=== PATIENT | female | born 1990 | race Caucasian/White ===

== ENCOUNTER 2020-10-30 21:02 | Emergency (ER) | payer MEDICARE, MEDICAID, SELFPAY ==
[2020-10-30 21:16] VITALS: BP 146/109; PULSE 124; RESP 20; TEMP 37.1; O2SAT 94; BMI 34.9
--- NOTE | 2020-10-30 21:45 | ED.PSYCH ---
HPI - Psych General Chief Complaint: ETOH/Substance Use Stated Complaint: DETOX Time Seen by Provider: 10/30/20 21:44 Source: patient Mode of arrival: ambulatory Limitations: no limitations History of Present Illness HPI Narrative: Patient was using cocaine since age 13 with history of anxiety and depression never been to detox comes here for the help. Patient denies any suicidal ideation. Patient did use cocaine just prior to arrival, feels very anxious. Related Data Previous Rx's Medication Instructions Recorded lisinopril 10 1 tab PO DAILY #90 tab 08/27/20 mg-hydrochlorothiazide 12.5 mg tablet fluoxetine 20 mg capsule 20 mg PO DAILY #30 cap 10/15/20 hydroxyzine HCl 10 mg tablet [id number] mg PO BEDTIME PRN #60 tab 10/15/20 Allergies Allergy/AdvReac Type Severity Reaction Status Date / Time No Known Allergies Allergy Verified 09/28/20 07:33 [No Known Allergies*] Review of Systems Review of Systems: Yes all other systems are reviewed and are negative [facility] Past Medical History Medical History HTN (hypertension) Insomnia Left elbow fracture Obesity (BMI 30-39.9) Substance abuse Surgical History History of bilateral breast reduction surgery History of D&C History of tonsillectomy History of tubal ligation S/P excision of neuroma Family History Family History Father Asthma Mother Hypertension Maternal Grandmother Hypertension Asthma Stroke Maternal Grandfather Diabetes Hypertension Stroke Sister In good health Sister Asthma Son In good health Daughter In good health Maternal Aunt Breast cancer Social History Social History Alcohol intake: never Smoking Status: Current every day smoker Use of substances other than those prescribed or required for medical reasons: Yes Substance Use Type: Crack/Cocaine Last Used Substance: Just Prior to Admission Advance Directives: No Advance Directives Information Provided: Yes Physical Exam Vital Signs: Vital Signs: Last Vital Signs Temp 98.8 F 10/30/20 21:16 Pulse 122 H 10/30/20 22:34 Resp 20 10/30/20 22:34 BP 146/109 H 10/30/20 21:16 Pulse Ox 99 10/30/20 22:34 Body Mass Index 34.9 Appearance: Alert. Oriented X3. No acute distress. Anxious Eyes: Pupils equal, round and reactive to light. ENT: Pharynx normal. Neck: Normal inspection. Neck supple. CVS: Normal heart rate and rhythm. Pulses normal. Respiratory: No respiratory distress. Breath sounds normal. Abdomen: Soft and nontender. Bowel sounds are present, no mass palpable, no CVA tenderness Skin: Skin warm and dry. Normal skin color. Normal skin turgor. Extremities: No lower extremity edema. Neuro: Oriented X 3. No motor deficit. No sensory deficit. Course Course Course Narrative: Patient refused to stay longer for any help care team was consulted but patient left without getting any help instructions to call detox places were given to the patient Discharge Plan Discharge Clinical Impression: Cocaine abuse Patient Disposition: Home, Self-Care Instructions: Cocaine Abuse (ED) Additional Instructions: Follow-up with detox as advised Prescriptions: No Action lisinopril-hydrochlorothiazide 10-12.5 mg tablet 1 tab PO DAILY Qty: 90 RF: 1 hydroxyzine HCl 10 mg tablet [id number] mg PO BEDTIME PRN (Reason: for insomnia) Qty: 60 RF: 3 fluoxetine 20 mg capsule 20 mg PO DAILY Qty: 30 RF: 3 Interventions: ED Discharge Assessment Last Done: 10/30/20 22:45 Discharge Date/Time: 10/30/20 22:47
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
[2020-10-30 22:34] VITALS: PULSE 122; RESP 20; O2SAT 99
--- NOTE | 2020-10-30 22:44 | PC.NURSE ---
patient got frustrated waiting for the care team and wanted to leave, patient left before getting her discharge paperwork.
--- NOTE | 2020-10-30 23:55 | MHC.CARE ---
CARE Team goes to ED to meet w/ pt. Per BARBARA Platt, pt has already left.
== END 2020-10-30 22:47 | disposition home or self-care (01) ==
PROVIDERS: Emergency Provider Internal Medicine; PCP Internal Medicine
DX: F14.10 Cocaine abuse, uncomplicated (principal); F41.9 Anxiety disorder, unspecified; I10 Essential (primary) hypertension
CPT/HCPCS: 99283; 99284

== ENCOUNTER 2020-10-31 07:09 | Emergency (ER) | payer MEDICARE, MEDICAID, SELFPAY ==
--- NOTE | 2020-10-31 07:24 | ED_ITS ---
HPI - Psych General Chief Complaint: ETOH/Substance Use Stated Complaint: crisis Time Seen by Provider: 10/31/20 07:16 Source: patient Mode of arrival: ambulatory Limitations: no limitations History of Present Illness HPI Narrative: Patient comes emergency room complaining of feeling suicidal, states that she needs help with her drug use. Patient states she has been using mushrooms and cocaine. Patient was seen here yesterday in the evening, decided to leave, patient went to use drugs and now she is back to the ED with the same complaint. Patient denies HI MD complaint: suicidal ideation, feels depressed, anxiety and substance abuse Related Data Home Medications Medication Instructions Recorded Confirmed hydroxyzine HCl 1 tab PO BEDTIME PRN 10/31/20 10/31/20 Previous Rx's Medication Instructions Recorded lisinopril 10 1 tab PO DAILY #90 tab 08/27/20 mg-hydrochlorothiazide 12.5 mg tablet fluoxetine 20 mg capsule 20 mg PO DAILY #30 cap 10/15/20 Allergies Allergy/AdvReac Type Severity Reaction Status Date / Time No Known Allergies Allergy Verified 09/28/20 07:33 [No Known Allergies*] Review of Systems Review of Systems: Constitutional : No Weight loss, No Fever, No Chills, No Night Sweats, No Fatigue, No Malaise ENT/Mouth : No Hearing loss, No Ear Pain, No Nasal Congestion, No Sinus Pain, No Hoarseness, No sore throat, No Rhinorrhea, No Swallowing Difficulty Eyes: No Eye Pain, No Swelling, No Redness, No Foreign Body, No Discharge, No Vision Changes Cardiovascular : No Chest Pain, No SOB, No Dyspnea on Exertion, No Orthopnea, No Edema, No Palpitations Respiratory : No Cough, No Sputum, No Wheezing, No Smoke Exposure, No Dyspnea Gastrointestinal : No Nausea, No Vomiting, No Diarrhea, No Constipation, No abdominal Pain, No Hematochezia, No Melena Genitourinary : no irregular bleeding, No Dysuria, No Urinary Frequency, No Hematuria, No Urinary Incontinence, No Urgency, No Flank Pain, No Urinary Flow Changes, No Hesitancy Musculoskeletal : No joint pain, No Myalgias, No Joint Swelling Skin : No Skin Lesions, No rash Neuro : No Weakness, No Numbness, No Paresthesias, No Loss of Consciousness, No Dizziness, No Headache Psych : Complaining of anxiety, depression, suicidal thoughts, Heme/Lymph: No Bruising, No Bleeding,No Lymphadenopathy Endocrine : No Polyuria, No Polydipsia, No Temperature Intolerance [facility] Past Medical History Medical History HTN (hypertension) Insomnia Left elbow fracture Obesity (BMI 30-39.9) Substance abuse Surgical History History of bilateral breast reduction surgery History of D&C History of tonsillectomy History of tubal ligation S/P excision of neuroma Family History Family History Father Asthma Mother Hypertension Maternal Grandmother Hypertension Asthma Stroke Maternal Grandfather Diabetes Hypertension Stroke Sister In good health Sister Asthma Son In good health Daughter In good health Maternal Aunt Breast cancer Social History Social History Alcohol intake: unknown Smoking Status: Current every day smoker Smoked in Last 30 Days: Yes Use of substances other than those prescribed or required for medical reasons: Yes Substance Use Type: Crack/Cocaine and Hallucinogens Last Used Substance: Hours (ago) Advance Directives: No Advance Directives Information Provided: No Physical Exam Vital Signs: Vital Signs: Last Vital Signs Temp 97.0 F 10/31/20 07:52 Pulse 104 H 10/31/20 07:52 Resp 18 10/31/20 07:52 BP 153/99 H 10/31/20 07:52 Pulse Ox 97 10/31/20 07:52 Appearance: Alert. Oriented X3. No acute distress. Eyes: Pupils equal, round and reactive to light. ENT: Pharynx normal. Neck: Normal inspection. Neck supple. No lymph nodes noted. No crepitus CVS: Normal heart rate and rhythm. Pulses normal. Normal S1 and S2 Respiratory: No respiratory distress. Breath sounds normal. No Wheezing. No rales Abdomen: Soft and nontender. No rigidity. No distention. good BS x4 Skin: Skin warm and dry. Normal skin color. Normal skin turgor. Extremities: No lower extremity edema. No lower extremity edema. No Lacerations. No Rash Neuro: Oriented X 3. No motor deficit. No sensory deficit. Moving all extermities. No slurred speech. Psych: Unwilling to talk much, not giving significant information, states that she was to be locked up, seems anxious Course Course Course Narrative: [facility]. Patient is now a bed search and is Section 12 Discharge Plan Discharge Clinical Impression: Substance abuse, Suicidal ideation Prescriptions: No Action lisinopril-hydrochlorothiazide 10-12.5 mg tablet 1 tab PO DAILY Qty: 90 RF: 1 fluoxetine 20 mg capsule 20 mg PO DAILY Qty: 30 RF: 3 hydroxyzine HCl 10 mg tablet 1 tab PO BEDTIME PRN (Reason: insomnia) RF: 0
--- NOTE | 2020-10-31 07:45 | PC.NURSE ---
Pt cooperative with manager change. PT reports that she used mushrooms and cocaine a few hours ago. PT states she is depressed and wants to kill herself, denies plan at this time.
[2020-10-31 07:52] VITALS: BP 153/99; PULSE 104; RESP 18; TEMP 36.1; O2SAT 97
--- NOTE | 2020-10-31 10:26 | PC.NURSE ---
[facility] faxed and called, confirmed with tiffani
--- NOTE | 2020-10-31 10:58 | PC.NURSE ---
Pt sleeping at current. No signs of distress. Respirations even and unlabored. Waiting to be seen by [facility].
--- NOTE | 2020-10-31 12:21 | PC.NURSE ---
Pt reports increasing anxiety, tremulous. Drinks about a pint of Dayna daily. Last drank before she came in. CIWA score is a 12. Dr. Taylor notified.
[2020-10-31 12:23] VITALS: BP 118/59; PULSE 84; RESP 18; TEMP 36.4; O2SAT 100
[2020-10-31] MEDS: LORazepam 1 MG TABLET 2 MG PO ×3 (12:26→19:59)
[2020-10-31 12:30] VITALS: BMI 34.9
[2020-10-31 12:49] LABS: Glucose Urine UA NEG (NEG); Leukocyte Esterase Urine NEG (NEG); Nitrite Urine NEG (NEG); Specific Gravity - Urine >= 1.030 (1.005-1.025); Urine Blood 3+ (NEG); Urine Ketones 5 MG/DL (NEG); Urine Protein 1+ MG/DL (NEG-TRACE)
[2020-10-31 12:52] LABS: MANUAL DIFF FLAG NO
[2020-10-31 12:53] LABS: Basophils Absolute Auto 0.1 X10*3/uL (0.0-0.2); Basophils Percent Auto 0.4 % (0-2); Eosinophils Absolute Auto 0.3 X10*3/uL (0.0-0.4); Eosinophils Percent Auto 1.9 % (0-4); Hematocrit 36.9 % (37-47); Hemoglobin 12.3 g/dl (12.0-16.0); Imm Gran Abs Auto 0.04 X10*3/uL (0.00-0.03); Imm Gran Pct Auto 0.3 % (0.0-0.4); Lymphocytes Absolute Auto 3.1 X10*3/uL (1.2-4.9); Lymphocytes Percent Auto 22.8 % (20-40); Mean Corpuscular HGB Conc 33.3 g/dl (31.0-35.0); Mean Corpuscular Hemoglobin 30.1 pg (27.0-33.0); Mean Corpuscular Volume 90.4 fL (80-98); Mean Platelet Volume 9.2 fL (9.4-12.3); Monocytes Absolute Auto 0.6 X10*3/uL (0.1-1.2); Monocytes Percent Auto 4.4 % (2-11); Neutrophils Absolute Auto 9.6 X10*3/uL (2.0-8.3); Neutrophils Percent Auto 70.2 % (45-73); Platelet Count 425 X10*3/uL (160-400); Red Blood Count 4.08 X10*6/uL (4.20-5.50); White Blood Count 13.6 X10*3/uL (4.8-10.8)
[2020-10-31 12:58] LABS: Appearance Urine HAZY; Color Urine DARK YELLOW
--- NOTE | 2020-10-31 13:00 | PC.NURSE ---
Pt in the shower at current. No longer tremulous. Calm and cooperative.
[2020-10-31 13:16] LABS: Bacteria Urine TRACE /LPF; Mucus Urine 3+ /LPF; Squamous Epithelial Cell Urine 2+ /LPF
[2020-10-31 13:31] LABS: Amphetamine Screen Urine Not Detected (Not Detect); Barbiturates, Urine Not Detected (Not Detect); Benzodiazepines Screen Urine POSITIVE (Not Detect); Cannabinoid Screen Urine Not Detected (Not Detect); Cocaine Screen Urine POSITIVE (Not Detect); Opiate Screen Urine Not Detected (Not Detect); Phencyclidine Screen Urine Not Detected (Not Detect)
[2020-10-31 13:36] VITALS: BP 149/90; PULSE 105; RESP 18
[2020-10-31 13:39] LABS: Ethanol < 10 mg/dL
[2020-10-31 13:43] LABS: Alanine Aminotransferase 42 U/L (0-31); Albumin Level 4.6 g/dL (3.5-5.0); Alkaline Phosphatase 112 U/L (39-117); Anion Gap 16 (12-20); Aspartate Amino Transferase 38 U/L (5-31); Bilirubin Direct 0.3 mg/dL (0.0-0.5); Bilirubin Total 0.7 mg/dL (0.0-1.0); Blood Urea Nitrogen 10 mg/dL (9-16); Calcium 8.7 mg/dL (8.4-10.2); Carbon Dioxide 25 mmol/L (22-29); Chloride 106 mmol/L (96-108); Creatinine Clr Calc Pharmacy 122.4; Estimated Glomerular Filt Rate > 60; Glucose Random 84 mg/dL (60-115); Potassium 3.8 mmol/L (3.3-5.1); Sodium 143 mmol/L (135-145); Total Protein 7.6 g/dL (6.5-8.0)
--- NOTE | 2020-10-31 15:08 | PC.NURSE ---
Pt asleep at current. No signs of distress. Respirations even and unlabored. Continues to be a section 12 bed search.
--- NOTE | 2020-10-31 17:00 | PC.NURSE ---
Pt asleep at current. No signs of distress. Respirations even and unlabored.
[2020-10-31 17:05] VITALS: BP 125/89; PULSE 89; RESP 18; O2SAT 100
--- NOTE | 2020-10-31 18:44 | PC.NURSE ---
Pt on the phone at current. Calm, cooperative. No complaints at this time.
[2020-10-31 19:49] VITALS: BP 149/92; PULSE 89; RESP 18; O2SAT 98
--- NOTE | 2020-10-31 23:25 | PC.NURSE ---
pt sleeping rr even and reg no s/s of distress.
[2020-11-01 06:00] VITALS: BP 122/89; PULSE 80; RESP 18; TEMP 36.8; O2SAT 97
--- NOTE | 2020-11-01 07:03 | PC.NURSE ---
Report received. PT currently resting, calm and cooperative. Pt is inpatient bedsearch.
[2020-11-01] MEDS: LORazepam 1 MG TABLET PO (08:54)
[2020-11-01] MEDS: FLUoxetine HCl 20 MG CAPSULE PO (08:54)
[2020-11-01 09:17] VITALS: BP 149/96; PULSE 110; RESP 18; TEMP 36.8; O2SAT 97
[2020-11-01] MEDS: LORazepam 1 MG TABLET 2 MG PO ×2 (09:44→14:11)
[2020-11-01 14:17] LABS: COVID-19 Test Negative (Negative)
[2020-11-01] MEDS: QUEtiapine Fumarate 50 MG TABLET PO (15:44)
[2020-11-01 18:33] VITALS: RESP 16
[2020-11-01] MEDS: hydrOXYzine HCL 50 MG TABLET PO (19:34)
--- NOTE | 2020-11-01 23:30 | PC.NURSE ---
section 12 found to be invalid, no date/time/signature. 12 was filled out by [facility] clinician yesterday. this policy writer called and confirmed section 12 status with [facility] supervisor mill Hesham. new section 12 signed and dated for 11/01/20 at 2320 by Karolyn AGUSTIN.
[2020-11-02] VITALS (9 sets, daily range): BP systolic 142–168; BP diastolic 69–96; PULSE 69–83; RESP 15–20; TEMP 36.3–37.1; O2SAT 95–99
--- NOTE | 2020-11-02 06:43 | PC.NURSE ---
pt had no incidents through out night. monitored with no acute change.
[2020-11-02] MEDS: FLUoxetine HCl 20 MG CAPSULE PO (08:53)
[2020-11-02] MEDS: LORazepam 1 MG TABLET 2 MG PO ×3 (08:56→22:40)
--- NOTE | 2020-11-02 09:47 | PC.NURSE ---
Pt increasingly anxious, demanding to leave. Pt irritable about loudness in the pod. Pt denies SI. Provider aware, pt medicated as ordered.
[2020-11-02] MEDS: QUEtiapine Fumarate 25 MG TABLET PO (10:51)
--- NOTE | 2020-11-02 11:37 | PC.NURSE ---
Pt resting, resp unlabored.
--- NOTE | 2020-11-02 13:55 | PC.NURSE ---
Pt awake, continues to be very angry that she is in the pod, requesting to be evaluated by [facility]. [facility] called in AM, state that they will not be seeing pt until after bed search is exhausted. Pt anxious, pacing, states that Ativan was not helpful. Provider aware, seroquel given- pt rested for some time. When she awoke, pt continued to be anxious about placement. [facility] called, stated she has been accepted to [facility]. Pt notified, is very pleased, like [facility]. Pt educated re: inpatient process.
--- NOTE | 2020-11-02 16:10 | PC.NURSE ---
Pt resting, resp unlabored.
--- NOTE | 2020-11-02 17:22 | PC.NURSE ---
[facility] called- state they will accept pt at 2300 and will call for report.
--- NOTE | 2020-11-02 17:45 | PC.NURSE ---
PATIENT REFUSED VITALS ,NURSE AWARE.
--- NOTE | 2020-11-02 18:02 | PC.NURSE ---
Pt irritable, declined vital signs, pt angry that [facility] will not be accepting until 2300. Attempted to completed CIWA but pt uncooperative. Pt medicated for increased anxiety, irritability.
[2020-11-02] MEDS: hydrOXYzine HCL 10 MG TABLET PO (19:38)
--- NOTE | 2020-11-02 20:53 | PC.NURSE ---
Patient seems restless, pacing, on phone few times, repeatedly asking when is she is leaving, patient showered, PRN hydroxyzine administered/compliant. no distress reported, [facility] called, wants report at 2230 because they have staffing issues, patient is scheduled to leave at 2200 but was rescheduled at 2300 per [facility]. will continue to monitor.
--- NOTE | 2020-11-02 22:42 | PC.NURSE ---
[facility] called, spoke with Tawanna, completed the RN to RN report, patient reported anxiety and her mood aggravating, provider notified/ordered Ativan 2 mg/administered as ordered, will continue to monitor.
== END 2020-11-02 23:11 ==
PROVIDERS: Physician Assistant; Emergency Provider Emergency Medicine; PCP Internal Medicine
DX: F19.10 Other psychoactive substance abuse, uncomplicated (principal); F14.10 Cocaine abuse, uncomplicated; R45.851 Suicidal ideations; Z20.822 Contact with and (suspected) exposure to COVID-19; R00.0 Tachycardia, unspecified; F32.9 Major depressive disorder, single episode, unspecified; F41.9 Anxiety disorder, unspecified; I10 Essential (primary) hypertension; F17.200 Nicotine dependence, unspecified, uncomplicated; Z79.899 Other long term (current) drug therapy
CPT/HCPCS: 36415; 80048; 80076; 80307; 80320; 81001; 85025; 87635; 99285

== ENCOUNTER 2021-04-06 13:21 | Outpatient (REF) | payer MEDICARE, MEDICAID, SELFPAY ==
[2021-04-06 14:10] LABS: MANUAL DIFF FLAG NO
[2021-04-06 14:23] LABS: Basophils Percent Auto 0.3 % (0-2); Eosinophils Absolute Auto 0.4 X10*3/uL (0.0-0.4); Eosinophils Percent Auto 3.6 % (0-4); Hemoglobin 12.1 g/dl (12.0-16.0); Imm Gran Abs Auto 0.05 X10*3/uL (0.00-0.03); Imm Gran Pct Auto 0.4 % (0.0-0.4); Lymphocytes Absolute Auto 2.5 X10*3/uL (1.2-4.9); Lymphocytes Percent Auto 20.6 % (20-40); Mean Corpuscular HGB Conc 32.7 g/dl (31.0-35.0); Mean Corpuscular Hemoglobin 29.9 pg (27.0-33.0); Mean Corpuscular Volume 91.4 fL (80-98); Monocytes Absolute Auto 0.7 X10*3/uL (0.1-1.2); Monocytes Percent Auto 5.5 % (2-11); Neutrophils Absolute Auto 8.5 X10*3/uL (2.0-8.3); Neutrophils Percent Auto 69.6 % (45-73); Platelet Count 355 X10*3/uL (160-400); Red Blood Count 4.05 X10*6/uL (4.20-5.50); Red Cell Distribution Width 14.1 % (11.0-16.0); White Blood Count 12.2 X10*3/uL (4.8-10.8)
[2021-04-06 14:52] LABS: Alanine Aminotransferase 45 U/L (0-31); Albumin Level 4.4 g/dL (3.5-5.0); Alkaline Phosphatase 89 U/L (39-117); Anion Gap 13 (12-20); Aspartate Amino Transferase 34 U/L (5-31); Bilirubin Total 0.4 mg/dL (0.0-1.0); Blood Urea Nitrogen 11 mg/dL (9-16); Calcium 9.4 mg/dL (8.4-10.2); Carbon Dioxide 25 mmol/L (22-29); Chloride 106 mmol/L (96-108); Cholesterol 212 mg/dL; Estimated Glomerular Filt Rate > 60; Glucose Random 99 mg/dL (60-115); HDL Cholesterol 36 mg/dL; LDL Cholesterol Calculated 141 mg/dl; Potassium 4.5 mmol/L (3.3-5.1); Sodium 139 mmol/L (135-145); Total Protein 7.1 g/dL (6.5-8.0); Triglycerides 178 mg/dL
[2021-04-06 15:14] LABS: Thyroid Stimulating Hormone 2.37 uIU/mL (0.32-4.0)
== END 2021-04-06 13:22 | disposition home or self-care (01) ==
LOC: HO.LAB 13:21
PROVIDERS: PCP Internal Medicine; Visit Provider Internal Medicine
DX: I10 Essential (primary) hypertension (principal); E78.00 Pure hypercholesterolemia, unspecified; E78.1 Pure hyperglyceridemia
CPT/HCPCS: 36415; 80053; 80061; 84443; 85025

== ENCOUNTER → 2021-06-24 08:38 | Outpatient (BNVA) | payer MEDICARE, MEDICAID, SELFPAY | PROVIDERS: PCP Physician Assistant; Referring Provider Physician Assistant; Visit Provider Physician Assistant Surgical ==

== ENCOUNTER → 2021-06-30 08:20 | Outpatient (BNVA) | payer MEDICARE, MEDICAID, SELFPAY | PROVIDERS: PCP Physician Assistant; Visit Provider Surgery | DX: E66.9 Obesity, unspecified (principal); E78.1 Pure hyperglyceridemia; F33.0 Major depressive disorder, recurrent, mild; R74.8 Abnormal levels of other serum enzymes; I10 Essential (primary) hypertension; Z68.38 Body mass index [BMI] 38.0-38.9, adult | CPT/HCPCS: Q3014 ==

== ENCOUNTER 2021-07-06 08:45 | Outpatient (REF) | payer MEDICARE, MEDICAID, SELFPAY ==
--- NOTE | ~2021-07-06 | XR_ITS ---
EXAMINATION: XR CHEST CLINICAL INFORMATION: Obesity COMPARISON: Previous chest x-ray from 2007 TECHNIQUE: 2 views of the chest were obtained. FINDINGS: No significant abnormality is noted involving the heart, lungs, mediastinum, bony thorax or soft tissues. XR/XR chest 2V IMPRESSION: Unremarkable examination.
--- NOTE | 2021-07-06 08:51 | ECG_ITS ---
Test Reason : obesity Blood Pressure : / mmHG Vent. Rate : 075 BPM Atrial Rate : 075 BPM P-R Int : 128 ms QRS Dur : 094 ms QT Int : 400 ms P-R-T Axes : 017 009 014 degrees QTc Int : 446 ms Normal sinus rhythm Minimal voltage criteria for LVH, may be normal variant ( R in aVL ) RSR' or QR pattern in V1 suggests right ventricular conduction delay Otherwise normal ECG No previous ECGs available Referred By: Parish Lerma Electronically Signed By:HANNAH RUIZ MD
[2021-07-06 09:15] LABS: MANUAL DIFF FLAG NO
[2021-07-06 09:45] LABS: Estimated Average Glucose 111 mg/dL; Hemoglobin A1c % 5.5 %
[2021-07-06 09:52] LABS: Basophils Absolute Auto 0.1 X10*3/uL (0.0-0.2); Basophils Percent Auto 0.4 % (0-2); Eosinophils Absolute Auto 0.3 X10*3/uL (0.0-0.4); Eosinophils Percent Auto 2.4 % (0-4); Hematocrit 37.6 % (37.0-47.0); Hemoglobin 12.7 g/dl (12.0-16.0); Imm Gran Abs Auto 0.04 X10*3/uL (0.00-0.03); Imm Gran Pct Auto 0.3 % (0.0-0.4); Lymphocytes Percent Auto 17.5 % (20-40); Mean Corpuscular HGB Conc 33.8 g/dl (31.0-35.0); Mean Corpuscular Hemoglobin 30.8 pg (27.0-33.0); Mean Platelet Volume 9.9 fL (9.4-12.3); Monocytes Absolute Auto 0.7 X10*3/uL (0.1-1.2); Neutrophils Absolute Auto 8.5 x10*3/uL (2.0-8.3); Neutrophils Percent Auto 73.4 % (45-73); Platelet Count 343 X10*3/uL (160-400); Red Blood Count 4.13 X10*6/uL (4.20-5.50); Red Cell Distribution Width 13.7 % (11.0-16.0); White Blood Count 11.6 X10*3/uL (4.8-10.8)
[2021-07-06 10:03] LABS: Alanine Aminotransferase 38 U/L (0-31); Albumin Level 4.4 g/dL (3.5-5.0); Alkaline Phosphatase 92 U/L (39-117); Anion Gap 11 (12-20); Aspartate Amino Transferase 28 U/L (5-31); Bilirubin Total 0.6 mg/dL (0.0-1.0); Blood Urea Nitrogen 10 mg/dL (9-16); C Reactive Protein 1.39 mg/dL (< or = 0.50); Calcium 9.4 mg/dL (8.4-10.2); Carbon Dioxide 25 mmol/L (22-29); Chloride 105 mmol/L (96-108); Cholesterol 211 mg/dL; Estimated Glomerular Filt Rate > 60; Glucose Random 89 mg/dL (60-115); HDL Cholesterol 38 mg/dL; Iron 75 mcg/dL (30-160); LDL Cholesterol Calculated 146 mg/dl; Percent Iron Saturation 20 % (15-50); Potassium 4.4 mmol/L (3.3-5.1); Sodium 137 mmol/L (135-145); Total Iron Binding Capacity 371 mcg/dL (228-428); Total Protein 7.2 g/dL (6.5-8.0); Triglycerides 136 mg/dL; Unsaturated Iron Binding 296 ug/dL
[2021-07-06 10:30] LABS: Insulin 47 uU/mL (2-29)
[2021-07-06 10:36] LABS: Folate 15.8 ng/mL (> or = 4.0); Vitamin B12 641 pg/mL (200-900)
[2021-07-06 10:37] LABS: Ferritin 133 ng/mL (10-122); TSH reflex Free T4 2.25 uIU/mL (0.32-4.0); Vitamin D 25-OH Total 16.4 ng/mL (>30)
[2021-07-07 16:41] LABS: Calcium (PTHI) 9.5 mg/dL (8.6-10.2); PTHI 57 pg/mL (14-64)
[2021-07-11 11:41] LABS: Vitamin B1 9 nmol/L (8-30)
[2021-07-11 16:57] LABS: Vitamin A 48 mcg/dL (38-98)
[2021-07-13 14:57] LABS: Zinc 71 mcg/dL (60-130)
== END 2021-07-06 08:46 | disposition home or self-care (01) ==
LOC: HO.LAB 08:45
PROVIDERS: Visit Provider Surgery
DX: E66.9 Obesity, unspecified (principal); E78.1 Pure hyperglyceridemia; F33.0 Major depressive disorder, recurrent, mild; I10 Essential (primary) hypertension; R74.8 Abnormal levels of other serum enzymes; Z68.38 Body mass index [BMI] 38.0-38.9, adult
CPT/HCPCS: 36415; 71046; 80053; 80061; 82306; 82607; 82728; 82746; 83036; 83525; 83540; 83970; 84425; 84443; 84590; 84630; 85025; 86140; 93005

== ENCOUNTER → 2021-07-09 08:07 | Outpatient (BNVA) | payer MEDICARE, MEDICAID, SELFPAY | PROVIDERS: PCP Physician Assistant; Visit Provider Dietitian, Registered | DX: E66.9 Obesity, unspecified (principal) | CPT/HCPCS: 97802 ==

== ENCOUNTER → 2021-07-26 08:15 | Outpatient (BNVA) | payer MEDICARE, MEDICAID, SELFPAY | PROVIDERS: PCP Physician Assistant; Visit Provider Surgery ==

== ENCOUNTER → 2021-09-03 07:24 | Outpatient (BNVA) | payer MEDICARE, MEDICAID, SELFPAY | PROVIDERS: PCP Physician Assistant; Visit Provider Surgery ==

== ENCOUNTER 2021-11-29 13:44 | Outpatient (REF) | payer MEDICARE, MEDICAID, SELFPAY ==
--- NOTE | ~2021-11-29 | XR_ITS ---
EXAMINATION: XR ABDOMEN COMPLETE CLINICAL INDICATION: Abdominal distention COMPARISON: None TECHNIQUE: 2 views of the abdomen. FINDINGS: There is a nonobstructive bowel gas pattern. No dilated loops of bowel. The lung bases are clear. Scattered gas and stool in the colon. No suspicious calcification. XR/XR abdomen 3V IMPRESSION: Normal bowel gas pattern.
[2021-11-29 14:25] LABS: Hematocrit 33.9 % (37.0-47.0); Hemoglobin 11.4 g/dl (12.0-16.0); Mean Corpuscular HGB Conc 33.6 g/dl (31.0-35.0); Mean Corpuscular Hemoglobin 30.4 pg (27.0-33.0); Mean Corpuscular Volume 90.4 fL (80.0-98.0); Mean Platelet Volume 10.5 fL (9.4-12.3); Platelet Count 170 X10*3/uL (160-400); Red Blood Count 3.75 X10*6/uL (4.20-5.50); Red Cell Distribution Width 13.6 % (11.0-16.0); White Blood Count 4.9 X10*3/uL (4.8-10.8)
[2021-11-29 14:47] LABS: Alanine Aminotransferase 59 U/L (0-31); Albumin Level 4.1 g/dL (3.5-5.0); Alkaline Phosphatase 75 U/L (39-117); Anion Gap 10 (12-20); Aspartate Amino Transferase 50 U/L (5-31); Bilirubin Direct 0.2 mg/dL (0.0-0.5); Bilirubin Total 0.6 mg/dL (0.0-1.0); Blood Urea Nitrogen 12 mg/dL (9-16); C Reactive Protein 2.71 mg/dL (< or = 0.50); Calcium 9.5 mg/dL (8.4-10.2); Carbon Dioxide 27 mmol/L (22-29); Chloride 107 mmol/L (96-108); Estimated Glomerular Filt Rate > 60; Glucose Random 93 mg/dL (60-115); Potassium 4.2 mmol/L (3.3-5.1); Sodium 140 mmol/L (135-145)
[2021-11-29 15:14] LABS: Erythrocyte Sedimentation Rate 16 MM/HR (0-20)
== END 2021-11-29 13:45 | disposition home or self-care (01) ==
LOC: HO.LAB 13:44
PROVIDERS: PCP Physician Assistant; Visit Provider Physician Assistant
DX: R14.0 Abdominal distension (gaseous) (principal); K62.5 Hemorrhage of anus and rectum
CPT/HCPCS: 36415; 74021; 80048; 80076; 85027; 85652; 86140

== ENCOUNTER 2021-12-07 15:07 | Inpatient (IN) | payer MEDICARE, MEDICAID, SELFPAY ==
--- NOTE | ~2021-12-07 | XR_ITS ---
EXAMINATION: XR CHEST CLINICAL INFORMATION: Chest pain COMPARISON: Previous chest x-ray June 2021 TECHNIQUE: Frontal view of the chest was obtained. FINDINGS: No significant abnormality is noted involving the heart, lungs, mediastinum, bony thorax or soft tissues. XR/XR chest 1V IMPRESSION: Unremarkable examination.
--- NOTE | ~2021-12-07 | MR_ITS ---
EXAMINATION: MR ABDOMEN WITHOUT AND WITH CONTRAST CLINICAL INFORMATION: Nonspecific 1.8 cm round lesion subcapsular segment 5 liver noted on CTA chest (negative for PE). COMPARISON: CTA chest 12/07/2021, chest radiograph 12/07/2021 TECHNIQUE: MR abdomen was performed without and with use of 10 mL intravenous Gadavist gadolinium contrast. Postcontrast images are performed in multiphase dynamic sequences. Imaging was performed in 3 planes. FINDINGS: LUNG BASES: The visualized lung bases are unremarkable. LIVER, GALLBLADDER, AND BILIARY TREE: The liver is enlarged measuring 25 cm in length. The liver surface is smooth. There is diffuse hepatic steatosis with decreased hepatic parenchymal signal on out of phase imaging. There is no intrahepatic ductal dilatation. There is a solitary subcapsular lesion lateral segment 5 measuring approximately 1.6 cm and corresponding to finding on CTA chest. The lesion is isointense with liver on T1 and isointense with liver on T2. There is no intracellular fat, no blood products, and no central scar. Following contrast, the solitary lesion shows relatively uniform enhancement with persistence on portal venous phase and delayed phase, greater than hepatic parenchyma. No central scar. No washout. There are no other hepatic parenchymal lesions. The hepatic veins and portal veins enhance normally. The gallbladder appears normal. There is no gallbladder dilatation. No stone or sludge or pericholecystic inflammatory changes. Common duct unremarkable. PANCREAS: Unremarkable. SPLEEN: The spleen is enlarged measuring 15.3 cm in length and 15 cm in sagittal plane. There are 3 wedge-shaped nonenhancing infarcts in the spleen, 2 upper zone, the larger around 3 cm and 1 in lower spleen around 2.5 cm. The remainder of the spleen enhances normally. There is no perisplenic inflammatory changes. In retrospect, splenic infarcts are also suggested on the CTA chest of similar size. The splenic artery and splenic vein are unremarkable, showing normal enhancement. ADRENAL GLANDS: Normal. KIDNEYS AND URETERS: The kidneys are normal in size, shape, and enhance symmetrically. No hydronephrosis. No perinephric stranding. GASTROINTESTINAL TRACT: No bowel obstruction. No ascites or fluid collection. ABDOMINAL WALL: No significant hernia is appreciated. LYMPH NODES: No lymphadenopathy. VASCULAR: Unremarkable. OSSEOUS STRUCTURES: Marrow signal normal. Results called and discussed with Dr. Hennessy at 1643 hours. MR/MR abdomen wo/w con IMPRESSION: -Hepatomegaly secondary to hepatic steatosis, 25 cm length. -Solitary hepatic lesion just under 2 cm corresponding to CTA exam, suspect hepatic adenoma. FNH less likely in the absence of central scar and flash filling hemangioma less likely given the T2 isointense signal. This could be followed with MR in one year. -Splenomegaly 15.3 cm with 3 splenic infarcts of indeterminate age. No perisplenic inflammatory changes or ascites. Normal enhancement splenic artery and vein.
--- NOTE | ~2021-12-07 | CT_ITS ---
EXAMINATION: CTA CHEST PE STUDY CLINICAL INFORMATION: chest pain and elevated D-dimer COMPARISON: No pertinent prior studies are available for comparison. TECHNIQUE: Prior to contrast administration, noncontrast localization images were obtained. After the administration of 71 mL of Omnipaque nonionic IV contrast, contiguous thin slice helical images were obtained through the thorax. Reformatted MIP images in the coronal and sagittal planes were obtained at the acquisition workstation. This CT examination was performed using dose optimization techniques as appropriate, variously including the following: *Automated exposure control *Adjustment of mA and/or kV according to patient size (this includes techniques or standardized protocols for targeted exams where dose is matched to indication/reason for exam; i.e. extremities or head) *Use of iterative reconstruction technique DLP: 604 mGy-cm. FINDINGS: The bolus timing on this study was acceptable for visualization of the pulmonary arterial tree. There are no intraluminal pulmonary arterial filling defects present to suggest pulmonary embolism. Minimal dependent bibasilar atelectasis but no focal airspace disease otherwise. No abnormal pulmonary nodules or masses are appreciated. No significant hilar or mediastinal adenopathy. There is no evidence of pleural effusion or pneumothorax. The heart is normal in size. No evidence of ventricular septal bowing or right heart strain. Great vessels are normal. Otherwise the mediastinum is unremarkable. There is no pericardial effusion or pericardial thickening. Limited evaluation of the upper abdominal viscera demonstrates diffuse fatty infiltration the liver there is a 1.8 cm nonspecific lesion in the lateral right lobe the liver. This is of uncertain significance and difficult to define further on this study. This is likely conspicuous because of background fatty infiltration otherwise.. CT/CT angio chest PE protocol IMPRESSION: No evidence for pulmonary emboli. No focal airspace disease. Diffuse fatty infiltration of the liver is noted. There is a subtle 1.8 cm round lesion in the lateral segment 5 the liver likely able to be delineated today due to the background fatty infiltration of the liver otherwise. This is more rounded than would be expected just for focal fatty infiltration. Underlying lesion cannot be excluded. Hemangioma, focal nodular hyperplasia, or hepatic adenoma would be possible in a patient of this age. MRI of the liver in the nonemergent setting could be obtained to define this further. VTE: Negative
[2021-12-07 15:22] VITALS: BP 98/71; PULSE 110; O2SAT 98
[2021-12-07 15:24] VITALS: BP 138/85; PULSE 109; RESP 20; TEMP 37.4; O2SAT 93; BMI 40.8
--- NOTE | 2021-12-07 15:58 | ECG_ITS ---
Test Reason : Chest pain Blood Pressure : / mmHG Vent. Rate : 107 BPM Atrial Rate : 107 BPM P-R Int : 136 ms QRS Dur : 090 ms QT Int : 332 ms P-R-T Axes : 049 028 014 degrees QTc Int : 443 ms Sinus tachycardia Otherwise normal ECG When compared with ECG of 06-JUL-2021 08:59, No significant change was found Referred By: Bereket Terrell Electronically Signed By:Antonio Black
--- NOTE | 2021-12-07 16:00 | ED.CHESTPAIN ---
HPI - Chest Pain General Chief Complaint: Chest Pain Stated Complaint: chest pain Time Seen by Provider: 12/07/21 15:57 Source: patient and EMS Mode of arrival: EMS Limitations: no limitations History of Present Illness HPI narrative: 31 years old female came in for evaluation of chest pain. chest pain started 2 hours ago before arrival to the emergency department patient was driving her car when she had a sudden onset of left-sided chest pain lasted for less than a minute described the pain as pressure on the left side, with no radiation of the pain in a patient felt right upper extremities numbness with the chest pain, pain resolved after 1 minute, patient pulled over and called 911 to come to the hospital, on arrival to the ED patient has no chest pain just feeling generalized weakness and fatigue. Patient had a history of cocaine abuse patient has been sober for a year. patient admitted that she is currently drinking alcohol. Patient declined any neurological symptoms or deficit in particular no headache, dizziness, weakness, numbness, or blurry vision. Related Data Home Medications Medication Instructions Recorded Confirmed aripiprazole 10 mg tablet 1 tab PO DAILY 12/07/21 12/07/21 buspirone 7.5 mg tablet 1 tab PO TID 12/07/21 12/07/21 cholecalciferol (vitamin D3) 125 1 tab PO DAILY 12/07/21 12/07/21 mcg (5,000 unit) tablet (Vitamin D3) mirtazapine 7.5 mg tablet 1 tab PO BEDTIME 12/07/21 12/07/21 Previous Rx's Medication Instructions Recorded fluticasone propionate 50 1 spray INTRANASAL BID #16 g 09/23/21 mcg/actuation nasal spray,suspension (Flonase Allergy Relief) Allergies Allergy/AdvReac Type Severity Reaction Status Date / Time No Known Allergies Allergy Verified 09/23/21 14:28 [No Known Allergies*] Review of Systems Review of Systems: All other systems are reviewed and are negative Constitutional: Reports as per HPI and Reports no additional constitutional complaints Eyes: Reports as per HPI and Reports no additional eye complaints Reports system reviewed and no additional complaints, except as documented Cardiovascular: Reports as per HPI and Reports no additional cardiovascular complaints Respiratory: Reports as per HPI and Reports no additional respiratory complaints Gastrointestinal: Reports as per HPI and Reports no additional gastrointestinal complaints Genitourinary: Reports no additional female genitourinary complaints Musculoskeletal: Reports no additional musculoskeletal complaints Skin/Breast: Reports system reviewed and no additional complaints, except as docu Psychiatric: Reports no additional psychiatric complaints Endocrine: Reports no additional endocrine complaints Hematologic/Lymphatic: Reports no additional hematologic/lymphatic complaints Allergic/Immunologic: Reports no additional allergic/immunologic complaints Reports system reviewed and no additional complaints, except as documented and Reports Abnormal speech present FOR[facility] Past Medical History Medical History HTN (hypertension) Insomnia Left elbow fracture Obesity (BMI 30-39.9) Substance abuse Surgical History History of bilateral breast reduction surgery History of D&C History of tonsillectomy History of tubal ligation S/P excision of neuroma Family History Family History Father Asthma Mother Hypertension Maternal Grandmother Hypertension Asthma Stroke Maternal Grandfather Diabetes Hypertension Stroke Sister In good health Sister Asthma Son In good health Daughter In good health Maternal Aunt Breast cancer Social History Social History Housing: Apartment Alcohol intake: never Patient Tobacco Use Status: Former Tobacco user Advance Directives: No Advance Directives Information Provided: No Current occupational status: unemployed Physical Exam Vital Signs: Vital Signs: Last Vital Signs Temp 99.3 F 12/07/21 15:24 Pulse 109 H 12/07/21 15:24 Resp 20 12/07/21 15:24 BP 138/85 12/07/21 15:24 Pulse Ox 93 12/07/21 15:24 BMI result Body Mass Index 40.8 vital signs have been reviewed as appeared to be correct. Blood pressure normal. Heart rate elevated. Respiration rate normal. Temperature normal. Oxygen saturation normal. Appearance: Alert. Oriented X3. No acute distress. Head: Normal external exam. Normocephalic. Atraumatic. No Johnson signs noted. No raccoon eyes noted Eyes: PERRLA. EOMI. Conjunctiva and sclera normal. Eyelids normal. ENT: TM's Normal. Pharynx normal. Uvula midline. Moist mucous membranes. No trismus noted. No drooling noted. No muffled voice noted. Neck: Normal inspection. Neck supple. FROM. No adenopathy. Thyroid Normal. No meningeal signs. No neck mass noted. CVS: Normal heart rate and rhythm. Heart sound normal. No murmurs noted. Pulses normal throughout. Respiratory: No respiratory distress. Painless inspiration. Breath sounds normal. No wheezes/rales/rhonchi noted. Chest nontender. No accessory muscle usage noted or decreased air movement noted. Abdomen: Soft and nontender. Bowel sounds normal in all 4 quadrants. No distention noted. No organomegaly noted. No visible injury noted. Back: No CVA tenderness. Full range of motion noted. Skin: Skin warm and dry. Normal skin color. Normal skin turgor. No rashes/lesions/lacerations noted. Extremities: No lower extremity edema. Extremities exhibit normal range of motion. Extremities nontender. Neuro: Oriented X 3. Cranial nerve exam: II-XII are grossly intact No motor deficit. No sensory deficit. Reflexes normal. Course Course Course Narrative: Assessment and plan. 31-year-old female came in with left-sided chest pain, patient has HEART score of 1, 2nd troponin still pending will be checked at 21:00 by . Elevated D-dimer patient got CT of the chest showed no PE, but incidental 1.8 cm round lesion on the liver that is concern and need further evaluation especially in light of elevated LFTs. Given patient age and above finding will admit the patient for further liver mass evaluation. MDM - Chest Pain Medical Records Data Attestation: I reviewed the patient's medical records. Lab Data Attestation: I reviewed the patient's lab results. Result diagrams: 12/07/21 17:54 12/07/21 17:54 Labs: Lab Results 12/07/21 12/07/21 12/07/21 Range/Units 17:54 17:54 17:54 WBC 11.5 H (4.8-10.8) X10*3/uL RBC 3.81 L (4.20-5.50) X10*6/uL Hgb 11.4 L (12.0-16.0) g/dl Hct 33.9 L (37.0-47.0) % MCV 89.0 (80.0-98.0) fL MCH 29.9 (27.0-33.0) pg MCHC 33.6 (31.0-35.0) g/dl RDW 14.1 (11.0-16.0) % Plt Count 208 (160-400) X10*3/uL MPV 10.2 (9.4-12.3) fL Immature Gran % (Auto) 0.5 H (0.0-0.4) % Neut % (Auto) 37.9 L (45-73) % Lymph % (Auto) 56.1 H (20-40) % [place] % (Auto) 4.3 (2-11) % Eos % (Auto) 0.9 (0-4) % Baso % (Auto) 0.3 (0-2) % Lymph # (Auto) 6.5 H (1.2-4.9) X10*3/uL [place] # (Auto) 0.5 (0.1-1.2) X10*3/uL Eos # (Auto) 0.1 (0.0-0.4) X10*3/uL Baso # (Auto) 0.0 (0.0-0.2) X10*3/uL Abs Immat Gran (auto) 0.06 H (0.00-0.03) X10*3/uL Absolute Neuts (auto) 4.4 (2.0-8.3) x10*3/uL Absolute Nucleated RBC 0.000 (0.0-0.012) X10*3/uL Nucleated RBC % (auto) 0.0 (0.0-0.2) /100WBC D-Dimer High Sensitivty 2470 NG/ML Sodium 137 (135-145) mmol/L Potassium 3.7 (3.3-5.1) mmol/L Chloride 102 (96-108) mmol/L Carbon Dioxide 25 (22-29) mmol/L Anion Gap 14 (12-20) BUN 12 (9-16) mg/dL Creatinine 0.66 (0.5-1.4) mg/dL Estim Creat Clear Calc 140.3 Estimated GFR > 60 Random Glucose 101 (60-115) mg/dL Calcium 8.9 D (8.4-10.2) mg/dL Total Bilirubin 0.6 (0.0-1.0) mg/dL Direct Bilirubin 0.2 (0.0-0.5) mg/dL AST 109 H (5-31) U/L ALT 134 H (0-31) U/L Alkaline Phosphatase 119 H D (39-117) U/L Troponin I High Sens (<3.5-17.0) ng/L B-Natriuretic Peptide (<100) pg/mL Total Protein 7.1 (6.5-8.0) g/dL Albumin 3.6 (3.5-5.0) g/dL Lipase 18 (8-78) U/L Urine Color Urine Appearance Urine pH (5.0-8.0) Ur Specific [place] (1.005-1.025) Urine Protein (NEG-TRACE) MG/DL Urine Glucose (UA) (NEG) MG/DL Urine Ketones (NEG) MG/DL Urine Blood (NEG) Urine Nitrite (NEG) Ur Leukocyte Esterase (NEG) Urine Test (NEGATIVE) 12/07/21 12/07/21 12/07/21 Range/Units 17:54 19:26 19:26 WBC (4.8-10.8) X10*3/uL RBC (4.20-5.50) X10*6/uL Hgb (12.0-16.0) g/dl Hct (37.0-47.0) % MCV (80.0-98.0) fL MCH (27.0-33.0) pg MCHC (31.0-35.0) g/dl RDW (11.0-16.0) % Plt Count (160-400) X10*3/uL MPV (9.4-12.3) fL Immature Gran % (Auto) (0.0-0.4) % Neut % (Auto) (45-73) % Lymph % (Auto) (20-40) % [place] % (Auto) (2-11) % Eos % (Auto) (0-4) % Baso % (Auto) (0-2) % Lymph # (Auto) (1.2-4.9) X10*3/uL [place] # (Auto) (0.1-1.2) X10*3/uL Eos # (Auto) (0.0-0.4) X10*3/uL Baso # (Auto) (0.0-0.2) X10*3/uL Abs Immat Gran (auto) (0.00-0.03) X10*3/uL Absolute Neuts (auto) (2.0-8.3) x10*3/uL Absolute Nucleated RBC (0.0-0.012) X10*3/uL Nucleated RBC % (auto) (0.0-0.2) /100WBC D-Dimer High Sensitivty NG/ML Sodium (135-145) mmol/L Potassium (3.3-5.1) mmol/L Chloride (96-108) mmol/L Carbon Dioxide (22-29) mmol/L Anion Gap (12-20) BUN (9-16) mg/dL Creatinine (0.5-1.4) mg/dL Estim Creat Clear Calc Estimated GFR Random Glucose (60-115) mg/dL Calcium (8.4-10.2) mg/dL Total Bilirubin (0.0-1.0) mg/dL Direct Bilirubin (0.0-0.5) mg/dL AST (5-31) U/L ALT (0-31) U/L Alkaline Phosphatase (39-117) U/L Troponin I High Sens 8.1 (<3.5-17.0) ng/L B-Natriuretic Peptide < 10 (<100) pg/mL Total Protein (6.5-8.0) g/dL Albumin (3.5-5.0) g/dL Lipase (8-78) U/L Urine Color YELLOW Urine Appearance CLEAR Urine pH 6.0 (5.0-8.0) Ur Specific [place] 1.025 (1.005-1.025) Urine Protein NEG (NEG-TRACE) MG/DL Urine Glucose (UA) NEG (NEG) MG/DL Urine Ketones NEG (NEG) MG/DL Urine Blood NEG (NEG) Urine Nitrite NEG (NEG) Ur Leukocyte Esterase NEG (NEG) Urine Test NEGATIVE (NEGATIVE) Imaging Data CTA chest: Attestation: I personally reviewed and interpreted this imaging study as follows: Radiologist's impression: 1. Focal encephalomalacia in the medial right frontal parietal lobe. There is ex vacuo dilatation of the frontal horn of the right lateral ventricle. Findings suggest old infarct is likely etiology. This can be further assessed with MRI. 2. No intracranial hemorrhage or mass effect. ECG Data ECG #1: Attestation: I personally reviewed and interpreted this ECG as follows: Interpretation: sinus tachycardia at 107 beats per minutes, normal axis deviation, normal intervals. Discharge Plan Discharge Clinical Impression: Liver mass, Chest pain, Elevated liver function tests Patient Disposition: Admitted As Inpatient Prescriptions: No Action cholecalciferol (vitamin D3) 125 mcg (5,000 unit) capsule 125 mcg PO DAILY Qty: 30 2RF (DME) blood pressure test kit-large Kit See Rx Instructions .Route Qty: 1 0RF Rx Instructions: As directed amoxicillin-pot clavulanate 875-125 mg tablet 1 tab PO BID Qty: 14 0RF erythromycin 5 mg/gram (0.5 %) ointment 1 appl ophthalmic (eye) DAILY Qty: 3.5 0RF fluticasone propionate [Flonase Allergy Relief] 50 mcg/actuation spray,suspension 1 spray intranasal BID Qty: 16 0RF Rx Instructions: administer into each nostril
[2021-12-07] MEDS: 0.9 % Sodium Chloride 1,000 ML 999 ML IV (17:39)
[2021-12-07 17:59] LABS: MANUAL DIFF FLAG NO
[2021-12-07 18:02] LABS: Basophils Percent Auto 0.3 % (0-2); Eosinophils Absolute Auto 0.1 X10*3/uL (0.0-0.4); Eosinophils Percent Auto 0.9 % (0-4); Hematocrit 33.9 % (37.0-47.0); Hemoglobin 11.4 g/dl (12.0-16.0); Imm Gran Abs Auto 0.06 X10*3/uL (0.00-0.03); Imm Gran Pct Auto 0.5 % (0.0-0.4); Lymphocytes Percent Auto 56.1 % (20-40); Mean Corpuscular HGB Conc 33.6 g/dl (31.0-35.0); Mean Corpuscular Hemoglobin 29.9 pg (27.0-33.0); Mean Platelet Volume 10.2 fL (9.4-12.3); Monocytes Absolute Auto 0.5 X10*3/uL (0.1-1.2); Monocytes Percent Auto 4.3 % (2-11); Neutrophils Absolute Auto 4.4 x10*3/uL (2.0-8.3); Neutrophils Percent Auto 37.9 % (45-73); Platelet Count 208 X10*3/uL (160-400); Red Blood Count 3.81 X10*6/uL (4.20-5.50); Red Cell Distribution Width 14.1 % (11.0-16.0); SCAN SMEAR FLAG 1; White Blood Count 11.5 X10*3/uL (4.8-10.8)
[2021-12-07 18:09] LABS: D Dimer High Sensitivity 2470 NG/ML
[2021-12-07 18:21] LABS: Lymphocytes Absolute Auto 6.5 X10*3/uL (1.2-4.9)
[2021-12-07 18:22] LABS: B Type Natriuretic Peptide < 10 pg/mL (<100); Troponin-I High Sensitivity 8.1 ng/L (<3.5-17.0)
[2021-12-07 18:37] LABS: Alanine Aminotransferase 134 U/L (0-31); Albumin Level 3.6 g/dL (3.5-5.0); Alkaline Phosphatase 119 U/L (39-117); Anion Gap 14 (12-20); Aspartate Amino Transferase 109 U/L (5-31); Bilirubin Direct 0.2 mg/dL (0.0-0.5); Bilirubin Total 0.6 mg/dL (0.0-1.0); Blood Urea Nitrogen 12 mg/dL (9-16); Calcium 8.9 mg/dL (8.4-10.2); Carbon Dioxide 25 mmol/L (22-29); Chloride 102 mmol/L (96-108); Creatinine Clr Calc Pharmacy 140.3; Estimated Glomerular Filt Rate > 60; Glucose Random 101 mg/dL (60-115); Lipase 18 U/L (8-78); Potassium 3.7 mmol/L (3.3-5.1); Sodium 137 mmol/L (135-145); Total Protein 7.1 g/dL (6.5-8.0)
[2021-12-07] MEDS: iohexoL 350 MG/ML 100 ML INFUS..BTL IV (19:08)
[2021-12-07 19:34] LABS: Appearance Urine CLEAR; Color Urine YELLOW; Glucose Urine UA NEG (NEG); Leukocyte Esterase Urine NEG (NEG); Nitrite Urine NEG (NEG); Specific Gravity - Urine 1.025 (1.005-1.025); Urine Blood NEG (NEG); Urine Ketones NEG (NEG); Urine Protein NEG (NEG-TRACE)
[2021-12-07 19:37] LABS: UPreg QC Valid YES; Urine Pregnancy NEGATIVE (NEGATIVE)
[2021-12-07 21:21] LABS: Troponin-I High Sensitivity 10.5 ng/L (<3.5-17.0)
--- NOTE | 2021-12-07 23:11 | PM.IMHP ---
History of Present Illness Date of Service: 12/07/21 Chief Complaint: Chest pain 31-year-old female with a past medical history of hypertension, hyperlipidemia, history of cocaine abuse-resultant CVA with left-sided hemiparesis which significantly improved almost normal, obesity, fatty liver, hypertriglyceridemia, major depressive disorder, history of GI bleed presented to the hospital today with a chief complaint of chest pain. Patient reported that she was driving car and suddenly felt pain in her chest, nonradiating, no associated lightheadedness dizziness nausea vomiting or diaphoresis; pressure-like in nature; hence decided to come to the ER for further evaluation. Denies any abdominal pain nausea vomiting or diarrhea. Denies any change in appetite or weight loss. Denies any concerns were foot poisoning. Review of all other systems is negative except mentioned above Patient reported her chest pain resolved the time of my interview. ER course: Per ER team patient noted to have elevated D-dimer; CT chest with PE protocol showed no evidence of pulmonary embolism; but noted to have findings concerning for liver mass; on labs noted to have elevated LFTs. Troponins negative. EKG nonischemic. Admitted to the hospital for further management. [facility] Medical History HTN (hypertension) Insomnia Left elbow fracture Obesity (BMI 30-39.9) Substance abuse Family History Father Asthma Mother Hypertension Maternal Grandmother Hypertension Asthma Stroke Maternal Grandfather Diabetes Hypertension Stroke Sister In good health Sister Asthma Son In good health Daughter In good health Maternal Aunt Breast cancer Surgical History History of bilateral breast reduction surgery History of D&C History of tonsillectomy History of tubal ligation S/P excision of neuroma Social History Housing: Apartment Alcohol intake: never Patient Tobacco Use Status: Former Tobacco user Advance Directives: No Advance Directives Information Provided: No Current occupational status: unemployed Meds Allergies Allergy/AdvReac Type Severity Reaction Status Date / Time No Known Allergies Allergy Verified 09/23/21 14:28 [No Known Allergies*] Home Medications Medication Instructions Recorded Confirmed Last Taken Type aripiprazole 10 mg tablet 1 tab PO DAILY 12/07/21 12/07/21 Unknown History buspirone 7.5 mg tablet 1 tab PO TID 12/07/21 12/07/21 Unknown History cholecalciferol (vitamin D3) 125 1 tab PO DAILY 12/07/21 12/07/21 Unknown History mcg (5,000 unit) tablet (Vitamin D3) mirtazapine 7.5 mg tablet 1 tab PO BEDTIME 12/07/21 12/07/21 Unknown History Physical Exam Vital Signs and Narrative: Vital Signs: Last Vital Signs Temp 99.3 F 12/07/21 15:24 Pulse 109 H 12/07/21 15:24 Resp 20 12/07/21 15:24 BP 138/85 12/07/21 15:24 Pulse Ox 93 12/07/21 15:24 BMI result Body Mass Index 40.8 Gen: Appears be in no acute distress; obese HEENT: NCAT, Moist mucosa. Pulmonary: Vesicular breath sounds, fair air entry CVS: Normal S1-S2 Abdomen: BS+, Soft, Nontender Extremities: Warm well perfused Neuro: Alert and awake. Results Labs CBC and Chem 7: 12/07/21 17:54 12/07/21 17:54 Labs: Laboratory Results - last 24 hr 12/07/21 12/07/21 12/07/21 17:54 17:54 17:54 MCV 89.0 MCH 29.9 MCHC 33.6 RDW 14.1 Plt Count 208 MPV 10.2 Immature Gran % (Auto) 0.5 H Neut % (Auto) 37.9 L Lymph % (Auto) 56.1 H [place] % (Auto) 4.3 Eos % (Auto) 0.9 Baso % (Auto) 0.3 Lymph # (Auto) 6.5 H [place] # (Auto) 0.5 Eos # (Auto) 0.1 Baso # (Auto) 0.0 Abs Immat Gran (auto) 0.06 H Absolute Neuts (auto) 4.4 Absolute Nucleated RBC 0.000 Nucleated RBC % (auto) 0.0 D-Dimer High Sensitivty 2470 Anion Gap 14 Estim Creat Clear Calc 140.3 Estimated GFR > 60 Random Glucose 101 Calcium 8.9 D Total Bilirubin 0.6 Direct Bilirubin 0.2 AST 109 H ALT 134 H Alkaline Phosphatase 119 H D Troponin I High Sens B-Natriuretic Peptide Total Protein 7.1 Albumin 3.6 Lipase 18 Urine Color Urine Appearance Urine pH Ur Specific [place] Urine Protein Urine Glucose (UA) Urine Ketones Urine Blood Urine Nitrite Ur Leukocyte Esterase Urine Test 12/07/21 12/07/21 12/07/21 17:54 19:26 19:26 MCV MCH MCHC RDW Plt Count MPV Immature Gran % (Auto) Neut % (Auto) Lymph % (Auto) [place] % (Auto) Eos % (Auto) Baso % (Auto) Lymph # (Auto) [place] # (Auto) Eos # (Auto) Baso # (Auto) Abs Immat Gran (auto) Absolute Neuts (auto) Absolute Nucleated RBC Nucleated RBC % (auto) D-Dimer High Sensitivty Anion Gap Estim Creat Clear Calc Estimated GFR Random Glucose Calcium Total Bilirubin Direct Bilirubin AST ALT Alkaline Phosphatase Troponin I High Sens 8.1 B-Natriuretic Peptide < 10 Total Protein Albumin Lipase Urine Color YELLOW Urine Appearance CLEAR Urine pH 6.0 Ur Specific [place] 1.025 Urine Protein NEG Urine Glucose (UA) NEG Urine Ketones NEG Urine Blood NEG Urine Nitrite NEG Ur Leukocyte Esterase NEG Urine Test NEGATIVE 12/07/21 20:57 MCV MCH MCHC RDW Plt Count MPV Immature Gran % (Auto) Neut % (Auto) Lymph % (Auto) [place] % (Auto) Eos % (Auto) Baso % (Auto) Lymph # (Auto) [place] # (Auto) Eos # (Auto) Baso # (Auto) Abs Immat Gran (auto) Absolute Neuts (auto) Absolute Nucleated RBC Nucleated RBC % (auto) D-Dimer High Sensitivty Anion Gap Estim Creat Clear Calc Estimated GFR Random Glucose Calcium Total Bilirubin Direct Bilirubin AST ALT Alkaline Phosphatase Troponin I High Sens 10.5 B-Natriuretic Peptide Total Protein Albumin Lipase Urine Color Urine Appearance Urine pH Ur Specific [place] Urine Protein Urine Glucose (UA) Urine Ketones Urine Blood Urine Nitrite Ur Leukocyte Esterase Urine Test Imaging Radiologist's Impressions: Impressions Chest X-Ray 12/07/21 16:07 IMPRESSION: Unremarkable examination. Chest CTA 12/07/21 19:10 IMPRESSION: No evidence for pulmonary emboli. No focal airspace disease. Diffuse fatty infiltration of the liver is noted. There is a subtle 1.8 cm round lesion in the lateral segment 5 the liver likely able to be delineated today due to the background fatty infiltration of the liver otherwise. This is more rounded than would be expected just for focal fatty infiltration. Underlying lesion cannot be excluded. Hemangioma, focal nodular hyperplasia, or hepatic adenoma would be possible in a patient of this age. MRI of the liver in the nonemergent setting could be obtained to define this further. VTE: Negative Assessment and Plan (1) Chest pain: Status: Acute (2) Liver mass: Status: Acute Plan 31-year-old female with a past medical history of hypertension, hyperlipidemia, history of cocaine abuse-resultant CVA with left-sided hemiparesis which significantly improved almost normal, obesity, fatty liver, hypertriglyceridemia, major depressive disorder, history of GI bleed presented to the hospital today with a chief complaint of chest pain. Noted to have following conditions Chest pain: Currently resolved. EKG nonischemic. Troponins x2 negative. CT chest negative for pulmonary embolism. Transaminitis: CT scan showed 1.8cm liver lesion. Will obtain acute hepatitis panel. Will also obtain MRI abdomen with liver protocol. Gastroenterology consult for further recommendations. Will also obtain AFP and CEA levels History of anxiety/depression: Continue home medications DVT prophylaxis: Lovenox Code status: Full code Quality Stroke Does the patient have a stroke diagnosis?: No VTE Prior VTE?: No VTE Risk Level:: Medical - moderate - high VTE Device Contraindication: Treatment Not Indicated VTE Drug Contraindication: N/A - Med Ordered
[2021-12-08 00:01] VITALS: BP 125/63; PULSE 107; RESP 26; O2SAT 93
[2021-12-08] MEDS: Melatonin 3 MG TABLET 6 MG PO (00:09)
[2021-12-08] MEDS: Enoxaparin Sodium 40 MG/0.4 ML SYRINGE SUBCUT (00:09)
[2021-12-08] MEDS: oxyCODONE HCl Immed Release 5 MG TABLET PO (00:47)
[2021-12-08 07:02] VITALS: BP 120/49; PULSE 89; RESP 14; TEMP 37.3; O2SAT 94
[2021-12-08 07:20] LABS: Basophils Absolute Auto 0.1 X10*3/uL (0.0-0.2); Basophils Percent Auto 0.6 % (0-2); Eosinophils Absolute Auto 0.1 X10*3/uL (0.0-0.4); Eosinophils Percent Auto 1.4 % (0-4); Hematocrit 32.1 % (37.0-47.0); Hemoglobin 10.6 g/dl (12.0-16.0); Imm Gran Abs Auto 0.05 X10*3/uL (0.00-0.03); Imm Gran Pct Auto 0.6 % (0.0-0.4); Lymphocytes Absolute Auto 5.3 X10*3/uL (1.2-4.9); Lymphocytes Percent Auto 59.8 % (20-40); MANUAL DIFF FLAG SCAN; Mean Corpuscular Hemoglobin 29.8 pg (27.0-33.0); Mean Corpuscular Volume 90.2 fL (80.0-98.0); Mean Platelet Volume 10.1 fL (9.4-12.3); Monocytes Absolute Auto 0.5 X10*3/uL (0.1-1.2); Monocytes Percent Auto 5.3 % (2-11); Neutrophils Absolute Auto 2.9 x10*3/uL (2.0-8.3); Neutrophils Percent Auto 32.3 % (45-73); Platelet Count 194 X10*3/uL (160-400); Red Blood Count 3.56 X10*6/uL (4.20-5.50); Red Cell Distribution Width 14.1 % (11.0-16.0); SCAN SMEAR FLAG 1; White Blood Count 8.8 X10*3/uL (4.8-10.8)
[2021-12-08 07:36] LABS: Alanine Aminotransferase 113 U/L (0-31); Albumin Level 3.3 g/dL (3.5-5.0); Alkaline Phosphatase 100 U/L (39-117); Aspartate Amino Transferase 81 U/L (5-31); Bilirubin Direct 0.2 mg/dL (0.0-0.5); Bilirubin Total 0.5 mg/dL (0.0-1.0); Total Protein 6.2 g/dL (6.5-8.0)
[2021-12-08 07:48] LABS: HBsAGNum1 0.18 S/CO (0.00-0.99); Hepatitis A Antibody IgM 0.17 Index (0-0.79); Hepatitis B Surface Antigen Negative (Negative); ~Hepatitis A Antibody IgM Nonreactive (Nonreactive); ~Hepatitis C Antibody Reactive (Nonreactive)
[2021-12-08 07:54] LABS: HBS Num1 15.78 mIU/mL (0-7.99); HBc Num1 0.08 S/CO (0.00-0.79); Hepatitis B Core Antibody Nonreactive (Nonreactive); ~Hepatitis B Surface Antibody REACTIVE (Nonreactive)
[2021-12-08] MEDS: busPIRone HCl 5 MG TABLET 7.5 MG PO ×2 (08:07→15:31)
[2021-12-08] MEDS: ARIPiprazole 10 MG TABLET PO (08:08)
[2021-12-08] MEDS: Cholecalciferol (Vitamin D3) 25 MCG TABLET 125 MCG PO (08:08)
[2021-12-08] MEDS: Fluticasone Propionate Nasal 16 GM SPRAY 1 SPRAY NOSTRIL-B (08:10)
[2021-12-08 08:11] VITALS: BP 122/76; PULSE 92; RESP 18; O2SAT 98
[2021-12-08 08:25] VITALS: BP 129/67; PULSE 82; RESP 25; TEMP 37; O2SAT 95
[2021-12-08 08:43] LABS: COVID-19 Test Negative (Negative)
[2021-12-08 09:54] LABS: SLIDE REVIEW VERIFIED
[2021-12-08] MEDS: LORazepam 2 MG/ML VIAL 0.5 MG IVPUSH (11:29)
[2021-12-08] MEDS: Butalb/Acetamin/Caff 50/325/40 TABLET 1 TAB PO (12:57)
[2021-12-08 15:29] VITALS: BP 152/82; PULSE 103; RESP 18; TEMP 37.1; O2SAT 100
[2021-12-08] MEDS: 0.9 % Sodium Chloride Flush 3 ML SYRINGE IVFLUSH (15:32)
--- NOTE | 2021-12-08 17:07 | PM.DS ---
DS: Providers Provider Date of Service: 12/08/21 Date of admission: 12/07/21 23:08 Primary care physician: Daniel Quezada PA-C Consults: 12/07/21 23:08 Consult to Gastroenterology Routine Consulting Provider: Cleo Huynh Reason for consultation: Liver lesion, transaminitis DS: Diagnosis Discharge Diagnosis (1) Chest pain: Status: Acute (2) Liver mass: Status: Acute DS: Summary Hospital Course Hospital Course: history of presenting illness Chief Complaint: Chest pain 31-year-old female with a past medical history of hypertension, hyperlipidemia, history of cocaine abuse-resultant CVA with left-sided hemiparesis which significantly improved almost normal, obesity, fatty liver, hypertriglyceridemia, major depressive disorder, history of GI bleed presented to the hospital today with a chief complaint of chest pain.? Patient reported that she was driving car and suddenly felt pain in her chest, nonradiating, no associated lightheadedness dizziness nausea vomiting or diaphoresis; pressure-like in nature; hence decided to come to the ER for further evaluation.? Denies any abdominal pain nausea vomiting or diarrhea.? Denies any change in appetite or weight loss.? Denies any concerns were foot poisoning.? Review of all other systems is negative except mentioned above Patient reported her chest pain resolved the time of my interview.? ER course: Per ER team patient noted to have elevated D-dimer; CT chest with PE protocol showed no evidence of pulmonary embolism; but noted to have findings concerning for liver mass; on labs noted to have elevated LFTs.? Troponins negative.? EKG nonischemic.? Admitted to the hospital for further management. Hospital course 31-year-old female patient with history of hypertension hyperlipidemia history of cocaine abuse with resultant CVA presented to [facility] with symptoms of left-sided upper chest pain, patient noted to have elevated D-dimer therefore CT chest with PE protocol was obtained that showed no PE but showed findings concerning for liver mass, labs showed elevated LFTs therefore admitted for further evaluation of liver mass in regard to chest pain that was resolved workup was negative including normal troponin and EKG, an abdominal MRI was obtained that showed solitary hepatic lesion under 2 cm a follow-up MRI in 1 year is recommended with differential diagnosis of hepatic adenoma question hemangioma, there was also 3 splenic infarctions of indeterminate age noted with no Jolly splenic inflammatory changes or ascites there was normal enhancement of splenic artery and vein, on further questioning patient she has had few days prior to presentation she did have left upper quadrant abdominal pain that has now resolved, since patient's symptoms were resolved, and there is no other treatment indicated patient is being discharged home with recommendation for outpatient follow-up with primary care physician and to repeat imaging studies in 1 year. Time Spent with Patient Time attestation: Total time spent providing and/or coordinating discharge services: Discharge coordination time: Greater than 30 minutes Quality: Safe Use of Opioids Does Pt have an Active Cancer Diagnosis on the Problem List?: No Quality: Stroke Does the patient have a stroke diagnosis?: No Physical Exam Vital Signs: Vital Signs: Last Vital Signs Temp 98.7 F 12/08/21 15:29 Pulse 103 H 12/08/21 15:29 Resp 18 12/08/21 15:29 BP 152/82 H 12/08/21 15:29 Pulse Ox 100 12/08/21 15:29 BMI result Body Mass Index 40.8 Const: Other: General awake alert,no acute distress. Neck supple no JVD. CVS regular rate rhythm, Respiratory lungs clear to auscultation, no respiratory distress Gastrointestinal abdomen soft, nontender, bowel sounds audible, no guarding , no rigidity. Extremities no edema. Skin no rash DS: Data Data Completed and Pending Labs on day of discharge: Laboratory Results - last 24 hr 12/07/21 12/07/21 12/07/21 17:54 17:54 17:54 WBC 11.5 H RBC 3.81 L Hgb 11.4 L Hct 33.9 L MCV 89.0 MCH 29.9 MCHC 33.6 RDW 14.1 Plt Count 208 MPV 10.2 Immature Gran % (Auto) 0.5 H Neut % (Auto) 37.9 L Lymph % (Auto) 56.1 H [place] % (Auto) 4.3 Eos % (Auto) 0.9 Baso % (Auto) 0.3 Lymph # (Auto) 6.5 H [place] # (Auto) 0.5 Eos # (Auto) 0.1 Baso # (Auto) 0.0 Abs Immat Gran (auto) 0.06 H Absolute Neuts (auto) 4.4 Absolute Nucleated RBC 0.000 Nucleated RBC % (auto) 0.0 Smear Tech's Comments D-Dimer High Sensitivty 2470 Sodium 137 Potassium 3.7 Chloride 102 Carbon Dioxide 25 Anion Gap 14 BUN 12 Creatinine 0.66 Estim Creat Clear Calc 140.3 Estimated GFR > 60 Random Glucose 101 Calcium 8.9 D Total Bilirubin 0.6 Direct Bilirubin 0.2 AST 109 H ALT 134 H Alkaline Phosphatase 119 H D Troponin I High Sens B-Natriuretic Peptide Total Protein 7.1 Albumin 3.6 Lipase 18 Carcinoembryonic Ag Urine Color Urine Appearance Urine pH Ur Specific [place] Urine Protein Urine Glucose (UA) Urine Ketones Urine Blood Urine Nitrite Ur Leukocyte Esterase Urine Test COVID-19 ([facility]) COVID-19 Clin Com Hepatitis A IgM Ab Hep Bs Antigen Hep Bs Antibody Hep B Core Total Ab Hepatitis C Ab (EIA) 12/07/21 12/07/21 12/07/21 17:54 19:26 19:26 WBC RBC Hgb Hct MCV MCH MCHC RDW Plt Count MPV Immature Gran % (Auto) Neut % (Auto) Lymph % (Auto) [place] % (Auto) Eos % (Auto) Baso % (Auto) Lymph # (Auto) [place] # (Auto) Eos # (Auto) Baso # (Auto) Abs Immat Gran (auto) Absolute Neuts (auto) Absolute Nucleated RBC Nucleated RBC % (auto) Smear Tech's Comments D-Dimer High Sensitivty Sodium Potassium Chloride Carbon Dioxide Anion Gap BUN Creatinine Estim Creat Clear Calc Estimated GFR Random Glucose Calcium Total Bilirubin Direct Bilirubin AST ALT Alkaline Phosphatase Troponin I High Sens 8.1 B-Natriuretic Peptide < 10 Total Protein Albumin Lipase Carcinoembryonic Ag Urine Color YELLOW Urine Appearance CLEAR Urine pH 6.0 Ur Specific [place] 1.025 Urine Protein NEG Urine Glucose (UA) NEG Urine Ketones NEG Urine Blood NEG Urine Nitrite NEG Ur Leukocyte Esterase NEG Urine Test NEGATIVE COVID-19 ([facility]) COVID-19 Clin Com Hepatitis A IgM Ab Hep Bs Antigen Hep Bs Antibody Hep B Core Total Ab Hepatitis C Ab (EIA) 12/07/21 12/08/21 12/08/21 20:57 06:58 06:58 WBC 8.8 RBC 3.56 L Hgb 10.6 L Hct 32.1 L MCV 90.2 MCH 29.8 MCHC 33.0 RDW 14.1 Plt Count 194 MPV 10.1 Immature Gran % (Auto) 0.6 H Neut % (Auto) 32.3 L Lymph % (Auto) 59.8 H [place] % (Auto) 5.3 Eos % (Auto) 1.4 Baso % (Auto) 0.6 Lymph # (Auto) 5.3 H [place] # (Auto) 0.5 Eos # (Auto) 0.1 Baso # (Auto) 0.1 Abs Immat Gran (auto) 0.05 H Absolute Neuts (auto) 2.9 Absolute Nucleated RBC 0.000 Nucleated RBC % (auto) 0.0 Smear Tech's Comments VERIFIED D-Dimer High Sensitivty Sodium Potassium Chloride Carbon Dioxide Anion Gap BUN Creatinine Estim Creat Clear Calc Estimated GFR Random Glucose Calcium Total Bilirubin 0.5 Direct Bilirubin 0.2 AST 81 H ALT 113 H Alkaline Phosphatase 100 Troponin I High Sens 10.5 B-Natriuretic Peptide Total Protein 6.2 L Albumin 3.3 L Lipase Carcinoembryonic Ag Urine Color Urine Appearance Urine pH Ur Specific [place] Urine Protein Urine Glucose (UA) Urine Ketones Urine Blood Urine Nitrite Ur Leukocyte Esterase Urine Test COVID-19 ([facility]) COVID-19 Clin Com Hepatitis A IgM Ab Hep Bs Antigen Hep Bs Antibody Hep B Core Total Ab Hepatitis C Ab (EIA) 12/08/21 12/08/21 12/08/21 06:58 06:58 08:23 WBC RBC Hgb Hct MCV MCH MCHC RDW Plt Count MPV Immature Gran % (Auto) Neut % (Auto) Lymph % (Auto) [place] % (Auto) Eos % (Auto) Baso % (Auto) Lymph # (Auto) [place] # (Auto) Eos # (Auto) Baso # (Auto) Abs Immat Gran (auto) Absolute Neuts (auto) Absolute Nucleated RBC Nucleated RBC % (auto) Smear Tech's Comments D-Dimer High Sensitivty Sodium Potassium Chloride Carbon Dioxide Anion Gap BUN Creatinine Estim Creat Clear Calc Estimated GFR Random Glucose Calcium Total Bilirubin Direct Bilirubin AST ALT Alkaline Phosphatase Troponin I High Sens B-Natriuretic Peptide Total Protein Albumin Lipase Carcinoembryonic Ag 3.10 Urine Color Urine Appearance Urine pH Ur Specific [place] Urine Protein Urine Glucose (UA) Urine Ketones Urine Blood Urine Nitrite Ur Leukocyte Esterase Urine Test COVID-19 ([facility]) Negative COVID-19 Clin Com See Note Hepatitis A IgM Ab Nonreactive Hep Bs Antigen Negative Hep Bs Antibody REACTIVE Hep B Core Total Ab Nonreactive Hepatitis C Ab (EIA) Reactive H Discharge Plan Discharge Patient Disposition: Home, Self-Care Discharge Diagnosis: atypical chest pain liver mass spleen infarction elevated LFTs Referrals: Daniel Quezada PA-C [Primary Care Provider] - 1 Week Discharge Medications: Continued buspirone 7.5 mg tablet 1 tab PO TID 0RF aripiprazole 10 mg tablet 1 tab PO DAILY 0RF mirtazapine 7.5 mg tablet 1 tab PO BEDTIME 0RF cholecalciferol (vitamin D3) [Vitamin D3] 125 mcg (5,000 unit) tablet 1 tab PO DAILY 0RF fluticasone propionate [Flonase Allergy Relief] 50 mcg/actuation spray,suspension 1 spray intranasal BID Qty: 16 0RF Rx Instructions: administer into each nostril Discharge Orders: Discharge Order (Routine); Ordered 12/08/21 Ordered By: Moe Hennessy Diet: advance to usual diet Activity on Discharge: As tolerated Stand Alone Forms: Patient Portal Discharge page Care Plan Goals: chest pain resolved noncardiac, elevated LFTs, avoid alcohol follow-up with gastroenterology Health Concerns: continue home medication Plan of Treatment: outpatient follow-up with Dr. Centeno, call to make appointment in 1-2 weeks for follow-up on liver abnormality and splenic infarction Assessment: per discharge summary Discharge Date/Time: 12/08/21 17:50
--- NOTE | 2021-12-08 18:25 | PM.GICN ---
History of Present Illness Data of Consult Service Date: 12/08/21 Requesting physician: Moe Hennessy Primary Care Provider: Daniel Quezada PA-C HPI Reason for consult: abn liver imaging 31-year-old female with a past medical history of hypertension, hyperlipidemia, history of cocaine abuse-resultant CVA with left-sided hemiparesis, obesity, fatty liver, hypertriglyceridemia, major depressive disorder, who I am seeing for assessment for abn liver imaging and and LFT. Patient initially presented with sudden onset 10/10 central chest pain without radiation and without any provocation, worsening or relieviieving factors and which lasted for about 1 minute. It felt similar to pain she had when she had a stroke in the past but she denies any neurological sx such as leg or arm weakness, numbness, slurred speech. No SOB, sputum or fever. No melena, no rectal bleeding, Not taking OCP. prior tox screens in past with cocaine but she denies using any drugs in past or now. Denies any alcohol for 1 yr She had labs with elevated AST, ALT and D-dimer, had CTA with diffuse hepatic steatosis and small lesion noted in liver, no PTE> Trop was negative Hep C serology was positive having been negative in the past. MRI doen today with appearances consistent with small adenoma < 2cm, no central scar or arterial enhnacement and washout also noted were splenic infarcts Review of Systems Review of Systems: Constitutional : No Weight loss, No Fever, No Chills ENT/Mouth : No sore throat, No Rhinorrhea Eyes: No Swelling, No Redness Cardiovascular : + Chest Pain, No SOB, No Edema Respiratory : No Cough, No Sputum, No Wheezing Gastrointestinal : see HPI Genitourinary : NO Dysuria, No Urinary Frequency, No Hematuria, No Urgency Musculoskeletal : No joint pain, No Myalgias, No Joint Swelling Skin : No Skin Lesions, No rash Neuro : No Weakness, No Numbness, No Dizziness, No Headache Psych : No Anxiety/Panic, No Depression Heme/Lymph: No Bruising, No Lymphadenopathy Endocrine : No Polyuria, No Polydipsia All other systems reviewed and are negative. [facility] Past Medical History Medical History (Updated 12/08/21 @ 12:49 by Janey Benitez RN) CVA (cerebral vascular accident) HTN (hypertension) Insomnia Left elbow fracture Obesity (BMI 30-39.9) Substance abuse Family History Family History Father Asthma Mother Hypertension Maternal Grandmother Hypertension Asthma Stroke Maternal Grandfather Diabetes Hypertension Stroke Sister In good health Sister Asthma Son In good health Daughter In good health Maternal Aunt Breast cancer Surgical History Surgical History History of bilateral breast reduction surgery History of D&C History of tonsillectomy History of tubal ligation S/P excision of neuroma Social History Social History Household Members: Children Housing: Apartment Do you presently have visiting nurse or other home services: No Alcohol intake: never Patient Tobacco Use Status: Former Tobacco user Use of substances other than those prescribed or required for medical reasons: No Have you been hit, kicked, punched, or otherwise hurt by someone within the past year? If so, by whom?: No Do you feel safe in your current relationship?: No Current Relationship Is there a partner from a previous relationship who is making you feel unsafe now?: No Are you made to feel afraid or neglected: No Gnosticist Healthcare Practices: yazidi Advance Directives: No Advance Directives Information Provided: No Do you have thoughts of harming others: None Do you have a plan to hurt others: No Plan Current occupational status: unemployed Meds Allergies Allergy/AdvReac Type Severity Reaction Status Date / Time No Known Allergies Allergy Verified 09/23/21 14:28 [No Known Allergies*] Home Medications Medication Instructions Recorded Confirmed Last Taken Type aripiprazole 10 mg tablet 1 tab PO DAILY 12/07/21 12/07/21 Unknown History buspirone 7.5 mg tablet 1 tab PO TID 12/07/21 12/07/21 Unknown History cholecalciferol (vitamin D3) 125 1 tab PO DAILY 12/07/21 12/07/21 Unknown History mcg (5,000 unit) tablet (Vitamin D3) mirtazapine 7.5 mg tablet 1 tab PO BEDTIME 12/07/21 12/07/21 Unknown History Physical Exam Vital Signs: Vital Signs: Last Vital Signs Temp 98.7 F 12/08/21 15:29 Pulse 103 H 04/13/22 15:29 Resp 18 12/08/21 15:29 BP 152/82 H 12/08/21 15:29 Pulse Ox 100 12/08/21 15:29 BMI result Body Mass Index 40.8 EXAM: GENERAL: The patient is well developed and nontoxic- obese VITAL SIGNS:see workflow HEENT: Nonicteric sclerae, PERRLA, EOMI. Oropharynx clear. Moist mucous membranes. Conjunctivae appear well perfused. No thyroid mass. CHEST: Chest wall is nontender. HEART: Regular rate and rhythm without murmurs. LUNGS: Clear to auscultation bilaterally. ABDOMEN: Soft, positive bowel sounds, nontender, no organomegaly.no flank tenderness SKIN: No rash, no excessive bruising, petechiae, or purpura. NEUROLOGIC: Cranial nerves II-XII intact without motor/sensory deficit. Psych-nml affect MS- no weakness, nml movt Extrem: General: Yes normal to inspection and Yes full ROM Results Labs CBC & Chem 7: 12/08/21 06:58 12/07/21 17:54 Labs: Short CBC 12/08/21 Range/Units 06:58 WBC 8.8 (4.8-10.8) X10*3/uL Hgb 10.6 L (12.0-16.0) g/dl Hct 32.1 L (37.0-47.0) % Plt Count 194 (160-400) X10*3/uL BMP 12/07/21 17:54 Sodium 137 Potassium 3.7 Chloride 102 Carbon Dioxide 25 BUN 12 Creatinine 0.66 Calcium 8.9 D Liver Function 12/07/21 12/08/21 Range/Units 17:54 06:58 Total Bilirubin 0.6 0.5 (0.0-1.0) mg/dL Direct Bilirubin 0.2 0.2 (0.0-0.5) mg/dL AST 109 H 81 H (5-31) U/L ALT 134 H 113 H (0-31) U/L Alkaline Phosphatase 119 H D 100 (39-117) U/L Albumin 3.6 3.3 L (3.5-5.0) g/dL Urine 12/07/21 Range/Units 19:26 Urine Color YELLOW Urine Appearance CLEAR Urine pH 6.0 (5.0-8.0) Ur Specific [place] 1.025 (1.005-1.025) Urine Protein NEG (NEG-TRACE) MG/DL Urine Glucose (UA) NEG (NEG) MG/DL Imaging MRI - abdomen: Attestation: I personally reviewed and interpreted this imaging study as follows: My impression: liver lesion, steatosis and splenic infarcts Assessment and Plan (1) Elevated liver enzymes: Status: Acute (2) Liver mass: Status: Acute Plan 1/ Recommend checking hep C PCR, if pos will need treatment, also check u tox for ongoing cocaine use 2/ MRI liver protocol with repeat imaging in 6 months 3/ Discuss with hematology about further w/u for splenic infarcts, in case needs anti coagulation and w/u for hyper coaguable state mary with prior hx of stroke, vs cocaine use 4/ longer term will need weight loss and address metabolic factors for her liver health, SHE SHOULD AVOID estrogen based contraception Procedures Date of Service Date of Service: 12/08/21
[2021-12-09 12:21] LABS: Alpha Fetoprotein 1.1 ng/mL
[2021-12-12 13:46] LABS: HCV Log PCR <1.18 NOT DETECTED Log IU/mL (NOT DETECTED); HepC Viral Load <15 NOT DETECTED IU/mL (NOT DETECTED)
== END 2021-12-08 17:50 | disposition home or self-care (01) | DRG 699 ==
LOC: HO.ED 20:53 → HO.EDOVER 23:17 → HO.S3 12-08 11:49
PROVIDERS: Admitting Provider Hospitalist; Emergency Provider Emergency Medicine; PCP Physician Assistant; Visit Provider Hospitalist
DX: N28.0 Ischemia and infarction of kidney (principal); I69.854 Hemiplegia and hemiparesis following other cerebrovascular disease affecting left non-dominant side; E85.4 Organ-limited amyloidosis; K77 Liver disorders in diseases classified elsewhere; Z68.41 Body mass index [BMI] 40.0-44.9, adult; F14.11 Cocaine abuse, in remission; F41.9 Anxiety disorder, unspecified; R16.0 Hepatomegaly, not elsewhere classified; E66.9 Obesity, unspecified; F32.9 Major depressive disorder, single episode, unspecified; K76.0 Fatty (change of) liver, not elsewhere classified; B19.20 Unspecified viral hepatitis C without hepatic coma; E78.1 Pure hyperglyceridemia; Z20.822 Contact with and (suspected) exposure to COVID-19; Z87.891 Personal history of nicotine dependence; Z79.51 Long term (current) use of inhaled steroids; Z79.899 Other long term (current) drug therapy
CPT/HCPCS: 36415; 71045; 71275; 74183; 80048; 80076; 81003; 81025; 82105; 82378; 83690; 83880; 84484; 85025; 85379; 86704; 86706; 86709; 86803; 87340; 87522; 87635; 93005; 96360; 99285; A9585; J1650; J2060; Q9967

== ENCOUNTER 2022-04-13 15:05 | Outpatient (REF) | payer MEDICARE, MEDICAID, SELFPAY ==
[2022-04-13 17:46] LABS: Syphilis Screen Nonreactive (Nonreactive); Thyroid Stimulating Hormone 2.33 uIU/mL (0.32-4.0)
[2022-04-14 05:35] LABS: HIV AB/AG Nonreactive (Nonreactive); HIV Num 1 0.06 S/CO (0.00-0.99)
[2022-04-14 06:41] LABS: CT PCR NOT DETECTED (Not Detect.); NG PCR NOT DETECTED (Not Detect.)
[2022-04-14 22:23] LABS: Follicle Stimulating Hormone 3.5 mIU/mL; Prolactin 10.2 ng/mL
[2022-04-16 06:12] LABS: HPV mRNA E6/E7 rflx Not Detected (Not Detected)
== END 2022-04-13 15:06 | disposition home or self-care (01) ==
LOC: HO.LAB 15:05
PROVIDERS: PCP Physician Assistant; Visit Provider Advanced Practice Midwife
DX: Z01.419 Encounter for gynecological examination (general) (routine) without abnormal findings (principal); R23.2 Flushing; N92.1 Excessive and frequent menstruation with irregular cycle; Z11.3 Encounter for screening for infections with a predominantly sexual mode of transmission; Z11.4 Encounter for screening for human immunodeficiency virus [HIV]; Z11.51 Encounter for screening for human papillomavirus (HPV)
CPT/HCPCS: 36415; 81025; 83001; 84146; 84443; 86780; 87389; 87491; 87591; 87624; 88142; 99212

== ENCOUNTER → 2022-04-27 09:17 | Outpatient (BNVA) | payer MEDICARE, MEDICAID, SELFPAY | PROVIDERS: PCP Physician Assistant; Visit Provider Advanced Practice Midwife | DX: N91.5 Oligomenorrhea, unspecified (principal); N92.6 Irregular menstruation, unspecified; I10 Essential (primary) hypertension; Z71.2 Person consulting for explanation of examination or test findings | CPT/HCPCS: 99212 ==

== ENCOUNTER 2022-08-05 12:47 | Outpatient (REF) | payer MEDICARE, MEDICAID, SELFPAY ==
--- NOTE | ~2022-08-05 | US_ITS ---
EXAMINATION: US PELVIS CLINICAL INFORMATION: Irregular menstruation. COMPARISON: None. TECHNIQUE: Ultrasound of the pelvis is performed using both transabdominal and transvaginal transducers along with Doppler. Transvaginal imaging is performed due to inadequate visualization transabdominally. FINDINGS: UTERUS: The uterus is anteverted, retroflexed and measures 12.7 x 6.9 x 6.4 cm in sagittal by AP by transverse dimension. The double wall endometrial thickness is 1.7 cm. The uterus is smooth in contour and has normal myometrial echogenicity. No visible fibroid. Small nabothian cyst is seen in the cervix. The cervix is closed. ADNEXA: Both ovaries are visualized. There is normal color flow to the adnexa. There is no ovarian torsion. There is no pelvic ascites or fluid collection. Right ovary measures 5.4 x 4.5 x 4.3 cm. There are multiple anechoic cysts of differing sizes. Question polycystic ovarian syndrome. Left ovary 5.8 x 2.8 x 2.6 cm and volume 22.5 mL. There are multiple anechoic cysts of differing sizes. Question polycystic ovarian syndrome. There is no free fluid in the cul-de-sac. US/US pelvic and transvaginal IMPRESSION: Multiple bilateral ovarian cysts of varying sizes likely polycystic ovarian syndrome. Unremarkable uterus. Moderate size nabothian cysts of the cervix.
[2022-08-05 15:13] LABS: Creatinine Urine 37.44 mg/dL; Microalbumin Urine < 5.0 mg/L
[2022-08-05 15:59] LABS: HCG Quantitative < 2 mIU/mL
[2022-08-05 16:50] LABS: Alanine Aminotransferase 27 U/L (0-31); Albumin Level 4.3 g/dL (3.5-5.0); Alkaline Phosphatase 85 U/L (39-117); Anion Gap 12 (12-20); Aspartate Amino Transferase 22 U/L (5-31); Bilirubin Total 0.3 mg/dL (0.0-1.0); Blood Urea Nitrogen 9 mg/dL (9-16); Calcium 9.2 mg/dL (8.4-10.2); Carbon Dioxide 27 mmol/L (22-29); Chloride 103 mmol/L (96-108); Cholesterol 198 mg/dL; Estimated Glomerular Filt Rate > 60; Glucose Fasting 111 mg/dL (60-99); HDL Cholesterol 33 mg/dL; LDL Cholesterol Calculated 99 mg/dl; Potassium 3.9 mmol/L (3.3-5.1); Sodium 138 mmol/L (135-145); TSH reflex Free T4 1.49 uIU/mL (0.32-4.0); Total Protein 7.1 g/dL (6.5-8.0); Triglycerides 333 mg/dL
[2022-08-12 17:17] LABS: DHEA Sulfate 168 mcg/dL (19-237); Testosterone, Free 5.1 pg/mL (0.1-6.4); Testosterone, Total 28 ng/dL (2-45)
== END 2022-08-05 12:48 | disposition home or self-care (01) ==
LOC: HO.US 12:47
PROVIDERS: Absent Provider Physician Assistant; PCP Physician Assistant; Visit Provider Advanced Practice Midwife
DX: I10 Essential (primary) hypertension (principal); N92.6 Irregular menstruation, unspecified; N91.5 Oligomenorrhea, unspecified; N93.9 Abnormal uterine and vaginal bleeding, unspecified
CPT/HCPCS: 36415; 76830; 76856; 80053; 80061; 82043; 82627; 83498; 84402; 84403; 84443; 84702

== ENCOUNTER 2023-02-14 08:27 | Outpatient (REF) | payer MEDICARE, MEDICAID, SELFPAY ==
[2023-02-14 09:04] LABS: Hematocrit 37.4 % (37.0-47.0); Hemoglobin 12.5 g/dl (12.0-16.0); Mean Corpuscular HGB Conc 33.4 g/dl (31.0-35.0); Mean Corpuscular Hemoglobin 29.8 pg (27.0-33.0); Mean Platelet Volume 9.4 fL (9.4-12.3); Platelet Count 369 X10*3/uL (160-400); White Blood Count 11.8 X10*3/uL (4.8-10.8)
[2023-02-14 09:40] LABS: Alanine Aminotransferase 25 U/L (0-31); Alkaline Phosphatase 80 U/L (39-117); Anion Gap 12 (12-20); Aspartate Amino Transferase 18 U/L (5-31); Bilirubin Total 0.5 mg/dL (0.0-1.0); Blood Urea Nitrogen 11 mg/dL (9-16); Calcium 9.6 mg/dL (8.4-10.2); Carbon Dioxide 25 mmol/L (22-29); Chloride 104 mmol/L (96-108); Cholesterol 162 mg/dL; Estimated Glomerular Filt Rate > 60; Glucose Fasting 88 mg/dL (60-99); HDL Cholesterol 34 mg/dL; LDL Cholesterol Calculated 93 mg/dl; Potassium 4.3 mmol/L (3.3-5.1); Sodium 137 mmol/L (135-145); Total Protein 7.1 g/dL (6.5-8.0); Triglycerides 175 mg/dL
[2023-02-14 09:46] LABS: Creatinine Urine 53.12 mg/dL; Microalbum/Creatinine Ratio Ur 11.2 ug/mg cr
[2023-02-15 04:52] LABS: HBS Num1 17.75 mIU/mL (0-7.99); HBc Num1 0.07 S/CO (0.00-0.79); HBsAGNum1 0.47 S/CO (0.00-0.99); Hepatitis B Core Antibody Nonreactive (Nonreactive); Hepatitis B Surface Antigen Negative (Negative); ~HepC Num1 0.09 S/CO (0.00-0.79); ~Hepatitis B Surface Antibody REACTIVE (Nonreactive); ~Hepatitis C Antibody Nonreactive (Nonreactive)
[2023-02-18 16:33] LABS: Tetanus Antitoxiod Antibody 1.89 IU/mL
== END 2023-02-14 08:28 | disposition home or self-care (01) ==
LOC: HO.LAB 08:27
PROVIDERS: Absent Provider Nurse Practitioner Family; PCP Physician Assistant; Visit Provider Physician Assistant
DX: I10 Essential (primary) hypertension (principal); Z11.3 Encounter for screening for infections with a predominantly sexual mode of transmission; E78.1 Pure hyperglyceridemia
CPT/HCPCS: 36415; 80053; 80061; 82043; 85027; 86704; 86706; 86774; 86787; 86803; 87340

== ENCOUNTER 2023-03-08 11:47 | Outpatient (REF) | payer MEDICARE, MEDICAID, SELFPAY ==
--- NOTE | ~2023-03-08 | XR_ITS ---
EXAMINATION: XR RIBS, LEFT CLINICAL INFORMATION: Pain COMPARISON: None available. TECHNIQUE: 3 views of the left ribs were obtained. FINDINGS: Lungs are clear. No consolidation, pneumothorax, or pleural effusion. The cardiomediastinal silhouette and pulmonary vasculature are normal. Osseous structures are unremarkable. Ribs are intact. No fractures are identified. XR/XR ribs LT min 3V w CXR1V IMPRESSION: Unremarkable examination.
== END 2023-03-08 11:48 | disposition home or self-care (01) ==
LOC: HO.XRAY 11:47
PROVIDERS: PCP Physician Assistant; Visit Provider Physician Assistant
DX: R07.81 Pleurodynia (principal)
CPT/HCPCS: 71101

== ENCOUNTER 2023-06-27 14:59 | Outpatient (AMB) | payer MEDICARE, MEDICAID, SELFPAY ==
[2023-06-27 15:06] VITALS: BP 134/74; PULSE 82; O2SAT 97; BMI 35.2
--- NOTE | 2023-06-27 15:06 | A.OFFPC_ITS ---
Vital Signs 06/27/23 15:06 Height 5 ft 3 in Weight 199 lb BMI 35.2 BP 134/74 Blood Pressure Location Lt brachial Position Sitting Pulse 82 Pulse Source Pulse Oximeter Pulse Oximetry (%) 97 Oxygen Delivery Method Room Air Intake Visit Reasons: Annual Exam Intake Note: Patient is here today for a physical. Vessel Manager Required: No Accompanied by: Self / Same As Patient Allergies No Known Allergies [No Known Allergies*] Allergy (Verified 06/27/23 15:19) Medication List - Last Reconciled 06/27/23 by Daniel Quezada PA-C cholecalciferol (vitamin D3) (Vitamin D3) 125 mcg PO DAILY 90 days nystatin (Nystop) topical pantoprazole 40 mg PO DAILY simethicone 80 mg PO Q6H PRN ursodiol 300 mg PO BID Tobacco use date assessed: 11/01/22 Dental Screening Dental Screen Date: 06/27/23 Did you have a dental visit in the last 12 months?: Yes Did you have a dental problem in the last 6 months where you did not have access to dental care?: No Was dental information given to patient?: Patient has dentist HPI Annual Exam HPI Details Patient is a 33-year-old female here today for follow-up visit Patient has a past medical history significant for obesity, hypertension, hypertriglyceridemia, major depressive disorder -concern--> reports having some dysuria and feels she may have UTI.- urinalysis today in office showing 2+ red blood cells though no leukocytes or nitrates. Will send for urine culture. Will treat empirically. .. Hypertriglyceride: Has resolved since implementing better lifestyle and weight loss. .. HTN:? Blood pressure has been well controlled. Now on diet and exercise control.. She has now been changing her eating habits reports blood pressures have been better. .. Generalized anxiety disorder: Has generally resolved with better lifestyle and weight loss. Not having to take any anxiety medication at this time. .. Major depressive disorder: Has resolved Obesity:? She has recently underwent bariatric surgery (gastric sleeve) at [facility] and has lost significant amount of weight. Today's BMI 35.3 Vaccine: Up-to-date with COVID vaccine, tetanus vaccine, needs flu vaccine . 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: DOes see 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 here in [place] Laboratory Tests 02/14/23 08:50 RBC 4.20 Fasting Glucose 88 Cholesterol 162 PFSH Medical History (Updated 06/28/23 @ 07:40 by Daniel Quezada PA-C) Hepatitis C CVA (cerebral vascular accident) Substance abuse HTN (hypertension) Left elbow fracture Obesity (BMI 30-39.9) Insomnia Surgical History S/P excision of neuroma History of bilateral breast reduction surgery History of tonsillectomy History of D&C History of tubal ligation Family History Father Asthma Mother Hypertension Maternal Grandmother Hypertension Asthma Stroke Maternal Grandfather Diabetes Hypertension Stroke Sister In good health Sister Asthma Son In good health Daughter In good health Maternal Aunt Breast cancer Other Mental health disorder Social History (Updated 06/27/23 @ 15:25 by Daniel Quezada PA-C) Household Members: Children Housing: Apartment Do you presently have visiting nurse or other home services: No Alcohol intake: never Patient Tobacco Use Status: Former Tobacco user e-Cigarette/Vaping Use: Never Used Second Hand Smoke Exposure: No service: No Current occupational status: unemployed Current occupation: [employer] Cognitive needs: No Hearing needs: No Vision needs: No Questionnaire Thrive Questionnaire Date Thrive assessed: 11/01/22 MARINA-7 AMB Questionnaire MARINA-7 Date MARINA - 7 assessed: 12/21/22 Source: Developed by Drs. Gasper Page, Kate Rivera, Kemal Dean and colleagues, with an educational lora from [employer]. Review of Systems Const Denies body aches, Denies chills, Denies excessive sweating, Denies fatigue, Denies fever(s) and Denies headache(s) Eyes Denies blurry vision ENT Denies dysphagia, Denies vertigo, Denies dizziness, Denies headache(s), Denies hearing loss and Denies tinnitus Card Denies chest pain, Denies chest pain with activity, Denies syncope, Denies irregular heart rhythm and Denies dyspnea Resp Denies chest congestion, Denies cough, Denies hemoptysis, Denies dyspnea and Denies wheezing GI Denies abdominal pain, Denies melena, Denies hematochezia, Denies coffee ground emesis, Denies dysphagia, Denies diarrhea, Denies nausea and Denies vomiting Denies urinary frequency, Denies dysuria, Denies urinary hesitancy and Denies urinary urgency Musc Denies arthralgias, Denies limited range of motion, Denies muscle cramps and Denies muscle weakness Skin/Breast Denies rash and Denies skin ulcer Neuro Denies Abnormal speech present, Denies confusion, Denies vertigo, Denies dizziness, Denies syncope, Denies headache(s), Denies memory loss and Denies seizure-like activity Psych Denies anxiety, Denies confusion, Denies depression, Denies memory loss, Denies panic attacks and Denies paranoia Endo Denies excessive sweating, Denies fatigue, Denies flushing, Denies polydipsia and Denies polyuria Aller/Immun Denies wheezing Physical exam (Primary Care) Vital Signs: Last Vital Signs Pulse 82 06/27/23 15:06 BP 134/74 06/27/23 15:06 Pulse Ox 97 06/27/23 15:06 Oxygen Delivery Method Room Air 06/27/23 15:06 BMI result Body Mass Index 35.2 BMI Assessment/Plan discussion: High Tobacco/Smoking Status: Tobacco use Status Tobacco use date assessed 11/01/22 06/27/23 15:06 Patient Tobacco Use Status Former Tobacco user 06/27/23 15:25 e-Cigarette/Vaping Use Never Used 06/27/23 15:25 Thrive Assessment: Date of Thrive Assessment Date Thrive assessed 11/01/22 06/27/23 15:06 Const Other: Obese- weight loss noted General: cooperative, comfortable, no acute distress, alert and awake; No confusion Orientation/consciousness: oriented to person, oriented to place, patient oriented x3 and No confusion HENMT Head: Yes normocephalic Ears: external ears normal and TM's normal bilaterally Face and sinus: No sinus tenderness Mouth: Normal oral and palatal mucosa present and tongue normal Teeth and gingiva: dentition normal and gingiva normal Throat: Yes posterior oropharynx normal, Yes tonsils normal and Yes uvula midline Eyes Conjunctivae: conjunctivae normal Sclerae: sclerae normal Pupils: Equal, round and reactive pupils present EOM: EOMs intact bilaterally Direct Ophthalmoscopy: No no photophobia Neck Neck: Yes no lymphadenopathy, No tender and Yes no JVD Thyroid: Thyroid normal Carotids: no bruits Chest Chest palpation & inspection: no tenderness Resp Effort & Inspection: normal respiratory effort, no audible wheezes, not labored and no stridor Auscultation: no crackles, no rales, no rhonchi and no wheezes Cardio Jugular venous distension: no JVD Rate: regular rate, not bradycardic and not tachycardic Rhythm: regular rhythm Bruits: no carotid bruits Peripheral pulses: Peripheral pulses 2+ throughout GI Inspection: Yes normal to inspection, No abdominal wall ecchymosis and No visible herniation Palpation (GI): Soft to palpation, nontender, no guarding, not rigid and No he patosplenomegaly present Auscultation: normoactive bowel sounds General: Yes no CVA tenderness Back/Spine/Pelvis Back: no CVA tenderness and No back tenderness Cervical Spine: cervical ROM normal Thoracic/Lumbar Spine: thoracic and lumbar spine normal to inspection, straight leg raise negative bilaterally, No thoraco-lumbar ROM limited and No lumbar spinal tenderness Skin Lesions: no lesions Rashes: no rashes Wounds: no wounds Neuro General: oriented to person, oriented to place, patient oriented x3, CN's II-XI intact bilaterally and No confusion Cranial nerves: Yes Equal, round and reactive pupils present and Yes Normal accommodation reflex present Cognition (Neuro): normal cognition Speech: No Abnormal speech present Gait exam (Neuro): Normal gait present Motor exam (neuro): 5/5 motor strength present throughout Extrem Right upper extremity: full ROM; no cyanosis Left upper extremity: full ROM; no cyanosis Right lower extremity: no edema Left lower extremity: no edema Psych Appearance: grossly normal Mental Status: mental status grossly normal Affect: normal affect Attitude: cooperative Thought process: Normal thought process present Results AMB Urinalysis, Automated UA Leukoctes 0 Callie/uL Last Edit by LARRY Mandujano on 06/27/23 15:50 UA Nitrite Negative Last Edit by LARRY Mandujano on 06/27/23 15:50 UA Urobilinogen 0 mg/dL Last Edit by LARRY Mandujano on 06/27/23 15:50 UA Protein 0 mg/dL Last Edit by LARRY Mandujano on 06/27/23 15:50 UA pH 6.0 Last Edit by LARRY Mandujano on 06/27/23 15:50 UA Blood 80 Manny/uL Last Edit by LARRY Mandujano on 06/27/23 15:50 UA Specific [place] 1.030 Last Edit by LARRY Mandujano on 06/27/23 15:50 UA Ketone Negative Last Edit by LARRY Mandujano on 06/27/23 15:50 UA Bilirubin 0 mg/dL Last Edit by LARRY Mandujano on 06/27/23 15:50 UA Glucose 0 mg/dL Last Edit by LARRY Mandujano on 06/27/23 15:50 Results Reviewed Results Reviewed: Laboratory Last Values Urine pH (Auto) 6.0 06/27/23 15:47 Specific [place] (Auto) 1.030 06/27/23 15:47 Urine Protein (Auto) 0 mg/dL 06/27/23 15:47 Glucose (UA)(Auto) 0 mg/dL 06/27/23 15:47 Urine Ketones (Auto) Negative 06/27/23 15:47 Urine Blood (Auto) 80 Manny/uL 06/27/23 15:47 Urine Nitrite (Auto) Negative 06/27/23 15:47 Urine Bilirubin (Auto) 0 mg/dL 06/27/23 15:47 Urine Urobilinogen (Auto) 0 mg/dL 06/27/23 15:47 Leukocyte Esterase (Auto) 0 Callie/uL 06/27/23 15:47 Assessment and Plan Assessment & Plan (1) Annual physical exam: Code(s): Z00.00 - Encounter for general adult medical examination without abnormal findings (2) MARINA (generalized anxiety disorder): Code(s): F41.1 - Generalized anxiety disorder Plan: has resolve Since better lifestyle and weight loss. (3) HTN (hypertension): Code(s): I10 - Essential (primary) hypertension Qualifiers: Hypertension type: essential hypertension Qualified Code(s): I10 - Essential (primary) hypertension Plan: Blood pressure acceptable today in office. Her blood pressure has been well controlled with lifestyle modification. Goal blood pressure to be below 140/90 (4) Obese: Code(s): E66.9 - Obesity, unspecified Qualifiers: Body mass index: BMI 40.0-44.9 Obesity classification: adult class 3 (BMI >= 40) Obesity type: due to excess calories Serious obesity comorbidity presence: without serious comorbidity Qualified Code(s): E66.01 - Morbid (severe) obesity due to excess calories; Z68.41 - Body mass index [BMI] 40.0- 44.9, adult Plan: Weight loss noted status post gastric sleeve surgery.. Patient does understand her BMI is over 30 will work on being more physically active and adapting to better eating habits. (5) Hypertriglyceridemia: Code(s): E78.1 - Pure hyperglyceridemia Plan: Most recent fasting lipid panel showing slight and hypertriglyceridemia. Will continue to follow (6) Dysuria: Code(s): R30.0 - Dysuria Plan: Reports dysuria over the last 2 days. Urinalysis showing 2+ red blood cells today in office. Will send for urine culture. Will empirically treat with Macrobid due to symptoms of UTI. (7) H/O alcohol dependence: Code(s): F10.21 - Alcohol dependence, in remission Plan: Has resolved and only drinks on occasion. Orders: Orders AMB Urinalysis Automated 06/27/23 R30.0 - Dysuria Microalbumin, Random (w Creat) 06/27/23 I10 - Essential (primary) hypertension Lipid Panel 06/27/23 E78.1 - Pure hyperglyceridemia Comprehensive [place]. Panel Fast 06/27/23 I10 - Essential (primary) hypertension Urine Culture 06/27/23 R30.0 - Dysuria Medications: New nitrofurantoin macrocrystal must administer with a meal/food 100 mg PO BID 5 days 10 caps 0RF R30.0 - Dysuria Coding Level of Care Code Est Pt Prev Care 18-39y([id number]) Diagnoses Annual physical exam Z00.00 MARINA (generalized anxiety disorder) F41.1 Essential hypertension I10 Hypertension type: essential hypertension Class 3 severe obesity due to excess calories without serious comorbidity with body mass index (BMI) of 40.0 to 44.9 in adult E66.01; Z68.41 Body mass index: BMI 40.0-44.9 Obesity classification: adult class 3 (BMI >= 40) Obesity type: due to excess calories Serious obesity comorbidity presence: without serious comorbidity Hypertriglyceridemia E78.1 Dysuria R30.0 H/O alcohol dependence F10.
== END 2023-06-27 15:45 | disposition home or self-care (01) ==
PROVIDERS: Visit Provider Physician Assistant
DX: R30.0 Dysuria (principal)
CPT/HCPCS: 81003; 99395

== ENCOUNTER 2023-06-27 15:47 | Outpatient (REF) | payer MEDICARE, MEDICAID, SELFPAY | END 2023-06-27 15:48 | disposition home or self-care (01) | LOC: HO.LAB 15:47 | PROVIDERS: Visit Provider Physician Assistant | DX: R30.0 Dysuria (principal); I10 Essential (primary) hypertension; E78.1 Pure hyperglyceridemia | CPT/HCPCS: 87086 ==

== ENCOUNTER 2023-07-20 10:27 | Emergency (ER) | payer MEDICARE, MEDICAID, SELFPAY ==
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
[2023-07-20 10:38] VITALS: BP 154/97; PULSE 83; RESP 18; TEMP 36.8; O2SAT 97; BMI 34.2
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
[2023-07-20 11:24] LABS: Appearance Urine Cloudy; Color Urine Dark Yellow; Glucose Urine UA Negative (Negative); Leukocyte Esterase Urine Negative (Negative); Nitrite Urine Negative (Negative); PH 7.5 (5.0-9.0); Urine Blood Negative (Negative); Urine Ketones Negative (Negative); Urine Protein Negative (Neg-Trace)
[2023-07-20 11:29] LABS: Bacteria Urine Trace (None Seen); Hyaline Casts Urine 0-2 /LPF (0-2); RBC Urine 0-2 /HPF (0-2); UPreg QC Valid YES; Urine Pregnancy NEGATIVE (NEGATIVE); WBC Urine 0-5 /HPF (0-5)
[2023-07-20 12:39] VITALS: BP 157/95; PULSE 68; RESP 16; TEMP 36.7; O2SAT 97
--- NOTE | 2023-07-20 13:38 | MHC.EDTECH ---
alexa wrap applied to left elbow. VSS. patient given crackers and gingerale. Pt resting comfortably
--- NOTE | 2023-07-20 14:04 | PC.NURSE ---
PT WAS EVALUATED AND DISCHARGED BY PROVIDING
== END 2023-07-20 14:05 | disposition home or self-care (01) ==
PROVIDERS: Physician Assistant; Emergency Provider Emergency Medicine; PCP Physician Assistant
DX: S42.435A Nondisplaced fracture (avulsion) of lateral epicondyle of left humerus, initial encounter for closed fracture (principal); V43.52XA Car driver injured in collision with other type car in traffic accident, initial encounter; M25.552 Pain in left hip; M25.562 Pain in left knee; Y93.89 Activity, other specified; Y92.414 Local residential or business street as the place of occurrence of the external cause; Y99.9 Unspecified external cause status
CPT/HCPCS: 73030; 73090; 73502; 73564; 81001; 81025; 99283; 99284

== ENCOUNTER 2023-07-28 13:33 | Outpatient (AMB) | payer MEDICARE, MEDICAID, SELFPAY ==
--- NOTE | 2023-07-28 14:06 | A.OFFVIS_ITS ---
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 Doing well with no concerns. She tries to eat healthy and stays active with exercise. Regular monthly menses now, since weight loss surgery. Currently is sexually active. She denies vaginal itching and irritation. STI screening offered; she accepts. Denies family history of breast, ovarian or colon cancer. Last pap smear 03/2022, [facility]. [facility] Medical History Hepatitis C CVA (cerebral vascular accident) Substance abuse HTN (hypertension) Left elbow fracture Obesity (BMI 30-39.9) Insomnia Surgical History H/O gastric sleeve S/P excision of neuroma History of bilateral breast reduction surgery History of tonsillectomy History of D&C History of tubal ligation Family History Father Asthma Mother Hypertension Maternal Grandmother Hypertension Asthma Stroke Maternal Grandfather Diabetes Hypertension Stroke Sister In good health Sister Asthma Son In good health Daughter In good health Maternal Aunt Breast cancer Other Mental health disorder Social History Household Members: Children Housing: Apartment Do you presently have visiting nurse or other home services: No Alcohol intake: never Patient Tobacco Use Status: Former Tobacco user e-Cigarette/Vaping Use: Never Used Second Hand Smoke Exposure: No service: No Current occupational status: unemployed Current occupation: [employer] Cognitive needs: No Hearing needs: No Vision needs: No Female Reproductive History Menstrual Date of last menstrual period: 06/29/23 Total pregnancies: 4 Number of Living Children: 2 Date of last pap smear: 04/14/22 Review of Systems Const All systems reviewed & are unremarkable except as noted in HPI and below Reports as per HPI Eyes Reports no additional complaints ENT Reports no additional complaints Card Reports no additional complaints Resp Reports no additional complaints GI Reports as per HPI and Reports no additional complaints Reports as per HPI Musc Reports no additional complaints Skin/Breast Reports as per HPI Neuro Reports no additional complaints Psych Reports no additional complaints Endo Reports no additional complaints Michael/Lymph Reports no additional complaints Aller/Immun Reports no additional complaints Physical Exam Vital Signs: Last Vital Signs BP 134/88 07/28/23 14:20 BMI result Body Mass Index 33.3 Const General: cooperative, healthy appearing, no acute distress, well developed and alert Orientation/consciousness: patient oriented x3 HEENT Head: Yes normal to inspection Eyes General: appearance normal, both eyes and all related structures Neck Neck: Yes normal visual inspection Thyroid: Thyroid normal Chest Other: Breast reduction scarring bilaterally Chest palpation & inspection: normal inspection of the chest and other (no puckering, dimpling, peau de orange, retraction, discharge, masses) Breast/axilla inspection: normal inspection of the breasts Breast/axilla palpation: normal palpation of the breasts Resp Effort & Inspection: normal respiratory effort GI Inspection: Yes normal to inspection Palpation (GI): Soft to palpation Rectal Exam - Female: deferred General: Yes bladder normal to palpation External Female Exam: normal external appearance and normal appearance of the urethra Speculum Exam - Vagina: normal appearance of the vagina, normal palpation, normal vaginal discharge and vaginal bleeding Speculum Exam - Cervix: normal appearance of the cervix and normal palpation Bimanual exam- vagina & uterus: normal bimanual exam, normal palpation, uterine size normal, bladder normal to palpation, normal palpation and non-tender Bimanual Exam- Adnexa, other: no masses OB/external & speculum: vaginal bleeding Skin General skin exam: no rashes or lesions noted Rashes: no rashes Neuro General: patient oriented x3 Cognition (Neuro): normal cognition Extrem General: Yes normal to inspection Psych Attitude: cooperative Thought process: Normal thought process present Assessment & Plan Assessment & Plan (1) Encounter for well woman exam with routine gynecological exam: Code(s): Z01.419 - Encounter for gynecological examination (general) (routine) without abnormal findings Plan Discussed: Current recommendations for pap smears per ASCCP guidelines. Repeat Pap in 2 years. Breast awareness and periodic breast exams. Maintain a healthy lifestyle including a well balanced diet and routine exercise. Use condoms for STI and prevention. Monitor menstrual cycles, report any heavy prolonged bleeding, periods skipping more than 2-3 months, or bleeding less than 3 weeks apart. Complete blood work from her primary care. All of her questions and concerns were addressed to the best of my ability. 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 Coding Level of Care Code Est Pt Prev Care 18-39y(49779) Diagnoses Encounter for well woman exam with routine gynecological exam Z01.419
[2023-07-28 14:20] VITALS: BP 134/88; BMI 33.3
== END 2023-07-28 14:49 | disposition home or self-care (01) ==
PROVIDERS: PCP Physician Assistant; Visit Provider Advanced Practice Midwife
DX: Z01.419 Encounter for gynecological examination (general) (routine) without abnormal findings (principal)
CPT/HCPCS: G0101

== ENCOUNTER 2023-07-28 13:33 | Outpatient (REF) | payer MEDICARE, MEDICAID, SELFPAY ==
[2023-07-29 01:24] LABS: CT PCR DETECTED (Not Detect.); NG PCR NOT DETECTED (Not Detect.)
[2023-07-30 14:31] LABS: BV Int Neg Control Negative (Negative); BV Int Pos Control Positive (Positive)
== END 2023-07-28 13:34 | disposition home or self-care (01) ==
LOC: HO.LNP 13:33
PROVIDERS: PCP Physician Assistant; Visit Provider Advanced Practice Midwife
DX: Z01.419 Encounter for gynecological examination (general) (routine) without abnormal findings (principal); Z20.2 Contact with and (suspected) exposure to infections with a predominantly sexual mode of transmission
CPT/HCPCS: 0353U; 87480; 87510; 87660; G0101

== ENCOUNTER 2024-06-18 16:49 | Inpatient (IN) | payer MEDICARE, MEDICAID, SELFPAY ==
--- NOTE | 2024-06-18 | ECG_ITS ---
Test Reason : TACHY Blood Pressure : / mmHG Vent. Rate : 120 BPM Atrial Rate : 120 BPM P-R Int : 142 ms QRS Dur : 086 ms QT Int : 334 ms P-R-T Axes : 048 009 001 degrees QTc Int : 472 ms Sinus tachycardia Possible Inferior infarct , age undetermined Abnormal ECG When compared with ECG of 18-JUN-2024 19:31, No significant change was found Referred By: Bryon Doe Electronically Signed By:Antonio Black
--- NOTE | 2024-06-18 | ECG_ITS ---
Test Reason : LOW K LEVEL Blood Pressure : / mmHG Vent. Rate : 111 BPM Atrial Rate : 111 BPM P-R Int : 148 ms QRS Dur : 090 ms QT Int : 362 ms P-R-T Axes : 048 014 -04 degrees QTc Int : 492 ms Sinus tachycardia Moderate voltage criteria for LVH, may be normal variant ( R in aVL , Marc product ) Nonspecific ST and T wave abnormality Abnormal ECG When compared with ECG of 07-DEC-2021 16:24, Nonspecific T wave abnormality now evident in Lateral leads Referred By: Generic ED Physician Electronically Signed By:Antonio Black
--- NOTE | ~2024-06-18 | CT_ITS ---
EXAMINATION: CT ABDOMEN AND PELVIS WITHOUT CONTRAST CLINICAL INFORMATION: Left flank pain, query renal colic COMPARISON: None available. TECHNIQUE: Multidetector volumetric imaging was performed from the superior aspect of the liver through the pubic symphysis. Sagittal and coronal reformatted images were obtained on the technologist's workstation. This CT examination was performed using dose optimization techniques as appropriate, variously including the following: *Automated exposure control *Adjustment of mA and/or kV according to patient size (this includes techniques or standardized protocols for targeted exams where dose is matched to indication/reason for exam; i.e. extremities or head) *Use of iterative reconstruction technique DLP: 645 mGy-cm FINDINGS: LUNG BASES: The visualized lung bases are unremarkable. LIVER, GALLBLADDER, AND BILIARY TREE: The liver is normal in size, shape, and attenuation. No focal hepatic lesion or biliary ductal dilatation is present. The gallbladder is unremarkable with no evidence of radiopaque gallstones, gallbladder wall thickening, or obvious pericholecystic inflammatory changes. PANCREAS: Unremarkable. SPLEEN: Unremarkable. ADRENAL GLANDS: Unremarkable. KIDNEYS AND URETERS: Moderate left hydronephrosis and hydroureter. Left-sided perinephric fat stranding. There appears to be a 3 mm stone in the distal left ureter, although the ureter's course in the pelvis is difficult to discern. BLADDER: Unremarkable. GASTROINTESTINAL TRACT: Status post sleeve gastrectomy. The large and small bowel are normal in caliber. ABDOMINAL WALL: No significant hernia is appreciated. LYMPH NODES: Normal. VASCULAR: Unremarkable. PELVIC VISCERA: Prominent uterus. Follicles are noted. OSSEOUS STRUCTURES: Unremarkable. CT/CT abdomen pelvis wo IV con IMPRESSION: Moderate left hydronephrosis and hydroureter, suspected to be secondary to a 3 mm stone in the distal left ureter. Fleischner guidelines were followed. Electronically signed by: Lan Putnam MD 06/18/2024 07:45 PM EDT
--- NOTE | ~2024-06-18 | CT_ITS ---
EXAMINATION: CT HEAD WITHOUT CONTRAST CLINICAL INFORMATION: headache COMPARISON: None available. TECHNIQUE: Contiguous axial imaging was performed from the skull base to vertex without intravenous administration of contrast. This CT examination was performed using dose optimization techniques as appropriate, variously including the following: *Automated exposure control *Adjustment of mA and/or kV according to patient size (this includes techniques or standardized protocols for targeted exams where dose is matched to indication/reason for exam; i.e. extremities or head) *Use of iterative reconstruction technique DLP: 664 mGy-cm FINDINGS: No acute intracranial hemorrhage, mass effect, midline shift, hydrocephalus or herniation. Hicks-white matter differentiation is normal. Posterior cranial fossa contents demonstrated no acute intracranial hemorrhage or mass effect. Sellar/suprasellar region demonstrated no gross masses. Craniocervical junction is intact and normal. Bony calvarium is intact. Skull base is intact. Metallic piercing, left face. Tympanic cavities and mastoid cells are aerated. No air-fluid levels in the included paranasal sinuses. CT/CT head/brain wo IV con IMPRESSION: No acute or structural brain abnormality by CT. Electronically signed by: Galileo Connell MD 06/21/2024 08:04 AM EDT
[2024-06-18 17:30] VITALS: BP 156/97; PULSE 120; RESP 16; TEMP 38.8; O2SAT 99; BMI 31.8
--- NOTE | 2024-06-18 17:36 | ED_ITS ---
HPI - General Adult General Chief complaint: General Medical Stated complaint: ?Kidney infection Time Seen by Provider: 06/18/24 19:41 Source: patient Mode of arrival: ambulatory Limitations: no limitations History of Present Illness ED Provider: Dr. Bryon Doe HPI narrative: 34-year-old female with alcohol dependence, generalized anxiety disorder, hypertension, hyperlipidemia, gastric sleeve surgery 04/19/2023 with 65 lb weight loss since the surgery who presents emergency department for evaluation of fever, chills, body aches, left-sided abdominal and bilateral flank pain right greater than left, with symptoms starting 3 days prior. The patient states she was a sharp, constant, pain bilateral flank pain flank area, she states the pain a constant, dull, 10/10 pain. She states that the pain is worse if she lies down flat and is improved if she sits up. She was also complaining of left- sided chest pain. She describes this is a pressure pain which is also worse if she lies down flat. She denied nausea, vomiting or diarrhea. Related Data Home Medications ?Medication ?Instructions ?Recorded ?Confirmed No Known Home Meds 06/19/24 06/19/24 Allergies Allergy/AdvReac Type Severity Reaction Status Date / Time No Known Allergies Allergy Verified 06/18/24 17:31 [No Known Allergies*] Review of Systems 2 Review of Systems: Yes all other systems are reviewed and are negative [facility] Past Medical History [facility] Narrative: Social history: She denies tobacco, alcohol and drug use. Medical History Exposure to STD Hepatitis C CVA (cerebral vascular accident) Substance abuse HTN (hypertension) Left elbow fracture Obesity (BMI 30-39.9) Insomnia Surgical History H/O gastric sleeve S/P excision of neuroma History of bilateral breast reduction surgery History of tonsillectomy History of D&C History of tubal ligation Family History Family History Father Asthma Mother Hypertension Maternal Grandmother Hypertension Asthma Stroke Maternal Grandfather Diabetes Hypertension Stroke Sister In good health Sister Asthma Son In good health Daughter In good health Maternal Aunt Breast cancer Other Mental health disorder Social History Social History Household Members: Children Housing: Apartment Do you presently have visiting nurse or other home services: No Alcohol intake: former Patient Tobacco Use Status: Former Tobacco user Smoked in Last 30 Days: No e-Cigarette/Vaping Use: Never Used Second Hand Smoke Exposure: No Use of substances other than those prescribed or required for medical reasons: No Currently Displaying Signs/Symptoms of Drug Intoxication Withdrawal: No Have you been hit, kicked, punched, or otherwise hurt by someone within the past year? If so, by whom?: No Do you feel safe in your current relationship?: No Current Relationship Is there a partner from a previous relationship who is making you feel unsafe now?: No Are you made to feel afraid or neglected: No Advance Directives: No Advance Directives Information Provided: Yes Do you have a plan to hurt others: No Plan Recently lost weight without trying: No How much weight loss: Not applicable Eating poorly because of decreased appetite: No Nutrition screen score: 0 Nutrition Risks: No Nutritional Risk Patient : No : No Poor oral hygiene: No service: No Current occupational status: unemployed Current occupation: [employer] Cognitive needs: No Hearing needs: No Vision needs: No Physical Exam ED Vital Signs: Vital Signs - 24 hr 06/18/24 17:30 06/18/24 19:42 06/18/24 21:15 Temperature 101.8 F H 99.7 F 100.8 F H Pulse Rate 120 H 120 H 112 H Respiratory Rate 16 24 H 22 H Blood Pressure 156/97 H 156/78 H 159/87 H Pulse Oximetry 99 98 97 Oxygen Delivery Method Room Air Room Air Room Air 06/18/24 22:12 Temperature 100.5 F H Pulse Rate 122 H Respiratory Rate 24 H Blood Pressure 123/94 H Pulse Oximetry 98 Oxygen Delivery Method Room Air BMI result Body Mass Index 31.8 Vital signs revealed a fever of 101.8 degrees F, tachycardia with a heart rate of 120 beats per minute, elevated blood pressure 156/97, elevated respiratory rate 24. Exam: General: Awake, alert , in distress secondary to her flank pain, answers all questions appropriately Head: Normocephalic, atraumatic EENT: PERRL, Lids normal, sclera normal, conjunctiva normal, nose normal , ears normal, throat without erythema or exudates Neck: Supple, no adenopathy Lung: breath sounds symmetric, no wheezing, rales or rhonchi Chest: symmetric movement, nontender Heart: regular rate and rhythm, normal S1, S2 no murmurs or rubs Abdomen: soft, moderate left upper quadrant tenderness, no epigastric, right upper quadrant or right lower quadrant tenderness, normoactive bowel sounds, no rebound, no voluntary or involuntary guarding Back: no vertebral tenderness, moderate right CVA tenderness Extremities: no deformities, moves all extremities symmetrically Neuro: Awake, alert, oriented, normal speech, cranial nerves intact, moves all extremities symmetrically Psych: Pleasant, cooperative Course Course Course Narrative: This is a rapid medical exam. The patient is a 34-year-old female with a history of alcohol dependence, generalized anxiety disorder, hypertension, hyperlipidemia presents with back pain x3 days. Patient states she developed cramping across her entire mid back, it is now localized to left mid back to left flank. Pain fluctuates in intensity and is nonradiating. Associated fevers at home of 103. Denies nausea vomiting, history of kidney stones, recent cough cold symptoms, dysuria or hematuria. On exam, the patient does have bilateral CVA tenderness. We will be ordering screening labs per our sepsis protocol, giving Tylenol as she is febrile right now, obtaining a UA and a CT scan of the abdomen. She will momentarily be returning to the waiting room pending her full assessment, we are expediting her assessment given she is meeting sepsis criteria. Medications Administered Generic Name Dose Route Start Last Admin Trade Name Freq PRN Reason Stop Dose Admin Acetaminophen 650 mg 06/18/24 22:28 06/20/24 17:46 Acetaminophen 325 Mg Tablet PO 650 mg Q6H PRN Administration Pain, Mild (Pain Scale 1-3), fever or headache Ceftriaxone Sodium 1 gm 06/19/24 19:00 06/20/24 17:46 Ceftriaxone Sodium 1 Gm Vial IVPUSH 1 gm Q24H WOODROW Administration Diazepam 5 mg 06/20/24 17:12 06/20/24 21:31 Diazepam 10 Mg/2 Ml Cartridge IVPUSH 5 mg Q8H PRN Administration anxiety Morphine Sulfate 4 mg 06/19/24 02:05 06/20/24 16:32 Morphine Sulfate 4 Mg/Ml Cartridge IVPUSH 4 mg Q6H PRN Administration Pain, Severe (Pain Scale 7-10) Protocol Ondansetron HCl 4 mg 06/18/24 22:28 06/20/24 10:24 Ondansetron Hcl 4 Mg/2 Ml Vial IVPUSH 4 mg Q8H PRN Administration Nausea and Vomiting Sodium Chloride 3 ml 06/19/24 00:00 06/20/24 21:31 0.9 % Sodium Chloride Flush 3 Ml Syringe IVFLUSH 3 ml QSHIFT [place] Administration Discontinued Medications Generic Name Dose Route Start Last Admin Trade Name Freq PRN Reason Stop Dose Admin Acetaminophen 975 mg 06/18/24 17:33 06/18/24 17:38 Acetaminophen 325 Mg Tablet PO 06/18/24 17:34 975 mg ONCE ONE Administration Acetaminophen 975 mg 06/18/24 19:56 06/18/24 21:46 Acetaminophen 325 Mg Tablet PO 06/18/24 19:57 975 mg ONCE STA Administration Ceftriaxone Sodium 1 gm 06/18/24 19:43 06/18/24 20:15 Ceftriaxone Sodium 1 Gm Vial IVPUSH 06/18/24 19:44 1 gm ONCE ONE Administration Diphenhydramine HCl 50 mg 06/18/24 21:35 06/18/24 21:40 Diphenhydramine Hcl 50 Mg/Ml Vial IVPUSH 06/18/24 21:36 50 mg ONCE STA Administration Diphenhydramine HCl 25 mg 06/20/24 11:42 06/20/24 12:03 Diphenhydramine Hcl 50 Mg/Ml Vial IVPUSH 06/20/24 11:43 Not Given ONCE ONE Hydromorphone HCl 1 mg 06/18/24 22:10 06/18/24 22:31 Hydromorphone Hcl 1 Mg/Ml Syringe IVPUSH 06/18/24 22:11 1 mg ONCE STA Administration Protocol Hydromorphone HCl 1 mg 06/19/24 16:03 06/19/24 16:05 Hydromorphone Hcl 1 Mg/Ml Syringe IVPUSH 06/19/24 16:04 1 mg ONCE STA Administration Protocol Sodium Chloride 1,641 mls @ 1,641 mls/hr 06/18/24 19:43 06/18/24 22:09 Ns IV 06/18/24 20:42 Infused .Q1H STA Infusion Potassium Chloride 10 meq in 100 mls @ 100 mls/hr 06/18/24 20:00 06/18/24 22:37 Potassium Chloride/H20 IV 06/18/24 21:59 Infused Q1H WOODROW Infusion Sodium Chloride 1,000 mls @ 125 mls/hr 06/18/24 22:15 06/21/24 02:50 Ns IVCONT Infused .Q8H [place]ODROW Infusion Potassium Chloride 10 meq in 100 mls @ 100 mls/hr 06/18/24 22:30 06/19/24 05:18 Potassium Chloride/H20 IV 06/19/24 02:29 Infused Q1H [place]ODROW Infusion Acetaminophen 1,000 mg in 100 mls @ 400 mls/hr 06/19/24 17:10 06/19/24 21:46 Ofirmev IV 06/19/24 17:24 Not Given PREOP ONE Influenza Virus Vaccine 0.5 ml 06/19/24 00:40 06/19/24 02:36 Flu Vacc [id number](6mos Up)/Pf 0.5 Ml Syringe IM 06/19/24 00:41 Not Given .ONCE ONE Ketorolac Tromethamine 15 mg 06/18/24 19:51 06/18/24 20:15 Ketorolac Tromethamine 15 Mg/Ml Vial IVPUSH 06/18/24 19:52 15 mg ONCE STA Administration Ketorolac Tromethamine 30 mg 06/18/24 22:28 06/20/24 08:01 Ketorolac Tromethamine 30 Mg/Ml Vial IVPUSH 06/23/24 22:27 30 mg Q6H PRN Administration Pain, Mild (Pain Scale 1-3) Lorazepam 0.5 mg 06/19/24 21:42 06/19/24 21:49 Lorazepam 2 Mg/Ml Vial IVPUSH 06/19/24 21:43 0.5 mg STAT STA Administration Metoclopramide HCl 10 mg 06/18/24 21:35 06/18/24 21:40 Metoclopramide Hcl 10 Mg/2 Ml Vial IVPUSH 06/18/24 21:36 10 mg ONCE STA Administration Morphine Sulfate 4 mg 06/18/24 21:18 06/18/24 21:31 Morphine Sulfate 4 Mg/Ml Cartridge IVPUSH 06/18/24 21:19 4 mg ONCE STA Administration Protocol Ondansetron HCl 4 mg 06/18/24 19:51 06/18/24 20:15 Ondansetron Hcl 4 Mg/2 Ml Vial IVPUSH 06/18/24 19:52 4 mg ONCE ONE Administration Pantoprazole Sodium 40 mg 06/20/24 17:12 06/20/24 17:46 Pantoprazole Sodium 40 Mg/10 Ml Vial IVPUSH 06/20/24 17:13 40 mg ONCE ONE Administration Potassium Chloride 40 meq 06/20/24 07:34 06/20/24 08:01 Potassium Chloride Er 20 Meq Tab.Er.Prt PO 06/20/24 07:35 40 meq ONCE ONE Administration Tamsulosin HCl 0.4 mg 06/18/24 22:10 06/18/24 22:32 Tamsulosin Hcl 0.4 Mg Capsule PO 06/18/24 22:11 0.4 mg ONCE ONE Administration Medical Decision Making Medical Decision Making MDM Narrative: 34-year-old female with alcohol dependence, generalized anxiety disorder, hypertension, hyperlipidemia, gastric sleeve surgery 04/19/2023 with 65 lb weight loss since the surgery who presents emergency department for evaluation of fever, chills, body aches, left-sided abdominal and bilateral flank pain right greater than left, with symptoms starting 3 days prior. Vital signs revealed an elevated blood pressure of 156/97, elevated heart rate of 120 and elevated temperature of 101.8 degrees F. physical examination did reveal left upper quadrant abdominal tenderness and bilateral CVA tenderness left greater than right. Differential diagnosis: ?Includes but is not limited to myocardial infarction, myocardial ischemia, pericarditis, myocarditis, bilateral pyelonephritis, renal colic, ureteral stone, electrolyte abnormalities, anemia Following evaluation was ordered: CBC, CMP, lactic acid, magnesium, troponin, urinalysis, quantitative beta-hCG, CT scan abdomen pelvis without IV contrast, EKG Course: 19:51 Patient meets SIRS criteria and sepsis protocol was started. My interpretation patient's laboratory evaluation is as follows: Elevated white blood count [id number] with a left shift 85 neutrophils. Normocytic anemia with an H&H of 10.8 and 30.7-this is you compared to her previous values on 02/14/2023 when her H&H was 12.5 and 37.4. Platelet count was normal 232,000. Potassium low 2.7. Magnesium normal 1.7. BUN and creatinine were normal 6 and 0.66. Quantitative beta-hCG was below detectable limits. Lactic acid was normal at 0.9. Urinalysis was positive for blood, leukocyte esterase. Microscopic revealed 21-50 WBCs, 0 2 squamous cells and 3+ bacteria-consistent with a urinary tract. CT scan of the abdomen pelvis without IV contrast revealed moderate left hydronephrosis and hydroureter with left perinephric fat stranding and 3 mm stone in the distal left ureter. Patient is obese with an elevated BMI of 31.8 kg therefore she was treated with 30 cc/kilogram normal saline bolus based on ideal body weight. I ordered ceftriaxone 1 g IV, Toradol 15 mg IV Zofran 4 mg IV and potassium chloride 10 mEq/100 cc IV Q 1 hour x2 doses for her hypokalemia. 22:17 Patient continues to have 10/10 chest pain and bilateral flank pain despite receiving Toradol and morphine IV, therefore I ordered Dilaudid 1 mg IV. Repeat 12 EKG is consistent with sinus tachycardia with no other changes. Did receive 2 L of normal saline IV and I did order normal saline at 125 cc an hours Patient's 1st troponin was detectable but not elevated I will repeat troponin and BNP at this time. My impression is the patient has acute pyelonephritis as the cause for fever and her symptoms. I did discuss the patient's left hydronephrosis and obstructing 3 mm ureteral stone with the covering urologist, Dr. Deonte Rothman. She recommended IV antibiotics, hydration and correction of the patient's potassium. She also recommended Flomax 0.4 mg daily to help with passage of the renal stone. She states she would not remove the stone that these time but will follow the patient. I did discuss admission over tiger text with the covering hospitalist, Dr. Pavon. Admission/Observation Consideration of admission/observation: Escalation of care including admission/observation considered (Yes) Consult Healthcare Provider Management of the patient was discussed with: Hospitalist (Dr. Pavon) and Revenue Specialist (Dr. Deonte Rothman) Lab Data MDM Lab Attestation statement: I reviewed the patient's lab results. 06/21/24 05:50 06/21/24 05:50 Labs: Lab Results 06/18/24 06/18/24 06/18/24 Range/Units 18:17 19:46 20:00 WBC 12.2 H (4.8-10.8) X10*3/uL RBC 3.62 L (4.20-5.50) X10*6/uL Hgb 10.8 L (12.0-16.0) g/dl Hct 30.7 L (37.0-47.0) % MCV 84.8 (80.0-98.0) fL MCH 29.8 (27.0-33.0) pg MCHC 35.2 H (31.0-35.0) g/dl RDW 13.3 (11.0-16.0) % Plt Count 232 D (160-400) X10*3/uL MPV 9.9 (9.4-12.3) fL Immature Gran % (Auto) 0.6 H (0.0-0.4) % Neut % (Auto) 85.3 H (45-73) % Lymph % (Auto) 6.5 L (20-40) % [place] % (Auto) 7.3 (2-11) % Eos % (Auto) 0.1 (0-4) % Baso % (Auto) 0.2 (0-2) % Lymph # (Auto) 0.8 L (1.2-4.9) X10*3/uL [place] # (Auto) 0.9 (0.1-1.2) X10*3/uL Eos # (Auto) 0.0 (0.0-0.4) X10*3/uL Baso # (Auto) 0.0 (0.0-0.2) X10*3/uL Abs Immat Gran (auto) 0.07 H (0.00-0.03) X10*3/uL Absolute Neuts (auto) 10.4 H (2.0-8.3) x10*3/uL Absolute Nucleated RBC 0.000 (0.0-0.012) X10*3/uL Nucleated RBC % (auto) 0.0 (0.0-0.2) /100WBC Sodium 137 (135-145) mmol/L Potassium 2.7 L* (3.3-5.1) mmol/L Chloride 106 (96-108) mmol/L Carbon Dioxide 22 (22-29) mmol/L Anion Gap 12 (12-20) BUN 6 L (9-16) mg/dL Creatinine 0.66 (0.5-1.4) mg/dL Estim Creat Clear Calc 123.4 Estimated GFR > 60 Random Glucose 108 (60-115) mg/dL Lactic Acid 0.9 (0.5-2.0) mmol/L Calcium 8.8 D (8.4-10.2) mg/dL Magnesium 1.7 (1.6-2.6) mg/dL Total Bilirubin 0.7 (0.0-1.0) mg/dL AST 18 (5-31) U/L ALT 7 (0-31) U/L Alkaline Phosphatase 76 (39-117) U/L Troponin I High Sens 3.5 (<3.5-17.0) ng/L Total Protein 6.9 (6.5-8.0) g/dL Albumin 4.0 (3.5-5.0) g/dL Lipase 21 (8-78) U/L Beta HCG, Quant < 2 mIU/mL Urine Color Yellow Urine Appearance Clear Urine pH 6.0 (5.0-9.0) Ur Specific [place] <= 1.005 (1.005-1.025) Urine Protein Negative (Neg-Trace) mg/dL Urine Glucose (UA) Negative (Negative) mg/dL Urine Ketones Trace (Negative) mg/dL Urine Blood Small (1+) H (Negative) Urine Nitrite Negative (Negative) Ur Leukocyte Esterase Moderate (2+) H (Negative) Urine RBC 0-2 (0-2) /HPF Urine WBC 21-50 H (0-5) /HPF Ur Squamous Epith Cells 0-2 (0-2) /HPF Urine Bacteria 3+ (None Seen) Hyaline Casts 0-2 (0-2) /LPF Independent Interpretation I performed an independent interpretation of an: EKG Interpretation: My interpretation of the patient's 12 EKG done at 19:41 hours is as follows: Sinus tachycardia with a rate of 111, normal ID interval, QRS duration and prolonged QTC of 492 milliseconds, Q/R complex noted in lead 3, less than [address] segment depression leads 1, 3, AVF, no ST segment elevation, no ID depression, no significant T-wave abnormalities. My interpretation patient's repeat EKG done at 22:00 hours is as follows: Sinus tachycardia with a rate of 120, normal ID interval, QRS duration QTC interval, no ST segment elevation, no ST segment depression, no ID interval depression, Q- wave in lead 3 is still present. This is unchanged from the 1st EKG. Radiology Impression Discussion of test interpretation with radiology: I have reviewed the radiologist's reading. Radiologist Impression: CT ABDOMEN AND PELVIS WITHOUT CONTRAST FINDINGS: LUNG BASES: The visualized lung bases are unremarkable. LIVER, GALLBLADDER, AND BILIARY TREE: The liver is normal in size, shape, and attenuation. No focal hepatic lesion or biliary ductal dilatation is present. The gallbladder is unremarkable with no evidence of radiopaque gallstones, gallbladder wall thickening, or obvious pericholecystic inflammatory changes. PANCREAS: Unremarkable. SPLEEN: Unremarkable. ADRENAL GLANDS: Unremarkable. KIDNEYS AND URETERS: Moderate left hydronephrosis and hydroureter. Left-sided perinephric fat stranding. There appears to be a 3 mm stone in the distal left ureter, although the ureter's course in the pelvis is difficult to discern. BLADDER: Unremarkable. GASTROINTESTINAL TRACT: Status post sleeve gastrectomy. The large and small bowel are normal in caliber. ABDOMINAL WALL: No significant hernia is appreciated. LYMPH NODES: Normal. VASCULAR: Unremarkable. PELVIC VISCERA: Prominent uterus. Follicles are noted. OSSEOUS STRUCTURES: Unremarkable. IMPRESSION: Moderate left hydronephrosis and hydroureter, suspected to be secondary to a 3 mm stone in the distal left ureter. Electronically signed by: Lan Putnam MD 06/18/2024 07:45 PM Chronic Conditions Patient?s care impacted by: Hypertension Critical Care Time Critical Care Time Critical Care Time: Yes Total Critical Care Time: 65 Attestation: Critical Care: The patient was critically ill with a high probability of imminent or life threatening deterioration. I spent greater than 30 minutes of discontinuous time evaluating the patient,delivering critical care at the bedside, discussing and evaluating pertinent data with consultants. Critical care time does not include time spent performing separately billable procedures or teaching. Total time spent performing critical care was 65 minutes. Discharge Plan Discharge Clinical Impression: Pyelonephritis, Hydroureter on left, Hydronephrosis of left kidney, Chest pain, Fever Patient Disposition: Admitted As Inpatient Interventions: Admission Worksheet (ED) Last Done: 06/19/24 00:07 Discharge Date/Time: 06/19/24 00:24
[2024-06-18] MEDS: Acetaminophen 325 MG TABLET 975 MG PO ×2 (17:38→21:46)
[2024-06-18 18:26] LABS: MANUAL DIFF FLAG NO
[2024-06-18 18:28] LABS: Basophils Percent Auto 0.2 % (0-2); Eosinophils Percent Auto 0.1 % (0-4); Hematocrit 30.7 % (37.0-47.0); Hemoglobin 10.8 g/dl (12.0-16.0); Imm Gran Abs Auto 0.07 X10*3/uL (0.00-0.03); Imm Gran Pct Auto 0.6 % (0.0-0.4); Lymphocytes Absolute Auto 0.8 X10*3/uL (1.2-4.9); Lymphocytes Percent Auto 6.5 % (20-40); Mean Corpuscular HGB Conc 35.2 g/dl (31.0-35.0); Mean Corpuscular Hemoglobin 29.8 pg (27.0-33.0); Mean Corpuscular Volume 84.8 fL (80.0-98.0); Mean Platelet Volume 9.9 fL (9.4-12.3); Monocytes Absolute Auto 0.9 X10*3/uL (0.1-1.2); Monocytes Percent Auto 7.3 % (2-11); Neutrophils Absolute Auto 10.4 x10*3/uL (2.0-8.3); Neutrophils Percent Auto 85.3 % (45-73); Platelet Count 232 X10*3/uL (160-400); Red Blood Count 3.62 X10*6/uL (4.20-5.50); Red Cell Distribution Width 13.3 % (11.0-16.0); White Blood Count 12.2 X10*3/uL (4.8-10.8)
[2024-06-18 18:55] LABS: HCG Quantitative < 2 mIU/mL
[2024-06-18 18:58] LABS: Alanine Aminotransferase 7 U/L (0-31); Alkaline Phosphatase 76 U/L (39-117); Anion Gap 12 (12-20); Aspartate Amino Transferase 18 U/L (5-31); Bilirubin Total 0.7 mg/dL (0.0-1.0); Blood Urea Nitrogen 6 mg/dL (9-16); Calcium 8.8 mg/dL (8.4-10.2); Carbon Dioxide 22 mmol/L (22-29); Chloride 106 mmol/L (96-108); Creatinine Clr Calc Pharmacy 123.4; Estimated Glomerular Filt Rate > 60; Glucose Random 108 mg/dL (60-115); Magnesium 1.7 mg/dL (1.6-2.6); Potassium 2.7 mmol/L (3.3-5.1); Sodium 137 mmol/L (135-145); Total Protein 6.9 g/dL (6.5-8.0)
[2024-06-18 19:21] LABS: Lactic Acid 0.9 mmol/L (0.5-2.0)
[2024-06-18 19:42] VITALS: BP 156/78; PULSE 120; RESP 24; TEMP 37.6; O2SAT 98
--- NOTE | 2024-06-18 20:08 | PC.NURSE ---
patient request to use bathroom prior to IVF and abx administration
[2024-06-18 20:09] LABS: Appearance Urine Clear; Color Urine Yellow; Glucose Urine UA Negative (Negative); Leukocyte Esterase Urine Moderate (2+) (Negative); Nitrite Urine Negative (Negative); Specific Gravity - Urine <= 1.005 (1.005-1.025); UMIC TRIGGER UACC YES; Urine Blood Small (1+) (Negative); Urine Ketones Trace mg/dL (Negative); Urine Protein Negative (Neg-Trace)
[2024-06-18] MEDS: cefTRIAXone sodium 1 GM VIAL IVPUSH (20:15)
[2024-06-18] MEDS: Ketorolac Tromethamine 15 MG/ML VIAL IVPUSH (20:15)
[2024-06-18] MEDS: ondansetron HCL 4 MG/2 ML VIAL IVPUSH (20:15)
[2024-06-18 20:16] LABS: Troponin-I High Sensitivity 3.5 ng/L (<3.5-17.0)
[2024-06-18] MEDS: Potassium Chloride/H20 10 MEQ/100 ML PIGGYBACK 100 MEQ IV ×3 (20:16→23:52)
[2024-06-18 20:18] LABS: Lipase 21 U/L (8-78)
[2024-06-18 20:21] LABS: Bacteria Urine 3+ (None Seen); Hyaline Casts Urine 0-2 /LPF (0-2); RBC Urine 0-2 /HPF (0-2); Squamous Epithelial Cell Urine 0-2 /HPF (0-2); UACC Culture Trigger YES; WBC Urine 21-50 /HPF (0-5)
[2024-06-18 21:15] VITALS: BP 159/87; PULSE 112; RESP 22; TEMP 38.2; O2SAT 97
--- NOTE | 2024-06-18 21:20 | PC.NURSE ---
SW MD Doe to report pt febrile 100.8 with chills and nausea. Morphine and tylenol ok'ed to give.
[2024-06-18] MEDS: Morphine Sulfate 4 MG/ML CARTRIDGE IVPUSH (21:31)
--- NOTE | 2024-06-18 21:38 | PC.NURSE ---
patient IV positional causing delay in infusion completion.
[2024-06-18] MEDS: diphenhydrAMINE HCL 50 MG/ML VIAL IVPUSH (21:40)
[2024-06-18] MEDS: Metoclopramide HCl 10 MG/2 ML VIAL IVPUSH (21:40)
--- NOTE | 2024-06-18 22:09 | PC.NURSE ---
patient complaint of feeling nausea and unwell and dry mouth and HR tachycardic 135. MD made aware. Repeat labs, EKG, and fluids ordered. Will continue to monitor closely.
[2024-06-18 22:12] VITALS: BP 123/94; PULSE 122; RESP 24; TEMP 38.1; O2SAT 98
--- NOTE | 2024-06-18 22:29 | PM.IMHP ---
History of Present Illness Date of Service: 06/18/24 Chief Complaint: abd pain This is a 34-year-old female with pertinent history of former alcohol use disorder, mood disorder, gastric sleeve surgery in 2022 who presents to the emergency department for evaluation of abdominal pain. Patient states her symptoms started 3 days prior to presentation. She has been having left flank pain which is intermittent and nonradiating. Also has been having nausea and poor p.o. intake. Had episodes of nonbloody emesis on the day of presentation. Admits associated fevers and chills. This has never happened before. Does endorse increased urinary frequency and dysuria. No chest pain, palpitations, changes in bowel habits. Patient is not on any home prescription medications In the emergency department, patient was found to be septic and urine concerning for UTI. Imaging with left-sided hydronephrosis and hydroureter with 3 mm kidney stone. Review of Systems Constitutional: Constitutional: Reports chills and Reports fever(s) Cardiovascular: Cardiovascular: Reports no additional cardiovascular complaints Respiratory: Respiratory: Reports no additional respiratory complaints Gastrointestinal: Gastrointestinal: Reports abdominal pain, Reports nausea and Reports vomiting Genitourinary: Genitourinary: Reports dysuria and Reports urinary urgency [facility] Medical History Exposure to STD Hepatitis C CVA (cerebral vascular accident) Substance abuse HTN (hypertension) Left elbow fracture Obesity (BMI 30-39.9) Insomnia Family History Father Asthma Mother Hypertension Maternal Grandmother Hypertension Asthma Stroke Maternal Grandfather Diabetes Hypertension Stroke Sister In good health Sister Asthma Son In good health Daughter In good health Maternal Aunt Breast cancer Other Mental health disorder Surgical History H/O gastric sleeve S/P excision of neuroma History of bilateral breast reduction surgery History of tonsillectomy History of D&C History of tubal ligation Social History Household Members: Children Housing: Apartment Do you presently have visiting nurse or other home services: No Alcohol intake: former Patient Tobacco Use Status: Former Tobacco user Smoked in Last 30 Days: No e-Cigarette/Vaping Use: Never Used Second Hand Smoke Exposure: No Use of substances other than those prescribed or required for medical reasons: No Advance Directives: No Advance Directives Information Provided: Yes Do you have a plan to hurt others: No Plan Patient : No service: No Current occupational status: unemployed Current occupation: [employer] Cognitive needs: No Hearing needs: No Vision needs: No Meds Allergies Allergy/AdvReac Type Severity Reaction Status Date / Time No Known Allergies Allergy Verified 06/18/24 17:31 [No Known Allergies*] Active Medications: Current Medications Sodium Chloride (Ns) 1,000 mls @ 125 mls/hr IVCONT .Q8H [facility] Home Medications ?Medication ?Instructions ?Recorded ?Confirmed ?Last Taken ?Type ursodiol 300 mg capsule 300 mg PO BID 06/27/23 06/27/23 Unknown History Physical Exam Vital Signs and Narrative: Vital Signs: Last Vital Signs Temp 100.5 F H 06/18/24 22:12 Pulse 122 H 06/18/24 22:12 Resp 24 H 06/18/24 22:12 BP 123/94 H 06/18/24 22:12 Pulse Ox 98 06/18/24 22:12 O2 Del Method Room Air 06/18/24 22:12 BMI result Body Mass Index 31.8 Middle-aged female lying in bed in no distress Neck supple, no JVD Regular rate and rhythm, S1-S2 heard Regular breath sounds bilaterally, no wheezing or crackles appreciated Abdomen with left CVA tenderness Patient is awake, alert and oriented to self, place, time and person ; no focal motor deficit Psych: Normal mood No pedal edema Results Labs 06/18/24 18:17 06/18/24 18:17 Labs: Laboratory Results - last 24 hr 06/18/24 06/18/24 06/18/24 18:17 19:46 20:00 MCV 84.8 MCH 29.8 MCHC 35.2 H RDW 13.3 Plt Count 232 D MPV 9.9 Immature Gran % (Auto) 0.6 H Neut % (Auto) 85.3 H Lymph % (Auto) 6.5 L [place] % (Auto) 7.3 Eos % (Auto) 0.1 Baso % (Auto) 0.2 Lymph # (Auto) 0.8 L [place] # (Auto) 0.9 Eos # (Auto) 0.0 Baso # (Auto) 0.0 Abs Immat Gran (auto) 0.07 H Absolute Neuts (auto) 10.4 H Absolute Nucleated RBC 0.000 Nucleated RBC % (auto) 0.0 Anion Gap 12 Estim Creat Clear Calc 123.4 Estimated GFR > 60 Random Glucose 108 Lactic Acid 0.9 Calcium 8.8 D Magnesium 1.7 Total Bilirubin 0.7 AST 18 ALT 7 Alkaline Phosphatase 76 Troponin I High Sens 3.5 Total Protein 6.9 Albumin 4.0 Lipase 21 Beta HCG, Quant < 2 Urine Color Yellow Urine Appearance Clear Urine pH 6.0 Ur Specific [place] <= 1.005 Urine Protein Negative Urine Glucose (UA) Negative Urine Ketones Trace Urine Blood Small (1+) H Urine Nitrite Negative Ur Leukocyte Esterase Moderate (2+) H Urine RBC 0-2 Urine WBC 21-50 H Ur Squamous Epith Cells 0-2 Urine Bacteria 3+ Hyaline Casts 0-2 Imaging Radiologist's Impressions: Impressions Abdomen/Pelvis CT 06/18/24 17:33 IMPRESSION: Moderate left hydronephrosis and hydroureter, suspected to be secondary to a 3 mm stone in the distal left ureter. Fleischner guidelines were followed. Electronically signed by: Lan Putnam MD 06/18/2024 07:45 PM EDT RP Assessment and Plan (1) Hydronephrosis of left kidney: Status: Acute (2) Hydroureter on left: Status: Acute (3) Pyelonephritis: Status: Acute Plan This is a 34-year-old female with pertinent history of former alcohol use disorder, mood disorder, gastric sleeve surgery in 2022 who presents to the emergency department for evaluation of abdominal pain. #. Sepsis due to acute UTI with clinical pyelonephritis and moderate left hydronephrosis/hydroureter: Will admit patient with empiric IV antibiotics. Resuscitated with IV crystalloids. Lactic acid, blood culture and urine culture obtained. Imaging with 3 mm stone in distal left ureter. Patient given tamsulosin in the ER. Urology consulted #. Hypokalemia: Repleted #. Mood disorder: No suicidal or homicidal ideation on admission. Not on any baseline home mood stabilizers. DVT prophylaxis: Mechanical Full code Admit as inpatient and will require two night minimum hospital stay for IV antibiotics (as above), which is not possible in a lesser acute setting. Specialist consult pending Quality Stroke Does the patient have a stroke diagnosis?: No VTE Prior VTE?: No VTE Risk Level:: Medical - moderate - high VTE Device Contraindication: Treatment Not Indicated VTE Drug Contraindication: N/A - Med Ordered
[2024-06-18] MEDS: 0.9 % Sodium Chloride 1,000 ML 125 ML IVCONT (22:30)
[2024-06-18 22:31] VITALS: RESP 23
[2024-06-18] MEDS: HYDROmorphone HCl 1 MG/ML SYRINGE IVPUSH (22:31)
[2024-06-18] MEDS: Tamsulosin HCL 0.4 MG CAPSULE PO (22:32)
[2024-06-18 22:39] VITALS: BP 137/82; PULSE 112; RESP 22; TEMP 37.8; O2SAT 97
[2024-06-18 22:56] LABS: Anion Gap 10 (12-20); Blood Urea Nitrogen 6 mg/dL (9-16); Calcium 7.9 mg/dL (8.4-10.2); Carbon Dioxide 22 mmol/L (22-29); Chloride 108 mmol/L (96-108); Creatinine Clr Calc Pharmacy 121.6; Estimated Glomerular Filt Rate > 60; Glucose Random 115 mg/dL (60-115); Potassium 2.9 mmol/L (3.3-5.1); Sodium 137 mmol/L (135-145)
[2024-06-18 23:18] LABS: Influenza A PCR NEGATIVE (Negative); Influenza B PCR NEGATIVE (Negative); Resp Syncy Virus RNA Qual PCR NEGATIVE (Negative); SARS COV2 PCR INHOUSE NEGATIVE (Negative)
[2024-06-19] VITALS (17 sets, daily range): BP systolic 109–164; BP diastolic 59–81; PULSE 86–123; RESP 16–24; TEMP 36.5–39.5; O2SAT 94–100; BMI 33.1
[2024-06-19] MEDS: Ketorolac Tromethamine 30 MG/ML VIAL IVPUSH ×3 (00:45→14:46)
[2024-06-19] MEDS: Potassium Chloride/H20 10 MEQ/100 ML PIGGYBACK 100 MEQ IV ×3 (00:50→03:49)
[2024-06-19] MEDS: Morphine Sulfate 4 MG/ML CARTRIDGE IVPUSH ×2 (02:27→11:10)
[2024-06-19 06:35] LABS: MANUAL DIFF FLAG NO
[2024-06-19 07:04] LABS: Anion Gap 10 (12-20); Blood Urea Nitrogen 5 mg/dL (9-16); Calcium 7.6 mg/dL (8.4-10.2); Carbon Dioxide 21 mmol/L (22-29); Chloride 108 mmol/L (96-108); Creatinine Clr Calc Pharmacy 128.2; Estimated Glomerular Filt Rate > 60; Glucose Random 100 mg/dL (60-115); Potassium 3.1 mmol/L (3.3-5.1); Sodium 136 mmol/L (135-145)
[2024-06-19 07:05] LABS: Basophils Percent Auto 0.2 % (0-2); Eosinophils Absolute Auto 0.1 X10*3/uL (0.0-0.4); Eosinophils Percent Auto 0.6 % (0-4); Hematocrit 27.1 % (37.0-47.0); Hemoglobin 9.1 g/dl (12.0-16.0); Imm Gran Abs Auto 0.16 X10*3/uL (0.00-0.03); Imm Gran Pct Auto 1.2 % (0.0-0.4); Lymphocytes Absolute Auto 0.8 X10*3/uL (1.2-4.9); Mean Corpuscular HGB Conc 33.6 g/dl (31.0-35.0); Mean Corpuscular Hemoglobin 29.2 pg (27.0-33.0); Mean Corpuscular Volume 86.9 fL (80.0-98.0); Mean Platelet Volume 10.4 fL (9.4-12.3); Monocytes Absolute Auto 0.8 X10*3/uL (0.1-1.2); Neutrophils Absolute Auto 11.5 x10*3/uL (2.0-8.3); Platelet Count 200 X10*3/uL (160-400); Red Blood Count 3.12 X10*6/uL (4.20-5.50); Red Cell Distribution Width 13.7 % (11.0-16.0); White Blood Count 13.4 X10*3/uL (4.8-10.8)
[2024-06-19] MEDS: 0.9 % Sodium Chloride 1,000 ML 125 ML IVCONT ×3 (07:28→23:26)
[2024-06-19] MEDS: 0.9 % Sodium Chloride Flush 3 ML SYRINGE IVFLUSH (07:30)
[2024-06-19] MEDS: Acetaminophen 325 MG TABLET 650 MG PO ×2 (07:30→18:02)
--- NOTE | 2024-06-19 08:12 | P.PNIM_ITS ---
Subjective Subjective Date of Service: 06/19/24 Interval History: fever, chills Physical Exam 2 Vital Signs: Vital Signs: Last Vital Signs Temp 103.1 F H 06/19/24 07:29 Pulse 123 H 06/19/24 07:29 Resp 18 06/19/24 07:29 BP 118/59 L 06/19/24 07:29 Pulse Ox 98 06/19/24 07:29 O2 Del Method Room Air 06/19/24 07:29 BMI result Body Mass Index 33.1 General: AO X 3, no acute distress Resp: CTA bilateral, no accessory muscles used CVS: S1,S2,RRR GI: soft, non tender, non distended Neuro: motor grossly intact, alert Psych: appropriate affect, appropriate insight Objective Data Active Medications Acetaminophen (Acetaminophen 325 Mg Tablet) 650 mg PO Q6H PRN PRN Reason: Pain, Mild (Pain Scale 1-3), fever or headache Last Admin: 06/19/24 07:30 Dose: 650 mg Documented By: JUAN Calcium Carbonate (Calcium Carbonate 750 Mg Tab.Chew) 750 mg PO Q4H PRN PRN Reason: Heartburn Ceftriaxone Sodium (Ceftriaxone Sodium 1 Gm Vial) 1 gm IVPUSH Q24H [facility] Sodium Chloride (Ns) 1,000 mls @ 125 mls/hr IVCONT .Q8H [facility] Last Admin: 06/19/24 07:28 Dose: 125 mls/hr Documented By: JUAN Ketorolac Tromethamine (Ketorolac Tromethamine 30 Mg/Ml Vial) 30 mg IVPUSH Q6H PRN PRN Reason: Pain, Mild (Pain Scale 1-3) Stop: 06/23/24 22:27 Last Admin: 06/19/24 07:29 Dose: 30 mg Documented By: JUAN Magnesium Hydroxide (Milk Of Magnesia 30 Ml Oral.Susp) 30 ml PO DAILY PRN PRN Reason: Constipation Melatonin (Melatonin 3 Mg Tablet) 6 mg PO BEDTIME PRN PRN Reason: Insomnia Morphine Sulfate (Morphine Sulfate 4 Mg/Ml Cartridge) 4 mg IVPUSH Q6H PRN; Protocol PRN Reason: Pain, Severe (Pain Scale 7-10) Last Admin: 06/19/24 02:27 Dose: 4 mg Documented By: ELIAZAR Ondansetron HCl (Ondansetron Hcl 4 Mg/2 Ml Vial) 4 mg IVPUSH Q8H PRN PRN Reason: Nausea and Vomiting Sodium Chloride (0.9 % Sodium Chloride Flush 3 Ml Syringe) 3 ml IVFLUSH [facility] Last Admin: 06/19/24 07:30 Dose: 3 ml Documented By: JUAN Labs 06/19/24 05:42 06/19/24 05:42 Labs: Laboratory Results - last 24 hr 06/18/24 06/18/24 06/18/24 18:17 19:46 20:00 MCV 84.8 MCH 29.8 MCHC 35.2 H RDW 13.3 Plt Count 232 D MPV 9.9 Immature Gran % (Auto) 0.6 H Neut % (Auto) 85.3 H Lymph % (Auto) 6.5 L [place] % (Auto) 7.3 Eos % (Auto) 0.1 Baso % (Auto) 0.2 Lymph # (Auto) 0.8 L [place] # (Auto) 0.9 Eos # (Auto) 0.0 Baso # (Auto) 0.0 Abs Immat Gran (auto) 0.07 H Absolute Neuts (auto) 10.4 H Absolute Nucleated RBC 0.000 Nucleated RBC % (auto) 0.0 Anion Gap 12 Estim Creat Clear Calc 123.4 Estimated GFR > 60 Random Glucose 108 Lactic Acid 0.9 Calcium 8.8 D Magnesium 1.7 Total Bilirubin 0.7 AST 18 ALT 7 Alkaline Phosphatase 76 Troponin I High Sens 3.5 Total Protein 6.9 Albumin 4.0 Lipase 21 Beta HCG, Quant < 2 Urine Color Yellow Urine Appearance Clear Urine pH 6.0 Ur Specific [place] <= 1.005 Urine Protein Negative Urine Glucose (UA) Negative Urine Ketones Trace Urine Blood Small (1+) H Urine Nitrite Negative Ur Leukocyte Esterase Moderate (2+) H Urine RBC 0-2 Urine WBC 21-50 H Ur Squamous Epith Cells 0-2 Urine Bacteria 3+ Hyaline Casts 0-2 Influenza Type A (PCR) Influenza Type B (PCR) RSV RNA Qual (PCR) SARS-CoV-2 RNA (RT-PCR) 06/18/24 06/19/24 22:32 05:42 MCV 86.9 MCH 29.2 MCHC 33.6 RDW 13.7 Plt Count 200 MPV 10.4 Immature Gran % (Auto) 1.2 H Neut % (Auto) 86.0 H Lymph % (Auto) 6.0 L [place] % (Auto) 6.0 Eos % (Auto) 0.6 Baso % (Auto) 0.2 Lymph # (Auto) 0.8 L [place] # (Auto) 0.8 Eos # (Auto) 0.1 Baso # (Auto) 0.0 Abs Immat Gran (auto) 0.16 H Absolute Neuts (auto) 11.5 H Absolute Nucleated RBC 0.000 Nucleated RBC % (auto) 0.0 Anion Gap 10 L 10 L Estim Creat Clear Calc 121.6 128.2 Estimated GFR > 60 > 60 Random Glucose 115 100 Lactic Acid Calcium 7.9 L D 7.6 L Magnesium Total Bilirubin AST ALT Alkaline Phosphatase Troponin I High Sens 4.0 Total Protein Albumin Lipase Beta HCG, Quant Urine Color Urine Appearance Urine pH Ur Specific [place] Urine Protein Urine Glucose (UA) Urine Ketones Urine Blood Urine Nitrite Ur Leukocyte Esterase Urine RBC Urine WBC Ur Squamous Epith Cells Urine Bacteria Hyaline Casts Influenza Type A (PCR) NEGATIVE Influenza Type B (PCR) NEGATIVE RSV RNA Qual (PCR) NEGATIVE SARS-CoV-2 RNA (RT-PCR) NEGATIVE Assessment and Plan (1) Fever: Status: Acute Plan 34F PMH obesity s/p gastric sleeve 2022, mood disorder, presented with fevers, flank pain Sepsis due to acute pyelonephritis from obstructing nephrolithiasis and left hydronephrosis Continue IV fluids, ceftriaxone, follow-up cultures, follow up Urology Acute hypokalemia Replace and monitor DVT prophylaxis - early ambulation Full code reason for continued hospitalization:still febril, obstructed Quality Stroke Does the patient have a stroke diagnosis?: No VTE Prior VTE?: No VTE Risk Level:: Medical - moderate - high VTE Device Contraindication: Treatment Not Indicated VTE Drug Contraindication: N/A - Med Ordered
--- NOTE | 2024-06-19 08:39 | P.CNUR_ITS ---
History of Present Illness Consult details Consult date: 06/19/24 Narrative: CC: Presentation with left-sided flank pain 34-year-old female Prior gastric sleeve surgery 2022 Presentation with abdominal pain Symptoms for 3 days raising 2 left pain that is intermittent associated nausea with poor p.o. intake Does report 1 episode of emesis Associated chills and subjective fever No relieving factors Labs- WBC 13.4, creatinine 0.6 CT imaging shows 3 mm distal left ureteric stone with hydronephrosis Recommend intervention with ureteroscopy and laser lithotripsy with stent placement Review of Systems 2 Constitutional: Constitutional: Reports as per HPI and Reports no additional constitutional complaints Cardiovascular: Cardiovascular: Reports as per HPI and Reports no additional cardiovascular complaints Respiratory: Respiratory: Reports as per HPI and Reports no additional respiratory complaints Gastrointestinal: Gastrointestinal: Reports as per HPI and Reports no additional gastrointestinal complaints Genitourinary: Genitourinary: Reports as per HPI Musculoskeletal: Musculoskeletal: Reports no additional musculoskeletal complaints and Reports as per HPI Neurologic: Reports system reviewed and no additional complaints, except as documented and Reports as per HPI [facility] Past Medical History Medical History Exposure to STD Hepatitis C CVA (cerebral vascular accident) Substance abuse HTN (hypertension) Left elbow fracture Obesity (BMI 30-39.9) Insomnia Family History Family History Father Asthma Mother Hypertension Maternal Grandmother Hypertension Asthma Stroke Maternal Grandfather Diabetes Hypertension Stroke Sister In good health Sister Asthma Son In good health Daughter In good health Maternal Aunt Breast cancer Other Mental health disorder Surgical History Surgical History H/O gastric sleeve S/P excision of neuroma History of bilateral breast reduction surgery History of tonsillectomy History of D&C History of tubal ligation Social History Social History Household Members: Children Housing: Apartment Do you presently have visiting nurse or other home services: No Alcohol intake: former Patient Tobacco Use Status: Former Tobacco user Smoked in Last 30 Days: No e-Cigarette/Vaping Use: Never Used Second Hand Smoke Exposure: No Use of substances other than those prescribed or required for medical reasons: No Have you been hit, kicked, punched, or otherwise hurt by someone within the past year? If so, by whom?: No Do you feel safe in your current relationship?: No Current Relationship Is there a partner from a previous relationship who is making you feel unsafe now?: No Are you made to feel afraid or neglected: No Advance Directives: No Advance Directives Information Provided: Yes Do you have a plan to hurt others: No Plan Recently lost weight without trying: No How much weight loss: Not applicable Eating poorly because of decreased appetite: No Nutrition screen score: 0 Nutrition Risks: No Nutritional Risk Patient : No : No Poor oral hygiene: No service: No Current occupational status: unemployed Current occupation: [employer] Cognitive needs: No Hearing needs: No Vision needs: No Meds Allergies Allergy/AdvReac Type Severity Reaction Status Date / Time No Known Allergies Allergy Verified 06/18/24 17:31 [No Known Allergies*] Active Medications: Current Medications Acetaminophen (Acetaminophen 325 Mg Tablet) 650 mg PO Q6H PRN PRN Reason: Pain, Mild (Pain Scale 1-3), fever or headache Last Admin: 06/19/24 07:30 Dose: 650 mg Calcium Carbonate (Calcium Carbonate 750 Mg Tab.Chew) 750 mg PO Q4H PRN PRN Reason: Heartburn Ceftriaxone Sodium (Ceftriaxone Sodium 1 Gm Vial) 1 gm IVPUSH Q24H [facility] Sodium Chloride (Ns) 1,000 mls @ 125 mls/hr IVCONT .Q8H [facility] Last Admin: 06/19/24 07:28 Dose: 125 mls/hr Levofloxacin (Levaquin) 500 mg in 100 mls @ 100 mls/hr IV PREOP ONE Stop: 06/19/24 09:33 Ketorolac Tromethamine (Ketorolac Tromethamine 30 Mg/Ml Vial) 30 mg IVPUSH Q6H PRN PRN Reason: Pain, Mild (Pain Scale 1-3) Stop: 06/23/24 22:27 Last Admin: 06/19/24 07:29 Dose: 30 mg Magnesium Hydroxide (Milk Of Magnesia 30 Ml Oral.Susp) 30 ml PO DAILY PRN PRN Reason: Constipation Melatonin (Melatonin 3 Mg Tablet) 6 mg PO BEDTIME PRN PRN Reason: Insomnia Morphine Sulfate (Morphine Sulfate 4 Mg/Ml Cartridge) 4 mg IVPUSH Q6H PRN; Protocol PRN Reason: Pain, Severe (Pain Scale 7-10) Last Admin: 06/19/24 02:27 Dose: 4 mg Ondansetron HCl (Ondansetron Hcl 4 Mg/2 Ml Vial) 4 mg IVPUSH Q8H PRN PRN Reason: Nausea and Vomiting Sodium Chloride (0.9 % Sodium Chloride Flush 3 Ml Syringe) [facility] Last Admin: 06/19/24 07:30 Dose: 3 ml Home Medications ?Medication ?Instructions ?Recorded ?Confirmed ?Last Taken ?Type ursodiol 300 mg capsule 300 mg PO BID 06/27/23 06/27/23 Unknown History vitamins no.119-iron 1 tab PO DAILY 06/19/24 Unknown History fumarate 29 mg-folic acid 1 mg tablet ([id number]) Physical Exam 2 Vital Signs: Vital Signs: Last Vital Signs Temp 103.1 F H 06/19/24 07:29 Pulse 123 H 06/19/24 07:29 Resp 18 06/19/24 07:29 BP 118/59 L 06/19/24 07:29 Pulse Ox 98 06/19/24 07:29 O2 Del Method Room Air 06/19/24 07:29 BMI result Body Mass Index 33.1 Const: General: cooperative, healthy appearing, comfortable and no acute distress Orientation/consciousness: patient oriented x3 HEENT: Face and sinus: Yes normal facial exam Mouth: moist mucous membranes Neck: Neck: Yes normal visual inspection, Yes full ROM and Yes trachea midline Chest: Chest palpation & inspection: normal inspection of the chest Resp: Effort & Inspection: normal respiratory effort, able to speak in complete sentences and no respiratory distress GI: Inspection: Yes normal to inspection Back/Spine/Pelvis: Cervical Spine: normal cervical lordosis Thoracic/Lumbar Spine: thoracic and lumbar spine normal to inspection Skin: General skin exam: no rashes or lesions noted Neuro: General: patient oriented x3, tone normal and moves all extremities Extrem: General: Yes normal to inspection and Yes capillary refill normal Results Labs 06/19/24 05:42 06/19/24 05:42 Labs: Abnormal lab results 06/18/24 06/18/24 06/18/24 Range/Units 18:17 20:00 22:32 WBC 12.2 H (4.8-10.8) X10*3/uL RBC 3.62 L (4.20-5.50) X10*6/uL Hgb 10.8 L (12.0-16.0) g/dl Hct 30.7 L (37.0-47.0) % MCHC 35.2 H (31.0-35.0) g/dl Immature Gran % (Auto) 0.6 H (0.0-0.4) % Neut % (Auto) 85.3 H (45-73) % Lymph % (Auto) 6.5 L (20-40) % Lymph # (Auto) 0.8 L (1.2-4.9) X10*3/uL Abs Immat Gran (auto) 0.07 H (0.00-0.03) X10*3/uL Absolute Neuts (auto) 10.4 H (2.0-8.3) x10*3/uL Potassium 2.7 L* 2.9 L* (3.3-5.1) mmol/L Carbon Dioxide (22-29) mmol/L Anion Gap 10 L (12-20) BUN 6 L 6 L (9-16) mg/dL Calcium 7.9 L D (8.4-10.2) mg/dL Urine Blood Small (1+) H (Negative) Ur Leukocyte Esterase Moderate (2+) H (Negative) Urine WBC 21-50 H (0-5) /HPF 06/19/ Range/Units 05:42 WBC 13.4 H (4.8-10.8) X10*3/uL RBC 3.12 L (4.20-5.50) X10*6/uL Hgb 9.1 L (12.0-16.0) g/dl Hct 27.1 L (37.0-47.0) % MCHC (31.0-35.0) g/dl Immature Gran % (Auto) 1.2 H (0.0-0.4) % Neut % (Auto) 86.0 H (45-73) % Lymph % (Auto) 6.0 L (20-40) % Lymph # (Auto) 0.8 L (1.2-4.9) X10*3/uL Abs Immat Gran (auto) 0.16 H (0.00-0.03) X10*3/uL Absolute Neuts (auto) 11.5 H (2.0-8.3) x10*3/uL Potassium 3.1 L (3.3-5.1) mmol/L Carbon Dioxide 21 L (22-29) mmol/L Anion Gap 10 L (12-20) BUN 5 L (9-16) mg/dL Calcium 7.6 L (8.4-10.2) mg/dL Urine Blood (Negative) Ur Leukocyte Esterase (Negative) Urine WBC (0-5) /HPF Short CBC 06/18/24 06/19/24 Range/Units 18:17 05:42 WBC 12.2 H 13.4 H (4.8-10.8) X10*3/uL Hgb 10.8 L 9.1 L (12.0-16.0) g/dl Hct 30.7 L 27.1 L (37.0-47.0) % Plt Count 232 D 200 (160-400) X10*3/uL BMP 06/18/24 06/18/24 06/19/24 18:17 22:32 05:42 Sodium 137 137 136 Potassium 2.7 L* 2.9 L* 3.1 L Chloride 106 108 108 Carbon Dioxide 22 22 21 L BUN 6 L 6 L 5 L Creatinine 0.66 0.67 0.65 Calcium 8.8 D 7.9 L D 7.6 L Liver Function 06/18/24 Range/Units 18:17 Total Bilirubin 0.7 (0.0-1.0) mg/dL AST 18 (5-31) U/L ALT 7 (0-31) U/L Alkaline Phosphatase 76 (39-117) U/L Albumin 4.0 (3.5-5.0) g/dL Urine 06/18/24 Range/Units 20:00 Urine Color Yellow Urine Appearance Clear Urine pH 6.0 (5.0-9.0) Ur Specific [place] <= 1.005 (1.005-1.025) Urine Protein Negative (Neg-Trace) mg/dL Urine Glucose (UA) Negative (Negative) mg/dL All other labs normal. Assessment and Plan (1) Hydronephrosis of left kidney: Status: Acute Plan Ureteroscopy We discussed the nature of the decision and reasonable alternatives for performing ureteroscopy. Options such as medical therapy were discussed. Interventions include chemical dissolution, ESWL, ureteroscopy with laser lithotripsy and stent placement, PCNL. The relative uncertainties and benefits related to each alternate procedure were adequately discussed. General surgical risks including, but not limited to - pain, bleeding, infection, myocardial infarction, pulmonary embolus, deep vein thrombosis and cerebrovascular accident which may result in further hospitalization were discussed. Full disclosure of the procedure as well as all major risks, benefits and complications were discussed including but not limited to damage to the urethra, bladder and kidney infection, damage to the ureter, stent migration or malposition, scarring to the renal pelvis, remnant stone fragments, subsequent stone passage with need for secondary procedures. The overall secondary procedure rate is approximately 10-15%. The overall clearance rate is approximately 90-95%. Success of the procedure in the short-term does not necessarily guarantee that long-term success will be maintained. Suitable follow up will need to be maintained. The patient showed understanding of discussion and wishes to proceed with - cystoscopy, retrograde, ureteroscopy, possible lithotripsy/stone basketing and stent on the left side Procedures Date of Service Date of Service: 06/19/24
--- NOTE | 2024-06-19 09:06 | PC.NURSE ---
pt's temp is 103.1 F & HR 123, prn tylenol given and ice packs applied; provider notified; continue to monitor;pt awaiting possible cystoscopy today.
--- NOTE | 2024-06-19 09:30 | PHA.MEDREC ---
Pharmacy Consult ? Medication Reconciliation Pharmacy has completed the medication reconciliation, spoke to patient who confirmed she does not take anything at home other than an occasional tylenol/ibuprofen but did not provide doses/frequency.
--- NOTE | 2024-06-19 11:08 | MHC.CM.PN ---
IMM DELIVERED PT LIVES WITH FAMILY. INDEPENDENT AT BASELINE. +HCP PCP CINDI SORIA DP: HOME NO SERVICES IS THE GOAL. PT HAS OWN RIDE HOME. CM WILL FOLLOW FOR ANY CHANGE TO DC PLAN/NEEDS
--- NOTE | 2024-06-19 16:04 | HO.ANESPROP2 ---
HPI - Anesthesia Eval Consult details Narrative: For cysto, laser/litho, ? stent. Has left distal ureteral stone w hydronephrosis. [facility] Active Problems Active Problems: All Active Problems Fever (Acute) Chest pain (Acute) Hydronephrosis of left kidney (Acute) Hydroureter on left (Acute) Pyelonephritis (Acute) Impaired glucose metabolism (Acute) H/O alcohol dependence (Acute) MARINA (generalized anxiety disorder) (Acute) Dysuria (Acute) HTN (hypertension) (Acute) Hypertriglyceridemia (Acute) MDD (major depressive disorder) (Acute) Annual physical exam (Acute) Obese (Acute) Vitamin D deficiency (Acute) Abdominal bloating (Acute) Past Medical History Medical History Exposure to STD Hepatitis C CVA (cerebral vascular accident) Substance abuse HTN (hypertension) Left elbow fracture Obesity (BMI 30-39.9) Insomnia Family History Family History Father Asthma Mother Hypertension Maternal Grandmother Hypertension Asthma Stroke Maternal Grandfather Diabetes Hypertension Stroke Sister In good health Sister Asthma Son In good health Daughter In good health Maternal Aunt Breast cancer Other Mental health disorder Family history of problems with anesthesia: No Surgical History Surgical History H/O gastric sleeve S/P excision of neuroma History of bilateral breast reduction surgery History of tonsillectomy History of D&C History of tubal ligation History of Problems with Anesthesia: No Social History Social History Household Members: Children Housing: Apartment Do you presently have visiting nurse or other home services: No Alcohol intake: former Patient Tobacco Use Status: Former Tobacco user Smoked in Last 30 Days: No e-Cigarette/Vaping Use: Never Used Second Hand Smoke Exposure: No Use of substances other than those prescribed or required for medical reasons: No Have you been hit, kicked, punched, or otherwise hurt by someone within the past year? If so, by whom?: No Do you feel safe in your current relationship?: No Current Relationship Is there a partner from a previous relationship who is making you feel unsafe now?: No Are you made to feel afraid or neglected: No Advance Directives: No Advance Directives Information Provided: Yes Do you have a plan to hurt others: No Plan Recently lost weight without trying: No How much weight loss: Not applicable Eating poorly because of decreased appetite: No Nutrition screen score: 0 Nutrition Risks: No Nutritional Risk Patient : No : No Poor oral hygiene: No service: No Current occupational status: unemployed Current occupation: [employer] Cognitive needs: No Hearing needs: No Vision needs: No Meds Allergies Allergy/AdvReac Type Severity Reaction Status Date / Time No Known Allergies Allergy Verified 06/18/24 17:31 [No Known Allergies*] Active Medications: Current Medications Acetaminophen (Acetaminophen 325 Mg Tablet) 650 mg PO Q6H PRN PRN Reason: Pain, Mild (Pain Scale 1-3), fever or headache Last Admin: 06/19/24 07:30 Dose: 650 mg Calcium Carbonate (Calcium Carbonate 750 Mg Tab.Chew) 750 mg PO Q4H PRN PRN Reason: Heartburn Ceftriaxone Sodium (Ceftriaxone Sodium 1 Gm Vial) 1 gm IVPUSH Q24H [facility] Sodium Chloride (Ns) 1,000 mls @ 125 mls/hr IVCONT .Q8H [facility] Last Infusion: 06/19/24 15:29 Dose: Infused Ketorolac Tromethamine (Ketorolac Tromethamine 30 Mg/Ml Vial) 30 mg IVPUSH Q6H PRN PRN Reason: Pain, Mild (Pain Scale 1-3) Stop: 06/23/24 22:27 Last Admin: 06/19/24 14:46 Dose: 30 mg Magnesium Hydroxide (Milk Of Magnesia 30 Ml Oral.Susp) 30 ml PO DAILY PRN PRN Reason: Constipation Melatonin (Melatonin 3 Mg Tablet) 6 mg PO BEDTIME PRN PRN Reason: Insomnia Morphine Sulfate (Morphine Sulfate 4 Mg/Ml Cartridge) 4 mg IVPUSH Q6H PRN; Protocol PRN Reason: Pain, Severe (Pain Scale 7-10) Last Admin: 06/19/24 11:10 Dose: 4 mg Ondansetron HCl (Ondansetron Hcl 4 Mg/2 Ml Vial) 4 mg IVPUSH Q8H PRN PRN Reason: Nausea and Vomiting Sodium Chloride (0.9 % Sodium Chloride Flush 3 Ml Syringe) [facility] Last Admin: 06/19/24 15:30 Dose: Not Given Home Medications ?Medication ?Instructions ?Recorded ?Confirmed ?Last Taken ?Type No Known Home Meds 06/19/24 06/19/24 Unknown History Exam Height,Weight and Vital Signs: Height 5 ft 4 in Weight 87.6 kg Last Vital Signs Temp 102.5 F H 06/19/24 15:50 Pulse 108 H 06/19/24 15:50 Resp 22 H 06/19/24 15:50 BP 147/76 H 06/19/24 15:50 Pulse Ox 97 06/19/24 15:50 O2 Del Method Room Air 06/19/24 15:50 Pertinent Lab Results Pertinent Lab Results: Laboratory Tests 06/18/24 06/18/24 06/18/24 18:17 19:46 20:00 WBC 12.2 H RBC 3.62 L Hgb 10.8 L Hct 30.7 L MCV 84.8 MCH 29.8 MCHC 35.2 H RDW 13.3 Plt Count 232 D MPV 9.9 Immature Gran % (Auto) 0.6 H Neut % (Auto) 85.3 H Lymph % (Auto) 6.5 L [place] % (Auto) 7.3 Eos % (Auto) 0.1 Baso % (Auto) 0.2 Lymph # (Auto) 0.8 L [place] # (Auto) 0.9 Eos # (Auto) 0.0 Baso # (Auto) 0.0 Abs Immat Gran (auto) 0.07 H Absolute Neuts (auto) 10.4 H Absolute Nucleated RBC 0.000 Nucleated RBC % (auto) 0.0 Sodium 137 Potassium 2.7 L* Chloride 106 Carbon Dioxide 22 Anion Gap 12 BUN 6 L Creatinine 0.66 Estim Creat Clear Calc 123.4 Estimated GFR > 60 Random Glucose 108 Lactic Acid 0.9 Calcium 8.8 D Magnesium 1.7 Total Bilirubin 0.7 AST 18 ALT 7 Alkaline Phosphatase 76 Troponin I High Sens 3.5 Total Protein 6.9 Albumin 4.0 Lipase 21 Beta HCG, Quant < 2 Urine Color Yellow Urine Appearance Clear Urine pH 6.0 Ur Specific [place] <= 1.005 Urine Protein Negative Urine Glucose (UA) Negative Urine Ketones Trace Urine Blood Small (1+) H Urine Nitrite Negative Ur Leukocyte Esterase Moderate (2+) H Urine RBC 0-2 Urine WBC 21-50 H Ur Squamous Epith Cells 0-2 Urine Bacteria 3+ Hyaline Casts 0-2 Influenza Type A (PCR) Influenza Type B (PCR) RSV RNA Qual (PCR) SARS-CoV-2 RNA (RT-PCR) 06/18/24 06/19/24 22:32 05:42 WBC 13.4 H RBC 3.12 L Hgb 9.1 L Hct 27.1 L MCV 86.9 MCH 29.2 MCHC 33.6 RDW 13.7 Plt Count 200 MPV 10.4 Immature Gran % (Auto) 1.2 H Neut % (Auto) 86.0 H Lymph % (Auto) 6.0 L [place] % (Auto) 6.0 Eos % (Auto) 0.6 Baso % (Auto) 0.2 Lymph # (Auto) 0.8 L [place] # (Auto) 0.8 Eos # (Auto) 0.1 Baso # (Auto) 0.0 Abs Immat Gran (auto) 0.16 H Absolute Neuts (auto) 11.5 H Absolute Nucleated RBC 0.000 Nucleated RBC % (auto) 0.0 Sodium 137 136 Potassium 2.9 L* 3.1 L Chloride 108 108 Carbon Dioxide 22 21 L Anion Gap 10 L 10 L BUN 6 L 5 L Creatinine 0.67 0.65 Estim Creat Clear Calc 121.6 128.2 Estimated GFR > 60 > 60 Random Glucose 115 100 Lactic Acid Calcium 7.9 L D 7.6 L Magnesium Total Bilirubin AST ALT Alkaline Phosphatase Troponin I High Sens 4.0 Total Protein Albumin Lipase Beta HCG, Quant Urine Color Urine Appearance Urine pH Ur Specific [place] Urine Protein Urine Glucose (UA) Urine Ketones Urine Blood Urine Nitrite Ur Leukocyte Esterase Urine RBC Urine WBC Ur Squamous Epith Cells Urine Bacteria Hyaline Casts Influenza Type A (PCR) NEGATIVE Influenza Type B (PCR) NEGATIVE RSV RNA Qual (PCR) NEGATIVE SARS-CoV-2 RNA (RT-PCR) NEGATIVE Airway Mallampati Class: II TM Dist: >3cm Neck ROM: Full Loose/Missing/Broken Teeth: No Heart: ok Lungs: ok Assessment and Plan Assessment Anesthesia Assessment: Anesthesia Plan Discussed and Chart Reviewed Final Anesthetic Review Family History of Problems with Anesthesia: No History of Problems with Anesthesia: No NPO: Yes ASA Class: III and Emergency Final Preanesthetic Review: No Changes in Pt Med Stat, Meds/Allgs Chart Reviewed, Consent Obtained/Reviewed and Anes Risks/Benef Reviewed Patient Risk: Intermediate Procedure Risk: Low Anesthetic Plan Anesthetic Plan: GA and Agree w/ Assess. and Plan Disposition: Standard PACU
[2024-06-19] MEDS: HYDROmorphone HCl 1 MG/ML SYRINGE IVPUSH (16:05)
--- NOTE | 2024-06-19 17:12 | W.PM.OPN ---
Operative Note Operative Note Date of Service: 06/19/24 Narrative: PreOperative Diagnosis: distal left ureteric stone with sepsis Post Operative Diagnosis: distal left ureteric stone with sepsis, uretrhal meatal stricture Procedure: - cystoscopy, left retrograde - left dilatation of ureteric orifice under fluoroscopy - left ureteroscopy, stone basketing - left stent placement Surgeon: Dr Santhosh Fuchs Anesthesia: General Indications for procedure: admit via ER with abdominal pain. left distal stone on CT. Has developed Temp 102.5 and elevated respiratory rate in the preop area. received ceftriaxone Procedure: After informed consent was verified the patient was brought to the operating room and placed in a supine position. Anesthesia was administered per protocol. The patient was placed in a modified dorsal lithotomy position and prepped and draped in a sterile fashion. Safety pause time-out and side of surgery were confirmed. Images were available for review. Antibiotic administration confirmed. Unable to insert 22 [place] cystoscope due to meatal stenosis. Dilation performed to 22 Fr. Cystoscope was inserted per urethra. The bladder was normal in its entirety. Both ureteric orifices were seen in normal position. The left ureteric orifice was cannulated and a retrograde examination was performed. Filling defect at distal aspect with proximal hydronephrosis . A Sensor guidewire was placed up to the level of the renal pelvis under fluoroscopy. The open ended was placed into the renal pelvis and renal pelvis aspirated with normal colored urine. The rigid cystoscope was removed. A [place] dilator was placed over the Sensor guidewire and used to dilate the ureteric orifice under fluoroscopy. The dilator was removed. The semi rigid ureteral scope was placed alongside the Sensor guidewire. The stone was encountered in distal ureteric third. Stone fragments were removed from the ureter using a zero tip basket basket. Once the fragments were removed a decision was made to place a ureteric stent. Based on the height of the patient a 6 Fr x 22 cm stent was used. The string was removed from the stent prior to placement A 6 [place] by 22 cm double-J stent was placed into the renal pelvis and bladder under a combination of fluoroscopy and direct visualization. The symphisis pubis was used as a radiographic marker to release the stent and good coil was seen within the bladder confirming position The bladder was emptied. The patient tolerated the procedure well and was extubated in the operating room. They were transferred in stable condition to the recovery area. Pathology: stones Drains: Double J stent as described above
[2024-06-19] MEDS: cefTRIAXone sodium 1 GM VIAL IVPUSH (18:02)
[2024-06-19] MEDS: ondansetron HCL 4 MG/2 ML VIAL IVPUSH (21:36)
[2024-06-19] MEDS: LORazepam 2 MG/ML VIAL 0.5 MG IVPUSH (21:49)
[2024-06-20] VITALS (9 sets, daily range): BP systolic 123–154; BP diastolic 65–88; PULSE 65–101; RESP 16–20; TEMP 36.2–39.6; O2SAT 93–97
--- NOTE | 2024-06-20 01:54 | PC.NURSE ---
2130- patient stated to feel weak, little dizzy, noted shaking and feeling hot then cold. pt stated to feel nauseous and did vomit small amount of undigested food. Pt stated thinks she overate as family brought in fast food items. cattle shipper entered room to help and medicated pt with IVP Zofran, and she also contacted the hospitalist on duty as Pt stated to feel increased anxiety and restlessness. Comfort provided, reassurance given, cool cloth to forehead, backrub, ice chips. Vitals 97.7-93-20-136/79, O2 sat 100%. cattle shipper obtained and administered IVP Ativan for anxiety with good effect. Pt able to relax, requested and given warm blanket, ivf as ordered, waldron catheter with blood tinged urine as prior. Will continue to monitor closely
--- NOTE | 2024-06-20 02:16 | PC.NURSE ---
0000-Patient resting quietly in bed, no complaints of abdominal pain, or nausea, vital signs are 98.4-414-62-136/67 and O2 sat reading of 100%, will continue to monitor
[2024-06-20] MEDS: Acetaminophen 325 MG TABLET 650 MG PO ×3 (03:08→17:46)
[2024-06-20] MEDS: Morphine Sulfate 4 MG/ML CARTRIDGE IVPUSH ×2 (03:41→16:32)
--- NOTE | 2024-06-20 04:41 | PC.NURSE ---
0310- patient noted with temperature of 103.2 orally, feeling warm, headache, slight anxiety. bp 147/73-100-16 and 95% room air. medicated with PO Tylenol, few dry heaves shortly afterwards, ice packs applied, provided comfort. Hospitalist alerted with no new orders sent, keep monitoring. Patient stated 10/10 pain to back, left flank area and hesitant to utilize Morphine, but did take dose at 0341 with effect, able to relax, headache resolved, and temp down to 100.3 orally. Pt noted watching TV, had a lemon ice snack, pillows repositioned, and will continue to monitor. Sent Hospitalist note of fever decrease and will check again.
--- NOTE | 2024-06-20 06:31 | PC.NURSE ---
0630-waldron catheter removed as ordered, tolerated well, DTV between [id number], additional 50ml obtained, temp check at 99.0 orally
[2024-06-20 06:49] LABS: Hematocrit 24.6 % (37.0-47.0); Hemoglobin 8.3 g/dl (12.0-16.0); Mean Corpuscular HGB Conc 33.7 g/dl (31.0-35.0); Mean Corpuscular Hemoglobin 29.4 pg (27.0-33.0); Mean Corpuscular Volume 87.2 fL (80.0-98.0); Mean Platelet Volume 10.8 fL (9.4-12.3); Platelet Count 174 X10*3/uL (160-400); Red Blood Count 2.82 X10*6/uL (4.20-5.50); Red Cell Distribution Width 13.6 % (11.0-16.0); White Blood Count 11.5 X10*3/uL (4.8-10.8)
[2024-06-20 07:33] LABS: Anion Gap 11 (12-20); Blood Urea Nitrogen 7 mg/dL (9-16); Calcium 8.1 mg/dL (8.4-10.2); Carbon Dioxide 20 mmol/L (22-29); Chloride 111 mmol/L (96-108); Creatinine Clr Calc Pharmacy 128.2; Estimated Glomerular Filt Rate > 60; Glucose Fasting 120 mg/dL (60-99); Potassium 2.7 mmol/L (3.3-5.1); Sodium 139 mmol/L (135-145)
[2024-06-20] MEDS: 0.9 % Sodium Chloride 1,000 ML 125 ML IVCONT ×2 (08:01→17:50)
[2024-06-20] MEDS: Potassium Chloride ER 20 MEQ TAB.ER.PRT 40 MEQ PO (08:01)
[2024-06-20] MEDS: Ketorolac Tromethamine 30 MG/ML VIAL IVPUSH (08:01)
[2024-06-20] MEDS: 0.9 % Sodium Chloride Flush 3 ML SYRINGE IVFLUSH ×2 (08:02→21:31)
--- NOTE | 2024-06-20 08:33 | P.PNIM_ITS ---
Subjective Subjective Date of Service: 06/20/24 Interval History: Febrile overnight, ongoing rigors and left flank pain Physical Exam 2 Vital Signs: Vital Signs: Last Vital Signs Temp 97.6 F 06/20/24 07:59 Pulse 65 06/20/24 07:59 Resp 16 06/20/24 07:59 BP 123/65 06/20/24 07:59 Pulse Ox 93 06/20/24 07:59 O2 Del Method Room Air 06/20/24 07:59 BMI result Body Mass Index 33.1 General: AO X 3, in pain Resp: CTA bilateral, no accessory muscles used CVS: S1,S2,RRR GI: soft, non tender, non distended Neuro: motor grossly intact, alert Psych: appropriate affect, appropriate insight Objective Data Active Medications Acetaminophen (Acetaminophen 325 Mg Tablet) 650 mg PO Q6H PRN PRN Reason: Pain, Mild (Pain Scale 1-3), fever or headache Last Admin: 06/20/24 03:08 Dose: 650 mg Documented By: AMANDA Calcium Carbonate (Calcium Carbonate 750 Mg Tab.Chew) 750 mg PO Q4H PRN PRN Reason: Heartburn Ceftriaxone Sodium (Ceftriaxone Sodium 1 Gm Vial) 1 gm IVPUSH Q24H [facility] Last Admin: 06/19/24 18:02 Dose: 1 gm Documented By: JUAN Sodium Chloride (Ns) 1,000 mls @ 125 mls/hr IVCONT .Q8H [facility] Last Admin: 06/20/24 08:01 Dose: 125 mls/hr Documented By: JUAN Ketorolac Tromethamine (Ketorolac Tromethamine 30 Mg/Ml Vial) 30 mg IVPUSH Q6H PRN PRN Reason: Pain, Mild (Pain Scale 1-3) Stop: 06/23/24 22:27 Last Admin: 06/20/24 08:01 Dose: 30 mg Documented By: JUAN Magnesium Hydroxide (Milk Of Magnesia 30 Ml Oral.Susp) 30 ml PO DAILY PRN PRN Reason: Constipation Melatonin (Melatonin 3 Mg Tablet) 6 mg PO BEDTIME PRN PRN Reason: Insomnia Morphine Sulfate (Morphine Sulfate 4 Mg/Ml Cartridge) 4 mg IVPUSH Q6H PRN; Protocol PRN Reason: Pain, Severe (Pain Scale 7-10) Last Admin: 06/20/24 03:41 Dose: 4 mg Documented By: AMANDA Naloxone HCl (Naloxone Hcl 0.4 Mg/Ml Vial) 0.04 mg IVPUSH Q5M PRN PRN Reason: Excessive sedation or RR < 8 Ondansetron HCl (Ondansetron Hcl 4 Mg/2 Ml Vial) 4 mg IVPUSH Q8H PRN PRN Reason: Nausea and Vomiting Last Admin: 06/19/24 21:36 Dose: 4 mg Documented By: LOS Sodium Chloride (0.9 % Sodium Chloride Flush 3 Ml Syringe) [facility] Last Admin: 06/20/24 08:02 Dose: 3 ml Documented By: [email or web address] Labs 06/20/24 05:25 06/20/24 05:25 Labs: Laboratory Results - last 24 hr 06/20/24 05:25 MCV 87.2 MCH 29.4 MCHC 33.7 RDW 13.6 Plt Count 174 MPV 10.8 Absolute Nucleated RBC 0.000 Nucleated RBC % (auto) 0.0 Anion Gap 11 L Estim Creat Clear Calc 128.2 Estimated GFR > 60 Fasting Glucose 120 H Calcium 8.1 L D Microbiology Microbiology Results: Microbiology 06/18/24 20:21 Urine Culture - Final Urine clean catch - Clean Catch Midstream Klebsiella pneumoniae 06/18/24 19:46 Blood Culture - Preliminary Blood - Venous No growth after 24 hours. 06/18/24 18:04 Blood Culture - Preliminary Blood - Venous No growth after 24 hours. Assessment and Plan (1) Fever: Status: Acute Plan 34F PMH obesity s/p gastric sleeve 2022, mood disorder, presented with fevers, flank pain Sepsis due to acute pyelonephritis from obstructing nephrolithiasis and left hydronephrosis ceftriaxone, urine grew Klebsiella, blood cultures negative so far Status post cystoscopy, stone basketing, and stent placement on 06/19/24 Acute hypokalemia Replace and monitor DVT prophylaxis - early ambulation Full code reason for continued hospitalization:still febrile, in pain Quality Stroke Does the patient have a stroke diagnosis?: No VTE Prior VTE?: No VTE Risk Level:: Medical - moderate - high VTE Device Contraindication: Treatment Not Indicated VTE Drug Contraindication: N/A - Med Ordered
--- NOTE | 2024-06-20 08:53 | HO.POSTANES ---
Post Anesthesia Evaluation Post Anesthesia Evaluation Date of Service: 06/19/24 Vital Signs: Vital Signs Temp Pulse Resp BP Pulse Ox O2 Del Method 06/20/24 07:59 97.6 F 65 16 123/65 93 Room Air 06/20/24 06:16 99.0 F 06/20/24 04:08 100.3 F 06/20/24 03:22 103.2 F H 100 16 147/73 H 95 Room Air 06/19/24 23:58 98.9 F 103 H 16 136/67 100 Room Air 06/19/24 21:30 97.7 F 93 20 136/79 100 Room Air Anesthesia: General Mental Status: Awake Pain Control: Satisfactory (pain and sepesis) Nausea/Vomiting: None Hydration: Adequate Anesthesia-Related Issues: No Anes. Related Issues
[2024-06-20] MEDS: ondansetron HCL 4 MG/2 ML VIAL IVPUSH (10:24)
[2024-06-20] MEDS: Pantoprazole Sodium 40 MG/10 ML VIAL IVPUSH (17:46)
[2024-06-20] MEDS: cefTRIAXone sodium 1 GM VIAL IVPUSH (17:46)
[2024-06-20] MEDS: diazePAM 10 MG/2 ML CARTRIDGE 5 MG IVPUSH (21:31)
[2024-06-21 03:16] VITALS: BP 140/87; PULSE 86; RESP 16; TEMP 36.6; O2SAT 96
[2024-06-21 06:22] LABS: Hematocrit 23.4 % (37.0-47.0); Hemoglobin 8.1 g/dl (12.0-16.0); Mean Corpuscular HGB Conc 34.6 g/dl (31.0-35.0); Mean Corpuscular Hemoglobin 29.3 pg (27.0-33.0); Mean Corpuscular Volume 84.8 fL (80.0-98.0); Mean Platelet Volume 10.8 fL (9.4-12.3); Platelet Count 203 X10*3/uL (160-400); Red Blood Count 2.76 X10*6/uL (4.20-5.50); Red Cell Distribution Width 13.6 % (11.0-16.0); White Blood Count 12.1 X10*3/uL (4.8-10.8)
[2024-06-21 06:47] LABS: Anion Gap 13 (12-20); Blood Urea Nitrogen 6 mg/dL (9-16); Calcium 8.3 mg/dL (8.4-10.2); Carbon Dioxide 19 mmol/L (22-29); Chloride 110 mmol/L (96-108); Creatinine Clr Calc Pharmacy 132.2; Estimated Glomerular Filt Rate > 60; Glucose Fasting 109 mg/dL (60-99); Magnesium 1.9 mg/dL (1.6-2.6); Potassium 2.9 mmol/L (3.3-5.1); Sodium 139 mmol/L (135-145)
[2024-06-21 07:50] VITALS: BP 180/87; PULSE 70; RESP 18; TEMP 36.5; O2SAT 95
[2024-06-21] MEDS: Potassium Chloride ER 20 MEQ TAB.ER.PRT 40 MEQ PO (08:03)
[2024-06-21] MEDS: Potassium Chloride Packet 20 MEQ PACKET 40 MEQ PO (08:03)
[2024-06-21] MEDS: 0.9 % Sodium Chloride Flush 3 ML SYRINGE IVFLUSH (08:06)
--- NOTE | 2024-06-21 09:11 | P.DS_ITS ---
DS: Providers Provider Date of Service: 06/21/24 Date of admission: 06/18/24 22:28 Date of discharge: 06/21/24 Primary care physician: Daniel Quezada PA-C Consults: 06/18/24 22:28 Consult to Urology Routine Consulting Provider: [facility] Reason for consultation: kidnery stone with hydropnephrosis DS: Diagnosis Discharge Diagnosis (1) Fever: Status: Acute DS: Summary Hospital Course Hospital Course: from initial hpi: 34-year-old female with pertinent history of former alcohol use disorder, mood disorder, gastric sleeve surgery in 2022 who presents to the emergency department for evaluation of abdominal pain. Patient states her symptoms started 3 days prior to presentation. She has been having left flank pain which is intermittent and nonradiating. Also has been having nausea and poor p.o. intake. Had episodes of nonbloody emesis on the day of presentation. Admits associated fevers and chills. This has never happened before. Does endorse increased urinary frequency and dysuria. No chest pain, palpitations, changes in bowel habits. Patient is not on any home prescription medications In the emergency department, patient was found to be septic and urine concerning for UTI. Imaging with left-sided hydronephrosis and hydroureter with 3 mm kidney stone. hospital course: Patient was admitted for sepsis due to acute pyelonephritis from obstructing nephrolithiasis and left hydronephrosis. Was treated with ceftriaxone, urine grew Klebsiella blood cultures were negative. Underwent cystoscopy with stone basketing and stent placement on 06/19/2024. Was also treated for acute hypokalemia which was replaced. Patient is feeling better will be discharged home on 7 more days of cefuroxime and follow up with Urology. Time Attestation Discharge Coordination Time (in mins): 35 Quality: Safe Use of Opioids Does Pt have an Active Cancer Diagnosis on the Problem List?: No Quality: Stroke Does the patient have a stroke diagnosis?: No Physical Exam Vital Signs: Vital Signs: Last Vital Signs Temp 97.7 F 06/21/24 07:50 Pulse 70 06/21/24 07:50 Resp 18 06/21/24 07:50 BP 180/87 H 06/21/24 07:50 Pulse Ox 95 06/21/24 07:50 O2 Del Method Room Air 06/21/24 07:50 BMI result Body Mass Index 33.1 General: AO X 3, no acute distress Resp: CTA bilateral, no accessory muscles used CVS: S1,S2,RRR GI: soft, non tender, non distended Neuro: motor grossly intact, alert Psych: appropriate affect, appropriate insight DS: Data Data Completed and Pending Pending studies at discharge: Pending at discharge 06/19/24 17:07 Surgical [PTH] Routine Labs on day of discharge: Laboratory Results - last 24 hr 06/21/24 05:50 WBC 12.1 H RBC 2.76 L Hgb 8.1 L Hct 23.4 L MCV 84.8 MCH 29.3 MCHC 34.6 RDW 13.6 Plt Count 203 MPV 10.8 Absolute Nucleated RBC 0.000 Nucleated RBC % (auto) 0.0 Sodium 139 Potassium 2.9 L* Chloride 110 H Carbon Dioxide 19 L Anion Gap 13 BUN 6 L Creatinine 0.63 Estim Creat Clear Calc 132.2 Estimated GFR > 60 Fasting Glucose 109 H Calcium 8.3 L Magnesium 1.9 Preliminary micro results at discharge 06/18/24 19:46 Blood Culture - Preliminary Blood - Venous No growth after 48 hours. 06/18/24 18:04 Blood Culture - Preliminary Blood - Venous No growth after 48 hours. Discharge Plan Discharge Anticipated Discharge Date/Time: 06/21/24 09:08 Patient Disposition: Home, Self-Care Discharge Diagnosis: stone, hydro, sepsis Referrals: Santhosh Fuchs MD [Physician] - 2 Weeks Daniel Quezada PA-C [Primary Care Provider] - 1 Week Discharge Medications: New cefuroxime axetil 500 mg tablet 500 mg PO BID Qty: 14 0RF Discharge Orders: Discharge Order (Routine); Ordered 06/21/24 Ordered By: Vince Zhou Diet: Advance to usual diet Activity on Discharge: As tolerated Stand Alone Forms: Patient Portal Discharge page Print Language: Mongolian Care Plan Goals: recovery Health Concerns: uti, stone Plan of Treatment: cefuroxime for 7 days, follow up urology Assessment: see above
[2024-06-21 09:38] VITALS: BP 120/80
[2024-06-21] MEDS: Potassium Chloride ER 20 MEQ TAB.ER.PRT PO (10:00)
[2024-06-26 18:08] LABS: Stone Source KIDNEY STONE
== END 2024-06-21 11:08 | disposition home or self-care (01) | DRG 854 ==
LOC: HO.ED 22:28 → HO.EDOVER 23:05 → HO.S3 06-19 00:06
PROVIDERS: Physician Assistant Medical; Urology; Admitting Provider Student in an Organized Health Care Education/Training Program; Emergency Provider Emergency Medicine Emergency Medical Services; PCP Physician Assistant; Visit Provider Internal Medicine
PROC: 0T778DZ Dilation of Left Ureter with Intraluminal Device, Via Natural or Artificial Opening Endoscopic (ICD-10-PCS; principal; 2024-06-19 16:00)
DX: A41.9 Sepsis, unspecified organism (principal); N13.6 Pyonephrosis; E87.6 Hypokalemia; F10.20 Alcohol dependence, uncomplicated; F41.1 Generalized anxiety disorder; E78.5 Hyperlipidemia, unspecified; B96.1 Klebsiella pneumoniae [K. pneumoniae] as the cause of diseases classified elsewhere; Z98.84 Bariatric surgery status; Z20.822 Contact with and (suspected) exposure to COVID-19; Z86.73 Personal history of transient ischemic attack (TIA), and cerebral infarction without residual deficits; Z87.891 Personal history of nicotine dependence
CPT/HCPCS: 0241U; 36415; 70450; 74176; 80048; 80053; 81001; 82365; 83605; 83690; 83735; 84484; 84702; 85025; 85027; 87040; 87086; 87088; 87186; 88300; 93005; 99285; C1758; C1769; C2617; J0696; J1171; J1200; J1885; J1956; J2003; J2060; J2270; J2405; J2470; J2704; J2765; J3010; J3360; J3480; Q9967

== ENCOUNTER → 2024-06-18 19:31 | Outpatient (BNV) | payer MEDICARE, MEDICAID, SELFPAY | PROVIDERS: Admitting Provider Student in an Organized Health Care Education/Training Program; Emergency Provider Emergency Medicine Emergency Medical Services; PCP Physician Assistant; Visit Provider Internal Medicine Cardiovascular Disease | DX: R00.0 Tachycardia, unspecified (principal) | CPT/HCPCS: 93010 ==

== ENCOUNTER → 2024-06-18 19:35 | Outpatient (BNV) | payer MEDICARE, MEDICAID, SELFPAY | PROVIDERS: Emergency Provider Emergency Medicine Emergency Medical Services; PCP Physician Assistant; Visit Provider Student in an Organized Health Care Education/Training Program | DX: R50.9 Fever, unspecified (principal); N10 Acute pyelonephritis | CPT/HCPCS: 99222; 99232; 99239 ==

== ENCOUNTER 2024-06-18 22:28 | Outpatient (BNV) | payer MEDICARE, MEDICAID, SELFPAY | END 2024-06-20 19:25 | PROVIDERS: Admitting Provider Student in an Organized Health Care Education/Training Program; Emergency Provider Emergency Medicine Emergency Medical Services; PCP Physician Assistant; Visit Provider Radiology Diagnostic Radiology | DX: R51.9 Headache, unspecified (principal) | CPT/HCPCS: 70450 ==

== ENCOUNTER → 2024-06-18 22:28 | Outpatient (BNV) | payer MEDICARE, MEDICAID, SELFPAY | PROVIDERS: Admitting Provider Student in an Organized Health Care Education/Training Program; Emergency Provider Emergency Medicine Emergency Medical Services; PCP Physician Assistant; Visit Provider Urology | DX: N13.30 Unspecified hydronephrosis (principal) | CPT/HCPCS: 52332; 74420; 99222 ==

== ENCOUNTER 2024-07-01 08:54 | Outpatient (AMB) | payer MEDICARE, MEDICAID, SELFPAY ==
--- NOTE | 2024-07-01 09:03 | MHC.PC.OV ---
Vital Signs 07/01/24 09:04 Height 5 ft 4 in Weight 178 lb 8 oz BMI 30.6 BP 140/80 H Blood Pressure Location Lt brachial Position Sitting Pulse 77 Pulse Source Pulse Oximeter Pulse Oximetry (%) 8 L Oxygen Delivery Method Room Air Intake Visit Reasons: Annual Exam Allergies No Known Allergies [No Known Allergies*] Allergy (Verified 07/01/24 09:18) Medication List - Last Reconciled 07/01/24 by Daniel Quezada PA-C cefuroxime axetil 500 mg PO BID Tobacco use date assessed: 11/01/22 Dental Screening Dental Screen Date: 06/27/23 HPI Annual Exam HPI Details Patient is a 34-year-old female here today a routine annual physical Patient has a past medical history significant for obesity, hypertension, hypertriglyceridemia, major depressive disorder Patient recently admitted to [facility] for acute uro sepsis secondary to kidney stone. Urine cultures grew out Klebsiella. She had underwent urinary stenting and was treated with antibiotics. Has upcoming appointment with Urology for stent removal 07/24/2024. Since her hospitalization she does report some left-sided flank pain and a bit of blood in her urine. Will start her back up on cefuroxime. So was noted to have significant hypokalemia which was replenished during her hospitalization. .. Hypertriglyceride: Has resolved since implementing better lifestyle and weight loss. .. HTN: Patient's blood pressure elevated today in office. She does report she has noted elevated blood pressures more regularly recently. PLAN: Will start losartan 25 mg for blood pressure control. Advised to monitor blood pressure with goal blood pressure to be below 140/90 .. Anxiety and depression: She reports her anxiety and depression has been worse as of late and she is interested in cognitive behavioral therapy. Will refer to counseling per Obesity:? She has recently underwent bariatric surgery (gastric sleeve) at [facility] and has lost significant amount of weight. Today's BMI 30.6 Vaccine: Up-to-date with COVID vaccine, tetanus vaccine, needs flu vaccine . 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 see 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 here in [place]- has upcoming appt Laboratory Tests 02/14/23 08:50 RBC 4.20 Fasting Glucose 88 Cholesterol 162 PFSH Medical History Exposure to STD Hepatitis C CVA (cerebral vascular accident) Substance abuse HTN (hypertension) Left elbow fracture Obesity (BMI 30-39.9) Insomnia Surgical History H/O gastric sleeve S/P excision of neuroma History of bilateral breast reduction surgery History of tonsillectomy History of D&C History of tubal ligation Family History Father Asthma Mother Hypertension Maternal Grandmother Hypertension Asthma Stroke Maternal Grandfather Diabetes Hypertension Stroke Sister In good health Sister Asthma Son In good health Daughter In good health Maternal Aunt Breast cancer Other Mental health disorder Social History (Updated 07/01/24 @ 09:21 by Daniel Quezada PA-C) Household Members: Children Housing: Apartment Do you presently have visiting nurse or other home services: No Alcohol intake: former Year quit: 2022 Patient Tobacco Use Status: Former Tobacco user e-Cigarette/Vaping Use: Never Used Second Hand Smoke Exposure: No service: No Current occupational status: unemployed Current occupation: [employer] Cognitive needs: No Hearing needs: No Vision needs: No Questionnaire PHQ-9 Over the last 2 weeks, how often have you been bothered by any of the following problems? 1. Little interest or pleasure in doing things: not at all 2. Feeling down, depressed, or hopeless: not at all 3. Trouble falling or staying asleep, or sleeping too much: not at all 4. Feeling tired or having little energy: not at all 5. Poor appetite or overeating: not at all 6. Feeling bad about yourself - or that you are a failure or have let yourself or your family down: not at all 7. Trouble concentrating on things, such as reading the newspaper or watching television: not at all 8. Moving or speaking so slowly that other people could have noticed. Or the opposite - being so fidgety or restless that you have been moving around a lot more than usual: not at all 9. Thoughts that you would be better off or of hurting yourself in some way: not at all Total score: 0 Depression Screening Interpretation: Negative Depression Screening Done: Yes 47178 - PHQ-9 Billing: Yes Source: Developed by Drs. Gasper L. KayleeKate rosenbaum Kurt Kroenke and colleagues, with an educational lora from [employer]. Thrive Questionnaire Date Thrive assessed: 07/01/24 I am a: Patient What is your living situation today?: I have a steady place to live Within the past 12 months, did the food you bought not last and you didn't have the money to get more?: Never true Within the past 12 months, did you worry whether your food would run out before you got money to buy more?: Never true Do you have trouble paying for medicines?: No Do you have trouble getting transportation to medical appointments?: No Do you have trouble paying your heating and electricity bill?: No Do you have trouble taking care of your child, family member or friend?: No Do you have trouble with day-to-day activities such as bathing, preparing meals, shopping, managing finances, etc.?: No Are you currently unemployed and looking for a job?: No Are you interested in more education?: No Please select the resources that you would like help with: None Currently or been in a relationship where the following occur: No concerns reported THRIVE Score: 0 AUDIT C Alcohol Use Questionnaire (AUDIT-C) 1. How often do you have a drink containing alcohol?: Never 3. How often do you have six or more drinks on one occasion?: Never Total Score: 0 MARINA-7 AMB Questionnaire MARINA-7 Date MARINA - 7 assessed: 07/01/24 Feeling nervous, anxious, or on edge: 0 = Not at all Not being able to stop or control worryin = Not at all Worrying too much about different things: 0 = Not at all Trouble relaxin = Not at all Being so restless that it is hard to sit still: 0 = Not at all Becoming easily annoyed or irritable: 0 = Not at all Feeling afraid as if something awful might happen: 0 = Not at all Total MARINA-7 score (0-4 normal; 5-9 mild; 10-14 moderate; 15-21 severe): 0 Source: Developed by Kate Orozco Kurt Kroenke and colleagues, with an educational lora from [employer]. MARINA-7 Assessment Billing MARINA-7 Assessment Tool: MARINA-7 Assessment 21247 Review of Systems Const Denies body aches, Denies chills, Denies excessive sweating, Denies fatigue, Denies fever(s) and Denies headache(s) Eyes Denies blurry vision ENT Denies dysphagia, Denies vertigo, Denies dizziness, Denies headache(s), Denies hearing loss and Denies tinnitus Card Denies chest pain, Denies chest pain with activity, Denies syncope, Denies irregular heart rhythm and Denies dyspnea Resp Denies chest congestion, Denies cough, Denies hemoptysis, Denies dyspnea and Denies wheezing GI Denies abdominal pain, Denies melena, Denies hematochezia, Denies coffee ground emesis, Denies dysphagia, Denies diarrhea, Denies nausea and Denies vomiting Denies urinary frequency, Denies dysuria, Denies urinary hesitancy and Denies urinary urgency Musc Denies arthralgias, Denies limited range of motion, Denies muscle cramps and Denies muscle weakness Skin/Breast Denies rash and Denies skin ulcer Neuro Denies Abnormal speech present, Denies confusion, Denies vertigo, Denies dizziness, Denies syncope, Denies headache(s), Denies memory loss and Denies seizure-like activity Psych Denies anxiety, Denies confusion, Denies depression, Denies memory loss, Denies panic attacks and Denies paranoia Endo Denies excessive sweating, Denies fatigue, Denies flushing, Denies polydipsia and Denies polyuria Michael/Lymph Denies easy bleeding and Denies easy bruising Aller/Immun Denies wheezing Physical exam (Primary Care) Vital Signs: Last Vital Signs Pulse 77 07/01/24 09:04 BP 140/80 H 07/01/24 09:04 Pulse Ox 8 L 07/01/24 09:04 Oxygen Delivery Method Room Air 07/01/24 09:04 BMI result Body Mass Index 30.6 Tobacco/Smoking Status: Tobacco use Status Tobacco use date assessed 11/01/22 07/01/24 09:05 Patient Tobacco Use Status Former Tobacco user 07/01/24 09:21 e-Cigarette/Vaping Use Never Used 07/01/24 09:21 PHQ-9: PHQ-9 Score PHQ-9: Total score 0 07/02/24 13:38 Depression Screening Interpretation: Negative Thrive Assessment: Date of Thrive Assessment Date Thrive assessed 07/01/24 07/01/24 09:05 Currently or been in a relationship where the following occur: No concerns reported Const General: cooperative, comfortable, no acute distress, alert and awake; No confusion Nutritional Appearance: well nourished Orientation/consciousness: oriented to person, oriented to place, patient oriented x3 and No confusion HENMT Head: Yes normocephalic Ears: external ears normal and TM's normal bilaterally General nose exam: Normal nasal mucous membranes and turbinates present Face and sinus: No sinus tenderness Mouth: Normal oral and palatal mucosa present and tongue normal Teeth and gingiva: dentition normal and gingiva normal Throat: Yes posterior oropharynx normal, Yes tonsils normal and Yes uvula midline Eyes Conjunctivae: conjunctivae normal Sclerae: sclerae normal Pupils: Equal, round and reactive pupils present EOM: EOMs intact bilaterally Direct Ophthalmoscopy: No no photophobia Neck Neck: Yes no lymphadenopathy, No tender and Yes no JVD Thyroid: Thyroid normal Carotids: no bruits Chest Chest palpation & inspection: no tenderness Resp Effort & Inspection: normal respiratory effort, no audible wheezes, not labored and no stridor Auscultation: no crackles, no rales, no rhonchi and no wheezes Cardio Jugular venous distension: no JVD Rate: regular rate, not bradycardic and not tachycardic Rhythm: regular rhythm Heart sounds: no murmurs and normal S1 and S2 Bruits: no carotid bruits Peripheral pulses: Peripheral pulses 2+ throughout GI Inspection: Yes normal to inspection, No abdominal wall ecchymosis and No visible herniation Palpation (GI): Soft to palpation, nontender, no guarding, not rigid and No hepatosplenomegaly present Auscultation: normoactive bowel sounds General: Yes no CVA tenderness Back/Spine/Pelvis Back: no CVA tenderness and No back tenderness Cervical Spine: cervical ROM normal Thoracic/Lumbar Spine: thoracic and lumbar spine normal to inspection, straight leg raise negative bilaterally, No thoraco-lumbar ROM limited and No lumbar spinal tenderness Skin General skin exam: no rashes or lesions noted and dry skin Lesions: no lesions Rashes: no rashes Wounds: no wounds Neuro General: oriented to person, oriented to place, patient oriented x3, CN's II-XI intact bilaterally and No confusion Cranial nerves: Yes Equal, round and reactive pupils present and Yes Normal accommodation reflex present Cognition (Neuro): normal cognition Speech: No Abnormal speech present Gait exam (Neuro): Normal gait present Motor exam (neuro): 5/5 motor strength present throughout Extrem Right upper extremity: full ROM; no cyanosis Left upper extremity: full ROM; no cyanosis Right lower extremity: no edema Left lower extremity: no edema Psych Appearance: grossly normal Mental Status: mental status grossly normal Speech and movement: Normal speech and movement present Affect: normal affect Attitude: cooperative Thought process: Normal thought process present Office Procedures Flu Questionnaire Does the patient have a severe egg allergy?: No Does the patient have severe life threatening allergies?: No Does the patient have a fever or illness today?: No Has the patient ever had Guillain-[place] Syndrome?: No Has the patient ever had any past reaction to a flu shot?: No Immunizations Fluarix Triv [id number] (PF) 45 mcg (15 mcg x 3)/0.5 mL IM syringe Performing Provider: Daniel Quezada PA-C [place] [facility] [place] [place] [facility] Administered by: LARRY Mandujano on 07/01/24 09:49 Dose Route Admin Location Dispensed Lot Number Expiration Date NDC Inspection Clerk 0.5 mL IM Left Deltoid 0.5 mL [id number] 02/24/25 [id number] [employer] VIS Given Date VIS Provided VIS Publication Date 07/01/24 Single Vaccine 21 Eligibility Eligibility Date Funding Source Not [facility] Eligible 07/01/24 Private Coding Level of Care Code Est Pt Level 4 (12204) Diagnoses Annual physical exam Z00.00 Essential hypertension I10 Hypertension type: essential hypertension Hypertriglyceridemia E78.1 Pyelonephritis N12 H/O alcohol dependence F10.21 Mild episode of recurrent major depressive disorder F33.0 Active/Remission status: currently active Major depression episode severity: mild Major depression recurrence: recurrent Polyarthralgia M25.50 Hypokalemia E87.6 Additional Codes MARINA-7 Assessment Billing - MARINA-7 Assessment Tool: MARINA-7 Assessment [id number] ([id number]) Assessment & Plan Assessment & Plan (1) Annual physical exam: Code(s): Z00.00 - Encounter for general adult medical examination without abnormal findings Category: Medical Plan: As per HPI (2) HTN (hypertension): Code(s): I10 - Essential (primary) hypertension Category: Medical Qualifiers: Hypertension type: essential hypertension Qualified Code(s): I10 - Essential (primary) hypertension Plan: Patient's blood pressure elevated today in office. Will start losartan 25 mg and up titrate per response. Advised to monitor blood pressure at home with goal blood pressure to be below 140/90. Will have back in 3 weeks to evaluate blood pressure. (3) Hypertriglyceridemia: Code(s): E78.1 - Pure hyperglyceridemia Category: Medical Plan: Will recheck fasting lipids. (4) Pyelonephritis: Code(s): N12 - Tubulo-interstitial nephritis, not specified as acute or chronic Category: Medical Plan: Patient recently admitted to [facility] for acute pyelonephritis secondary to nephrolithiasis. Was found to have Klebsiella pneumonia urosepsis. She was treated with a urinary stent in antibiotics. She has upcoming appointment with Urology for stent removal. (5) H/O alcohol dependence: Code(s): F10.21 - Alcohol dependence, in remission Category: Medical Plan: Has been sober now over a year doing well. (6) MDD (major depressive disorder): Code(s): F32.9 - Major depressive disorder, single episode, unspecified Category: Medical Qualifiers: Active/Remission status: currently active Major depression episode severity: mild Major depression recurrence: recurrent Qualified Code(s): F33.0 - Major depressive disorder, recurrent, mild Plan: Patient does report she has been suffering with more PTSD and depression. She is willing to start speaking with mental health therapy. Will refer to counseling (7) Polyarthralgia: Code(s): M25.50 - Pain in unspecified joint Category: Medical Plan: Patient reports polyarthralgia and joint stiffness over the last several months. Will check rheumatoid baseline labs. (8) Hypokalemia: Code(s): E87.6 - Hypokalemia Category: Medical Plan: Was noted to have significant hypo kalemia during her hospitalization. This was replenished during hospitalization. Still was low at discharge. Will recheck. Blood pressure elevated today thus will start losartan which may help increase her potassium. Will consider Klor-Con as well. Orders: Orders Comprehensive [place]. Panel Fast 07/01/24 I10 - Essential (primary) hypertension Cyclic Citrullinated Peptide 07/01/24 M25.50 - Pain in unspecified joint UMAIR Reflex Titer and Pattern 07/01/24 M25.50 - Pain in unspecified joint Rheumatoid Factor 07/01/24 M25.50 - Pain in unspecified joint Influenza [id number] Immunization 07/01/24 Z23 - Encounter for immunization Lipid Panel 07/01/24 E78.1 - Pure hyperglyceridemia Vitamin D 25-OH Total 07/01/24 E55.9 - Vitamin D deficiency, unspecified UA CC w/rflx Micro + Cult 07/01/24 N12 - Tubulo-interstitial nephritis, not specified as acute or chronic, R30.0 - Dysuria Referrals Counseling Referral F33.0 - Major depressive disorder, recurrent, mild Medications: New losartan 25 mg PO DAILY 30 tabs 1RF 30 days I10 - Essential (primary) hypertension Refilled cefuroxime axetil 500 mg PO BID 14 tabs 0RF N12 - Tubulo-interstitial nephritis, not specified as acute or chronic Patient Instructions: Goal: Blood pressure to remain below 140/90 Barriers: Adherence to physical activity and healthy eating
[2024-07-01 09:04] VITALS: BP 140/80; PULSE 77; O2SAT 8; BMI 30.6
== END 2024-07-01 09:50 | disposition home or self-care (01) ==
LOC: HO.HMCH 08:55
PROVIDERS: PCP Physician Assistant; Visit Provider Physician Assistant
DX: Z00.00 Encounter for general adult medical examination without abnormal findings (principal); I10 Essential (primary) hypertension; F10.21 Alcohol dependence, in remission; F33.0 Major depressive disorder, recurrent, mild; N12 Tubulo-interstitial nephritis, not specified as acute or chronic; E78.1 Pure hyperglyceridemia; M25.50 Pain in unspecified joint; E87.6 Hypokalemia

== ENCOUNTER → 2024-07-01 08:54 | Outpatient (BNVA) | payer MEDICARE, MEDICAID, SELFPAY | PROVIDERS: PCP Physician Assistant; Visit Provider Physician Assistant | DX: Z00.01 Encounter for general adult medical examination with abnormal findings (principal); Z23 Encounter for immunization; I10 Essential (primary) hypertension; E78.1 Pure hyperglyceridemia; N12 Tubulo-interstitial nephritis, not specified as acute or chronic; F33.0 Major depressive disorder, recurrent, mild; F10.21 Alcohol dependence, in remission; M25.50 Pain in unspecified joint; E87.6 Hypokalemia | CPT/HCPCS: 90471; 90656; 96127; 99212; 99395 ==

== ENCOUNTER 2024-07-08 12:57 | Emergency (ER) | payer MEDICARE, MEDICAID, SELFPAY ==
--- NOTE | ~2024-07-08 | CT_ITS ---
EXAMINATION: CT ABDOMEN AND PELVIS WITHOUT CONTRAST CLINICAL INFORMATION: Left-sided flank pain COMPARISON: CT abdomen pelvis June 18, 2024 TECHNIQUE: Multidetector volumetric imaging was performed from the superior aspect of the liver through the pubic symphysis. Sagittal and coronal reformatted images were obtained on the technologist's workstation. This CT examination was performed using dose optimization techniques as appropriate, variously including the following: *Automated exposure control *Adjustment of mA and/or kV according to patient size (this includes techniques or standardized protocols for targeted exams where dose is matched to indication/reason for exam; i.e. extremities or head) *Use of iterative reconstruction technique DLP: 599 mGy-cm FINDINGS: LUNG BASES: The visualized lung bases are unremarkable. LIVER, GALLBLADDER, AND BILIARY TREE: The liver is normal in size, shape, and attenuation. No focal hepatic lesion or biliary ductal dilatation is present. The gallbladder is unremarkable with no evidence of radiopaque gallstones, gallbladder wall thickening, or obvious pericholecystic inflammatory changes. PANCREAS: Unremarkable. SPLEEN: Unremarkable. ADRENAL GLANDS: Unremarkable. KIDNEYS AND URETERS: Double-J ureteral stent in place. No hydronephrosis. No renal or ureteral calculi in either kidney. BLADDER: Left-sided double-J stent in bladder. No bladder calculus. GASTROINTESTINAL TRACT: There are scattered diverticula of the sigmoid colon. There is no diverticulitis. There is no bowel wall thickening /edema. There is no bowel obstruction. There is a moderate volume of stool in the colon. The appendix is normal . The small bowel loops are unremarkable. Surgical sutures along the greater curvature of the stomach. There is no hiatal hernia. ABDOMINAL WALL: No significant hernia is appreciated. LYMPH NODES: Normal. VASCULAR: Unremarkable. PELVIC VISCERA: Uterus is anteverted. No pelvic mass. No adnexal abnormality. OSSEOUS STRUCTURES: Degenerative spondylosis lumbosacral junction. CT/CT abdomen pelvis wo IV con IMPRESSION: 1. No acute abnormality CT scan abdomen pelvis. 2. Left-sided double-J ureteral stent in place. No hydronephrosis. No renal or ureteral calculi. 3. Diverticulosis of colon. No acute abnormality of the bowel. Fleischner guidelines were followed. Electronically signed by: Reggie Cuellar MD 07/08/2024 03:20 PM EST
[2024-07-08 13:17] VITALS: BP 152/82; PULSE 86; RESP 18; TEMP 37; O2SAT 98; BMI 29.0
--- NOTE | 2024-07-08 13:31 | ED.GENADULT ---
HPI - General Adult General Chief complaint: Abdominal Pain Stated complaint: wants stent removed, sent by [facility] office Time Seen by Provider: 07/08/24 16:04 Source: patient Mode of arrival: ambulatory Limitations: no limitations History of Present Illness ED Provider: Christina Acuna PA-C HPI narrative: Patient is a 34 year old assigned female at with a history of MDD, HTN, MARINA, and kidney stones with a stent placed on her left side by Dr. Fuchs, presenting to the emergency department today with left sided flank pain. Patient states that she is scheduled to get her stent removed in Dr. Fuchs's office this coming but is continuing to have pain where the stent is and was hoping to have it removed sooner. Patient denies any dizziness, lightheadedness, nausea, vomiting, fever, chills, blurry vision, double vision, loss of vision, chest pain, difficulty breathing, shortness of breath, back pain, night sweats, pain with urination, increased urinary frequency, increased urinary urgency, blood in her urine or stool, syncope or a near syncopal episode, recent trauma or falls, bowel incontinence, bladder incontinence, or any other complaints at this time. Relieving factors: none Exacerbating factors: none Associated symptoms: denies other symptoms Treatments prior to arrival: none Related Data Previous Rx's ?Medication ?Instructions ?Recorded cefuroxime axetil 500 mg tablet 500 mg PO BID #14 tabs 07/01/24 losartan 25 mg tablet 25 mg PO DAILY 30 days #30 tabs 07/01/24 oxybutynin chloride 5 mg tablet 5 mg PO TID 14 days #42 tabs 07/02/24 tamsulosin 0.4 mg capsule 0.4 mg PO BEDTIME 14 days #14 caps 07/02/24 phenazopyridine 100 mg tablet 100 mg PO TID PRN pain #7 tabs 07/08/24 (Pyridium) Allergies Allergy/AdvReac Type Severity Reaction Status Date / Time No Known Allergies Allergy Verified 07/08/24 13:19 [No Known Allergies*] Review of Systems Constitutional: Constitutional: Reports no additional constitutional complaints, Denies chills, Denies fever(s) and Denies night sweats Eyes: Eyes: Reports no additional eye complaints, Denies blurry vision, Denies change in vision, Denies diplopia, Denies eye discharge, Denies loss of vision and Denies eye pain ENT: Denies dizziness Cardiovascular: Cardiovascular: Reports no additional cardiovascular complaints, Denies chest pain, Denies lightheadedness, Denies Loss of Consciousness and Denies dyspnea Respiratory: Respiratory: Reports no additional respiratory complaints and Denies dyspnea Gastrointestinal: Gastrointestinal: Reports no additional gastrointestinal complaints, Reports abdominal pain, Denies melena, Denies hematochezia, Denies change in bowel habits and Denies change in stool character Genitourinary: Genitourinary: Denies hematuria, Denies urinary frequency, Denies dysuria, Reports flank pain, Denies urinary incontinence, Denies urinary hesitancy and Denies urinary urgency Musculoskeletal: Musculoskeletal: Reports no additional musculoskeletal complaints, Denies numbness and Denies tingling Neurologic: Denies dizziness, Denies loss of vision, Denies numbness and Denies tingling Psychiatric: Psychiatric: Reports no additional psychiatric complaints Endocrine: Endocrine: Reports no additional endocrine complaints Hematologic/Lymphatic: Hematologic/Lymphatic: Reports no additional hematologic/lymphatic complaints Allergic/Immunologic: Allergic/Immunologic: Reports no additional allergic/immunologic complaints [facility] Past Medical History Attestation statement: The following information was validated with the patient. Source: old records reviewed and nursing notes reviewed Medical History Exposure to STD Hepatitis C CVA (cerebral vascular accident) Substance abuse HTN (hypertension) Left elbow fracture Obesity (BMI 30-39.9) Insomnia Surgical History H/O gastric sleeve S/P excision of neuroma History of bilateral breast reduction surgery History of tonsillectomy History of D&C History of tubal ligation Family History Family History Father Asthma Mother Hypertension Maternal Grandmother Hypertension Asthma Stroke Maternal Grandfather Diabetes Hypertension Stroke Sister In good health Sister Asthma Son In good health Daughter In good health Maternal Aunt Breast cancer Other Mental health disorder Social History Social History Household Members: Children Housing: Apartment Do you presently have visiting nurse or other home services: No Alcohol intake: former Year quit: 2022 Patient Tobacco Use Status: Former Tobacco user e-Cigarette/Vaping Use: Never Used Second Hand Smoke Exposure: No Advance Directives: No Advance Directives Information Provided: No Do you have a plan to hurt others: No Plan service: No Current occupational status: unemployed Current occupation: [employer] Cognitive needs: No Hearing needs: No Vision needs: No Physical Exam ED Vital Signs: Vital Signs - 24 hr 07/08/24 13:17 07/08/24 15:58 07/08/24 16:25 Temperature 98.6 F 98.6 F 98.6 F Pulse Rate 86 80 80 Respiratory Rate 18 20 20 Blood Pressure 152/82 H 155/94 H 155/94 H Pulse Oximetry 98 100 100 Oxygen Delivery Method Room Air Room Air Room Air BMI result Body Mass Index 29.0 Const General: cooperative, no acute distress, alert and awake Nutritional Appearance: well nourished Orientation/consciousness: patient oriented x3 Limitations: no limitations HENMT Head: Yes normal to inspection and Yes atraumatic Ears: hearing grossly normal bilaterally and external ears normal General nose exam: Normal external nose present, no nasal discharge noted and no epistaxis Face and sinus: Yes normal facial exam, No abrasion and No laceration Mouth: Normal oral and palatal mucosa present, no drooling and no muffled voice Eyes General: appearance normal, both eyes and all related structures Periorbital: periorbital findings normal Eyelids: Yes eyelids normal Conjunctivae: conjunctivae normal Pupils: Equal, round and reactive pupils present EOM: EOMs intact bilaterally Neck Neck: Yes normal visual inspection, Yes full ROM and Yes no lymphadenopathy Chest Chest palpation & inspection: normal inspection of the chest Resp Effort & Inspection: normal respiratory effort and able to speak in complete sentences GI Inspection: Yes normal to inspection Neuro General: patient oriented x3 and moves all extremities Cranial nerves: Yes Equal, round and reactive pupils present Cognition (Neuro): normal cognition Extrem General: Yes normal to inspection, Yes full ROM and Yes capillary refill normal Psych Appearance: grossly normal Mental Status: mental status grossly normal Affect: normal affect Attitude: cooperative Thought process: Normal thought process present Thought content: Normal thought content present Insight: Good insight present (Psych) Course Course Course Narrative: RME performed by Chritsina Acuna PA-C. Patient is a 34 year old assigned female at presenting to the emergency department with concerns her urologic stent migrated and would like it removed. Dr. Fuchs is her urologist. Detailed physical exam and review of systems are deferred to the casing puller. Labs and imaging ordered. Patient placed back in the waiting room pending room availability and results. Medical Decision Making Medical Decision Making [facility] Narrative: Patient is a 34 year old assigned female at with a history of MDD, HTN, MARINA, and kidney stones with a stent placed on her left side by Dr. Fuchs, presenting to the emergency department today with left sided flank pain. Patient's physical exam was unremarkable. Patient's blood work was unremarkable. Patient's CT abdomen/pelvis showed no acute process and showed the left ureteral stent in proper positioning. I spoke to Dr. Fuchs who recommended sending the patient home on Pyridium and following up with his office tomorrow for possible stent removal. I explained my physical exam findings as well as all test results to the patient. I answered all questions asked by the patient. I stressed the importance of the patient taking her medication as directed (either prescribed or as the over the counter packaging recommends). I stressed the importance of the patient following up with her primary care provider and her urologist. I stressed the importance of the patient returning to the emergency department immediately if her symptoms were to worsen or if she were to develop any dizziness, shortness of breath, difficulty breathing, chest pain, blurry vision, loss of vision, nausea, vomiting, abdominal pain, fever, chills, back pain, or any other complaints. Patient verbalized agreement and understanding with this treatment plan and discharge. Differential Diagnosis Differential Diagnoses: The differential diagnosis associated with the presentation includes Abdominal pain Flank pain Stent migration Admission/Observation Consideration of admission/observation: Escalation of care including admission/observation considered Patient would have been admitted to the hospital had her work up had any findings where hospital admission was appropriate and her clinical presentation warranted hospital admission. Consult Healthcare Provider Management of the patient was discussed with: Functional Director (spoke to Dr. Fuchs as noted in the MDM Rationale portion of this note) Lab Data [facility] Lab Attestation statement: I reviewed the patient's lab results. My interpretation of these results are in the MDM Rationale portion of this note. 07/08/24 13:49 07/08/24 13:49 Labs: Lab Results 07/08/24 Range/Units 13:49 WBC 8.3 (4.8-10.8) X10*3/uL RBC 3.90 L D (4.20-5.50) X10*6/uL Hgb 11.3 L D (12.0-16.0) g/dl Hct 33.9 L D (37.0-47.0) % MCV 86.9 (80.0-98.0) fL MCH 29.0 (27.0-33.0) pg MCHC 33.3 (31.0-35.0) g/dl RDW 13.5 (11.0-16.0) % Plt Count 422 H D (160-400) X10*3/uL MPV 9.5 (9.4-12.3) fL Immature Gran % (Auto) 0.1 (0.0-0.4) % Neut % (Auto) 58.0 (45-73) % Lymph % (Auto) 30.6 (20-40) % Treasure % (Auto) 6.5 (2-11) % Eos % (Auto) 3.7 (0-4) % Baso % (Auto) 1.1 (0-2) % Lymph # (Auto) 2.6 (1.2-4.9) X10*3/uL Treasure # (Auto) 0.5 (0.1-1.2) X10*3/uL Eos # (Auto) 0.3 (0.0-0.4) X10*3/uL Baso # (Auto) 0.1 (0.0-0.2) X10*3/uL Abs Immat Gran (auto) 0.01 (0.00-0.03) X10*3/uL Absolute Neuts (auto) 4.8 (2.0-8.3) x10*3/uL Absolute Nucleated RBC 0.000 (0.0-0.012) X10*3/uL Nucleated RBC % (auto) 0.0 (0.0-0.2) /100WBC Sodium 138 (135-145) mmol/L Potassium 4.1 D (3.3-5.1) mmol/L Chloride 105 (96-108) mmol/L Carbon Dioxide 23 (22-29) mmol/L Anion Gap 14 (12-20) BUN 12 (9-16) mg/dL Creatinine 0.64 (0.5-1.4) mg/dL Estim Creat Clear Calc 130.8 Estimated GFR > 60 Random Glucose 94 (60-115) mg/dL Calcium 9.4 D (8.4-10.2) mg/dL Magnesium 1.9 (1.6-2.6) mg/dL Total Bilirubin 0.3 (0.0-1.0) mg/dL AST 17 (5-31) U/L ALT 11 (0-31) U/L Alkaline Phosphatase 77 (39-117) U/L Total Protein 7.2 (6.5-8.0) g/dL Albumin 4.1 (3.5-5.0) g/dL Independent Interpretation I performed an independent interpretation of an: CT Scan Interpretation: My interpretation is in agreement with the radiologist's impression of this imaging study. EXAMINATION: CT ABDOMEN AND PELVIS WITHOUT CONTRAST CLINICAL INFORMATION: Left-sided flank pain COMPARISON: CT abdomen pelvis June 18, 2024 TECHNIQUE: Multidetector volumetric imaging was performed from the superior aspect of the liver through the pubic symphysis. Sagittal and coronal reformatted images were obtained on the technologist's workstation. This CT examination was performed using dose optimization techniques as appropriate, variously including the following: *Automated exposure control *Adjustment of mA and/or kV according to patient size (this includes techniques or standardized protocols for targeted exams where dose is matched to indication/reason for exam; i.e. extremities or head) *Use of iterative reconstruction technique DLP: 599 mGy-cm FINDINGS: LUNG BASES: The visualized lung bases are unremarkable. LIVER, GALLBLADDER, AND BILIARY TREE: The liver is normal in size, shape, and attenuation. No focal hepatic lesion or biliary ductal dilatation is present. The gallbladder is unremarkable with no evidence of radiopaque gallstones, gallbladder wall thickening, or obvious pericholecystic inflammatory changes. PANCREAS: Unremarkable. SPLEEN: Unremarkable. ADRENAL GLANDS: Unremarkable. KIDNEYS AND URETERS: Double-J ureteral stent in place. No hydronephrosis. No renal or ureteral calculi in either kidney. BLADDER: Left-sided double-J stent in bladder. No bladder calculus. GASTROINTESTINAL TRACT: There are scattered diverticula of the sigmoid colon. There is no diverticulitis. There is no bowel wall thickening /edema. There is no bowel obstruction. There is a moderate volume of stool in the colon. The appendix is normal. The small bowel loops are unremarkable. Surgical sutures along the greater curvature of the stomach. There is no hiatal hernia. ABDOMINAL WALL: No significant hernia is appreciated. LYMPH NODES: Normal. VASCULAR: Unremarkable. PELVIC VISCERA: Uterus is anteverted. No pelvic mass. No adnexal abnormality. OSSEOUS STRUCTURES: Degenerative spondylosis lumbosacral junction. CT/CT abdomen pelvis wo IV con IMPRESSION: 1. No acute abnormality CT scan abdomen pelvis. 2. Left-sided double-J ureteral stent in place. No hydronephrosis. No renal or ureteral calculi. 3. Diverticulosis of colon. No acute abnormality of the bowel. Fleischner guidelines were followed. Electronically signed by: Reggie Cuellar MD 07/08/2024 03:20 PM EST [employer] Dictated By: Reggie Cuellar MD Signed By: Electronically signed by Reggie Cuellar MD 07/08/24 1520 Radiology Impression Discussion of test interpretation with radiology: I have reviewed the radiologist's reading. Discharge Plan Discharge Clinical Impression: Flank pain Patient Disposition: Home, Self-Care Instructions: Flank Pain (ED) Additional Instructions: Follow up with your primary care provider and your urologist. Return to the emergency department immediately if your symptoms worsen or if you develop any dizziness, shortness of breath, difficulty breathing, chest pain, blurry vision, loss of vision, nausea, vomiting, abdominal pain, fever, chills, back pain, or any other complaints. Prescriptions: New phenazopyridine [Pyridium] 100 mg tablet 100 mg PO TID PRN (Reason: pain) Qty: 7 0RF No Action tamsulosin 0.4 mg capsule 0.4 mg PO BEDTIME 14 Days Qty: 14 0RF oxybutynin chloride 5 mg tablet 5 mg PO TID 14 Days Qty: 42 0RF cefuroxime axetil 500 mg tablet 500 mg PO BID Qty: 14 0RF losartan 25 mg tablet 25 mg PO DAILY 30 Days Qty: 30 1RF [place] [facility] [place] [facility] [place] Group] Daniel Quezada PA-C [Primary Care Provider] - Interventions: ED Discharge Assessment Last Done: 07/08/24 16:25 Discharge Date/Time: 07/08/24 16:26 Print Language: [place]ovan
[2024-07-08 13:55] LABS: MANUAL DIFF FLAG NO
[2024-07-08 13:56] LABS: Basophils Absolute Auto 0.1 X10*3/uL (0.0-0.2); Basophils Percent Auto 1.1 % (0-2); Eosinophils Absolute Auto 0.3 X10*3/uL (0.0-0.4); Eosinophils Percent Auto 3.7 % (0-4); Hematocrit 33.9 % (37.0-47.0); Hemoglobin 11.3 g/dl (12.0-16.0); Imm Gran Abs Auto 0.01 X10*3/uL (0.00-0.03); Imm Gran Pct Auto 0.1 % (0.0-0.4); Lymphocytes Absolute Auto 2.6 X10*3/uL (1.2-4.9); Lymphocytes Percent Auto 30.6 % (20-40); Mean Corpuscular HGB Conc 33.3 g/dl (31.0-35.0); Mean Corpuscular Volume 86.9 fL (80.0-98.0); Mean Platelet Volume 9.5 fL (9.4-12.3); Monocytes Absolute Auto 0.5 X10*3/uL (0.1-1.2); Monocytes Percent Auto 6.5 % (2-11); Neutrophils Absolute Auto 4.8 x10*3/uL (2.0-8.3); Platelet Count 422 X10*3/uL (160-400); Red Cell Distribution Width 13.5 % (11.0-16.0); White Blood Count 8.3 X10*3/uL (4.8-10.8)
[2024-07-08 14:13] LABS: Alanine Aminotransferase 11 U/L (0-31); Albumin Level 4.1 g/dL (3.5-5.0); Alkaline Phosphatase 77 U/L (39-117); Anion Gap 14 (12-20); Aspartate Amino Transferase 17 U/L (5-31); Bilirubin Total 0.3 mg/dL (0.0-1.0); Blood Urea Nitrogen 12 mg/dL (9-16); Calcium 9.4 mg/dL (8.4-10.2); Carbon Dioxide 23 mmol/L (22-29); Chloride 105 mmol/L (96-108); Creatinine Clr Calc Pharmacy 130.8; Estimated Glomerular Filt Rate > 60; Glucose Random 94 mg/dL (60-115); Magnesium 1.9 mg/dL (1.6-2.6); Potassium 4.1 mmol/L (3.3-5.1); Sodium 138 mmol/L (135-145); Total Protein 7.2 g/dL (6.5-8.0)
[2024-07-08 15:58] VITALS: BP 155/94; PULSE 80; RESP 20; TEMP 37; O2SAT 100
[2024-07-08 16:25] VITALS: BP 155/94; PULSE 80; RESP 20; TEMP 37; O2SAT 100
== END 2024-07-08 16:26 | disposition home or self-care (01) ==
PROVIDERS: Physician Assistant Medical; Emergency Provider Emergency Medicine; PCP Physician Assistant
DX: R10.2 Pelvic and perineal pain (principal); I10 Essential (primary) hypertension; Z79.899 Other long term (current) drug therapy; Z87.891 Personal history of nicotine dependence
CPT/HCPCS: 36415; 74176; 80053; 83735; 85025; 99282; 99284

== ENCOUNTER 2024-07-10 10:22 | Outpatient (AMB) | payer MEDICARE, MEDICAID, SELFPAY ==
--- NOTE | 2024-07-10 10:23 | MHC.OFFVIS ---
Intake Visit Reasons: stent removal Intake Note: Patient is present for STENT REMOVAL Urology Medication:TAMSULOSIN,OXYBUTYNIN,PYRIDIUM Antibiotic Allergy:NONE Blood Thinner:NONE Today's PVR:0ML'S Eeg Tech Required: No Allergies No Known Allergies [No Known Allergies*] Allergy (Verified 07/10/24 11:55) Medication List - Last Reconciled 07/10/24 by TODD Andrade losartan 25 mg PO DAILY 30 days phenazopyridine (Pyridium) 100 mg PO TID PRN sulfamethoxazole-trimethoprim 800-160 mg (Bactrim DS) 1 tab PO BID 5 days HPI Comments Details: Quita is a very pleasant 34-year-old female patient of Dr. Quezada. She has a past medical history of hep C, cerebrovascular accident in October of 2019, substance abuse in remission since 2020, hypertension, obesity, and insomnia. She presents to the office today for a cystoscopy with left ureteral stent removal. Of note, patient underwent cystoscopy, left retrograde, left dilatation of ureteric orifice under fluoroscopy, left ureteroscopy, stone basketing, and left stent placement with Dr. Fuchs on 06/19/2024. In discussion with the patient today she reports noting increased episodes of urinary urgency and frequency she otherwise denies incontinence, nocturia, hematuria, dysuria, foul smelling urine, fever, and or chills. She is happy with her current voiding parameters. She discusses having seeked emergency room care 2 days ago for ongoing left-sided flank pain she had been experiencing a CT was ordered and performed that noted left ureteral stent was in place. When asked she denies any previous history of nephrolithiasis and or surgical intervention for nephrolithiasis up until approximately 1 month ago. Office cystoscopy was performed and left ureteral stent was removed. Dilation of the urethra was needed and performed. Patient tolerated procedure well. We discussed potential causes of nephrolithiasis as well as sepsis. She otherwise offers no other issues or concerns at this time. [facility] Medical History Exposure to STD Hepatitis C CVA (cerebral vascular accident) Substance abuse HTN (hypertension) Left elbow fracture Obesity (BMI 30-39.9) Insomnia Surgical History H/O gastric sleeve S/P excision of neuroma History of bilateral breast reduction surgery History of tonsillectomy History of D&C History of tubal ligation Family History Father Asthma Mother Hypertension Maternal Grandmother Hypertension Asthma Stroke Maternal Grandfather Diabetes Hypertension Stroke Sister In good health Sister Asthma Son In good health Daughter In good health Maternal Aunt Breast cancer Other Mental health disorder Social History Household Members: Children Housing: Apartment Do you presently have visiting nurse or other home services: No Alcohol intake: former Year quit: 2022 Patient Tobacco Use Status: Former Tobacco user e-Cigarette/Vaping Use: Never Used Second Hand Smoke Exposure: No service: No Current occupational status: unemployed Current occupation: [employer] Cognitive needs: No Hearing needs: No Vision needs: No Review of Systems Const All systems reviewed & are unremarkable except as noted in HPI and below Physical Exam Const General: cooperative, comfortable, no acute distress, well developed, alert and awake Orientation/consciousness: patient oriented x3 HEENT Head: Yes normal to inspection, Yes normocephalic and Yes atraumatic Ears: hearing grossly normal bilaterally Eyes General: appearance normal, both eyes and all related structures Neck Neck: Yes normal visual inspection and Yes trachea midline Chest Chest palpation & inspection: normal inspection of the chest Resp Effort & Inspection: normal respiratory effort and able to speak in complete sentences Cardio Rate: regular rate GI Inspection: Yes normal to inspection General: Yes no CVA tenderness External Female Exam: normal external appearance Speculum Exam - Vagina: normal appearance of the vagina Back/Spine/Pelvis Back: no CVA tenderness Skin General skin exam: no rashes or lesions noted Neuro General: patient oriented x3 Extrem General: Yes normal to inspection Psych Appearance: grossly normal and well kempt Mental Status: mental status grossly normal Speech and movement: Normal speech and movement present and Clear speech present Affect: normal affect Attitude: cooperative Thought process: Normal thought process present Thought content: Normal thought content present Insight: Fair insight present (Psych) Judgement: Fair judgement present (Psych) Office Procedures Cystoscopy Consent Discussed risk and benefit or proposed procedure with the patient. Information consent for procedure given to the patient. Discussed technical aspects, risks, benefits and alternatives in full. Addressed all of the patient's questions and concerns regarding the procedure. The patient demonstrated knowledge and understanding. They wish to proceed with this procedure. Preparation The patient was prepped in the usual manner. A squad sergeant was present and in the room. Genitalia was prepped with betadine solution in a sterile manner. Lidocaine Jelly 2% was placed into the urethra and 16Fr flexible cystoscope was inserted into the meatus after adequate lubrication. Procedure A well lubricated 16 [place] cystoscope was placed No abnormality noted of urethra during placement Indwelling stent seen within bladder emerging from left ureteric orifices The stent was grasped with a 3 prong grasper and removed without difficulty The patient tolerated the procedure well [id number] with stent removal DISPOSABLE SCOPE URO-G FLEXIBLE SCOPE Procedure code (CPT) selection complete Post Void Residual Post Residual Void Post Void Residual (PVR): 0 [id number]-[id number] Void Residual by ultrasound Office Meds lidocaine HCl 2 % mucosal jelly in applicator Performing Provider: TODD Andrade Performing Location: [facility] [place] U[facility] Services[facility]akan Documented (not given) by: TODD Andrade on 07/10/24 12:17 Dose Route Admin Location Dispensed Lot Number Expiration Date [facility] Biomedical Instrument Technician 10 mL intra-urethral mL nitrofurantoin monohydrate/macrocrystals 100 mg capsule Performing Provider: TODD Andrade Performing Location: [facility] [place] Urology ServicesRakan Documented (not given) by: TODD Andrade on 07/10/24 12:17 Dose Route Admin Location Dispensed Lot Number Expiration Date [facility] Biomedical Instrument Technician 100 mg PO cap naproxen 500 mg tablet Performing Provider: TODD Andrade Performing Location: [facility] [place] [facility]rology ServicesRakan Documented (not given) by: TODD Andrade on 07/10/24 12:17 Dose Route Admin Location Dispensed Lot Number Expiration Date [place] Biomedical Instrument Technician 500 mg PO tab Results AMB Urinalysis, Automated UA Leukoctes 70 Callie/uL Last Edit by LARRY Sandoval on 07/10/24 10:53 UA Nitrite Negative Last Edit by LARRY Sandoval on 07/10/24 10:53 UA Urobilinogen 0.2 mg/dL Last Edit by LARRY Sandoval on 07/10/24 10:53 UA Protein 100 mg/dL Last Edit by Mil Pond [facility] on 07/10/24 10:53 UA pH 6.0 Last Edit by Mil Pond [facility] on 07/10/24 10:53 UA Blood 200 Manny/uL Last Edit by Mil Pond [facility] on 07/10/24 10:53 UA Specific [place] 1.030 Last Edit by Mil Pond [facility] on 07/10/24 10:53 UA Ketone Negative Last Edit by Mil Pond [facility] on 07/10/24 10:53 UA Bilirubin 0 mg/dL Last Edit by Mil Pond [facility] on 07/10/24 10:53 UA Glucose 0 mg/dL Last Edit by Mil Pond [facility] on 07/10/24 10:53 Results Reviewed Results Reviewed: Laboratory Last Values Urine pH (Auto) 6.0 07/10/24 10:52 Specific [place] (Auto) 1.030 07/10/24 10:52 Urine Protein (Auto) 100 mg/dL 07/10/24 10:52 Glucose (UA)(Auto) 0 mg/dL 07/10/24 10:52 Urine Ketones (Auto) Negative 07/10/24 10:52 Urine Blood (Auto) 200 Manny/uL 07/10/24 10:52 Urine Nitrite (Auto) Negative 07/10/24 10:52 Urine Bilirubin (Auto) 0 mg/dL 07/10/24 10:52 Urine Urobilinogen (Auto) 0.2 mg/dL 07/10/24 10:52 Leukocyte Esterase (Auto) 70 Callie/uL 07/10/24 10:52 Assessment & Plan Assessment & Plan (1) Pyelonephritis: Code(s): N12 - Tubulo-interstitial nephritis, not specified as acute or chronic Category: Medical (2) Calculus of distal left ureter: Code(s): N20.1 - Calculus of ureter Category: Medical (3) Other urethral stricture, female: Code(s): N35.82 - Other urethral stricture, female Category: Medical Plan In office urinalysis results reviewed with the patient today; as noted above. In office cystoscopy with left-sided ureteral stent removal was performed. Patient tolerated procedure well. We discussed at length potential causes of pyelonephritis as well as nephrolithiasis. Discussed, educated, and stressed the importance of adequate hydration relation to these urological issues as well as overall health and well-being. Will obtain renal ultrasound in 6-8 weeks Follow-up in 2 months with imaging to be completed prior; or sooner with any issues, concerns, and or questions. Orders: Orders AMB Urinalysis Automated Today Z13.9 - Encounter for screening, unspecified US renal BI 2 Months N20.0 - Calculus of kidney AMB Cystoscopy Today N12 - Tubulo-interstitial nephritis, not specified as acute or chronic, N20.1 - Calculus of ureter Medications: New sulfamethoxazole-trimethoprim 800-160 mg (Bactrim DS) 1 tab PO BID 5 days 10 tabs 0RF N32.81 - Overactive bladder nitrofurantoin monohyd/m-cryst 100 mg 100 mg PO ONCE 1 cap 0RF N12 - Tubulo-interstitial nephritis, not specified as acute or chronic, N20.1 - Calculus of ureter naproxen 500 mg PO ONCE 1 tab 0RF N12 - Tubulo-interstitial nephritis, not specified as acute or chronic, N20.1 - Calculus of ureter lidocaine HCl 2% 10 mL intra-urethral ONCE 10 mL 0RF N12 - Tubulo-interstitial nephritis, not specified as acute or chronic, N20.1 - Calculus of ureter Discontinued cefuroxime axetil Discontinued Reason: Doctor's Order 500 mg PO BID 14 tabs 0RF N12 - Tubulo-interstitial nephritis, not specified as acute or chronic tamsulosin Discontinued Reason: Doctor's Order 0.4 mg PO BEDTIME 14 days 14 caps 0RF oxybutynin chloride Discontinued Reason: Doctor's Order 5 mg PO TID 14 days 42 tabs 0RF Patient Instructions: The patient had an opportunity to ask questions regarding the treatment plan. All questions were answered. Physical exam, labs, and imaging were discussed and reviewed in detail. As well as risks, benefits, and discussion of treatment choices. No major barriers to understanding were identified. The patient expressed understanding and agreement with the above treatment plan. The patient was made aware they should contact our office by phone for worsening of their current condition, the appearance of new symptoms, or with any questions or concerns. Compliance is encouraged with any medications and follow up testing that is ordered. It is a privilege to be allowed the opportunity to participate in? your urological care.? Again, if you have any questions or concerns If you have any questions or concerns please do not hesitate to contact me. The office is [phone]. This note is constructed using voice recognition software. While every effort has been made to ensure accuracy bench chemist errors may have been included. Yours sincerely, YADY Andrade-ASHLEY Coding Level of Care Code Est Pt Level 3 (66238) Diagnoses Pyelonephritis N12 Calculus of distal left ureter N20.1 Other urethral stricture, female N35.82 CPT Codes Cystoscopy - CPT: 24063-Vuibaingul with stent removal ([id number]) Post Residual Void - PVR CPT Code: 17363-Kspc Void Residual by ultrasound ([id number])
== END 2024-07-10 11:37 | disposition home or self-care (01) ==
LOC: HO.HUSH 10:22
PROVIDERS: PCP Physician Assistant; Visit Provider Nurse Practitioner Family
DX: N12 Tubulo-interstitial nephritis, not specified as acute or chronic (principal); N20.1 Calculus of ureter; N35.82 Other urethral stricture, female; Z96.0 Presence of urogenital implants; Z13.9 Encounter for screening, unspecified
CPT/HCPCS: 52310; 99213

== ENCOUNTER → 2024-07-10 10:22 | Outpatient (BNVA) | payer MEDICARE, MEDICAID, SELFPAY | PROVIDERS: PCP Physician Assistant; Visit Provider Nurse Practitioner Family | DX: N12 Tubulo-interstitial nephritis, not specified as acute or chronic (principal); N20.1 Calculus of ureter; N20.0 Calculus of kidney; N35.82 Other urethral stricture, female; N32.81 Overactive bladder | CPT/HCPCS: 51798; 52310; 81003; 99212 ==

== ENCOUNTER 2024-07-15 13:30 | Emergency (ER) | payer MEDICARE, MEDICAID, SELFPAY ==
--- NOTE | ~2024-07-15 | XR_ITS ---
EXAMINATION: XR CHEST CLINICAL INFORMATION: chest pain COMPARISON: X-ray dated March 08, 2023 TECHNIQUE: Frontal view of the chest was obtained. FINDINGS: No consolidation, pleural effusion or pneumothorax. Cardiomediastinal silhouette is normal in size. Vascular clips overlapping the left paraspinal region at L2 level. XR/XR chest 1V IMPRESSION: No acute airspace disease. Electronically signed by: Galileo Connell MD 07/15/2024 03:20 PM PRICE
--- NOTE | 2024-07-15 13:32 | ECG_ITS ---
Test Reason : CHEST PAIN Blood Pressure : / mmHG Vent. Rate : 084 BPM Atrial Rate : 084 BPM P-R Int : 140 ms QRS Dur : 086 ms QT Int : 376 ms P-R-T Axes : 032 -06 001 degrees QTc Int : 444 ms Normal sinus rhythm Moderate voltage criteria for LVH, may be normal variant ( R in aVL , [place] product ) Borderline ECG When compared with ECG of 18-JUN-2024 22:00, Nonspecific T wave abnormality no longer evident in Lateral leads Referred By: Generic ED Physician Electronically Signed By:BK FERGUSON MD
--- NOTE | 2024-07-15 13:37 | MHC.EDTECH ---
EKG machine time is out of sync with current time. EKG done within time limit
[2024-07-15 13:40] VITALS: BP 145/79; PULSE 90; RESP 16; TEMP 36.3; O2SAT 98; BMI 31.5
--- NOTE | 2024-07-15 13:46 | ED_ITS ---
HPI - Chest Pain General Chief Complaint: Chest Pain Stated Complaint: irr heart beat chest tightness SOB History of Present Illness HPI narrative: Patient left before completion of treatment by ED provider. Related Data Previous Rx's ?Medication ?Instructions ?Recorded losartan 25 mg tablet 25 mg PO DAILY 30 days #30 tabs 07/01/24 phenazopyridine 100 mg tablet 100 mg PO TID PRN pain #7 tabs 07/08/24 (Pyridium) sulfamethoxazole 800 1 tab PO BID 5 days #10 tabs 07/10/24 mg-trimethoprim 160 mg tablet (Bactrim DS) Allergies Allergy/AdvReac Type Severity Reaction Status Date / Time No Known Allergies Allergy Verified 07/15/24 13:42 [No Known Allergies*] [facility] Past Medical History Medical History Exposure to STD Hepatitis C CVA (cerebral vascular accident) Substance abuse HTN (hypertension) Left elbow fracture Obesity (BMI 30-39.9) Insomnia Surgical History H/O gastric sleeve S/P excision of neuroma History of bilateral breast reduction surgery History of tonsillectomy History of D&C History of tubal ligation Family History Family History Father Asthma Mother Hypertension Maternal Grandmother Hypertension Asthma Stroke Maternal Grandfather Diabetes Hypertension Stroke Sister In good health Sister Asthma Son In good health Daughter In good health Maternal Aunt Breast cancer Other Mental health disorder Social History Social History Household Members: Children Housing: Apartment Do you presently have visiting nurse or other home services: No Alcohol intake: former Year quit: 2022 Patient Tobacco Use Status: Former Tobacco user e-Cigarette/Vaping Use: Never Used Second Hand Smoke Exposure: No Advance Directives: No Advance Directives Information Provided: No Do you have a plan to hurt others: No Plan service: No Current occupational status: unemployed Current occupation: [employer] Cognitive needs: No Hearing needs: No Vision needs: No Physical Exam 2 Vital Signs: Vital Signs: Last Vital Signs Temp 97.3 F 07/15/24 13:40 Pulse 90 07/15/24 13:40 Resp 16 07/15/24 13:40 BP 145/79 H 07/15/24 13:40 Pulse Ox 98 07/15/24 13:40 O2 Del Method Room Air 07/15/24 13:40 BMI result Body Mass Index 31.5 Course Course Course Narrative: RME: done by YANG Glover. 34-year-old female presents to ED for chest tightness, shortness of breath, and chest pain described by his palpitation. Patient denies any pleurisy, leg swelling, calf pain, pitting edema. Lungs are clear. Negative for pitting edema or leg swelling. EKG labs chest x-ray ordered Medical Decision Making Lab Data 07/15/24 13:58 07/15/24 13:58 Labs: Lab Results 07/15/24 Range/Units 13:58 WBC 7.5 (4.8-10.8) X10*3/uL RBC 4.00 L (4.20-5.50) X10*6/uL Hgb 11.7 L (12.0-16.0) g/dl Hct 34.3 L (37.0-47.0) % MCV 85.8 (80.0-98.0) fL MCH 29.3 (27.0-33.0) pg MCHC 34.1 (31.0-35.0) g/dl RDW 13.7 (11.0-16.0) % Plt Count 275 D (160-400) X10*3/uL MPV 10.3 (9.4-12.3) fL Immature Gran % (Auto) 0.3 (0.0-0.4) % Neut % (Auto) 65.4 (45-73) % Lymph % (Auto) 23.9 (20-40) % Crowley % (Auto) 6.0 (2-11) % Eos % (Auto) 3.5 (0-4) % Baso % (Auto) 0.9 (0-2) % Lymph # (Auto) 1.8 (1.2-4.9) X10*3/uL Crowley # (Auto) 0.5 (0.1-1.2) X10*3/uL Eos # (Auto) 0.3 (0.0-0.4) X10*3/uL Baso # (Auto) 0.1 (0.0-0.2) X10*3/uL Abs Immat Gran (auto) 0.02 (0.00-0.03) X10*3/uL Absolute Neuts (auto) 4.9 (2.0-8.3) x10*3/uL Absolute Nucleated RBC 0.000 (0.0-0.012) X10*3/uL Nucleated RBC % (auto) 0.0 (0.0-0.2) /100WBC PT 10.2 L (10.9-12.4) SEC INR 0.9 (0.9-1.1) APTT 26.0 (26.0-36.8) SEC Sodium 136 (135-145) mmol/L Potassium 4.1 (3.3-5.1) mmol/L Chloride 109 H (96-108) mmol/L Carbon Dioxide 22 (22-29) mmol/L Anion Gap 9 L (12-20) BUN 11 (9-16) mg/dL Creatinine 0.77 (0.5-1.4) mg/dL Estim Creat Clear Calc 101.6 Estimated GFR > 60 Random Glucose 98 (60-115) mg/dL Calcium 9.4 (8.4-10.2) mg/dL Total Bilirubin 0.3 (0.0-1.0) mg/dL AST 21 (5-31) U/L ALT 17 (0-31) U/L Alkaline Phosphatase 86 (39-117) U/L Troponin I High Sens < 2.7 (<3.5-17.0) ng/L B-Natriuretic Peptide < 10 (<100) pg/mL Total Protein 7.3 (6.5-8.0) g/dL Albumin 4.4 (3.5-5.0) g/dL Lipase 31 (8-78) U/L Beta HCG, Quant < 2 mIU/mL Urine Color Yellow Urine Appearance Clear Urine pH 6.0 (5.0-9.0) Ur Specific [place] <= 1.005 (1.005-1.025) Urine Protein Negative (Neg-Trace) mg/dL Urine Glucose (UA) Negative (Negative) mg/dL Urine Ketones Negative (Negative) mg/dL Urine Blood Negative (Negative) Urine Nitrite Negative (Negative) Ur Leukocyte Esterase Negative (Negative) Urine Test NEGATIVE (NEGATIVE) Discharge Plan Discharge Clinical Impression: Chest pain Patient Disposition: Left W/O Completing Treatment Prescriptions: No Action phenazopyridine [Pyridium] 100 mg tablet 100 mg PO TID PRN (Reason: pain) Qty: 7 0RF naproxen 500 mg tablet 500 mg PO ONCE Qty: 1 0RF nitrofurantoin monohyd/m-cryst 100 mg capsule 100 mg PO ONCE Qty: 1 0RF lidocaine HCl 2 % jelly in applicator 10 ml intra-urethral ONCE Qty: 10 0RF sulfamethoxazole-trimethoprim [Bactrim DS] 800-160 mg tablet 1 tab PO BID 5 Days Qty: 10 0RF losartan 25 mg tablet 25 mg PO DAILY 30 Days Qty: 30 1RF Discharge Date/Time: 07/15/24 20:22
[2024-07-15 14:03] LABS: MANUAL DIFF FLAG NO
[2024-07-15 14:06] LABS: Basophils Absolute Auto 0.1 X10*3/uL (0.0-0.2); Basophils Percent Auto 0.9 % (0-2); Eosinophils Absolute Auto 0.3 X10*3/uL (0.0-0.4); Eosinophils Percent Auto 3.5 % (0-4); Hematocrit 34.3 % (37.0-47.0); Hemoglobin 11.7 g/dl (12.0-16.0); Imm Gran Abs Auto 0.02 X10*3/uL (0.00-0.03); Imm Gran Pct Auto 0.3 % (0.0-0.4); Lymphocytes Absolute Auto 1.8 X10*3/uL (1.2-4.9); Lymphocytes Percent Auto 23.9 % (20-40); Mean Corpuscular HGB Conc 34.1 g/dl (31.0-35.0); Mean Corpuscular Hemoglobin 29.3 pg (27.0-33.0); Mean Corpuscular Volume 85.8 fL (80.0-98.0); Mean Platelet Volume 10.3 fL (9.4-12.3); Monocytes Absolute Auto 0.5 X10*3/uL (0.1-1.2); Neutrophils Absolute Auto 4.9 x10*3/uL (2.0-8.3); Neutrophils Percent Auto 65.4 % (45-73); Platelet Count 275 X10*3/uL (160-400); Red Cell Distribution Width 13.7 % (11.0-16.0); UPreg QC Valid YES; Urine Pregnancy NEGATIVE (NEGATIVE); White Blood Count 7.5 X10*3/uL (4.8-10.8)
[2024-07-15 14:07] LABS: Appearance Urine Clear; Color Urine Yellow; Glucose Urine UA Negative (Negative); Leukocyte Esterase Urine Negative (Negative); Nitrite Urine Negative (Negative); Specific Gravity - Urine <= 1.005 (1.005-1.025); Urine Blood Negative (Negative); Urine Ketones Negative (Negative); Urine Protein Negative (Neg-Trace)
[2024-07-15 14:13] LABS: INTERNATIONAL NORM RATIO 0.9 (0.9-1.1); Prothrombin Time 10.2 SEC (10.9-12.4)
[2024-07-15 14:25] LABS: B Type Natriuretic Peptide < 10 pg/mL (<100)
[2024-07-15 14:26] LABS: Alanine Aminotransferase 17 U/L (0-31); Albumin Level 4.4 g/dL (3.5-5.0); Alkaline Phosphatase 86 U/L (39-117); Anion Gap 9 (12-20); Aspartate Amino Transferase 21 U/L (5-31); Bilirubin Total 0.3 mg/dL (0.0-1.0); Blood Urea Nitrogen 11 mg/dL (9-16); Calcium 9.4 mg/dL (8.4-10.2); Carbon Dioxide 22 mmol/L (22-29); Chloride 109 mmol/L (96-108); Creatinine Clr Calc Pharmacy 101.6; Estimated Glomerular Filt Rate > 60; Glucose Random 98 mg/dL (60-115); HCG Quantitative < 2 mIU/mL; Lipase 31 U/L (8-78); Potassium 4.1 mmol/L (3.3-5.1); Sodium 136 mmol/L (135-145); Total Protein 7.3 g/dL (6.5-8.0); Troponin-I High Sensitivity < 2.7 ng/L (<3.5-17.0)
== END 2024-07-15 20:22 | disposition left against medical advice (07) ==
PROVIDERS: Physician Assistant; Emergency Provider Emergency Medicine Emergency Medical Services; PCP Physician Assistant
DX: R07.9 Chest pain, unspecified (principal); R06.02 Shortness of breath; I10 Essential (primary) hypertension; R14.0 Abdominal distension (gaseous); F41.1 Generalized anxiety disorder; E55.9 Vitamin D deficiency, unspecified; B19.20 Unspecified viral hepatitis C without hepatic coma; F10.21 Alcohol dependence, in remission; Z86.73 Personal history of transient ischemic attack (TIA), and cerebral infarction without residual deficits
CPT/HCPCS: 36415; 71045; 80053; 81003; 81025; 83690; 83880; 84484; 84702; 85025; 85610; 85730; 93005; 99283

== ENCOUNTER → 2024-07-15 13:32 | Outpatient (BNV) | payer MEDICARE, MEDICAID, SELFPAY | PROVIDERS: PCP Physician Assistant; Visit Provider Internal Medicine Cardiovascular Disease | DX: R07.9 Chest pain, unspecified (principal); R94.31 Abnormal electrocardiogram [ECG] [EKG] | CPT/HCPCS: 93010 ==

== ENCOUNTER → 2024-07-15 13:44 | Outpatient (BNV) | payer MEDICARE, MEDICAID, SELFPAY | PROVIDERS: PCP Physician Assistant; Visit Provider Radiology Diagnostic Radiology | DX: R07.9 Chest pain, unspecified (principal) | CPT/HCPCS: 71045 ==

== ENCOUNTER 2024-07-25 20:30 | Emergency (ER) | payer MEDICARE, MEDICAID, SELFPAY ==
--- NOTE | 2024-07-25 20:41 | ECG_ITS ---
Test Reason : HTN Blood Pressure : / mmHG Vent. Rate : 083 BPM Atrial Rate : 083 BPM P-R Int : 146 ms QRS Dur : 090 ms QT Int : 396 ms P-R-T Axes : 025 -10 002 degrees QTc Int : 465 ms Normal sinus rhythm Minimal voltage criteria for LVH, may be normal variant ( R in aVL ) Possible Anterior infarct , age undetermined Abnormal ECG When compared with ECG of 15-JUL-2024 13:27, Nonspecific T wave abnormality now evident in Anterolateral leads Referred By: Natalie Gupta Electronically Signed By:AZAM GOODEN
[2024-07-25 20:46] VITALS: BP 156/97; BP 170/100; PULSE 102; PULSE 81; RESP 20; TEMP 36.7; O2SAT 99; BMI 35.4
[2024-07-25 21:02] LABS: MANUAL DIFF FLAG NO
[2024-07-25 21:07] LABS: Basophils Absolute Auto 0.1 X10*3/uL (0.0-0.2); Basophils Percent Auto 0.7 % (0-2); Eosinophils Absolute Auto 0.1 X10*3/uL (0.0-0.4); Eosinophils Percent Auto 1.5 % (0-4); Hematocrit 30.5 % (37.0-47.0); Hemoglobin 10.2 g/dl (12.0-16.0); Imm Gran Abs Auto 0.02 X10*3/uL (0.00-0.03); Imm Gran Pct Auto 0.2 % (0.0-0.4); Lymphocytes Absolute Auto 3.1 X10*3/uL (1.2-4.9); Lymphocytes Percent Auto 35.4 % (20-40); Mean Corpuscular HGB Conc 33.4 g/dl (31.0-35.0); Mean Corpuscular Volume 86.6 fL (80.0-98.0); Mean Platelet Volume 9.8 fL (9.4-12.3); Monocytes Absolute Auto 0.5 X10*3/uL (0.1-1.2); Monocytes Percent Auto 5.9 % (2-11); Neutrophils Absolute Auto 4.9 x10*3/uL (2.0-8.3); Neutrophils Percent Auto 56.3 % (45-73); Platelet Count 334 X10*3/uL (160-400); Red Blood Count 3.52 X10*6/uL (4.20-5.50); Red Cell Distribution Width 14.4 % (11.0-16.0); White Blood Count 8.7 X10*3/uL (4.8-10.8)
[2024-07-25 21:11] LABS: INTERNATIONAL NORM RATIO 1.1 (0.9-1.1); Prothrombin Time 12.3 SEC (10.9-12.4)
[2024-07-25 21:18] LABS: Alanine Aminotransferase 15 U/L (0-31); Albumin Level 3.9 g/dL (3.5-5.0); Alkaline Phosphatase 78 U/L (39-117); Anion Gap 15 (12-20); Aspartate Amino Transferase 22 U/L (5-31); Bilirubin Total 0.3 mg/dL (0.0-1.0); Blood Urea Nitrogen 14 mg/dL (9-16); Calcium 8.4 mg/dL (8.4-10.2); Carbon Dioxide 21 mmol/L (22-29); Chloride 108 mmol/L (96-108); Creatinine Clr Calc Pharmacy 102.6; Estimated Glomerular Filt Rate > 60; Glucose Random 105 mg/dL (60-115); Magnesium 1.7 mg/dL (1.6-2.6); Potassium 3.3 mmol/L (3.3-5.1); Sodium 141 mmol/L (135-145); Total Protein 6.5 g/dL (6.5-8.0)
--- NOTE | 2024-07-25 21:27 | ED.GENADULT ---
HPI - General Adult General Chief complaint: General Medical Stated complaint: ax , muscle spasm, rapid breathing, low K? HTN Time Seen by Provider: 07/25/24 20:39 Source: patient Limitations: no limitations History of Present Illness ED Provider: yolanda PRAJAPATI narrative: Patient with history of hypokalemia was having anxiety/panic attack prior to arrival felt that her potassium is low ways to give with Versed 2 mg by the EMS on arrival patient's his relax labs showed normal potassium levels no vomiting no diarrhea patient supposed to take losartan for blood pressure control but she is not taking it blood pressure on arrival was 156/97 Related Data Previous Rx's ?Medication ?Instructions ?Recorded losartan 25 mg tablet 25 mg PO DAILY 30 days #30 tabs 07/01/24 phenazopyridine 100 mg tablet 100 mg PO TID PRN pain #7 tabs 07/08/24 (Pyridium) sulfamethoxazole 800 1 tab PO BID 5 days #10 tabs 07/10/24 mg-trimethoprim 160 mg tablet (Bactrim DS) hydroxyzine HCl 25 mg tablet 25 mg PO BID PRN anxiety 7 days 07/18/24 #14 tabs Allergies Allergy/AdvReac Type Severity Reaction Status Date / Time No Known Allergies Allergy Verified 07/25/24 20:49 [No Known Allergies*] Review of Systems Review of Systems: Yes all other systems are reviewed and are negative PMFSH Past Medical History Medical History Exposure to STD Hepatitis C CVA (cerebral vascular accident) Substance abuse HTN (hypertension) Left elbow fracture Obesity (BMI 30-39.9) Insomnia Surgical History H/O gastric sleeve S/P excision of neuroma History of bilateral breast reduction surgery History of tonsillectomy History of D&C History of tubal ligation Family History Family History Father Asthma Mother Hypertension Maternal Grandmother Hypertension Asthma Stroke Maternal Grandfather Diabetes Hypertension Stroke Sister In good health Sister Asthma Son In good health Daughter In good health Maternal Aunt Breast cancer Other Mental health disorder Social History Social History Household Members: Children Housing: Apartment Do you presently have visiting nurse or other home services: No Alcohol intake: former Year quit: 2022 Patient Tobacco Use Status: Former Tobacco user e-Cigarette/Vaping Use: Never Used Second Hand Smoke Exposure: No Advance Directives: No Advance Directives Information Provided: No Do you have a plan to hurt others: No Plan service: No Current occupational status: unemployed Current occupation: [employer] Cognitive needs: No Hearing needs: No Vision needs: No Physical Exam ED Vital Signs: Vital Signs - 24 hr 07/25/24 20:46 Temperature 98.1 F Pulse Rate 81 Respiratory Rate 20 Blood Pressure 156/97 H Pulse Oximetry 99 Oxygen Delivery Method Room Air BMI result Body Mass Index 35.4 Appearance: Alert. Oriented X3. No acute distress. Eyes: PERRLA, No Nystagmus ENT: Pharynx normal. Oral Mucosa moist Neck: Normal inspection. Neck supple. CVS: Normal heart rate and rhythm. Pulses normal. Respiratory: No respiratory distress. Equal air entry bilateral, no wheezing/rales/rhonchi Abdomen: Soft and nontender. Bowel sounds are present, no mass palpable, no CVA tenderness Skin: Skin warm and dry. Normal skin color. Normal skin turgor. Extremities: No lower extremity edema. No calf tenderness Neuro: Oriented X 3. No motor deficit. No sensory deficit.No cerebellar signs , cranial nerves II-XII intact Medical Decision Making Lab Data MDM Lab Attestation statement: I reviewed the patient's lab results. 07/25/24 20:56 07/25/24 20:56 Labs: Lab Results 07/25/24 Range/Units 20:56 WBC 8.7 (4.8-10.8) X10*3/uL RBC 3.52 L (4.20-5.50) X10*6/uL Hgb 10.2 L (12.0-16.0) g/dl Hct 30.5 L (37.0-47.0) % MCV 86.6 (80.0-98.0) fL MCH 29.0 (27.0-33.0) pg MCHC 33.4 (31.0-35.0) g/dl RDW 14.4 (11.0-16.0) % Plt Count 334 (160-400) X10*3/uL MPV 9.8 (9.4-12.3) fL Immature Gran % (Auto) 0.2 (0.0-0.4) % Neut % (Auto) 56.3 (45-73) % Lymph % (Auto) 35.4 (20-40) % [place] % (Auto) 5.9 (2-11) % Eos % (Auto) 1.5 (0-4) % Baso % (Auto) 0.7 (0-2) % Lymph # (Auto) 3.1 (1.2-4.9) X10*3/uL [place] # (Auto) 0.5 (0.1-1.2) X10*3/uL Eos # (Auto) 0.1 (0.0-0.4) X10*3/uL Baso # (Auto) 0.1 (0.0-0.2) X10*3/uL Abs Immat Gran (auto) 0.02 (0.00-0.03) X10*3/uL Absolute Neuts (auto) 4.9 (2.0-8.3) x10*3/uL Absolute Nucleated RBC 0.000 (0.0-0.012) X10*3/uL Nucleated RBC % (auto) 0.0 (0.0-0.2) /100WBC PT 12.3 D (10.9-12.4) SEC INR 1.1 (0.9-1.1) Sodium 141 (135-145) mmol/L Potassium 3.3 (3.3-5.1) mmol/L Chloride 108 (96-108) mmol/L Carbon Dioxide 21 L (22-29) mmol/L Anion Gap 15 (12-20) BUN 14 (9-16) mg/dL Creatinine 0.81 (0.5-1.4) mg/dL Estim Creat Clear Calc 102.6 Estimated GFR > 60 Random Glucose 105 (60-115) mg/dL Calcium 8.4 D (8.4-10.2) mg/dL Magnesium 1.7 (1.6-2.6) mg/dL Total Bilirubin 0.3 (0.0-1.0) mg/dL AST 22 (5-31) U/L ALT 15 (0-31) U/L Alkaline Phosphatase 78 (39-117) U/L Troponin I High Sens < 2.7 (<3.5-17.0) ng/L Total Protein 6.5 (6.5-8.0) g/dL Albumin 3.9 (3.5-5.0) g/dL Independent Interpretation I performed an independent interpretation of an: EKG Interpretation: Normal sinus rhythm heart rate 83 beats per minute LVH no acute STT wave changes no acute ischemia Discharge Plan Discharge Clinical Impression: Anxiety HTN (hypertension) Qualifiers: Hypertension type: essential hypertension Qualified Code(s): I10 - Essential (primary) hypertension Patient Disposition: Home, Self-Care Instructions: Hypertension (ED), Anxiety (ED) Additional Instructions: Drink plenty of fluids Start taking your medication for blood pressure losartan which was given to you by your PCP Your potassium level is normal Prescriptions: No Action hydroxyzine HCl 25 mg tablet 25 mg PO BID PRN (Reason: anxiety) 7 Days Qty: 14 0RF phenazopyridine [Pyridium] 100 mg tablet 100 mg PO TID PRN (Reason: pain) Qty: 7 0RF naproxen 500 mg tablet 500 mg PO ONCE Qty: 1 0RF nitrofurantoin monohyd/m-cryst 100 mg capsule 100 mg PO ONCE Qty: 1 0RF lidocaine HCl 2 % jelly in applicator 10 ml intra-urethral ONCE Qty: 10 0RF sulfamethoxazole-trimethoprim [Bactrim DS] 800-160 mg tablet 1 tab PO BID 5 Days Qty: 10 0RF losartan 25 mg tablet 25 mg PO DAILY 30 Days Qty: 30 1RF Print Language: Colombian
[2024-07-25 21:28] LABS: Troponin-I High Sensitivity < 2.7 ng/L (<3.5-17.0)
[2024-07-25 22:18] VITALS: BP 143/98
[2024-07-25] MEDS: Losartan Potassium 25 MG TABLET PO (22:18)
[2024-07-25 22:27] VITALS: BP 143/98; PULSE 86; RESP 16; TEMP 37; O2SAT 99
== END 2024-07-25 22:28 | disposition home or self-care (01) ==
PROVIDERS: Registered Nurse Emergency; Emergency Provider Internal Medicine; PCP Physician Assistant
DX: F41.9 Anxiety disorder, unspecified (principal); I10 Essential (primary) hypertension; Z86.73 Personal history of transient ischemic attack (TIA), and cerebral infarction without residual deficits
CPT/HCPCS: 36415; 80053; 83735; 84484; 85025; 85610; 93005; 99283

== ENCOUNTER → 2024-07-25 20:41 | Outpatient (BNV) | payer MEDICARE, MEDICAID, SELFPAY | PROVIDERS: Emergency Provider Internal Medicine; PCP Physician Assistant; Visit Provider Internal Medicine | DX: R94.31 Abnormal electrocardiogram [ECG] [EKG] (principal); I10 Essential (primary) hypertension | CPT/HCPCS: 93010 ==

== ENCOUNTER 2024-09-18 09:45 | Outpatient (REF) | payer MEDICARE, MEDICAID, SELFPAY ==
--- NOTE | ~2024-09-18 | US_ITS ---
CLINICAL HISTORY: N20.0 - Calculus of kidney US Renal Comparison: None Findings: Right kidney normal size and echotexture, 11.4 cm length. Left kidney normal size and echotexture, 11.8 cm length. 7 mm echogenic midpolar left renal cortical lesion may be due an angiomyolipoma. Finding could be re-evaluated with a follow-up ultrasound in approximately 6 months. Otherwise unremarkable kidneys without hydronephrosis. IMPRESSION: 7 mm echogenic midpolar left renal cortical lesion may be due an angiomyolipoma. Finding could be re-evaluated with a follow-up ultrasound in approximately 6 months. Otherwise unremarkable kidneys without hydronephrosis. This document has been electronically signed by: Noreen Burrell MD on 09/18/2024 12:05:23
--- OUTSIDE RECORDS SUMMARY | 2024-09-18 10:31 | XMS_ITS | Data Portability ---
Author Organization YANG Hendrickson s, [address] Address [address] [place] [address] Assessment No assessment recorded. Plan of Treatment Reminders Order Date Submit Date Provider Last Modified By Organization Details Last Modified Time Details Appointments None recorded. Lab None recorded. Referral None recorded. Procedures None recorded. Surgeries None recorded. Imaging XR, chest, 2 view - Wheezing and Cough. No recent COVID or Influenza. Sudden onset. No history of athma. No environment al exposures. Non-smoker. 2022 023 [email or web address] [facility], [address] [facility] [place], [address], 3 10:27:56 Medication Orders albuterol sulfate 2.5 mg/3 mL (0.083 %) solution for nebulizatio n 2022 023 Not available 3 09:00:16 ipratropium bromide 0.02 % solution for inhalation 2022 023 Not available 3 09:00:31 benzonatate 200 mg capsule 2022 023 [email or web address] [facility] #[id number], [address], [place], [id number], 3 09:00:18 prednisone 20 mg tablet 2022 023 [facility] #85290, [address], [place], [id number], 3 09:00:41 Allergy Relief (fluticason e) 50 mcg/actuati on nasal spray,suspe nsion [address] [facility]02397, [address], [place], [id number], 3 09:00:26 albuterol sulfate HFA 90 mcg/actuati on aerosol inhaler [address] [facility]19811, [address], [place], [id number], 3 09:00:43 ipratropium 0.5 mg-albutero l 3 mg (2.5 mg base)/3 mL nebulizatio n soln [address] [facility]17725, [address], [place], [id number], 3 09:00:28 amoxicillin 875 mg-potassiu m clavulanate 125 mg tablet [address] [facility] #34077, [address], [place], [id number], 3 09:00:14 loratadine 10 mg tablet [address] [facility] #84079, [address], [place], [id number], 3 09:00:34 montelukast 10 mg tablet [email or web address] [facility] #64206, [address], [place], [id number], 3 09:00:36 amoxicillin 875 mg tablet 2022 023 [facility] #29770, [address], [place], [id number], 3 09:44:26 albuterol sulfate HFA 90 mcg/actuati on aerosol inhaler 2022 023 [facility] #18987, [address], [place], [id number], 3 09:44:25 albuterol sulfate 2.5 mg/3 mL (0.083 %) solution for nebulizatio n 2022 023 [facility] #35624, [address], [place], [id number], 3 10:05:34 Allergy Relief (fluticason e) 50 mcg/actuati on nasal spray,suspe nsion 2022 023 [facility] #93619, [address], [place], [id number], 3 09:44:25 prednisone 20 mg tablet 2022 023 [facility] #16022, [address], [place], [id number], 3 12:48:09 benzonatate 200 mg capsule 2022 023 [facility] #75966, [address], [place], [id number], 3 12:48:09 Patient TargetsNo targets recorded. Patient Instructions Encounter Date Encounter Id Patient Instructions Last Modified By Organization Details Last Modified Time 09/26/2022 [id number] [facility]: care instructions Not available 09/26/2022 14:28:59 peak flow* BRENNEN Not available 09/26 14:36:28 Patient instruct ed on worsening signs and symptoms that would require further evaluation by ED or PCP such as fever of 101.0 or greater, congestion accompanied with coughing, vomiting, diarrhea, abdominal pain, decreased oral intake, lethargy, or other new symptom(s) experienced not discussed during this visit. Use humidifier and ensure good hydration. If you experience new concerning symptoms, shortness of breath, respiratory distress, or chest pain go to the ER. Use the medications prescribed. May use Decongestants if tolerated and no history of elevated blood pressure or Diabetes. Use saline nasal saline and Flonase daily for1 week. You may use tylenol for pain/fever. Do not take prednisone with Ibuprofen. Get some extra rest. When should you call for help? Call anytime you think you may need emergency care. For example, call if: You have severe trouble breathing. Call your doctor now or seek immediate medical care if: You have new or worse trouble breathing. You cough up dark brown or bloody mucus (sputum). You have a new or higher fever. You have a new rash. Watch closely for changes in your health, and be sure to contact your doctor if: You cough more deeply or more often, especially if you notice more mucus or a change in the color of your mucus. You are not getting better as expected. Not available 09/26/2022 14:28:43 09/29/2022 [id number] Based on your presentation and exam, you are being diagnosed with Sinusitis. Rhinosinusitis is most often viral and will resolve on its own in 7-10 days. Symptoms that last longer than 2 weeks an antibiotic could be considered. Based on your presentation, and antibiotic was written. The following are my recommendations to help your symptoms and to allow your condition to improve: 1. Drink plenty of fluids while you are ill- stay hydrated 2. Rest - don't overexert yourself - this includes sports and any gym routines. 3. I suggest taking an antihistamine - like Claritin, Zyrtec, or Benedryl 4. If you take OTC cold medication I would recommend Nyla-Selzer Cold/Cough. 5. Mucinex with a lot of water is ok - if you are having trouble clearing your nasal passages of mucous. However, if you start to cough then discontinue - this can increase coughing due to a watery post nasal drip. 6. Saline Nasal [place] is recommended. Since an antibiotic was prescribed you need to complete the full course - this is important so you don't develop any antibiotic resistance to future infections. I advise taking a Probiotic like Florastor since you are on an antibiotic - this will help you re-colonize your body with the good bacteria. Typically, it will take 6 months for you to restore your normal body ki after an antibiotic. Don't hesitate to be seen again if you develop: 1. Fever > 100.5 2. Worsening Headache 3. Stiff Neck 4. Worsening Cough or Shortness of breath 5. Visual Changes. The antibiotic should start to work in 4-5 days. You may not notice immediate response. Acute bronchitis is a common clinical condition characterized by an acute onset but persistent cough, with or without sputum production. It is typically self-limited, resolving within one to three weeks. Symptoms result from inflammation of the lower respiratory tract and are most frequently due to viral infection. Treatment is focused on patient education and supportive care. Antibiotics are not needed for the great majority of patients with acute bronchitis but are greatly overused for this condition. Reducing antibiotic use for acute bronchitis is a national and international health care priority. In most patients, the cough persists for 1 to 3 weeks, with a average duration of 18 days. The cough may be associated with either purulent or nonpurulent sputum production The presence of purulent sputum is a nonspecific finding and does not appear to be predictive of bacterial infection or that antibiotics are needed. For the great majority of patients, use of antibiotics does not hasten recovery or prevent complications but puts patients at increased risk of adverse effects including potentially severe complications such as Clostridioides difficile infection and anaphylaxis. Non-Pharmacological treatment for coughin. Throat lozenges 2. Hot tea 3. Honey 4. Smoking cessation 5. Avoidance of secondhand smoke. Pharmacological Treatment: 1. Robatussin or Guafenasin 2. Antihistamines 3. Dextromethoraphen I would plan on being seen again if any of the following symptoms develop: 1. Fever (100.5) 2. Shortness of breath 3. Wheezing 4. Worsening Cough. I would go to the ER if you develop: 1. Severe Shortness of breath 2. Chest Pain 3. Wheezing 4. Coughing up Blood Thank you for using [facility] today, please feel free to contact our office if you have any questions or concerns. [email or web address] Not available 09/29/2022 10:23:19 02/07/2023 [id number] ear infection (o titis media): care instructions [email or web address] Not available 02/07/2023 09:44:30 02/08/2023 [id number] [facility]: care instructions Not available 02/08/2023 12:48:01 Patient instruct ed on worsening signs and symptoms that would require further evaluation by ED or PCP such as fever of 101.0 or greater, congestion accompanied with coughing, vomiting, diarrhea, abdominal pain, decreased oral intake, lethargy, or other new symptom(s) experienced not discussed during this visit. Use humidifier and ensure good hydration. If you experience new concerning symptoms, shortness of breath, respiratory distress, or chest pain go to the ER. Use the medications prescribed. May use Decongestants if tolerated and no history of elevated blood pressure or Diabetes. Use saline nasal saline and Flonase daily for1 week. You may use tylenol for pain/fever. Do not take prednisone with Ibuprofen. Get some extra rest. When should you call for help? Call anytime you think you may need emergency care. For example, call if: You have severe trouble breathing. Call your doctor now or seek immediate medical care if: You have new or worse trouble breathing. You cough up dark brown or bloody mucus (sputum). You have a new or higher fever. You have a new rash. Watch closely for changes in your health, and be sure to contact your doctor if: You cough more deeply or more often, especially if you notice more mucus or a change in the color of your mucus. You are not getting better as expected. Not available 02/08/2023 12:48:14 Reason for Referral None Reported. Results Created Date Observation Date Name Description Value Unit Range Abnormal Flag Note LastModifiedBy Organization Detail LastModifiedTime 09/26/1909/26/2022 peak flow* Pulse 96 Not Available [id number] [place] [address], [place], [address], 09/26/2022 14:28:53 09/26/19 23 09/26/2022 peak flow* Oxygen Saturation 98 Not Available [id number] [facility], [place], [address], 09/26/2022 14:28:53 09/29/19 23 09/29/2022 XR, chest , 2 view No observ ation record ed. [email or web address] [facility] [address] [place], [address], 10/02/2022 07:48:12 Result Notes None recorded. Problems Name Problem SNOMED Code Status Onset Date Resolution Date Notes Provider Name and Address Organization Details Recorded Time Asthma 390635847 Active 2022 Mitra rock PA - [facility] 3 12:03:57 Hypertensive disorder 10286787 Active 2022 SOBEIDA rock PA - [facility] 3 13:58:54 Problem Notes None recorded. Procedures Surgical History Date Name Laterality Status Provider Name and Address Organization Details Recorded Time Nebulizer Treatment completed SOBEIDA AGUILAR PA - [facility] 09/26/2022 14:56:47 Imaging Results Imaging Date Name Status LastModified by Organiz ation Details LastModified Time 09/29/2022 XR, chest, 2 view completed [email or web address] [facility] [address] [place], [address], 10/02/2022 07:48:12 Procedure Notes None recorded. Medical Equipment None Reported. Allergies No known drug allergies Medications Name Sig Start Date Stop Date Status Note LastModified by Organization Details LastModified Time clonidine HCl 0.1 mg tablet TAKE 1 TABLET BY MOUTH DAILY FOR 20 DAYS NEEDED FOR PANIC ATTACKS 02/07 completed Not Available Not Available Not Available prednisone 10 mg tablet TAKE 4 TABLETS BY MOUTH DAILY FOR 2 DAYS THEN TAKE 3 FOR 2 DAYS THEN TAKE 2 FOR 2 DAYS THEN TAKE 1 FOR 2 DAYS THEN TAKE 1/2 TABLET FOR 2 DAYS 09/26 completed Not Available Not Available Not Available ipratropium 0.5 mg-albutero l 3 mg (2.5 mg base)/3 mL nebulizatio n soln USE 3 ML VIA NEBULIZER FOUR TIMES DAILY FOR 10 DAYS NEEDED 02/07 completed Not Available Not Available Not Available albuterol sulfate 2.5 mg/3 mL (0.083 %) solution for nebulizatio n Inhale 2.5 mg 4 times a day by nebulizat ion route as directed for 10 days. 2022 active Not Available Not Available Not Avai lable benzonatate 200 mg capsule Take 1 capsule 3 times a day by oral route as needed for 7 days. 2022 active Not Available Not Available Not Avai lable prednisone 20 mg tablet Take 2 tablets every day by oral route in the morning for 4 days. 2022 active Not Available Not Available Not Avai lable amlodipine 5 mg tablet TAKE 1 TABLET BY MOUTH DAILY 02/07 completed Not Available Not Available Not Available ciprofloxac in 500 mg tablet TAKE 1 TABLET BY MOUTH FOR 1 DAY 02/07 completed Not Available Not Available Not Available amoxicillin 875 mg tablet Take 1 tablet every 12 hours by oral route for 10 days. 2022 active Not Available Not Available Not Avai lable doxycycline monohydrate 100 mg capsule TAKE 1 CAPSULE BY MOUTH TWICE DAILY FOR 7 DAYS 09/26 completed Not Available Not Available Not Available erythromyci n 5 mg/gram (0.5 %) eye ointment 09/26 completed Not Available Not Available Not Available gabapentin 300 mg capsule TAKE 1 CAPSULE BY MOUTH THREE TIMES DAILY 09/26 completed Not Available Not Available Not Available buspirone 7.5 mg tablet TAKE 1 TABLET BY MOUTH THREE TIMES DAILY 09/26 completed Not Available Not Available Not Available omeprazole 20 mg capsule,del ayed release TAKE 1 CAPSULE BY MOUTH DAILY 02/07 completed Not Available Not Available Not Available montelukast 10 mg tablet TAKE 1 TABLET BY MOUTH EVERY DAY 02/07 completed Not Available Not Available Not Available lisinopril 10 mg-hydrochl orothiazide 12.5 mg tablet TAKE 1 TABLET BY MOUTH DAILY 09/26 completed Not Available Not Available Not Available methylpredn isolone 4 mg tablets in a dose pack FOLLOW PACKAGE DIRECTION S 09/26 completed Not Available Not Available Not Available albuterol sulfate HFA 90 mcg/actuati on aerosol inhaler Inhale 2 puffs every 4-6 hours by inhalatio n route as needed for 10 days. 2022 active Not Available Not Available Not Avai [facility] doxycycline hyclate 100 mg tablet TAKE 1 TABLET BY MOUTH TWICE DAILY 02/07 completed Not Available Not Available Not Available loratadine 10 mg tablet TAKE 1 TABLET BY MOUTH EVERY DAY 02/07 completed Not Available Not Available Not Available ipratropium bromide 0.02 % solution for inhalation Inhale 0.5 mg every day by inhalatio n route as directed for 1 day. 02/07 completed Not Available Not Available Not Available amoxicillin 875 mg-potassiu m clavulanate 125 mg tablet TAKE 1 TABLET BY MOUTH TWICE DAILY FOR 7 DAYS 02/07 completed Not Available Not Available Not Available aripiprazol e 10 mg tablet TAKE 1 TABLET BY MOUTH DAILY 09/26 completed Not Available Not Available Not Available aripiprazol e 5 mg tablet TAKE 1 TABLET BY MOUTH DAILY 09/26 completed Not Available Not Available Not Available mirtazapine 7.5 mg tablet TAKE 1 TABLET BY MOUTH AT BEDTIME 09/26 completed Not Available Not Available Not Available Chel-D 24 Hour 180 mg-240 mg tablet,exte nded release TAKE 1 TABLET BY MOUTH EVERY DAY FOR 5 DAYS 09/26 completed Not Available Not Available Not Available Vitamin D3 125 mcg (5,000 unit) tablet TAKE 1 TABLET BY MOUTH EVERY DAY 09/26 completed Not Available Not Available Not Available Loratadine- D 5 mg-120 mg tablet,exte nded release 12 hr TAKE 1 TABLET BY MOUTH TWICE DAILY FOR 10 DAYS 09/26 completed Not Available Not Available Not Available Allergy Relief (fluticason e) 50 mcg/actuati on nasal spray,suspe nsion [place] 1 spray every day by intranasa l route for 10 days. 2022 active Not Available Not Available Not Avzachariah eaton Vitals Date Recorded Body height Provider Name an d Address Organization Details Last Updated DateTime 02/07/2023 160.02 cm ROSA ELENA SORIA - [facility] 0 02/07/2023 08:59:41 Date Recorded Body mass index (BMI) Body weight Provider Name and Address Organization Details Last Updated DateTime 02/07/2023 41.5 kg/m2 079025.61 g ROSA ELENA STERLING PA - [facility] 02/07/2023 08:59:49 Date Recorded Pain severity - 0-10 verbal numeric rating [Score] - Reported Provider Name and Address Organization Details Last Updated DateTime 02/07/2023 10 ROSA ELENAJARED DAVIDEY PA - [facility] 0 02/07/2023 08:59:55 Date Recorded Respiratory rate Provider Name a nd Address Organization Details Last Updated DateTime 02/07/2023 18 /min ROSA ELENA DAVIDEY PA - [facility] 0 02/07/2023 09:02:04 Date Recorded Oxygen saturation Oxygen saturation in Arterial blood by Pulse oximetry Provider Name and Address Organization Details Last Updated DateTime 02/07/2023 97 % 97 % ROSA ELENAJARED DAVIDEY PA - [facility] 02/07/2023 09:02:10 Date Recorded Heart rate Provider Name an d Address Organization Details Last Updated DateTime 02/07/2023 86 /min ROSA ELENA DAVIDEY PA - [facility] 0 02/07/2023 09:02:14 Date Recorded Body temperature Provider Name a nd Address Organization Details Last Updated DateTime 02/07/2023 98.1 [degF] ROSA ELENA DAVIDEY PA - [facility] 02/07/2023 09:02:44 Date Recorded Body height Provider Name an d Address Organization Details Last Updated DateTime 02/08/2023 160.02 cm Mitra Renu PA - [facility] 0 02/08/2023 12:03:34 Date Recorded Body mass index (BMI) Body weight Provider Name and Address Organization Details Last Updated DateTime 02/08/2023 41.5 kg/m2 880816.61 g Mitra Renu PA - [facility] 02/08/2023 12:03:40 Date Recorded Respiratory rate Provider Name a nd Address Organization Details Last Updated DateTime 02/08/2023 24 /min Mitra Meridian PA - [facility] 0 02/08/2023 12:04:20 Date Recorded Pain severity - 0-10 verbal numeric rating [Score] - Reported Provider Name and Address Organization Details Last Updated DateTime 02/08/2023 10 Mitra Renu PA - [facility] 0 02/08/2023 12:04:26 Date Recorded Oxygen saturation Oxygen saturation in Arterial blood by Pulse oximetry Provider Name and Address Organization Details Last Updated DateTime 02/08/2023 96 % 96 % Mitar Meridian PA - [facility] 02/08/2023 12:05:41 Date Recorded Heart rate Provider Name an d Address Organization Details Last Updated DateTime 02/08/2023 103 /min Mitra Renu PA - [facility] 0 02/08/2023 12:05:44 Date Recorded Body temperature Provider Name a nd Address Organization Details Last Updated DateTime 02/08/2023 98.6 [degF] Mitrajim Leonardobe PA - [facility] 02/08/2023 12:05:48 Date Recorded Oxygen saturation Oxygen saturation in Arterial blood by Pulse oximetry Provider Name and Address Organization Details Last Updated DateTime 09/06/2022 98 % 98 % ROSA ELENA STERLING PA - [facility] 09/06/2022 09:42:21 Date Recorded Pain severity - 0-10 verbal numeric rating [Score] - Reported Provider Name and Address Organization Details Last Updated DateTime 09/06/2022 10 ROSA ELENA STERLING PA - [facility] 0 09/06/2022 09:42:40 Date Recorded Heart rate Provider Name an d Address Organization Details Last Updated DateTime 09/06/2022 80 /min ROSA ELENA STERLING PA - [facility] 0 09/06/2022 09:42:42 Date Recorded Respiratory rate Provider Name a nd Address Organization Details Last Updated DateTime 09/06/2022 18 /min ROSA ELENA STERLING PA - [facility] 0 09/06/2022 09:42:43 Date Recorded Body temperature Provider Name a nd Address Organization Details Last Updated DateTime 09/06/2022 98.3 [degF] ROSA ELENA STERLING PA - [facility] 09/06/2022 09:43:09 Date Recorded Body height Provider Name an d Address Organization Details Last Updated DateTime 09/26/2022 160.02 cm SOBEIDA AGUILAR PA - [facility] 09/26/2022 13:55:23 Date Recorded Body mass index (BMI) Body weight Provider Name and Address Organization Details Last Updated DateTime 09/26/2022 41.1 kg/m2 749543.43 g SOBEIDA AGUILAR PA - [facility] 09/26/2022 13:55:25 Date Recorded Body temperature Provider Name a nd Address Organization Details Last Updated DateTime 09/26/2022 97 [degF] SOBEIDA AGUILAR PA - [facility] 09/26/2022 13:55:51 Date Recorded Oxygen saturation Oxygen saturation in Arterial blood by Pulse oximetry Provider Name and Address Organization Details Last Updated DateTime 09/26/2022 99 % 99 % SOBEIDA DUKESICA PA - [facility] 09/26/2022 13:56:00 Date Recorded Heart rate Provider Name an d Address Organization Details Last Updated DateTime 09/26/2022 98 /min SOBEIDA AGUILAR PA - [facility] 09/26/2022 13:56:03 Date Recorded Respiratory rate Provider Name a nd Address Organization Details Last Updated DateTime 09/26/2022 18 /min SOBEIDA AGUILAR PA - [facility] 09/26/2022 13:56:05 Date Recorded Body height Provider Name an d Address Organization Details Last Updated DateTime 09/29/2022 160.02 cm BARON DEPINTO PA - [facility] 0 09/29/2022 08:23:44 Date Recorded Body mass index (BMI) Body weight Provider Name and Address Organization Details Last Updated DateTime 09/29/2022 41.1 kg/m2 302950.43 g BARON DEPINTO PA - [facility] 09/29/2022 08:23:54 Date Recorded Pain severity - 0-10 verbal numeric rating [Score] - Reported Provider Name and Address Organization Details Last Updated DateTime 09/29/2022 10 BARON DEPINTO PA - [facility] 0 09/29/2022 08:24:13 Date Recorded Body temperature Provider Name a nd Address Organization Details Last Updated DateTime 09/29/2022 97.7 [degF] BARON DEPINTO PA - [facility] 09/29/2022 08:25:54 Date Recorded Respiratory rate Provider Name a nd Address Organization Details Last Updated DateTime 09/29/2022 19 /min BARON DEPINTO PA - [facility] 0 09/29/2022 08:25:55 Date Recorded Oxygen saturation Oxygen saturation in Arterial blood by Pulse oximetry Provider Name and Address Organization Details Last Updated DateTime 09/29/2022 95 % 95 % BARON HUDDLESTON PA - [facility] 09/29/2022 08:26:06 Date Recorded Heart rate Provider Name an d Address Organization Details Last Updated DateTime 09/29/2022 93 /min BARON HUDDLESTON PA - [facility] 0 09/29/2022 08:26:08 Date Recorded Systolic blood pressure Diastolic blood pressure Provider Name and Address Organization Details Last Updated DateTime 02/07/2023 147 mm[Hg] 91 mm[Hg] ROSA ELENA STERLING PA - [facility] 02/07/2023 09:02:17 Date Recorded Systolic blood pressure Diastolic blood pressure Provider Name and Address Organization Details Last Updated DateTime 02/08/2023 144 mm[Hg] 94 mm[Hg] Mitra Sears PA - [facility] 02/08/2023 12:05:38 Date Recorded Systolic blood pressure Diastolic blood pressure Provider Name and Address Organization Details Last Updated DateTime 09/06/2022 129 mm[Hg] 85 mm[Hg] ROSA ELENA STERLING PA - [facility] 09/06/2022 09:42:17 Date Recorded Systolic blood pressure Diastolic blood pressure Provider Name and Address Organization Details Last Updated DateTime 09/26/2022 146 mm[Hg] 82 mm[Hg] SOBEIDA AGUILAR PA - [facility] 09/26/2022 13:57:00 Date Recorded Systolic blood pressure Diastolic blood pressure Provider Name and Address Organization Details Last Updated DateTime 09/29/2022 148 mm[Hg] 88 mm[Hg] BARON HUDDLESTON PA - [facility] 09/29/2022 08:26:23 Social History Question Answer Notes LastModified by Organizat ion Details LastModified Time Tobacco Smoking Status Never Smoker SOBEIDA rock PA - [facility] 09/26/2022 13:59:29 What Is Your Level Of Alcohol Consumption? None [email or web address] Information not available 09/26/2022 Have You Had Direct Contact, Or Contact During Intimacy, With Monkeypox Rash, Scabs, Or Body Fluids From A Person With Monkeypox? No [email or web address] Information not available 02/08/2023 Do You Use Any Illicit Or Recreational Drugs? No Information not available 09/26/2022 Have You Recently Traveled Abroad? No [email or web address] Information not available 09/26/2022 Do You Or Have You Ever Used Any Other Forms Of Tobacco Or Nicotine? No [email or web address] Information not available 09/26/2022 Sex: Unknown Functional Status None recorded. Mental Status None recorded. Family History Relationship Description Onset Age of this Age Resolved Age Notes LastModified by Organization Details LastModified Time Unspecified Relation Hypertensive disorder [email or web address] Not available 2022 13:59:14 Medical History No medical history recorded. Gynecological History Statement/Question Response Date of LMP Is there any chance of ? No Obstetrics History GPAL:G 0 P 0 0 0 0 Immunizations Vaccine Type Date Status Note Provider Nam e and Address Organization Details Recorded Time Influenza, split virus, quadrivalent, preservative 6 completed BARON DEPINTO null, PA - [facility] 09/29/2022 08:24:17 Influenza, MDCK, quadrivalent, PF 7 completed BARON DEPINTO null, PA - [facility] 09/29/2022 08:24:17 COVID-19, mRNA, LNP-S, PF, 100 mcg/0.5mL dose or 50 mcg/0.25mL dose 2 completed BARON DEPINTO null, PA - [facility] 09/29/2022 08:24:17 COVID-19, mRNA, LNP-S, PF, 100 mcg/0.5mL dose or 50 mcg/0.25mL dose 1 completed BARON DEPINTO null, PA - [facility] 09/29/2022 08:24:17 COVID-19, mRNA, LNP-S, PF, 100 mcg/0.5mL dose or 50 mcg/0.25mL dose 1 completed BARON DEPINTO null, PA - [facility] 09/29/2022 08:24:17 Influenza, split virus, trivalent, preservative 5 completed BARON DEPINTO null, PA - [facility] 09/29/2022 08:24:17 Td (adult), 2 Lf tetanus toxoid, preservative free, adsorbed 9 completed BARON DEPINTO null, PA - [facility] 09/29/2022 08:24:17 Influenza, split virus, quadrivalent, PF 0 completed BARON DEPINTO null, PA - [facility] 09/29/2022 08:24:17 Influenza, split virus, quadrivalent, PF 1 completed BARON DEPINTO null, PA - [facility] 09/29/2022 08:24:17 Influenza, split virus, quadrivalent, PF 2 completed BARON DEPINTO null, PA - [facility] 09/29/2022 08:24:17 Influenza, split virus, quadrivalent, PF 8 completed BARON DEPINTO null, PA - [facility] 09/29/2022 08:24:17 Past Encounters Encounter ID Performer Location Encounter Start Date Encounter Closed Date Diagnosis/Indication Diagnosis SNOMED-CT Code Diagnosis ICD10 Code Diagnosis Note [id number] [address] [place] [address] 08/20/2019 13:54:04 08/20/2019 14:52:06 [id number] [address] [place] [address] 05/26/2021 08:42:12 05/26/2021 11:42:02 [id number] [address] [place] [address] 08/02/2019 14:28:24 08/02/2019 16:24:19 [id number] [address] [place] [address] 06/09/2020 15:41:35 06/09/2020 17:32:59 [id number] [address] [place] [address] 01/19/2022 08:41:25 01/19/2022 11:44:37 [id number] [address] [facility] [place] [address] 12/30/2021 08:54:51 12/30/2021 11:55:00 [id number] [address] [place] [address] [place] [address] 01/25/2017 13:38:48 01/25/2017 14:37:23 [id number] [address] [place] [address] [place] [address] 11/13/2020 10:11:23 11/13/2020 10:55:17 [id number] [address] [facility] [place] [address] 05/23/2022 08:48:31 05/23/2022 13:11:14 [id number] [address] [place] [address] [place] [address] 12/05/2018 09:16:17 12/05/2018 09:55:52 [id number] [address] [place] [address] [place] [address] 02/06/2021 10:00:11 02/06/2021 10:41:14 [id number] YANG SAAB [address] [place] [address] [place] [address] 09/06/2022 09:38:15 10/01/2022 23:07:23 Left without being seen [id number] 9102 Z53.21 [id number] Sarkis Cardenas [place] [address] [place] [address] [place] [address] 09/26/2022 12:28:04 09/26/2022 15:02:41 Acute bronchitis 59010462 J20.9 [id number] YANG SAAB [address] [place] [address] [place] [address] 09/29/2022 08:12:12 09/29/2022 10:27:56 Cough 54106856 R05.9 Chest x-ray was clear no evidence of pneumonia - you do need to take deep breaths. Acute sinusitis 79278724 J01.90 Exacerbati on of intermittent asthma [id number] J45.21 [id number] Augustine Rodriguez [place] [address] [address] 02/07/2023 08:28:13 02/07/2023 09:50:09 Upper respiratory infection 06361084 J06.9 Please follow up with PCP or Urgent Care in 3-5 days if no improvemen t or if any new symptoms occur that are concerning .Call 911 or go to nearest ER if you develop any shortness of breath, chest pain, severe headache, dizziness, or other concerning symptoms Acute righ t otitis media [id number] H66.91 Asthma 257948659 J45.90 9 REfilling asthma meds. Currently stable [id number] Sarkis Cardenas [place] [address] [address] 02/08/2023 11:51:37 02/08/2023 12:49:43 Acute bronchitis 76298987 J20.9 continue medication as prescribed yesterday. Health Concerns Section Related Observation LastModified by Organization Detai ls LastModified Time None Recorded Concern Status LastModified by Organization Details LastModified Time None Recorded Advance Directives Directive None Recorded Payers Encounter Date Sequence Insurance Name Policy Number Policy [place] Covered Member ID [place] Member ID Guarantor Name 09/06/2022 1 [place] [employer] Crystal Liliam [id number] Crystal Liliam 09/06/2022 2 [place] [facility] Crystal Liliam [id number] Crystal Liliam 09/26/2022 1 [place] [employer] Crystal Liliam [id number] Crystal Liliam 09/26/2022 2 [place] [facility] Crystal Liliam [id number] Crystal Liliam 09/29/2022 1 [place] [employer] Crystal Liliam [id number] Crystal Liliam 09/29/2022 2 [place] [facility] Crystal Liliam [id number] Crystal Liliam 02/07/2023 1 [place] [facility] Crystal Liliam [id number] Crystal Liliam 02/07/2023 2 [place] [facility] Quita Liliam [id number] Quita Liliam 02/08/2023 1 [place] [facility] Quita Liliam [id number] Quita Liliam 02/08/2023 2 [place] [facility] [place] Liliam [id number] Crystal Liliam Notes Date Note Type Note Provider Name and Address Organization Details Recorded Time 3 text/html CongestionReported bypatient.Notes:chest congestion, coughing a lot, nasal congestion with post nasal drip x 4 days. denies any fever or fever with chills. no SOB or respiratory distress. Sarkis Cardenas NP [address] [facility] [place], [address], [facility] 09/26/2022 15:04:07 3 text/html Sinus Complaints UCReported bypatient.Location:sinu s pain;facial pain;sinus pressure Associated Symptoms:no fever; no nausea or vomiting; no ear fullness; no cough;nasal discharge from both nostrils;difficulty breathing;sore throat;Post nasal drip;nasal passage blockage bilaterally Onset/Timing:initially started ago Severity:mild Context:no recent sick contacts Risk Factors:no current smoking or tobacco use Prior Treatmentnasal saline rinse; oral steroids:PrednisoneNote s:The patient was seen a few days ago for cough and wheezing. Treated with Prednisone and nebulizer treatment. No relief with the cough. Now right sided sinus pressure and ear pain. Thinks she needs an antibiotics because saline nasal spray, inhaler, benzonatate, steroid, and antihistamines are not helping. Non smoker. No environmental exposures. No new animals. Nothing has changed at work. No recent COVID or influenza. YANG SAAB [address] [facility] [place], [address], [facility] 09/29/2022 10:26:57 3 text/html Sinus ComplaintsReported bypatient.Location:faci al pain;sinus pressure Associated Symptoms:no difficulty breathing; no nausea or vomiting; no sore throat; no dizziness;nasal discharge from nostrils;Post nasal drip;ear fullness;cough Augustine Rodriguez MD [address] [facility] [place], [address], [facility] 02/13/2023 08:46:31 3 text/html Shortness of BreathReported bypatient.source of patient informationsource of patient information Timingnew onset; 4 days;worse at night;during exertion;with environmental exposure Additional symptomsno anxiety; no nausea; no fatigue;cough;pain with breathing Sarkis Cardenas NP [address] [facility] [place], [address], [facility] 02/08/2023 12:48:35 OBGyn Episode No OBEpisode recorded.
--- OUTSIDE RECORDS SUMMARY | 2024-09-18 10:31 | XMS_ITS | Clinical Summary ---
Author Organization [facility] Address [address] [place] [address] Phone Care Team Providers Care Fuel Quality Tech Name Role Phone Daniel Quezada Primary Care Provider Allergies No known active allergies Medications Medication Sig Dispensed Refills Start Date End Date Status HYDROXYZINE HCL ORAL Take by mouth. Active acetaminophen (TYLENOL) 500 mg tablet Take 1 tablet (500 mg total) by mouth. 04/06/2023 Active cholecalciferol (VITAMIN D-3) 1,250 mcg (50,000 unit) capsule Take 1 capsule (50,000 Units total) by mouth. 12/09/2022 Active lisinopril-hydroCHLORO thiazide (PRINZIDE,ZESTORETIC) 10-12.5 mg per tablet Take 1 tablet by mouth 1 (one) time each day. Active nystatin, bulk, 10 billion unit powder 1 each by Not Applicable route. 06/20/2023 Active ondansetron ODT (ZOFRAN-ODT) 4 mg disintegrating tablet Take 1 tablet (4 mg total) by mouth. 04/06/2023 Active pantoprazole (PROTONIX) 40 mg EC tablet Take 1 tablet (40 mg total) by mouth 1 (one) time each day. 07/17/2023 Active polyethylene glycol (MIRALAX) 17 gram packet Take 17 g by mouth. 04/06/2023 Active simethicone (MYLICON) 80 mg chewable tablet CHEW 1 TABLET BY MOUTH EVERY 6 HOURS NEEDED FOR FLATULENCE FOR UP TO 30 DAYS. 10/26/2023 Active ursodioL (ACTIGALL) 300 mg capsule Take 2 capsules (600 mg total) by mouth. 04/06/2023 Active wheat dextrin (Benefiber Clear SF, dextrin,) 3 gram/3.5 gram powder in packet Take 4 g by mouth. 04/06/2023 Active Active Problems Problem Noted Date Diagnosed Date Obesity, Class I, BMI 30-34.9 06/19/2024 Bariatric surgery status 06/19/2024 Encounters Date Type Department Care Team Description 09/04/2024 7:59 PM EST - 09/04/2024 10:34 PM EST Emergency [facility] Emergency [address] [place] [address] Discharge Disposition: Home or Self Care 08/06/2024 11:37 AM EST - 08/06/2024 6:48 PM EST Emergency [facility] Emergency [address] [place] [address] Discharge Disposition: Home or Self Care from Last 3 Months Surgical History Surgery Date Site/Laterality Comments TONSILLECTOMY ADENOIDECTOMY, BILATERAL MYRINGOTOMY AND TUBES PROCEDURE: TX TONSILLECTOMY & ADENOIDECTOMY <AGE 10 BREAST REDUCTION PROCEDURE: TX BREAST REDUCTION TUBAL LIGATION PROCEDURE: HISTORICAL TUBAL LIGATION TUBAL LIGATION PROCEDURE: HISTORICAL TUBAL LIGATION Medical History Medical History Date Comments Essential (primary) hypertension DX:Essential (primary) hypertension Insomnia DX:Insomnia Left elbow fracture DX:Left elbo w fracture Obesity DX:Obesity Substance abuse (CMS/[facility]) DX:Sub stance abuse ([facility]) Hypokalemia Stroke (CMS/[facility]) Social History Tobacco Use Types Packs/Day Years Used Date Smoking Tobacco: Former Smokeless Tobacco: Never Sex and Gender Information Value Date Recorded Sex Assigned at Not on file Gender Identity Not on file Sexual Orientation Not on file Job Start Date Occupation Industry Not on file Not on file Not on file Obstetrics History Last Filed Vital Signs Vital Sign Reading Time Taken Comments Blood Pressure 178/113 09/04/2024 8:20 PM EST Pulse 123 09/04/2024 8:20 PM EST Temperature 37.4 ??C (99.3 ??F) 09/04/2024 8:20 PM ES T Respiratory Rate 18 09/04/2024 8:20 PM EST Oxygen Saturation 99% 09/04/2024 8:20 PM EST Inhaled Oxygen Concentration - - Weight 80.7 kg (178 lb) 09/04/2024 8:20 PM EST Height 160 cm (5' 3 ) 09/04/2024 8:20 PM EST Body Mass Index 31.53 09/04/2024 8:20 PM EST Plan of Treatment Health Maintenance Due Date Last Done Comments Pneumococcal Vaccine: Pediatrics (0 to 5 Years) and At-Risk Patients (6 to 64 Years) (1 of 2 - PCV) 1994 Hepatitis B Vaccines (1 of 3 - 19+ 3-dose series) 2007 Cervical Cancer Screening: Pap Smear 2009 Cholesterol Screening (Lipid Panel) 07/26/2022 Depression Screening 07/26/2022 HIV Screening 07/26/2022 Hepatitis C Screening 07/26/2022 Medicare Annual Wellness Visit 07/26/2022 Social Influencers of Health Screening 07/26/2022 COVID-19 Vaccine ( season) 2024 02/04/2022, 03/06/2021, 02/06/2021 Hypertension/CHF/CAD Annual BMP Blood Test 09/04/2025 09/04/2024, 08/06/2024 DTaP,Tdap,and Td Vaccines (2 - Td or Tdap) 08/20/2029 08/20/2019 Influenza Vaccine Completed 07/01/2024, , 06/21/2022, Additional history exists HIB Vaccines Aged Out No longer eligi ble based on patient's age to complete this topic HPV Vaccines Aged Out No longer eligi ble based on patient's age to complete this topic Hepatitis A Vaccines Aged Out No long er eligible based on patient's age to complete this topic IPV Vaccines Aged Out No longer eligi ble based on patient's age to complete this topic MMR Vaccines Aged Out No longer eligi ble based on patient's age to complete this topic Meningococcal ACWY Vaccine Aged Out N o longer eligible based on patient's age to complete this topic RSV Immunization Patients Under 20 months Aged Out No longer eligible based on patient's age to complete this topic Varicella Vaccines Aged Out No longer eligible based on patient's age to complete this topic Procedures Procedure Name Priority Date/Time Associated Diagnosis Comments HICKS URINE CULTURE TUBE STAT 09/04/2024 8:44 PM EST URINALYSIS WITH REFLEX MICROSCOPIC AND CULTURE STAT 09/04/2024 8:44 PM EST URINALYSIS WITH REFLEX MICROSCOPIC AND CULTURE STAT 09/04/2024 8:44 PM EST XR CHEST 2 VIEWS STAT 09/04/2024 8:38 PM EST CBC WITH AUTO DIFFERENTIAL STAT 09/04/2024 8:31 PM EST MAGNESIUM STAT 09/04/2024 8:31 PM EST LIPASE STAT 09/04/2024 8:31 PM EST COMPREHENSIVE METABOLIC PANEL STAT 09/04/2024 8:31 PM EST CBC AND DIFFERENTIAL STAT 09/04/2024 8:31 PM EST TROPONIN I HIGH SENSITIVITY STAT 09/04/2024 8:31 PM EST ECG 12-LEAD STAT 09/04/2024 8:16 PM EST ECG ANNOTATED 09/04/2024 CBC WITH AUTO DIFFERENTIAL STAT 08/06/2024 11:58 AM EST B-TYPE NATRIURETIC PEPTIDE STAT 08/06/2024 11:58 AM EST MAGNESIUM STAT 08/06/2024 11:58 AM EST LIPASE STAT 08/06/2024 11:58 AM EST COMPREHENSIVE METABOLIC PANEL STAT 08/06/2024 11:58 AM EST CBC AND DIFFERENTIAL STAT 08/06/2024 11:58 AM EST TROPONIN I HIGH SENSITIVITY STAT 08/06/2024 11:58 AM EST ECG 12-LEAD STAT 08/06/2024 11:48 AM EST ECG ANNOTATED 08/06/2024 from Last 3 Months Results * Urinalysis with reflex microscopic and culture (09/04/2024 8:44 PM EST) Specific Quentin Urine 1.007 1.003 - 1.030 LAB URINALYSIS - AUTOMATED METHOD 09/04/2024 9:18 PM [facility] pH, Urine 6.0 5.0 - 8.0 pH LAB URINALYSIS - AUTOMATED METHOD 09/04/2024 9:18 PM [facility] Leukocytes, Urine Negative Negative LAB URINALYSIS - AUTOMATED METHOD 09/04/2024 9:18 PM [facility] Nitrite, Urine Negative Negative LAB URINALYSIS - AUTOMATED METHOD 09/04/2024 9:18 PM [facility] Protein, Urine Negative <=Trace mg/dL LAB URINALYSIS - AUTOMATED METHOD 09/04/2024 9:18 PM [facility] Glucose, Urine Negative Negative mg/dL LAB URINALYSIS - AUTOMATED METHOD 09/04/2024 9:18 PM [facility] Ketones, Urine Negative Negative mg/dL LAB URINALYSIS - AUTOMATED METHOD 09/04/2024 9:18 PM [facility] Urobilinogen, Urine 0.2 0.2 - 1.0 mg/dL LAB URINALYSIS - AUTOMATED METHOD 09/04/2024 9:18 PM [facility] Bilirubin, Urine Negative Negative LAB URINALYSIS - AUTOMATED METHOD 09/04/2024 9:18 PM [facility] Blood, Urine Negative Negative LAB URINALYSIS - AUTOMATED METHOD 09/04/2024 9:18 PM [facility] Urine Urine specimen obtained by clean catch procedure / Unknown Non-blood Collection / Unknown 09/04/2024 8:44 PM EST 09/04/2024 9:11 PM EST Tony Bynum MD LAB URINE ORDERABLES Performing Organization Address City/[facility]/ZIP Co de Phone Number [facility] [address] [place] [address], [place] [phone] * Hicks urine culture tube (09/04/2024 8:44 PM EST) Extra Tube Hold for add-ons. 09/04/2024 11:01 PM EST [facility] Comment:Auto resulted. Urine Urine specimen obtained by clean catch procedure / Unknown Non-blood Collection / Unknown 09/04/2024 8:44 PM EST 09/04/2024 9:11 PM EST Tony Bynum MD LAB URINE ORDERABLES Performing Organization Address [facility] Co de Phone Number [facility] [address] [place] [address], [place] [phone] * XR Chest 2 Views (09/04/2024 8:38 PM EST) Anatomical Region Laterality Modality Body Radiographic Josefa ging 09/05/2024 8:35 AM EST Impressions 09/05/2024 8:36 AM EST Normal examination. The patient is seen to have undergone left upper quadrant abdominal surgery since the prior study performed 04/11/2023. Code 80152 -------- FINAL REPORT -------- Dictated By: Demario Rush Dictated Date: 09/05/2024 08:35 ET Assigned Physician: Demario Rush Reviewed and Electronically Signed By: Demario Rush Signed Date: 09/05/2024 08:36 ET Workstation ID: [id number] Transcribed By: Self Edit Transcribed Date: 09/05/2024 08:35 ET Narrative 09/05/2024 8:36 AM EST HISTORY: The patient is a 34-year-old female with chest pain. FINDINGS: PA and lateral radiographs of the chest demonstrate mild degenerative change of the thoracic spine, stable since the prior study performed 04/11/2023. The cardiac and mediastinal contours are within normal limits. The lungs and costophrenic angles are clear. Surgical clips are present in the left upper quadrant, new since the prior examination. Procedure Note Demario Rush MD - 09/05/2024 HISTORY: The patient is a 34-year-old female with chest pain. FINDINGS: PA and lateral radiographs of the chest demonstrate milddegenerative change of the thoracic spine, stable since the prior studyperformed 04/11/2023. The cardiac and mediastinal contours are withinnormal limits. The lungs and costophrenic angles are clear. Surgical clips are present in the left upper quadrant, new since the priorexamination. IMPRESSION: Normal examination. The patient is seen to have undergone left upperquadrant abdominal surgery since the prior study performed 04/11/2023. Code 91058 -------- FINAL REPORT -------- Dictated By: Demario Rush Dictated Date: 09/05/2024 08:35 ET Assigned Physician: Demario Rush Reviewed and Electronically Signed By: Demario Rush Signed Date: 09/05/2024 08:36 ET Workstation ID: [id number] Transcribed By: Self Edit Transcribed Date: 09/05/2024 08:35 ET Tony Bynum MD IMG XR PROCEDURES * Troponin I high sensitivity (09/04/2024 8:31 PM EST) Only the most recent of2 resultswithin the time period is included. High Sensitivity Troponin I 3 <=54 ng/L LAB CHEMISTRY METHOD 09/04/2024 9:40 PM EST [facility] Blood Venous blood specimen / Unknown Venipuncture / Unknown 09/04/2024 8:31 PM EST 09/04/2024 9:10 PM EST Narrative [facility] - 09/04/2024 9:40 PM EST High levels of biotin in samples may falsely decrease hsTroponin values. ??Use caution when interpreting hsTroponin results in patients taking biotin who exhibit renal impairment (eGFR <60) or in patients taking more than 20 mg/day of biotin. Tony Bynum MD LAB BLOOD ORDERABLES [facility] [address] [place] [address], * (ABNORMAL) CBC auto differential (09/04/2024 8:31 PM EST) Only the most recent of2 resultswithin the time period is included. WBC 13.0(H) 4.8 - 10.8 K/mcL LAB HEMETOLOGY METHOD 09/04/2024 9:20 PM [facility] RBC 4.00 3.80 - 4.80 M/mcL LAB HEMETOLOGY METHOD 09/04/2024 9:20 PM [facility] Hemoglobin 11.4(L) 11.5 - 16.0 g/dL LAB HEMETOLOGY METHOD 09/04/2024 9:20 PM [facility] Hematocrit 34.7(L) 35.0 - 47.0 % LAB HEMETOLOGY METHOD 09/04/2024 9:20 PM [facility] MCV 87.0 79.0 - 98.0 FL LAB HEMETOLOGY METHOD 09/04/2024 9:20 PM EST [facility] MCH 28.6 27.0 - 32.0 pcg LAB HEMETOLOGY METHOD 09/04/2024 9:20 PM [facility] MCHC 32.9 32.0 - 37.0 g/dL LAB HEMETOLOGY METHOD 09/04/2024 9:20 PM [facility] RDW 14.0 11.0 - 15.0 % LAB HEMETOLOGY METHOD 09/04/2024 9:20 PM [facility] Platelets 403(H) 130 - 400 K/mcL LAB HEMETOLOGY METHOD 09/04/2024 9:20 PM [facility] MPV 10.0 7.0 - 11.0 FL LAB HEMETOLOGY METHOD 09/04/2024 9:20 PM [facility] NRBC 0.0 <1.0 % LAB HEMETOLOGY METHOD 09/04/2024 9:20 PM [facility] NRBC Absolute 0.00 <0.10 K/mcL LAB HEMETOLOGY METHOD 09/04/2024 9:20 PM [facility] Neutrophils Relative 62.5 % LAB HEMETOLOGY METHOD 09/04/2024 9:20 PM [facility] Lymphocytes Relative 28.1 % LAB HEMETOLOGY METHOD 09/04/2024 9:20 PM [facility] Monocytes Relative 6.6 % LAB HEMETOLOGY METHOD 09/04/2024 9:20 PM [facility] Eosinophils Relative 2.0 % LAB HEMETOLOGY METHOD 09/04/2024 9:20 PM [facility] Basophils Relative 0.5 % LAB HEMETOLOGY METHOD 09/04/2024 9:20 PM [facility] Immature Granulocytes Relative 0.3 % LAB HEMETOLOGY METHOD 09/04/2024 9:20 PM [facility] Neutrophils Absolute 8.11(H) 1.50 - 7.00 K/mcL LAB HEMETOLOGY METHOD 09/04/2024 9:20 PM [facility] Lymphocytes Absolute 3.64 1.00 - 5.00 K/mcL LAB HEMETOLOGY METHOD 09/04/2024 9:20 PM [facility] Monocytes Absolute 0.85 0.20 - 1.00 K/mcL LAB HEMETOLOGY METHOD 09/04/2024 9:20 PM [facility] Eosinophils Absolute 0.26 0.00 - 0.50 K/mcL LAB HEMETOLOGY METHOD 09/04/2024 9:20 PM EST [facility] Basophils Absolute 0.06 0.00 - 0.20 K/mcL LAB HEMETOLOGY METHOD 09/04/2024 9:20 PM EST [facility] Immature Granulocytes Absolute 0.04(H) 0.00 - 0.03 K/mcL LAB HEMETOLOGY METHOD 09/04/2024 9:20 PM EST [facility] Blood Venous blood specimen / Unknown Venipuncture / Unknown 09/04/2024 8:31 PM EST 09/04/2024 9:10 PM EST Tony Bynum MD LAB BLOOD ORDERABLES Performing Organization Address [facility]/ZIP Co de Phone Number [facility] [address] [place] [address], [place] [phone] * (ABNORMAL) Magnesium (09/04/2024 8:31 PM EST) Only the most recent of2 resultswithin the time period is included. Magnesium 1.7(L) 1.9 - 2.6 mg/dL LAB CHEMISTRY METHOD 09/04/2024 9:41 PM EST [facility] Blood Venous blood specimen / Unknown Venipuncture / Unknown 09/04/2024 8:31 PM EST 09/04/2024 9:10 PM EST Tony Bynum MD LAB BLOOD ORDERABLES Performing Organization Address City/[facility]/ZIP Co de Phone Number [facility] [address] [place] [address], [place] [phone] * Lipase (09/04/2024 8:31 PM EST) Only the most recent of2 resultswithin the time period is included. Lipase 46 13 - 75 unit/L LAB CHEMISTRY METHOD 09/04/2024 9:41 PM EST [facility] Blood Venous blood specimen / Unknown Venipuncture / Unknown 09/04/2024 8:31 PM EST 09/04/2024 9:10 PM EST Tony Bynum MD LAB BLOOD ORDERABLES [facility] [address] [place] [address], * (ABNORMAL) Comprehensive metabolic panel (09/04/2024 8:31 PM EST) Only the most recent of2 resultswithin the time period is included. Sodium 136 133 - 145 mmol/L LAB CHEMISTRY METHOD 09/04/2024 9:41 PM [facility] Potassium 3.4(L) 3.5 - 5.5 mmol/L LAB CHEMISTRY METHOD 09/04/2024 9:41 PM [facility] Chloride 106 96 - 110 mmol/L LAB CHEMISTRY METHOD 09/04/2024 9:41 PM [facility] CO2 20(L) 21 - 32 mmol/L LAB CHEMISTRY METHOD 09/04/2024 9:41 PM [facility] Anion Gap 10 3 - 11 LAB CHEMISTRY METHOD 09/04/2024 9:41 PM [facility] Glucose 105(H) 70 - 100 mg/dL LAB CHEMISTRY METHOD 09/04/2024 9:41 PM [facility] BUN 15 5 - 25 mg/dL LAB CHEMISTRY METHOD 09/04/2024 9:41 PM [facility] Creatinine 0.74 0.50 - 1.10 mg/dL LAB CHEMISTRY METHOD 09/04/2024 9:41 PM [facility] eGFR 108 >=60 mL/min/1. 73m2 LAB CHEMISTRY METHOD 09/04/2024 9:41 PM [facility] Comment:Calculation based on the??Chronic Kidney Disease Epidemiology Collaboration (CKD-EPI) equation refit??without adjustment for race. BUN/Creatinine Ratio 20.3 LAB CHEMISTRY METHOD 09/04/2024 9:41 PM [facility] Calcium 9.2 8.5 - 10.5 mg/dL LAB CHEMISTRY METHOD 09/04/2024 9:41 PM [facility] AST (SGOT) 16 10 - 42 unit/L LAB CHEMISTRY METHOD 09/04/2024 9:41 PM [facility] ALT (SGPT) 20 10 - 60 unit/L LAB CHEMISTRY METHOD 09/04/2024 9:41 PM [facility] Alkaline Phosphatase 98 42 - 121 unit/L LAB CHEMISTRY METHOD 09/04/2024 9:41 PM [facility] Total Protein 7.6 6.0 - 8.0 g/dL LAB CHEMISTRY METHOD 09/04/2024 9:41 PM [facility] Albumin 3.9 3.2 - 5.0 g/dL LAB CHEMISTRY METHOD 09/04/2024 9:41 PM [facility] Total Bilirubin 0.3 0.0 - 1.4 mg/dL LAB CHEMISTRY METHOD 09/04/2024 9:41 PM [facility] Blood Venous blood specimen / Unknown Venipuncture / Unknown 09/04/2024 8:31 PM EST 09/04/2024 9:10 PM EST Tony Bynum MD LAB BLOOD ORDERABLES [facility] [address] [place] [address], * ECG 12 lead (09/04/2024 8:16 PM EST) Only the most recent of2 resultswithin the time period is included. Ventricular Rate ECG 124 BPM GEMUSE Atrial Rate 124 BPM GEMUSE P-R Interval 148 ms GEMUSE QRS Duration 86 ms GEMUSE Q-T Interval 332 ms GEMUSE QTc 476 ms GEMUSE P Wave Willow 43 degrees GEMUSE R Willow 8 degrees GEMUSE T Willow 12 degrees GEMUSE ECG Interpretation Sinus tachycardia Nonspecific ST and T wave abnormality Abnormal ECG When compared with ECG of 06-AUG-2024 11:48, No significant change was found Confirmed by Hakeem WELLINGTON YUFENG ([id number]) on 09/05/2024 5:21:50 PM GEMUSE 09/04/2024 8:16 PM EST 09/05/2024 5:21 PM EST Ralph Jones DO ECG ORDERABLES GEMUSE * ECG-Annotated (09/04/2024) Only the most recent of2 resultswithin the time period is included. Provider Onbase MD ECG ORDERABLES * B-type natriuretic peptide (08/06/2024 11:58 AM EST) BNP 5 <=100 pcg/mL LAB CHEMISTRY METHOD 08/06/2024 12:54 PM EST [facility] Blood Venous blood specimen / Unknown Venipuncture / Unknown 08/06/2024 11:58 AM EST 08/06/2024 12:23 PM EST Stoney Carbajal DO LAB BLOOD ORDERABLE S Performing Organization Address [facility]/ZIP Co de Phone Number [facility] [address] [place] [address], from Last 3 Months Care Teams Fuel Quality Tech Relationship Specialty Start Date End Date Daniel Quezada PA [address] [facility] [address] [place] [address] PCP - General Internal Medicine 04/14/22
--- OUTSIDE RECORDS SUMMARY | 2024-09-18 10:31 | XMS_ITS | Encounter Summary ---
Author Organization [facility] Address [address] [place] [address] Care Team Providers Care Shellacker Name Role Phone Daniel Quezada Primary Care Provider Reason for Visit * Reason Comments Panic Attack Encounter Details Date Type Department Care Team (Late st Contact Info) Description 09/04/2024 7:59 PM EST - 09/04/2024 10:34 PM EST Emergency [facility] Emergency [address] [place] [address] Discharge Disposition: Home or Self Care Social History Tobacco Use Types Packs/Day Years Used Date Smoking Tobacco: Former Smokeless Tobacco: Never Sex and Gender Information Value Date Recorded Sex Assigned at Not on file Gender Identity Not on file Sexual Orientation Not on file Job Start Date Occupation Industry Not on file Not on file Not on file documented as of this encounter Last Filed Vital Signs Vital Sign Reading [...] Mass Index 31.53 09/04/2024 8:20 PM EST documented in this encounter Medications at Time of Discharge Medication Sig Dispensed Refills Start Date End Date acetaminophen (TYLENOL) 500 mg tablet Take 1 tablet (500 mg total) by mouth. 04/06/2023 cholecalciferol (VITAMIN D-3) 1,250 mcg (50,000 unit) capsule Take 1 capsule (50,000 Units total) by mouth. 12/09/2022 HYDROXYZINE HCL ORAL Take by mouth. lisinopril-hydroCHLOROthia zide (PRINZIDE,ZESTORETIC) 10-12.5 mg per tablet Take 1 tablet by mouth 1 (one) time each day. nystatin, bulk, 10 billion unit powder 1 each by Not Applicable route. 06/20/2023 ondansetron ODT (ZOFRAN-ODT) 4 mg disintegrating tablet Take 1 tablet (4 mg total) by mouth. 04/06/2023 pantoprazole (PROTONIX) 40 mg EC tablet Take 1 tablet (40 mg total) by mouth 1 (one) time each day. 07/17/2023 polyethylene glycol (MIRALAX) 17 gram packet Take 17 g by mouth. simethicone (MYLICON) 80 mg chewable tablet CHEW 1 TABLET BY MOUTH EVERY 6 HOURS NEEDED FOR FLATULENCE FOR UP TO 30 DAYS. 10/26/2023 ursodioL (ACTIGALL) 300 mg capsule Take 2 capsules (600 mg total) by mouth. 04/06/2023 wheat dextrin (Benefiber Clear SF, dextrin,) 3 gram/3.5 gram powder in packet Take 4 g by mouth. 04/06/2023 documented as of this encounter Discharge Disposition Disposition Code Departure Means Destination Home or Self Care documented in this encounter Progress Notes * Ayse Florez - 09/04/2024 8:48 PM EST Need LAV tube, PREG NEG Ayse Florez 09/04/242047 * Ayse Florez - 09/04/2024 8:45 PM EST U Preg, NEG Ayse Florez 09/04/242044 * Elizabeth Hoskins RN - 09/04/2024 8:19 PM EST Pt to ER with initial CC of panic attack. While in triage pt stating she is having chest pain, shortness of breath, feels as if she going to pass out, and having the chills. Rpts having high blood pressure and fast heart rate since waking up this AM. Rpts this happened to her before and it was noted that her potassium was low. documented in this encounter Plan of Treatment Not on file documented as of this encounter Procedures Procedure Name Priority Date/Time Associated Diagnosis Comments URINALYSIS WITH REFLEX MICROSCOPIC AND CULTURE STAT 09/04/2024 8:44 PM EST HICKS URINE CULTURE TUBE STAT 09/04/2024 8:44 PM EST URINALYSIS WITH REFLEX MICROSCOPIC AND CULTURE STAT 09/04/2024 8:44 PM EST XR CHEST 2 VIEWS STAT 09/04/2024 8:3 8 PM EST TROPONIN I HIGH SENSITIVITY STAT 09/04/2024 8:31 PM EST CBC WITH AUTO DIFFERENTIAL STAT 09/04/2024 8:31 PM EST CBC AND DIFFERENTIAL STAT 09/04/2024 8:31 PM EST MAGNESIUM STAT 09/04/2024 8:31 PM EST LIPASE STAT 09/04/2024 8:31 PM EST COMPREHENSIVE METABOLIC PANEL STAT 09/04/2024 8:31 PM EST ECG 12-LEAD STAT 09/04/2024 8:16 PM EST ECG ANNOTATED 09/04/2024 documented in this encounter Results * Hicks urine culture tube (09/04/2024 8:44 PM EST) Pathologist [facility] Extra Tube Hold for add-ons. 09/04/2024 11:01 PM [facility] Comment:Auto resulted. Urine Urine specimen obtained by clean catch procedure / Unknown Non-blood Collection / Unknown 09/04/2024 8:44 PM EST 09/04/2024 9:11 PM EST Tony Bynum MD LAB URINE ORDERABLES [facility] [address] [place] [address], * Urinalysis with reflex microscopic and culture (09/04/2024 8:44 PM EST) [facility] [place] Urine 1.007 1.003 - 1.030 LAB URINALYSIS - AUTOMATED METHOD 09/04/2024 9:18 PM [facility] pH, Urine 6.0 5.0 - 8.0 pH LAB URINALYSIS - AUTOMATED METHOD 09/04/2024 9:18 PM [facility] Leukocytes, Urine Negative Negative LAB URINALYSIS - AUTOMATED METHOD 09/04/2024 9:18 PM [facility] Nitrite, Urine Negative Negative LAB URINALYSIS - AUTOMATED METHOD 09/04/2024 9:18 PM [facility] Protein, Urine Negative <=Trace mg/dL LAB URINALYSIS - AUTOMATED METHOD 09/04/2024 9:18 PM [facility] Glucose, Urine Negative Negative mg/dL LAB URINALYSIS - AUTOMATED METHOD 09/04/2024 9:18 PM [facility] Ketones, Urine Negative Negative mg/dL LAB URINALYSIS - AUTOMATED METHOD 09/04/2024 9:18 PM [facility] Urobilinogen, Urine 0.2 0.2 - 1.0 mg/dL LAB URINALYSIS - AUTOMATED METHOD 09/04/2024 9:18 PM EST [facility] Bilirubin, Urine Negative Negative LAB URINALYSIS - AUTOMATED METHOD 09/04/2024 9:18 PM EST [facility] Blood, Urine Negative Negative LAB URINALYSIS - AUTOMATED METHOD 09/04/2024 9:18 PM EST [facility] Urine Urine specimen obtained by clean catch procedure / Unknown Non-blood Collection / Unknown 09/04/2024 8:44 PM EST 09/04/2024 9:11 PM EST Tony Bynum MD LAB URINE ORDERABLES [facility] [address] [place] [address], * XR Chest 2 Views (09/04/2024 8:38 PM EST) Anatomical Region Laterality Modality Body Radiographic Josefa ging 09/05/2024 8:35 AM EST Impressions 09/05/2024 8:36 AM EST Normal examination. The patient is seen to have undergone left upper quadrant abdominal surgery since the prior study performed 04/11/2023. Code 17244 -------- FINAL REPORT -------- Dictated By: Demario Rush Dictated Date: 09/05/2024 08:35 ET Assigned Physician: Demario Rush Reviewed and Electronically Signed By: Demario Rush Signed Date: 09/05/2024 08:36 ET Workstation ID: [id number] Transcribed By: Self Edit Transcribed Date: 09/05/2024 [...] since the prior study performed 04/11/2023. Code 21827 -------- FINAL REPORT -------- Dictated By: Demario Rush Dictated Date: 09/05/2024 08:35 ET Assigned Physician: Demario Rush Reviewed and Electronically Signed By: Demario Rush Signed Date: 09/05/2024 08:36 ET Workstation ID: [id number] Transcribed By: Self Edit Transcribed Date: 09/05/2024 08:35 ET Tony Bynum MD IMG XR PROCEDURES * (ABNORMAL) CBC auto differential (09/04/2024 8:31 PM EST) WBC 13.0(H) 4.8 - 10.8 K/[facility] HEMETOLOGY METHOD 09/04/2024 9:20 PM [facility] RBC 4.00 3.80 - 4.80 M/[facility] LAB HEMETOLOGY METHOD 09/04/2024 9:20 PM [facility] Hemoglobin 11.4(L) 11.5 - 16.0 g/dL LAB HEMETOLOGY METHOD 09/04/2024 9:20 PM [facility] Hematocrit 34.7(L) 35.0 - 47.0 % LAB HEMETOLOGY METHOD 09/04/2024 9:20 PM [facility] MCV 87.0 79.0 - 98.0 FL LAB HEMETOLOGY METHOD 09/04/2024 9:20 PM [facility] MCH 28.6 27.0 - 32.0 pcg LAB HEMETOLOGY METHOD 09/04/2024 9:20 PM [facility] MCHC 32.9 32.0 - 37.0 g/dL LAB HEMETOLOGY METHOD 09/04/2024 9:20 PM [facility] RDW 14.0 11.0 - 15.0 % LAB HEMETOLOGY METHOD 09/04/2024 9:20 PM [facility] Platelets 403(H) 130 - 400 K/mcL LAB HEMETOLOGY METHOD 09/04/2024 9:20 PM [facility] MPV 10.0 7.0 - 11.0 FL LAB HEMETOLOGY METHOD 09/04/2024 9:20 PM [facility] NRBC 0.0 <1.0 % LAB HEMETOLOGY METHOD 09/04/2024 9:20 PM [facility] NRBC Absolute 0.00 <0.10 K/mcL LAB HEMETOLOGY METHOD 09/04/2024 9:20 PM [facility] Neutrophils Relative 62.5 % LAB HEMETOLOGY METHOD 09/04/2024 9:20 PM [facility] Lymphocytes Relative 28.1 % LAB HEMETOLOGY METHOD 09/04/2024 9:20 PM [facility] Monocytes Relative 6.6 % LAB HEMETOLOGY METHOD 09/04/2024 9:20 PM [facility] Eosinophils Relative 2.0 % LAB HEMETOLOGY METHOD 09/04/2024 9:20 PM [facility] Basophils Relative 0.5 % LAB HEMETOLOGY METHOD 09/04/2024 9:20 PM [facility] Immature Granulocytes Relative 0.3 % LAB HEMETOLOGY METHOD 09/04/2024 9:20 PM EST [facility] Neutrophils Absolute 8.11(H) 1.50 - 7.00 K/mcL LAB HEMETOLOGY METHOD 09/04/2024 9:20 PM EST [facility] Lymphocytes Absolute 3.64 1.00 - 5.00 K/mcL LAB HEMETOLOGY METHOD 09/04/2024 9:20 PM EST [facility] Monocytes Absolute 0.85 0.20 - 1.00 K/mcL LAB HEMETOLOGY METHOD 09/04/2024 9:20 PM EST [facility] Eosinophils Absolute 0.26 0.00 - 0.50 K/[facility] HEMETOLOGY METHOD 09/04/2024 9:20 PM EST [facility] Basophils Absolute 0.06 0.00 - 0.20 K/mcL LAB HEMETOLOGY METHOD 09/04/2024 9:20 PM EST [facility] Immature Granulocytes Absolute 0.04(H) 0.00 - 0.03 K/mcL LAB HEMETOLOGY METHOD 09/04/2024 9:20 PM EST [facility] Blood Venous blood specimen / Unknown Venipuncture / Unknown 09/04/2024 8:31 PM EST 09/04/2024 9:10 PM EST Tony Bynum MD LAB BLOOD ORDERABLES [facility] [address] [place] [address], * Troponin I high sensitivity (09/04/2024 8:31 PM EST) High Sensitivity Troponin I 3 <=54 ng/L LAB CHEMISTRY METHOD 09/04/2024 9:40 PM EST [facility] Blood Venous blood specimen / Unknown Venipuncture / Unknown 09/04/2024 8:31 PM EST 09/04/2024 9:10 PM EST Narrative [facility] - 09/04/2024 9:40 PM EST High levels of biotin in samples may falsely decrease hsTroponin values. ??Use caution when interpreting hsTroponin results in patients taking biotin who exhibit renal impairment (eGFR <60) or in patients taking more than 20 mg/day of biotin. Tony Bynum MD LAB BLOOD ORDERABLES Performing Organization Address City/[facility]/ZIP Co de Phone Number [facility] [address] [place] [address], [place] [phone] * (ABNORMAL) Magnesium (09/04/2024 8:31 PM EST) Pathologist [facility] Magnesium 1.7(L) 1.9 - 2.6 mg/dL LAB CHEMISTRY METHOD 09/04/2024 9:41 PM EST [facility] Blood Venous blood specimen / Unknown Venipuncture / Unknown 09/04/2024 8:31 PM EST 09/04/2024 9:10 PM EST Tony Bynum MD LAB BLOOD ORDERABLES Performing Organization Address [facility] Co de Phone Number [facility] [address] [place] [address], [place] [phone] * Lipase (09/04/2024 8:31 PM EST) Pathologist [facility] Lipase 46 13 - 75 unit/L LAB CHEMISTRY METHOD 09/04/2024 9:41 PM EST [facility] Blood Venous blood specimen / Unknown Venipuncture / Unknown 09/04/2024 8:31 PM EST 09/04/2024 9:10 PM EST Tony Bynum MD LAB BLOOD ORDERABLES Performing Organization Address City/[facility]/ZIP Co de Phone Number [facility] [address] [place] [address], [place] [phone] * (ABNORMAL) Comprehensive metabolic panel (09/04/2024 8:31 PM EST) Sodium 136 133 - 145 mmol/L LAB CHEMISTRY METHOD 09/04/2024 9:41 PM [facility] Potassium 3.4(L) 3.5 - 5.5 mmol/L LAB CHEMISTRY METHOD 09/04/2024 9:41 PM [facility] Chloride 106 96 - 110 mmol/L LAB CHEMISTRY METHOD 09/04/2024 9:41 PM [facility] CO2 20(L) 21 - 32 mmol/L LAB CHEMISTRY METHOD 09/04/2024 9:41 PM [facility] Anion Gap 10 3 - 11 LAB CHEMISTRY METHOD 09/04/2024 9:41 PM [facility] Glucose 105(H) 70 - 100 mg/dL LAB CHEMISTRY METHOD 09/04/2024 9:41 PM [facility] BUN 15 5 - 25 mg/dL LAB CHEMISTRY METHOD 09/04/2024 9:41 PM [facility] Creatinine 0.74 0.50 - 1.10 mg/dL LAB CHEMISTRY METHOD 09/04/2024 9:41 PM [facility] eGFR 108 >=60 mL/min/1. 73m2 LAB CHEMISTRY METHOD 09/04/2024 9:41 PM [facility] Comment:Calculation based on the??Chronic Kidney Disease Epidemiology Collaboration (CKD-EPI) equation refit??without adjustment for race. BUN/Creatinine Ratio 20.3 LAB CHEMISTRY METHOD 09/04/2024 9:41 PM [facility] Calcium 9.2 8.5 - 10.5 mg/dL LAB CHEMISTRY METHOD 09/04/2024 9:41 PM [facility] AST (SGOT) 16 10 - 42 unit/L LAB CHEMISTRY METHOD 09/04/2024 9:41 PM [facility] ALT (SGPT) 20 10 - 60 unit/L LAB CHEMISTRY METHOD 09/04/2024 9:41 PM EST [facility] Alkaline Phosphatase 98 42 - 121 unit/L LAB CHEMISTRY METHOD 09/04/2024 9:41 PM EST [facility] Total Protein 7.6 6.0 - 8.0 g/dL LAB CHEMISTRY METHOD 09/04/2024 9:41 PM EST [facility] Albumin 3.9 3.2 - 5.0 g/dL LAB CHEMISTRY METHOD 09/04/2024 9:41 PM [facility] Total Bilirubin 0.3 0.0 - 1.4 mg/dL LAB CHEMISTRY METHOD 09/04/2024 9:41 PM EST [facility] Blood Venous blood specimen / Unknown Venipuncture / Unknown 09/04/2024 8:31 PM EST 09/04/2024 9:10 PM EST Tony Bynum MD LAB BLOOD ORDERABLES Performing Organization Address City/[facility]/ZIP Co de Phone Number [facility] [address] [place] [address], * ECG 12 lead (09/04/2024 8:16 PM EST) Ventricular Rate ECG 124 BPM GEM[facility] Atrial Rate 124 BPM GEMUSE P-R Interval 148 ms GEMUSE QRS Duration 86 ms GEMUSE Q-T Interval 332 ms GEMUSE QTc 476 ms GEMUSE P Wave [place] 43 degrees GEMUSE R [place] 8 degrees GEMUSE T [place] 12 degrees GEMUSE ECG Interpretation Sinus tachycardia Nonspecific ST and T wave abnormality Abnormal ECG When compared with ECG of 06-AUG-2024 11:48, No significant change was found Confirmed by Hakeem WELLINGTON YUFENG ([id number]) on 09/05/2024 5:21:50 PM GEMUSE 09/04/2024 8:16 PM EST 09/05/2024 5:21 PM EST Ralph Jones DO ECG ORDERABLES [facility] * ECG-Annotated (09/04/2024) Provider Onbase MD ECG ORDERABLES documented in this encounter Visit Diagnoses Not on filedocumented in this encounter Care Teams Shellacker Relationship Specialty Start Date End Date Daniel Quezada PA [address] [place] [address] PCP - General Internal Medicine 04/14/22 documented as of this encounter
[2024-09-18 12:39] LABS: Appearance Urine Clear; Color Urine Yellow; Glucose Urine UA Negative (Negative); Leukocyte Esterase Urine Negative (Negative); Nitrite Urine Negative (Negative); PH 6.5 (5.0-9.0); Specific Gravity - Urine 1.025 (1.005-1.025); Urine Blood Negative (Negative); Urine Ketones Trace mg/dL (Negative); Urine Protein Negative (Neg-Trace)
[2024-09-18 13:16] LABS: Rheumatoid Factor < 13.0 IU/mL (<15.0)
[2024-09-18 13:30] LABS: Alanine Aminotransferase 18 U/L (0-31); Alkaline Phosphatase 87 U/L (39-117); Anion Gap 8 (12-20); Aspartate Amino Transferase 18 U/L (5-31); Bilirubin Total 0.2 mg/dL (0.0-1.0); Blood Urea Nitrogen 13 mg/dL (9-16); Calcium 9.6 mg/dL (8.4-10.2); Carbon Dioxide 27 mmol/L (22-29); Chloride 108 mmol/L (96-108); Cholesterol 191 mg/dL (<200); Estimated Glomerular Filt Rate > 60; Glucose Fasting 62 mg/dL (60-99); HDL Cholesterol 46 mg/dL (>40); LDL Cholesterol Calculated 103 mg/dL (<100); Potassium 4.1 mmol/L (3.3-5.1); Sodium 139 mmol/L (135-145); Total Protein 7.3 g/dL (6.5-8.0); Triglycerides 214 mg/dL (<150)
[2024-09-18 13:40] LABS: Vitamin D 25-OH Total 23.6 ng/mL (>30)
[2024-09-23 08:43] LABS: Anti Nuclear Antibody Screen NEGATIVE (NEGATIVE)
[2024-09-23 14:39] LABS: Cyclic Citrullinated Peptide <16 UNITS
== END 2024-09-18 09:46 | disposition home or self-care (01) ==
LOC: HO.US 09:45
PROVIDERS: Absent Provider Physician Assistant; PCP Physician Assistant; Visit Provider Nurse Practitioner Family
DX: I10 Essential (primary) hypertension (principal); N12 Tubulo-interstitial nephritis, not specified as acute or chronic; R30.0 Dysuria; E78.1 Pure hyperglyceridemia; E55.9 Vitamin D deficiency, unspecified; M25.50 Pain in unspecified joint; N20.0 Calculus of kidney
CPT/HCPCS: 36415; 76775; 80053; 80061; 81003; 82306; 86038; 86200; 86431

== ENCOUNTER → 2024-09-18 09:50 | Outpatient (BNV) | payer MEDICARE, MEDICAID, SELFPAY | PROVIDERS: Absent Provider Physician Assistant; PCP Physician Assistant; Visit Provider Radiology Diagnostic Radiology | DX: N20.0 Calculus of kidney (principal) | CPT/HCPCS: 76775 ==

== ENCOUNTER 2024-11-28 09:15 | Outpatient (REF) | payer MEDICARE, MEDICAID, SELFPAY ==
--- OUTSIDE RECORDS SUMMARY | 2024-11-28 11:19 | XMS_ITS | Clinical Summary ---
Author Organization [facility] Address [address] [place] [address] Phone Care Team Providers Care Insurance Marketing Rep Name Role Phone Daniel Quezada Primary Care Provider Allergies No known active allergies Medications HYDROXYZINE [...] EST - 09/04/2024 10:34 PM EST Emergency [facility] Emergency [address] [place] [address] Discharge Disposition: Home or Self Care from Last 3 Months Surgical History Surgery Date Site/Laterality Comments TONSILLECTOMY ADENOIDECTOMY, BILATERAL MYRINGOTOMY AND TUBES PROCEDURE: NE TONSILLECTOMY & ADENOIDECTOMY <AGE 10 BREAST REDUCTION PROCEDURE: NE BREAST REDUCTION TUBAL LIGATION PROCEDURE: HISTORICAL TUBAL LIGATION TUBAL LIGATION PROCEDURE: HISTORICAL TUBAL LIGATION Medical History Medical History Date Comments Essential (primary) hypertension DX:Essential (primary) hypertension Insomnia DX:Insomnia Left elbow fracture DX:Left elbo w fracture Obesity DX:Obesity Substance abuse DX:Substance abu se (HCC) Hypokalemia Stroke ([facility]/HCC) Social History Tobacco Use Types Packs/Day Years [...] and culture (09/04/2024 8:44 PM EST) Specific [place] Urine 1.007 1.003 - 1.030 LAB URINALYSIS - AUTOMATED METHOD 09/04/2024 9:18 PM [facility] pH, Urine 6.0 5.0 - 8.0 pH LAB URINALYSIS - AUTOMATED METHOD 09/04/2024 9:18 PM [facility] Leukocytes, Urine Negative Negative LAB URINALYSIS - AUTOMATED METHOD 09/04/2024 9:18 PM [facility] Nitrite, Urine Negative Negative LAB URINALYSIS - AUTOMATED METHOD 09/04/2024 9:18 PM [facility] Protein, Urine Negative <=Trace mg/dL LAB URINALYSIS - AUTOMATED METHOD 09/04/2024 9:18 PM [facility] Glucose, Urine Negative Negative mg/dL LAB URINALYSIS - AUTOMATED METHOD 09/04/2024 9:18 PM [facility] Ketones, Urine Negative Negative mg/dL LAB URINALYSIS - AUTOMATED METHOD 09/04/2024 9:18 PM [facility] Urobilinogen, Urine 0.2 0.2 - 1.0 mg/dL LAB URINALYSIS - AUTOMATED METHOD 09/04/2024 9:18 PM [facility] Bilirubin, Urine Negative Negative LAB URINALYSIS - AUTOMATED METHOD 09/04/2024 9:18 PM [facility] Blood, Urine Negative Negative LAB URINALYSIS - AUTOMATED METHOD 09/04/2024 9:18 PM [facility] Urine Urine specimen obtained by clean catch procedure / Unknown Non-blood Collection / Unknown 09/04/2024 8:44 PM EST 09/04/2024 9:11 PM EST us Tony Bynum MD LAB URINE ORDERABLES Final Resu lt Performing Organization Address [facility]/ZIP Co de Phone Number [facility] [address] [place] [address], * Hicks urine culture tube (09/04/2024 8:44 PM EST) Extra Tube Hold for add-ons. 09/04/2024 11:01 PM EST [facility] Comment:Auto resulted. Urine Urine specimen obtained by clean catch procedure / Unknown Non-blood Collection / Unknown 09/04/2024 8:44 PM EST 09/04/2024 9:11 PM EST us Tony Bynum MD LAB URINE ORDERABLES Final Resu lt [facility] [address] [place] [address], * XR Chest 2 Views (09/04/2024 8:38 PM EST) Anatomical Region Laterality Modality Body Radiographic Josefa ging 09/05/2024 8:35 AM EST Impressions 09/05/2024 8:36 AM EST Normal examination. The patient is seen to have undergone left upper quadrant abdominal surgery since the prior study performed 04/11/2023. Code 55608 -------- FINAL REPORT -------- Dictated By: Demario Rush Dictated Date: 09/05/2024 08:35 ET Assigned Physician: Demario Rush Reviewed and Electronically Signed By: Demario Rush Signed Date: 09/05/2024 08:36 ET Workstation ID: [id number] Transcribed By: Self Edit Transcribed Date: 09/05/2024 [...] since the prior study performed 04/11/2023. Code 51355 -------- FINAL REPORT -------- Dictated By: Demario Rush Dictated Date: 09/05/2024 08:35 ET Assigned Physician: Demario Rush Reviewed and Electronically Signed By: Demario Rush Signed Date: 09/05/2024 08:36 ET Workstation ID: [id number] Transcribed By: Self Edit Transcribed Date: 09/05/2024 08:35 ET Tony Bynum MD IMG XR PROCEDURES Final Result * Troponin I high sensitivity (09/04/2024 8:31 PM EST) [facility] High Sensitivity Troponin I 3 <=54 [...] MD LAB BLOOD ORDERABLES Final Resu lt [facility] [address] [place] [address], * (ABNORMAL) CBC auto differential (09/04/2024 8:31 PM EST) [facility] WBC 13.0(H) 4.8 - 10.8 K/mcL LAB HEMETOLOGY METHOD 09/04/2024 9:20 PM EST [facility] RBC 4.00 3.80 - 4.80 M/mcL LAB HEMETOLOGY METHOD 09/04/2024 9:20 PM EST [facility] Hemoglobin 11.4(L) 11.5 - 16.0 g/dL LAB HEMETOLOGY METHOD 09/04/2024 9:20 PM [facility] Hematocrit 34.7(L) 35.0 - 47.0 % LAB HEMETOLOGY METHOD 09/04/2024 9:20 PM [facility] MCV 87.0 79.0 - 98.0 FL LAB HEMETOLOGY METHOD 09/04/2024 9:20 PM [facility] MCH 28.6 27.0 - 32.0 pcg LAB HEMETOLOGY METHOD 09/04/2024 9:20 PM [facility] MCHC 32.9 32.0 - 37.0 g/dL LAB HEMETOLOGY METHOD 09/04/2024 9:20 PM [facility] RDW 14.0 11.0 - 15.0 % LAB HEMETOLOGY METHOD 09/04/2024 9:20 PM [facility] Platelets 403(H) 130 - 400 K/mcL LAB HEMETOLOGY METHOD 09/04/2024 9:20 PM [facility] MPV 10.0 7.0 - 11.0 FL LAB HEMETOLOGY METHOD 09/04/2024 9:20 PM [facility] NRBC 0.0 <1.0 % LAB HEMETOLOGY METHOD 09/04/2024 9:20 PM [facility] NRBC Absolute 0.00 <0.10 K/mcL LAB HEMETOLOGY METHOD 09/04/2024 9:20 PM [facility] Neutrophils Relative 62.5 % LAB HEMETOLOGY METHOD 09/04/2024 9:20 PM [facility] Lymphocytes Relative 28.1 % LAB HEMETOLOGY METHOD 09/04/2024 9:20 PM [facility] Monocytes Relative 6.6 % LAB HEMETOLOGY METHOD 09/04/2024 9:20 PM [facility] Eosinophils Relative 2.0 % LAB HEMETOLOGY METHOD 09/04/2024 9:20 PM EST [facility] Basophils Relative 0.5 % LAB HEMETOLOGY METHOD 09/04/2024 9:20 PM EST [facility] Immature Granulocytes Relative 0.3 % LAB HEMETOLOGY METHOD 09/04/2024 9:20 PM EST [facility] Neutrophils Absolute 8.11(H) 1.50 - 7.00 K/mcL LAB HEMETOLOGY METHOD 09/04/2024 9:20 PM EST [facility] Lymphocytes Absolute 3.64 1.00 - 5.00 K/mcL LAB HEMETOLOGY METHOD 09/04/2024 9:20 PM EST [facility] Monocytes Absolute 0.85 0.20 - 1.00 K/mcL LAB HEMETOLOGY METHOD 09/04/2024 9:20 PM EST [facility] Eosinophils Absolute 0.26 0.00 - 0.50 K/mcL LAB HEMETOLOGY METHOD 09/04/2024 9:20 PM EST [facility] Basophils Absolute 0.06 0.00 - 0.20 K/mcL LAB HEMETOLOGY METHOD 09/04/2024 9:20 PM EST [facility] Immature Granulocytes Absolute 0.04(H) 0.00 - 0.03 K/mcL LAB HEMETOLOGY METHOD 09/04/2024 9:20 PM [facility] Blood Venous blood specimen / Unknown Venipuncture / Unknown 09/04/2024 8:31 PM EST 09/04/2024 9:10 PM EST us Tony Bynum MD LAB BLOOD ORDERABLES Final Resu lt [facility] [address] [place] [address], * (ABNORMAL) Magnesium (09/04/2024 8:31 PM EST) Magnesium 1.7(L) 1.9 - 2.6 mg/dL LAB CHEMISTRY METHOD 09/04/2024 9:41 PM EST [facility] Blood Venous blood specimen / Unknown Venipuncture / Unknown 09/04/2024 8:31 PM EST 09/04/2024 9:10 PM EST Tony Bynum MD LAB BLOOD ORDERABLES Final Resu lt Performing Organization Address City/[facility]/ZIP Co de Phone Number [facility] [address] [place] [address], [place] [phone] * Lipase (09/04/2024 8:31 PM EST) Pathologist [facility] Lipase 46 13 - 75 unit/L LAB CHEMISTRY METHOD 09/04/2024 9:41 PM EST [facility] Blood Venous blood specimen / Unknown Venipuncture / Unknown 09/04/2024 8:31 PM EST 09/04/2024 9:10 PM EST Tony Bynum MD LAB BLOOD ORDERABLES Final Resu lt Performing Organization Address [facility] Co de Phone Number [facility] [address] [place] [address], [place] [phone] * (ABNORMAL) Comprehensive metabolic panel (09/04/2024 8:31 PM EST) Pathologist [facility] Sodium 136 133 - 145 mmol/L LAB CHEMISTRY METHOD 09/04/2024 9:41 PM EST [facility] Potassium 3.4(L) 3.5 - 5.5 mmol/L LAB CHEMISTRY METHOD 09/04/2024 9:41 PM EST [facility] Chloride 106 96 - 110 mmol/L LAB CHEMISTRY METHOD 09/04/2024 9:41 PM EST [facility] CO2 20(L) 21 - 32 mmol/L LAB CHEMISTRY METHOD 09/04/2024 9:41 PM EST [facility] Anion Gap 10 3 - 11 LAB CHEMISTRY METHOD 09/04/2024 9:41 PM [facility] Glucose 105(H) 70 - 100 mg/dL LAB CHEMISTRY METHOD 09/04/2024 9:41 PM [facility] BUN 15 5 - 25 mg/dL LAB CHEMISTRY METHOD 09/04/2024 9:41 PM [facility] Creatinine 0.74 0.50 - 1.10 mg/dL LAB CHEMISTRY METHOD 09/04/2024 9:41 PM [facility] eGFR 108 >=60 mL/min/1. 73m2 LAB CHEMISTRY METHOD 09/04/2024 9:41 PM [facility] Comment:Calculation based on the??Chronic Kidney Disease Epidemiology Collaboration (CKD-EPI) equation refit??without adjustment for race. BUN/Creatinine Ratio 20.3 LAB CHEMISTRY METHOD 09/04/2024 9:41 PM [facility] Calcium 9.2 8.5 - 10.5 mg/dL LAB CHEMISTRY METHOD 09/04/2024 9:41 PM [facility] AST (SGOT) 16 10 - 42 unit/L LAB CHEMISTRY METHOD 09/04/2024 9:41 PM [facility] ALT (SGPT) 20 10 - 60 unit/L LAB CHEMISTRY METHOD 09/04/2024 9:41 PM [facility] Alkaline Phosphatase 98 42 - 121 unit/L LAB CHEMISTRY METHOD 09/04/2024 9:41 PM [facility] Total Protein 7.6 6.0 - 8.0 g/dL LAB CHEMISTRY METHOD 09/04/2024 9:41 PM [facility] Albumin 3.9 3.2 - 5.0 g/dL LAB CHEMISTRY METHOD 09/04/2024 9:41 PM [facility] Total Bilirubin 0.3 0.0 - 1.4 mg/dL LAB CHEMISTRY METHOD 09/04/2024 9:41 PM EST [facility] Blood Venous blood specimen / Unknown Venipuncture / Unknown 09/04/2024 8:31 PM EST 09/04/2024 9:10 PM EST Tony Bynum MD LAB BLOOD ORDERABLES Final Resu lt Performing Organization Address City/[facility]/ZIP Co de Phone Number [facility] [address] [place] [address], * ECG 12 lead (09/04/2024 8:16 PM EST) Ventricular Rate ECG 124 BPM [facility] Atrial Rate 124 BPM [facility] P-R Interval 148 ms [facility] QRS Duration 86 ms [facility] Q-T Interval 332 ms [facility] QTc 476 ms GEM[facility] P Wave Holden 43 degrees GEMUSE R Holden 8 degrees GEMUSE T Holden 12 degrees GEMUSE ECG Interpretation Sinus tachycardia Nonspecific ST and T wave abnormality Abnormal ECG When compared with ECG of 06-AUG-2024 11:48, No significant change was found Confirmed by Hakeem WELLINGTON YUFENG ([id number]) on 09/05/2024 5:21:50 PM [facility] 09/04/2024 8:16 PM EST 09/05/2024 5:21 PM EST us Ralph Jones DO ECG ORDERABLES Final Result Performing Organization Address City/[facility]/ZIP Co de Phone Number [facility] * ECG-Annotated (09/04/2024) us Provider Ethel [facility] ECG ORDERABLES Final Result from Last 3 Months Insurance * Guarantor: Quita Ricketts Account Type Relation to Patient Date of Phone Billing Address Personal/Family Self [address] [place] [address] MEDICARE [place]ICA[place] - [place] Care Teams Insurance Marketing Rep Relationship Specialty Start Date End Date Daniel Quezada PA PCP - General Internal Medicine 04/14/22
== END 2024-11-28 09:16 | disposition home or self-care (01) ==
LOC: HO.LNP 09:15
PROVIDERS: PCP Physician Assistant; Visit Provider Nurse Practitioner Family
DX: N39.0 Urinary tract infection, site not specified (principal); N20.0 Calculus of kidney; Z13.9 Encounter for screening, unspecified
CPT/HCPCS: 51798; 81003; 87086; 99212

== ENCOUNTER 2024-11-28 09:15 | Outpatient (AMB) | payer MEDICARE, MEDICAID, SELFPAY ==
--- NOTE | 2024-11-28 09:26 | A.OFFVIS_ITS ---
Intake Visit Reasons: Followup/US/PVR(set) Intake Note: Patient presents today for follow up on kidney stones and uti Urology Medication: none Antibiotic Allergy: none Blood Thinner: none Today's PVR:0ML'S Ui Ux Web Developer Required: No Accompanied by: Self / Same As Patient Allergies No Known Allergies [No Known Allergies*] Allergy (Verified 11/28/24 09:46) HPI Comments Details: Quita is a very pleasant 34-year-old female patient of Dr. Quezada. She has a past medical history of hep C, cerebrovascular accident in October of 2019, substance abuse in remission since 2020, hypertension, obesity, and insomnia. She presents to the office today for follow-up of her nephrolithiasis. 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 Recommendations for six-month surveillance monitoring. Otherwise no nephrolithiasis or hydronephrosis noted bilaterally. In office urinalysis results reviewed with the patient today. She otherwise denies any bothersome urinary issues. She denies urinary urgency, urinary frequency, incontinence, nocturia, hematuria, dysuria, foul smelling urine, fever, and or chills. She is happy with her current voiding parameters. Patient with recent surgical history of nephrolithiasis with Dr. Fuchs 06/19/24 cystoscopy, left retrograde, left dilatation of ureteric orifice under fluoroscopy, left ureteroscopy, stone basketing, and left stent placement. She otherwise offers no other issues or concerns at this time. 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 I emphasized that while this is typically benign, it requires monitoring as well as her nephrolithiasis. The patient's concerns about recurring pain, similar to that experienced during an earlier episode of nephrolithiasis and UTI, were addressed. I informed her that no current urine analysis indicated infection. However, given her symptoms and recurrence, a CT scan was proposed to verify the presence of new calculi. We discussed the course of immediate care should the imaging reveal calculi, either via observation or intervention, depending on the severity. We have agreed to monitor symptoms and prioritize appropriate imaging in coordination with her insurance. Plan We will perform a CT scan to evaluate for renal stones given the symptoms of pain and history of nephrolithiasis. If stones are detected, treatment options will range from observation to intervention based on imaging results. Current urine analysis does not indicate infection, and thus no antibiotics are warranted. Continued monitoring and supportive measures like maintaining hydration are advised. [facility] Medical History Exposure to STD Hepatitis C CVA (cerebral vascular accident) Substance abuse HTN (hypertension) Left elbow fracture Obesity (BMI 30-39.9) Insomnia Surgical History H/O gastric sleeve S/P excision of neuroma History of bilateral breast reduction surgery History of tonsillectomy History of D&C History of tubal ligation Family History Father Asthma Mother Hypertension Maternal Grandmother Hypertension Asthma Stroke Maternal Grandfather Diabetes Hypertension Stroke Sister In good health Sister Asthma Son In good health Daughter In good health Maternal Aunt Breast cancer Other Mental health disorder Social History Household Members: Children Housing: Apartment Do you presently have visiting nurse or other home services: No Alcohol intake: former Year quit: 2022 Patient Tobacco Use Status: Former Tobacco user e-Cigarette/Vaping Use: Never Used Second Hand Smoke Exposure: No service: No Current occupational status: unemployed Current occupation: [employer] Cognitive needs: No Hearing needs: No Vision needs: No Review of Systems Const All systems reviewed & are unremarkable except as noted in HPI and below Physical Exam Const General: cooperative, comfortable, no acute distress, well developed, alert and awake Orientation/consciousness: patient oriented x3 HEENT Head: Yes normal to inspection, Yes normocephalic and Yes atraumatic Ears: hearing grossly normal bilaterally Eyes General: appearance normal, both eyes and all related structures Neck Neck: Yes normal visual inspection and Yes trachea midline Chest Chest palpation & inspection: normal inspection of the chest Resp Effort & Inspection: normal respiratory effort and able to speak in complete sentences Cardio Rate: regular rate GI Inspection: Yes normal to inspection General: Yes no CVA tenderness External Female Exam: normal external appearance Speculum Exam - Vagina: normal appearance of the vagina Back/Spine/Pelvis Back: no CVA tenderness Skin General skin exam: no rashes or lesions noted Neuro General: patient oriented x3 Extrem General: Yes normal to inspection Psych Appearance: grossly normal and well kempt Mental Status: mental status grossly normal Speech and movement: Normal speech and movement present and Clear speech present Affect: normal affect Attitude: cooperative Thought process: Normal thought process present Thought content: Normal thought content present Insight: Fair insight present (Psych) Judgement: Fair judgement present (Psych) Office Procedures Post Void Residual Post Residual Void Post Void Residual (PVR): 0 [id number] Void Residual by ultrasound Results AMB Urinalysis, Automated UA Leukoctes 0 Callie/uL Last Edit by [employer] on 11/28/24 09:49 UA Nitrite Last Edit by [employer] on 11/28/24 09:49 UA Urobilinogen 0.2 mg/dL Last Edit by [employer] on 11/28/24 09:49 UA Protein 0 mg/dL Last Edit by [employer] on 11/28/24 09:49 UA pH 7.0 Last Edit by [employer] on 11/28/24 09:49 UA Blood 0 Manny/uL Last Edit by [employer] on 11/28/24 09:49 UA Specific [place] 1.015 Last Edit by [employer] on 11/28/24 09:49 UA Ketone Last Edit by [employer] on 11/28/24 09:49 UA Bilirubin 0 mg/dL Last Edit by [employer] on 11/28/24 09:49 UA Glucose 0 mg/dL Last Edit by [employer] on 11/28/24 09:49 Results Reviewed Results Reviewed: Date of Service: 09/18/24 Procedure(s): US renal BI Findings: Right kidney normal size and echotexture, 11.4 cm length. Left kidney normal size and echotexture, 11.8 cm length. 7 mm echogenic midpolar left renal cortical lesion may be due an angiomyolipoma. Finding could be re-evaluated with a follow-up ultrasound in approximately 6 months. Otherwise unremarkable kidneys without hydronephrosis. IMPRESSION: 7 mm echogenic midpolar left renal cortical lesion may be due an angiomyolipoma. Finding could be re-evaluated with a follow-up ultrasound in approximately 6 months. Otherwise unremarkable kidneys without hydronephrosis. 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 PVR 0 mL. Recent renal imaging results reviewed with the patient today; as noted above. Will obtain CT KUB for further assessment evaluation. Discussed, educated, and stressed the importance of continuing with adequate hydration relation to nephrolithiasis as well as overall health and well-being. We discussed worsening symptoms. Will continue with surveillance monitoring of angiolipoma. She currently denies any bothersome urinary issues. Follow-up in 2-4 weeks with imaging to be completed prior; or sooner with any issues, concerns, and or questions. Orders: Orders AMB Urinalysis Automated Today Z13.9 - Encounter for screening, unspecified CT kidney stone Today N20.0 - Calculus of kidney AMB Post Void Residual by ultrasound Today N39.0 - Urinary tract infection, site not specified Patient Instructions: The patient had an opportunity to ask questions regarding the treatment plan. All questions were answered. Physical exam, labs, and imaging were discussed and reviewed in detail. As well as risks, benefits, and discussion of treatment choices. No major barriers to understanding were identified. The patient expressed understanding and agreement with the above treatment plan. The patient was made aware they should contact our office by phone for worsening of their current condition, the appearance of new symptoms, or with any questions or concerns. Compliance is encouraged with any medications and follow up testing that is ordered. It is a privilege to be allowed the opportunity to participate in? your urological care.? Again, if you have any questions or concerns If you have any questions or concerns please do not hesitate to contact me. The office is [phone]. This note is constructed using voice recognition software. While every effort has been made to ensure accuracy skiver machine errors may have been included. Yours sincerely, YADY Andrade-ASHLEY Coding Level of Care Code Est Pt Level 3 (40304) Diagnoses Nephrolithiasis N20.0 Flank pain R10.9 Angiolipoma D17.9 CPT Codes Post Residual Void - PVR CPT Code: [id number]-Gvdx Void Residual by ultrasound ([id number])
--- OUTSIDE RECORDS SUMMARY | 2024-11-28 09:36 | XMS_ITS | Data Portability ---
Author Organization YANG Hendrickson s, [address] Address [address] [place] [address] Assessment No assessment recorded. Plan of Treatment [...] 2022 023 [email or web address] [facility], [address] [facility] [place], [address], 10:27:56 Medication Orders prednisone 20 mg tablet 2022 023 [facility] #54411, [address], [place], [id number], 12:48:09 benzonatate 200 mg capsule 2022 023 [facility] #58514, [address], [place], [id number], 12:48:09 amoxicillin 875 mg tablet 2022 023 [facility]50888, [address], [place], [id number], 09:44:26 albuterol sulfate HFA 90 mcg/actuati on aerosol inhaler 2022 023 [facility] #85040, [address], [place], [id number], 3 09:44:25 albuterol sulfate 2.5 mg/3 mL (0.083 %) solution for nebulizatio n 2022 023 [facility] #74389, [address], [place], [id number], 3 10:05:34 Allergy Relief (fluticason e) 50 mcg/actuati on nasal spray,suspe nsion 2022 023 [facility] #65578, [address], [place], [id number], 3 09:44:25 amoxicillin 875 mg-potassiu m clavulanate 125 mg tablet 2022 023 [email or web address] [facility] #23569, [address], [place], [id number], 3 09:00:14 loratadine 10 mg tablet 2022 023 [email or web address] [facility] #57782, [address], [place], [id number], 3 09:00:34 montelukast 10 mg tablet 2022 023 [facility] #31597, [address], [place], [id number], 3 09:00:36 albuterol sulfate 2.5 mg/3 mL (0.083 %) solution for nebulizatio n 2022 023 [email or web address] Not available 3 09:00:16 ipratropium bromide 0.02 % solution for inhalation 2022 023 [email or web address] Not available 3 09:00:31 benzonatate 200 mg capsule [address] [facility]69506, [address], [place], [id number], 3 09:00:18 prednisone 20 mg tablet [address] [facility] #78855, [address], [place], [id number], 3 09:00:41 Allergy Relief (fluticason e) 50 mcg/actuati on nasal spray,suspe nsion [email or web address] [address] [facility]70625, [address], [place], [id number], 3 09:00:26 albuterol sulfate HFA 90 mcg/actuati on aerosol inhaler [email or web address] [facility] #51031, [address], [place], [id number], 3 09:00:43 ipratropium 0.5 mg-albutero l 3 mg (2.5 mg base)/3 mL nebulizatio n soln [address] [facility] #90655, [address], [place], [id number], 3 09:00:28 Patient TargetsNo targets recorded. Patient Instructions Encounter Date Encounter Id Patient Instructions Last Modified By Organization Details Last Modified Time 09/26/2022 [id number] shortness of [facility]: care instructions Not [...] as expected. Not available 09/26/2022 14:28:43 09/29/2022 [id number] Based on your presentation and exam, you [...] watery post nasal drip. 6. Saline Nasal [place] is recommended. Since an antibiotic was prescribed [...] Coughing up Blood Thank you for using [facility] today, please feel free to contact our office if you have any questions or concerns. [email or web address] Not available 09/29/2022 10:23:19 02/07/2023 [id number] ear infection (o titis media): care instructions [email or web address] Not available 02/07/2023 09:44:30 02/08/2023 [id number] shortness of [facility]: care instructions Not [...] Pulse 96 Not Available [address] [place] [address], [place], [address], 09/26/2022 14:28:53 09/26/19 23 09/26/2022 peak flow* Oxygen Saturation 98 Not Available [id number] [facility], [place], [address], 09/26/2022 14:28:53 09/29/19 23 09/29/2022 XR, chest , 2 view No observ ation record ed. [email or web address] [facility] [address] [place], [address], 10/02/2022 07:48:12 Result Notes None recorded. Problems Name Problem SNOMED Code Status Onset Date Resolution Date Notes Provider Name and Address Organization Details Recorded Time Asthma 449407139 Active 2022 Mitra rock PA - [facility] 3 12:03:57 Hypertensive disorder 44653230 Active 2022 SOBEIDA rock PA - [facility] 3 13:58:54 Problem Notes None recorded. Procedures Surgical History Date Name Laterality Status Provider Name and Address Organization Details Recorded Time Nebulizer Treatment completed SOBEIDA AGUILAR PA - [facility] 09/26/2022 14:56:47 Imaging Results Imaging Date Name Status LastModified by Organiz ation Details LastModified Time 09/29/2022 XR, chest, 2 view completed [facility] [address] [place], [address], 10/02/2022 07:48:12 Procedure Notes None recorded. Medical [...] Available Not Available Not Avai lable doxycycline hyclate 100 mg tablet TAKE 1 [...] e) 50 mcg/actuati on nasal spray,suspe nsion [place] 1 spray every day by intranasa l route for 10 days. 2022 active Not Available Not Available Not Avai lable Vitals Date Recorded Body height Body mass index (BMI) Body weight Pain severity - 0-10 verbal numeric rating [Score] - Reported Respiratory rate Oxygen saturation Oxygen saturation in Arterial blood by Pulse oximetry Heart rate Body temperature Systolic blood pressure Diastolic blood pressure Provider Name and Address Organization Details Last Updated DateTime 3 160.02 cm 41.5 kg/m2 889274. 61 g 10 18 /min 97 % 97 % 86 /min 98.1 [degF] 147 mm[Hg] 91 mm[Hg] ROSA ELENA STERLING PA - [facility] 3 09:02:17 Date Recorded Body height Body mass index (BMI) Body weight Respiratory rate Pain severity - 0-10 verbal numeric rating [Score] - Reported Oxygen saturation Oxygen saturation in Arterial blood by Pulse oximetry Heart rate Body temperature Systolic blood pressure Diastolic blood pressure Provider Name and Address Organization Details Last Updated DateTime 3 160.02 cm 41.5 kg/m2 358298. 61 g 24 /min 10 96 % 96 % 103 /min 98.6 [degF] 144 mm[Hg] 94 mm[Hg] Mitra Sears PA - [facility] 3 12:05:38 Date Recorded Oxygen saturation Oxygen saturation in Arterial blood by Pulse oximetry Pain severity - 0-10 verbal numeric rating [Score] - Reported Heart rate Respiratory rate Body temperature Systolic blood pressure Diastolic blood pressure Provider Name and Address Organization Details Last Updated DateTime 3 98 % 98 % 10 80 /min 18 /min 98.3 [degF] 129 mm[Hg] 85 mm[Hg] ROSA ELENA STERLING PA - [facility] 3 09:42:17 Date Recorded Body height Body mass index (BMI) Body weight Body temperature Oxygen saturation Oxygen saturation in Arterial blood by Pulse oximetry Heart rate Respiratory rate Systolic blood pressure Diastolic blood pressure Provider Name and Address Organization Details Last Updated DateTime 3 160.02 cm 41.1 kg/m2 791891. 43 g 97 [degF] 99 % 99 % 98 /min 18 /min 146 mm[Hg] 82 mm[Hg] SOBEIDA AGUILAR PA - [facility] 3 13:57:00 Date Recorded Body height Body mass index (BMI) Body weight Pain severity - 0-10 verbal numeric rating [Score] - Reported Body temperature Respiratory rate Oxygen saturation Oxygen saturation in Arterial blood by Pulse oximetry Heart rate Systolic blood pressure Diastolic blood pressure Provider Name and Address Organization Details Last Updated DateTime 3 160.02 cm 41.1 kg/m2 520613. 43 g 10 97.7 [degF] 19 /min 95 % 95 % 93 /min 148 mm[Hg] 88 mm[Hg] BARON DEPINTO PA - [facility] 3 08:26:23 Social History Question Answer Notes LastModified by Organizat ion Details LastModified Time Tobacco Smoking Status Never Smoker SOBEIDA AGUILAR null, PA - [facility] 09/26/2022 13:59:29 What Is Your Level Of Alcohol Consumption? None [email or web address] Information not available 09/26/2022 Have You Had Direct Contact, Or Contact During Intimacy, With Monkeypox Rash, Scabs, Or Body Fluids From A Person With Monkeypox? No [email or web address] Information not available 02/08/2023 Do You Use Any Illicit Or Recreational Drugs? No [email or web address] Information not available 09/26/2022 Have You Recently Traveled Abroad? No [email or web address] Information not available 09/26/2022 Do You Or Have You Ever Used Any Other Forms Of Tobacco Or Nicotine? No [email or web address] Information not available 09/26/2022 Sex: Unknown Functional Status None recorded. Mental Status None recorded. Family History Relationship Description Onset Age of this Age Resolved Age Notes LastModified by Organization Details LastModified Time Unspecified Relation Hypertensive disorder [email or web address] Not available 2022 13:59:14 Medical History No [...] SNOMED-CT Code Diagnosis ICD10 Code Diagnosis Note [id number] [address] [address] [address] 08/20/2019 13:54:04 08/20/2019 14:52:[id number] [address] 05/26/2021 08:42:12 05/26/2021 11:42:02 [id number] [address] [place] [address] 08/02/2019 14:28:24 08/02/2019 16:24:19 [id number] [address] [place] [address] 06/09/2020 15:41:35 06/09/2020 17:32:59 [id number] [address] [place] [address] 01/19/2022 08:41:25 01/19/2022 11:44:37 [id number] [address] [place] [address] 12/30/2021 08:54:51 12/30/2021 11:55:00 [id number] [address] [place] [address] 01/25/2017 13:38:48 01/25/2017 14:37:23 [id number] [address] [place] [address] 11/13/2020 10:11:23 11/13/2020 10:55:17 [id number] [address] [place] [address] 05/23/2022 08:48:31 05/23/2022 13:11:14 [id number] [address] [facility] [place] [address] 12/05/2018 09:16:17 12/05/2018 09:55:52 [id number] [address] [facility] [place] [address] 02/06/2021 10:00:11 02/06/2021 10:41:14 [id number] YANG SAAB [address] [facility] [place] [address] 09/06/2022 09:38:15 10/01/2022 23:07:23 Left without being seen [id number] 9102 Z53.21 [id number] Sarkis Cardenas [place] [address] [address] 09/26/2022 12:28:04 09/26/2022 15:02:41 Acute bronchitis 24024858 J20.9 [id number] YANG SAAB [address] [address] 09/29/2022 08:12:12 09/29/2022 10:27:56 Cough 21900255 R05.9 Chest x-ray was clear no evidence of pneumonia - you do need to take deep breaths. Acute sinusitis 70624121 J01.90 Exacerbati on of intermittent asthma 379895257 J45.21 [id number] Augustine Rodriguez MD [address] [address] 02/07/2023 08:28:13 02/07/2023 09:50:09 Upper respiratory infection 81913087 J06.9 Please follow up with PCP or Urgent Care in 3-5 days if no improvemen t or if any new symptoms occur that are concerning .Call 911 or go to nearest ER if you develop any shortness of breath, chest pain, severe headache, dizziness, or other concerning symptoms Acute righ t otitis media 981660696 H66.91 Asthma 592226514 J45.90 9 REfilling asthma meds. Currently stable [id number] Sarkis Cardenas NP [address] [address] 02/08/2023 11:51:37 02/08/2023 12:49:43 Acute bronchitis 50574199 J20.9 continue medication as prescribed yesterday. Health Concerns Section Related Observation LastModified by Organization Detai ls LastModified Time None Recorded Concern Status LastModified by Organization Details LastModified Time None Recorded Advance Directives Directive None Recorded Payers Encounter Date Sequence Insurance Name Policy Number Policy [place] Covered Member ID [place] Member ID Guarantor Name 09/06/2022 1 [place] [employer] Crystal Liliam [id number] Crystal Liliam 09/06/2022 2 [place] Crystal Liliam [id number] Crystal Liliam 09/26/2022 1 [place] [employer] Crystal Liliam [id number] Crystal Liliam 09/26/2022 2 [place] Crystal Liliam [id number] Crystal Liliam 09/29/2022 1 [place] [employer] [employer] Crystal Liliam [id number] Crystal Liliam 09/29/2022 2 [place] Crystal Liliam [id number] Crystal Liliam 02/07/2023 1 [place] [employer] Crystal Liliam [id number] Crystal Liliam 02/07/2023 2 [place] Crystal Liliam [id number] Crystal Liliam 02/08/2023 1 [place] [employer] Crystal Liliam [id number] Crystal Liliam 02/08/2023 2 [place] Crystal Liliam [id number] Crystal Liliam Notes Date Note Type Note Provider Name and Address Organization Details Recorded Time 3 text/html CongestionReported bypatient.Notes:chest congestion, coughing a lot, nasal congestion with post nasal drip x 4 days. denies any fever or fever with chills. no SOB or respiratory distress. Sarkis Cardenas NP [address] [place], [address], [place] - [facility] 09/26/2022 15:04:07 3 text/html Sinus Complaints [...] recent COVID or influenza. YANG SAAB [address], [address], [place] 09/29/2022 10:26:57 3 text/html Sinus ComplaintsReported bypatient.Location:faci al pain;sinus pressure Associated Symptoms:no difficulty breathing; no nausea or vomiting; no sore throat; no dizziness;nasal discharge from nostrils;Post nasal drip;ear fullness;cough Augustine Rodriguez MD [address], [address], [facility] 02/13/2023 08:46:31 3 text/html Shortness of BreathReported bypatient.source of patient informationsource of patient information Timingnew onset; 4 days;worse at night;during exertion;with environmental exposure Additional symptomsno anxiety; no nausea; no fatigue;cough;pain with breathing Sarkis Cardenas NP [address] [facility] [place], [address], [facility] 02/08/2023 12:48:35 OBGyn Episode No OBEpisode recorded.
--- OUTSIDE RECORDS SUMMARY | 2024-11-28 09:36 | XMS_ITS | Clinical Summary ---
Author Organization [facility] Address [address] [place] [address] Phone Care Team Providers Care Medical Collector Name Role Phone Daniel Quezada Primary Care Provider [phone] Allergies No known active allergies Medications HYDROXYZINE HCL ORAL Take by mouth. Activ e acetaminophen (TYLENOL) 500 mg tablet Take 1 tablet (500 mg total) by mouth. 3 Active cholecalciferol (VITAMIN D-3) 1,250 mcg (50,000 unit) capsule Take 1 capsule (50,000 Units total) by mouth. 3 Active lisinopril-hydroCH LOROthiazide (PRINZIDE,ZESTORET IC) 10-12.5 mg per tablet Take 1 tablet by mouth 1 (one) time each day. Active nystatin, bulk, 10 billion unit powder 1 each by Not Applicable route. 3 Active ondansetron ODT (ZOFRAN-ODT) 4 mg disintegrating tablet Take 1 tablet (4 mg total) by mouth. 3 Active pantoprazole (PROTONIX) 40 mg EC tablet Take 1 tablet (40 mg total) by mouth 1 (one) time each day. 3 Active polyethylene glycol (MIRALAX) 17 gram packet Take 17 g by mouth. 3 Active simethicone (MYLICON) 80 mg chewable tablet CHEW 1 TABLET BY MOUTH EVERY 6 HOURS NEEDED FOR FLATULENCE FOR UP TO 30 DAYS. 4 Active ursodioL (ACTIGALL) 300 mg capsule Take 2 capsules (600 mg total) by mouth. 3 Active wheat dextrin (Benefiber Clear SF, dextrin,) 3 gram/3.5 gram powder in packet Take 4 g by mouth. 3 Active Active Problems Problem Noted Date Diagnosed Date Obesity, Class I, BMI 30-34.9 06/19/2024 Bariatric surgery status 06/19/2024 Encounters Date Type Department Care Team Description 09/04/2024 7:59 PM EST - 09/04/2024 10:34 PM EST Emergency [facility] Emergency [address] [place] [address] Discharge Disposition: Home or Self Care from Last 3 Months Surgical History Surgery Date Site/Laterality Comments TONSILLECTOMY ADENOIDECTOMY, BILATERAL MYRINGOTOMY AND TUBES PROCEDURE: FL TONSILLECTOMY & ADENOIDECTOMY <AGE 10 BREAST REDUCTION PROCEDURE: FL BREAST REDUCTION TUBAL LIGATION PROCEDURE: HISTORICAL TUBAL LIGATION TUBAL LIGATION PROCEDURE: HISTORICAL TUBAL LIGATION Medical History Medical History Date Comments Essential (primary) hypertension DX:Essential (primary) hypertension Insomnia DX:Insomnia Left elbow fracture DX:Left elbo w fracture Obesity DX:Obesity Substance abuse DX:Substance abu se (HCC) Hypokalemia Stroke ([facility]/HCC) Social History Tobacco Use Types Packs/Day Years Used Date Smoking Tobacco: Former Smokeless Tobacco: Never Comments Unknown Sex and Gender Information Value Date Recorded Sex Assigned at Not on file Legal Sex Female 10:01 AM EST Gender Identity Not on file Sexual Orientation Not on file Obstetrics History Last Filed [...] Health Maintenance Due Date Last Done Comments Hepatitis B Vaccines (1 of 3 - 19+ 3-dose series) 2007 Pneumococcal Vaccine: Pediatrics (0 to 5 Years) and At-Risk Patients (6 to 64 Years) (1 of 2 - PCV) 2007 Cervical Cancer Screening: Pap Smear 2009 [...] patient's age to complete this topic Meningococcal B Vacine Aged Out No lo nger eligible based on patient's age to complete [...] 09/04/2024 8:16 PM EST ECG ANNOTATED 09/04/2024 from Last 3 Months Results * Urinalysis with reflex microscopic and culture (09/04/2024 8:44 PM EST) Specific Jerome Urine 1.007 1.003 - 1.030 LAB URINALYSIS - AUTOMATED METHOD 09/04/2024 9:18 PM [facility] pH, Urine 6.0 5.0 - 8.0 pH LAB URINALYSIS - AUTOMATED METHOD 09/04/2024 9:18 PM [facility] Leukocytes, Urine Negative Negative LAB URINALYSIS - AUTOMATED METHOD 09/04/2024 9:18 PM [facility] Nitrite, Urine Negative Negative LAB URINALYSIS - AUTOMATED METHOD 09/04/2024 9:18 PM [facility] Protein, Urine Negative <=Trace mg/dL LAB URINALYSIS - AUTOMATED METHOD 09/04/2024 9:18 PM [facility] Glucose, Urine Negative Negative mg/dL LAB URINALYSIS - AUTOMATED METHOD 09/04/2024 9:18 PM [facility] Ketones, Urine Negative Negative mg/dL LAB URINALYSIS - AUTOMATED METHOD 09/04/2024 9:18 PM [facility] Urobilinogen, Urine 0.2 0.2 - 1.0 mg/dL LAB URINALYSIS - AUTOMATED METHOD 09/04/2024 9:18 PM [facility] Bilirubin, Urine Negative Negative LAB URINALYSIS - AUTOMATED METHOD 09/04/2024 9:18 PM [facility] Blood, Urine Negative Negative LAB URINALYSIS - AUTOMATED METHOD 09/04/2024 9:18 PM [facility] Urine Urine specimen obtained by clean catch procedure / Unknown Non-blood Collection / Unknown 09/04/2024 8:44 PM EST 09/04/2024 9:11 PM EST us Tony Bynum MD LAB URINE ORDERABLES Final Resu lt Performing Organization Address [facility]/ZIP Co de Phone Number [facility] [address] [place] [address], * Hicks urine culture tube (09/04/2024 8:44 PM EST) Extra Tube Hold for add-ons. 09/04/2024 11:01 PM EST [facility] Comment:Auto resulted. Urine Urine specimen obtained by clean catch procedure / Unknown Non-blood Collection / Unknown 09/04/2024 8:44 PM EST 09/04/2024 9:11 PM EST us Tony Bynum MD LAB URINE ORDERABLES Final Resu lt [facility] [address] [place] [address], * XR Chest 2 Views (09/04/2024 8:38 PM EST) Anatomical Region Laterality Modality Body Radiographic Josefa ging 09/05/2024 8:35 AM EST Impressions 09/05/2024 8:36 AM EST Normal examination. The patient is seen to have undergone left upper quadrant abdominal surgery since the prior study performed 04/11/2023. Code 28895 -------- FINAL REPORT -------- Dictated By: Demario Rush Dictated Date: 09/05/2024 08:35 ET Assigned Physician: Demario Rush Reviewed and Electronically Signed By: Demario Rush Signed Date: 09/05/2024 08:36 ET Workstation ID: [id number] Transcribed By: Self Edit Transcribed Date: 09/05/2024 [...] since the prior study performed 04/11/2023. Code 78181 -------- FINAL REPORT -------- Dictated By: Demario Rush Dictated Date: 09/05/2024 08:35 ET Assigned Physician: Demario Rush Reviewed and Electronically Signed By: Demario Rush Signed Date: 09/05/2024 08:36 ET Workstation ID: [id number] Transcribed By: Self Edit Transcribed Date: 09/05/2024 08:35 ET Tony Bynum MD IMG XR PROCEDURES Final Result * Troponin I high sensitivity (09/04/2024 8:31 PM EST) [facility] High Sensitivity Troponin I 3 <=54 ng/L LAB CHEMISTRY METHOD 09/04/2024 9:40 PM EST [facility] Blood Venous blood specimen / Unknown Venipuncture / Unknown 09/04/2024 8:31 PM EST 09/04/2024 9:10 PM EST Narrative [facility] - 09/04/2024 9:40 PM EST High levels of biotin in samples may falsely decrease hsTroponin values. ??Use caution when interpreting hsTroponin results in patients taking biotin who exhibit renal impairment (eGFR <60) or in patients taking more than 20 mg/day of biotin. Tony Bynum MD LAB BLOOD ORDERABLES Final Resu lt [facility] [address] [place] [address], * (ABNORMAL) CBC auto differential (09/04/2024 8:31 PM EST) [facility] WBC 13.0(H) 4.8 - 10.8 K/mcL LAB HEMETOLOGY METHOD 09/04/2024 9:20 PM EST [facility] RBC 4.00 3.80 - 4.80 M/mcL LAB HEMETOLOGY METHOD 09/04/2024 9:20 PM EST [facility] Hemoglobin 11.4(L) 11.5 - 16.0 g/dL LAB HEMETOLOGY METHOD 09/04/2024 9:20 PM [facility] Hematocrit 34.7(L) 35.0 - 47.0 % LAB HEMETOLOGY METHOD 09/04/2024 9:20 PM [facility] MCV 87.0 79.0 - 98.0 FL LAB HEMETOLOGY METHOD 09/04/2024 9:20 PM [facility] MCH 28.6 27.0 - 32.0 pcg LAB HEMETOLOGY METHOD 09/04/2024 9:20 PM [facility] MCHC 32.9 32.0 - 37.0 g/dL LAB HEMETOLOGY METHOD 09/04/2024 9:20 PM [facility] RDW 14.0 11.0 - 15.0 % LAB HEMETOLOGY METHOD 09/04/2024 9:20 PM [facility] Platelets 403(H) 130 - 400 K/mcL LAB HEMETOLOGY METHOD 09/04/2024 9:20 PM [facility] MPV 10.0 7.0 - 11.0 FL LAB HEMETOLOGY METHOD 09/04/2024 9:20 PM [facility] NRBC 0.0 <1.0 % LAB HEMETOLOGY METHOD 09/04/2024 9:20 PM [facility] NRBC Absolute 0.00 <0.10 K/mcL LAB HEMETOLOGY METHOD 09/04/2024 9:20 PM [facility] Neutrophils Relative 62.5 % LAB HEMETOLOGY METHOD 09/04/2024 9:20 PM [facility] Lymphocytes Relative 28.1 % LAB HEMETOLOGY METHOD 09/04/2024 9:20 PM [facility] Monocytes Relative 6.6 % LAB HEMETOLOGY METHOD 09/04/2024 9:20 PM [facility] Eosinophils Relative 2.0 % LAB HEMETOLOGY METHOD 09/04/2024 9:20 PM EST [facility] Basophils Relative 0.5 % LAB HEMETOLOGY METHOD 09/04/2024 9:20 PM EST [facility] Immature Granulocytes Relative 0.3 % LAB HEMETOLOGY METHOD 09/04/2024 9:20 PM EST [facility] Neutrophils Absolute 8.11(H) 1.50 - 7.00 K/mcL LAB HEMETOLOGY METHOD 09/04/2024 9:20 PM EST [facility] Lymphocytes Absolute 3.64 1.00 - 5.00 K/mcL LAB HEMETOLOGY METHOD 09/04/2024 9:20 PM EST [facility] Monocytes Absolute 0.85 0.20 - 1.00 K/mcL LAB HEMETOLOGY METHOD 09/04/2024 9:20 PM EST [facility] Eosinophils Absolute 0.26 0.00 - 0.50 K/mcL LAB HEMETOLOGY METHOD 09/04/2024 9:20 PM EST [facility] Basophils Absolute 0.06 0.00 - 0.20 K/mcL LAB HEMETOLOGY METHOD 09/04/2024 9:20 PM EST [facility] Immature Granulocytes Absolute 0.04(H) 0.00 - 0.03 K/mcL LAB HEMETOLOGY METHOD 09/04/2024 9:20 PM [facility] Blood Venous blood specimen / Unknown Venipuncture / Unknown 09/04/2024 8:31 PM EST 09/04/2024 9:10 PM EST us Tony Bynum MD LAB BLOOD ORDERABLES Final Resu lt [facility] [address] [place] [address], * (ABNORMAL) Magnesium (09/04/2024 8:31 PM EST) Magnesium 1.7(L) 1.9 - 2.6 mg/dL LAB CHEMISTRY METHOD 09/04/2024 9:41 PM EST [facility] Blood Venous blood specimen / Unknown Venipuncture / Unknown 09/04/2024 8:31 PM EST 09/04/2024 9:10 PM EST Tony Bynum MD LAB BLOOD ORDERABLES Final Resu lt Performing Organization Address City/[facility]/ZIP Co de Phone Number [facility] [address] [place] [address], [place] [phone] * Lipase (09/04/2024 8:31 PM EST) Pathologist [facility] Lipase 46 13 - 75 unit/L LAB CHEMISTRY METHOD 09/04/2024 9:41 PM EST [facility] Blood Venous blood specimen / Unknown Venipuncture / Unknown 09/04/2024 8:31 PM EST 09/04/2024 9:10 PM EST Tony Bynum MD LAB BLOOD ORDERABLES Final Resu lt Performing Organization Address [facility] Co de Phone Number [facility] [address] [place] [address], [place] [phone] * (ABNORMAL) Comprehensive metabolic panel (09/04/2024 8:31 PM EST) Pathologist [facility] Sodium 136 133 - 145 mmol/L LAB CHEMISTRY METHOD 09/04/2024 9:41 PM EST [facility] Potassium 3.4(L) 3.5 - 5.5 mmol/L LAB CHEMISTRY METHOD 09/04/2024 9:41 PM EST [facility] Chloride 106 96 - 110 mmol/L LAB CHEMISTRY METHOD 09/04/2024 9:41 PM EST [facility] CO2 20(L) 21 - 32 mmol/L LAB CHEMISTRY METHOD 09/04/2024 9:41 PM EST [facility] Anion Gap 10 3 - 11 LAB CHEMISTRY METHOD 09/04/2024 9:41 PM [facility] Glucose 105(H) 70 - 100 mg/dL LAB CHEMISTRY METHOD 09/04/2024 9:41 PM [facility] BUN 15 5 - 25 mg/dL LAB CHEMISTRY METHOD 09/04/2024 9:41 PM [facility] Creatinine 0.74 0.50 - 1.10 mg/dL LAB CHEMISTRY METHOD 09/04/2024 9:41 PM [facility] eGFR 108 >=60 mL/min/1. 73m2 LAB CHEMISTRY METHOD 09/04/2024 9:41 PM [facility] Comment:Calculation based on the??Chronic Kidney Disease Epidemiology Collaboration (CKD-EPI) equation refit??without adjustment for race. BUN/Creatinine Ratio 20.3 LAB CHEMISTRY METHOD 09/04/2024 9:41 PM [facility] Calcium 9.2 8.5 - 10.5 mg/dL LAB CHEMISTRY METHOD 09/04/2024 9:41 PM [facility] AST (SGOT) 16 10 - 42 unit/L LAB CHEMISTRY METHOD 09/04/2024 9:41 PM [facility] ALT (SGPT) 20 10 - 60 unit/L LAB CHEMISTRY METHOD 09/04/2024 9:41 PM [facility] Alkaline Phosphatase 98 42 - 121 unit/L LAB CHEMISTRY METHOD 09/04/2024 9:41 PM [facility] Total Protein 7.6 6.0 - 8.0 g/dL LAB CHEMISTRY METHOD 09/04/2024 9:41 PM [facility] Albumin 3.9 3.2 - 5.0 g/dL LAB CHEMISTRY METHOD 09/04/2024 9:41 PM [facility] Total Bilirubin 0.3 0.0 - 1.4 mg/dL LAB CHEMISTRY METHOD 09/04/2024 9:41 PM EST [facility] Blood Venous blood specimen / Unknown Venipuncture / Unknown 09/04/2024 8:31 PM EST 09/04/2024 9:10 PM EST Tony Bynum MD LAB BLOOD ORDERABLES Final Resu lt Performing Organization Address City/[facility]/ZIP Co de Phone Number [facility] ([facility]) [facility] [address] [place] [address], * ECG 12 lead (09/04/2024 8:16 PM EST) Ventricular Rate ECG 124 BPM [facility] Atrial Rate 124 BPM [facility] P-R Interval 148 ms [facility] QRS Duration 86 ms [facility] Q-T Interval 332 ms [facility] QTc 476 ms [facility] P Wave [place] 43 degrees GEMUSE R [place] 8 degrees GEMUSE T [place] 12 degrees GEMUSE ECG Interpretation Sinus tachycardia Nonspecific ST and T wave abnormality Abnormal ECG When compared with ECG of 06-AUG-2024 11:48, No significant change was found Confirmed by Hakeem WELLINGTON YUFENG ([id number]) on 09/05/2024 5:21:50 PM [facility] 09/04/2024 8:16 PM EST 09/05/2024 5:21 PM EST us Ralph Jones DO ECG ORDERABLES Final Result Performing Organization Address City/[facility]/ZIP Co de Phone Number [facility] * ECG-Annotated (09/04/2024) us Provider Ethel BLACKWOOD ECG ORDERABLES Final Result from Last 3 Months Insurance * Guarantor: Quita Ricketts Account Type Relation to Patient Date of Phone Billing Address Personal/Family Self [address] [place] [address] MEDICARE MEDICAID - [place] Care Teams Medical Collector Relationship Specialty Start Date End Date Daniel Quezada PA PCP - General Internal Medicine 04/14/22
== END 2024-11-28 09:58 | disposition home or self-care (01) ==
LOC: HO.HUSH 09:16
PROVIDERS: PCP Physician Assistant; Visit Provider Nurse Practitioner Family
DX: N20.0 Calculus of kidney (principal); R10.9 Unspecified abdominal pain; D17.9 Benign lipomatous neoplasm, unspecified; Z13.9 Encounter for screening, unspecified
CPT/HCPCS: 99213

== ENCOUNTER 2024-12-05 13:20 | Outpatient (AMB) | payer MEDICARE, MEDICAID, SELFPAY ==
--- NOTE | 2024-12-05 14:13 | MHC.PC.OV ---
Vital Signs 12/05/24 14:14 Height 5 ft 3 in Weight 202 lb 8 oz BMI 35.9 BP 120/86 Blood Pressure Location Lt brachial Position Sitting Pulse 80 Pulse Source Pulse Oximeter Temp 97.5 F Temp Source Temporal Artery Scan Pulse Oximetry (%) 98 Oxygen Delivery Method Room Air Intake Visit Reasons: Swollen feet Intake Note: Patient is here to follow up on Swelling of left foot. Medical Terminologist Required: No Sr. Director Product Management: Not Required per policy Accompanied by: Self / Same As Patient Allergies No Known Allergies [No Known Allergies*] Allergy (Verified 12/05/24 14:14) Tobacco use date assessed: 12/05/24 Dental Screening Dental Screen Date: 12/05/24 Did you have a dental visit in the last 12 months?: Yes Did you have a dental problem in the last 6 months where you did not have access to dental care?: No Was dental information given to patient?: Patient has dentist [facility] Medical History Exposure to STD Hepatitis C CVA (cerebral vascular accident) Substance abuse HTN (hypertension) Left elbow fracture Obesity (BMI 30-39.9) Insomnia Surgical History H/O gastric sleeve S/P excision of neuroma History of bilateral breast reduction surgery History of tonsillectomy History of D&C History of tubal ligation Family History Father Asthma Mother Hypertension Maternal Grandmother Hypertension Asthma Stroke Maternal Grandfather Diabetes Hypertension Stroke Sister In good health Sister Asthma Son In good health Daughter In good health Maternal Aunt Breast cancer Other Mental health disorder Social History Household Members: Children Housing: Apartment Do you presently have visiting nurse or other home services: No Alcohol intake: former Year quit: 2022 Patient Tobacco Use Status: Former Tobacco user e-Cigarette/Vaping Use: Never Used Second Hand Smoke Exposure: Yes service: No Current occupational status: unemployed Current occupation: [employer] Cognitive needs: No Hearing needs: No Vision needs: No Questionnaire PHQ-9 Over the last 2 weeks, how often have you been bothered by any of the following problems? 1. Little interest or pleasure in doing things: not at all 2. Feeling down, depressed, or hopeless: not at all 3. Trouble falling or staying asleep, or sleeping too much: not at all 4. Feeling tired or having little energy: not at all 5. Poor appetite or overeating: not at all 6. Feeling bad about yourself - or that you are a failure or have let yourself or your family down: not at all 7. Trouble concentrating on things, such as reading the newspaper or watching television: not at all 8. Moving or speaking so slowly that other people could have noticed. Or the opposite - being so fidgety or restless that you have been moving around a lot more than usual: not at all 9. Thoughts that you would be better off or of hurting yourself in some way: not at all Total score: 0 Depression Screening Interpretation: Negative Depression Screening Done: Yes Source: Developed by Drs. Gasper Page, Kate Rivera, Kemal Dean and colleagues, with an educational lora from [employer]. Thrive Questionnaire Date Thrive assessed: 12/05/24 AUDIT C Alcohol Use Questionnaire (AUDIT-C) 1. How often do you have a drink containing alcohol?: Never Total Score: 0 MARINA-7 AMB Questionnaire MARINA-7 Date MARINA - 7 assessed: 12/05/24 Feeling nervous, anxious, or on edge: 1 = Several days (Currently on medication) Not being able to stop or control worryin = Not at all Worrying too much about different things: 0 = Not at all Trouble relaxin = Not at all Being so restless that it is hard to sit still: 0 = Not at all Becoming easily annoyed or irritable: 0 = Not at all Feeling afraid as if something awful might happen: 0 = Not at all Total MARINA-7 score (0-4 normal; 5-9 mild; 10-14 moderate; 15-21 severe): 1 Source: Developed by Drs. Gasper Page, Kate Rivera, Kemal Dean and colleagues, with an educational lora from [employer]. Physical exam (Primary Care) Vital Signs: Last Vital Signs Temp 97.5 F 12/05/24 14:14 Pulse 80 12/05/24 14:14 BP 120/86 12/05/24 14:14 Pulse Ox 98 12/05/24 14:14 Oxygen Delivery Method Room Air 12/05/24 14:14 BMI result Body Mass Index 35.9 Tobacco/Smoking Status: Tobacco use Status Tobacco use date assessed 12/05/24 12/05/24 14:19 Patient Tobacco Use Status Former Tobacco user 12/05/24 14:19 e-Cigarette/Vaping Use Never Used 12/05/24 14:19 PHQ-9: PHQ-9 Score PHQ-9: Total score 0 12/05/24 14:19 Depression Screening Interpretation: Negative Thrive Assessment: Date of Thrive Assessment Date Thrive assessed 12/05/24 12/05/24 14:19 Coding Level of Care Code Est Pt Level 3 (60348) Complex EM visit Add On G2211 Diagnoses Swelling of left foot M79.89 Assessment & Plan Assessment & Plan (1) Swelling of left foot: Code(s): M79.89 - Other specified soft tissue disorders Plan: Small swelling over the foot, no bruising. Able to bear weight. X ray of the foot suggested. Naproxen called in Plan History of Present Illness The patient is a 34-year-old female presenting with left foot pain due to a lump that has increased in size and become painful. Onset of severe pain traced back to last Monday with no recollection of injury or trauma. She has taken [id number] medications without relief. Social History - Employment: Works with [employer] Review of Systems - Musculoskeletal: Reports left foot pain with movement and walking Physical Exam General: Cooperative and healthy appearing Nutritional Appearance: Well nourished Orientation/consciousness: Patient oriented x3 Limitations: No limitations Head: Normal to inspection General: Appearance normal, both eyes and all related structures Neck: Normal visual inspection Chest: Normal palpation of entire chest wall Respiratory: Normal respiratory effort Neurology: Patient oriented x3 Foot: Minimal swelling over the dorsum of the foot, along the tendon, more on the lateral side Results Plan An X-ray of the left foot is ordered to evaluate the swelling and rule out bone involvement. I prescribed medications for pain and inflammation, advising the patient on elevating her foot to decrease swelling. Conservative management should help, but further evaluation may be needed if symptoms persist. Patient was informed and verbally consented to the use of an ambient scribe for clinic note documentation during this visit. Discussion Notes During the consultation, I explained the likely diagnosis of a tendon ganglion in the left foot, discussing the conservative management approach, including prescription pain medications and strategies for decreasing swelling, such as foot elevation. I emphasized the potential need for further evaluation if symptoms do not improve. Future precautions and the importance of monitoring the condition were discussed with the patient. Patient Instructions - Take prescribed pain medications as directed - Elevate the left foot to reduce swelling - Undergo X-ray for further evaluation - Monitor symptoms and report worsening?? - Follow up if pain persists or worsens Orders: Orders XR foot LT min 3V Today M79.89 - Other specified soft tissue disorders
[2024-12-05 14:14] VITALS: BP 120/86; PULSE 80; TEMP 36.4; O2SAT 98; BMI 35.9
--- OUTSIDE RECORDS SUMMARY | 2024-12-05 16:05 | XMS_ITS | Clinical Summary ---
Author Organization [facility] Address [address] [place] [address] Phone Care Team Providers Care Fondant Cooker Name Role Phone Daniel Quezada Primary Care [...] BMI 30-34.9 06/19/2024 Bariatric surgery status 06/19/2024 Surgical History Surgery Date Site/Laterality Comments TONSILLECTOMY ADENOIDECTOMY, BILATERAL MYRINGOTOMY AND TUBES PROCEDURE: [place] TONSILLECTOMY & ADENOIDECTOMY <AGE 10 BREAST REDUCTION PROCEDURE: [place] BREAST REDUCTION TUBAL LIGATION PROCEDURE: HISTORICAL TUBAL LIGATION TUBAL LIGATION PROCEDURE: HISTORICAL TUBAL LIGATION Medical History Medical History Date Comments Essential (primary) hypertension DX:Essential (primary) hypertension Insomnia DX:Insomnia Left elbow fracture DX:Left elbo w fracture Obesity DX:Obesity Substance abuse ([facility] V24, [facility] V28) DX:Substance abuse ([facility]) Hypokalemia Stroke ([facility] V24, [facility] V28) Social History Tobacco Use Types Packs/Day Years [...] age to complete this topic Meningococcal B Vaccine Aged Out No l onger eligible based on patient's age to complete this topic RSV Immunization Patients Under 20 months Aged Out No longer eligible based on patient's age to complete this topic Varicella Vaccines Aged Out No longer eligible based on patient's age to complete this topic Procedures Procedure Name Priority Date/Time Associated Diagnosis Comments COMPREHENSIVE METABOLIC PANEL STAT 09/04/2024 8:31 PM EST from Last 3 Months or Most Recently Relevant to Health Maintenance Results * (ABNORMAL) Comprehensive metabolic panel (09/04/2024 8:31 PM EST) Sodium 136 133 - 145 mmol/L LAB CHEMISTRY METHOD 09/04/2024 9:41 PM [facility] Potassium 3.4(L) 3.5 - 5.5 mmol/L LAB CHEMISTRY METHOD 09/04/2024 9:41 PM [facility] Chloride 106 96 - 110 mmol/L LAB CHEMISTRY METHOD 09/04/2024 9:41 PM [facility] CO2 20(L) 21 - 32 mmol/L LAB CHEMISTRY METHOD 09/04/2024 9:41 PM [facility] Anion Gap 10 3 - 11 LAB CHEMISTRY METHOD 09/04/2024 9:41 PM [facility] Glucose 105(H) 70 - 100 mg/dL LAB CHEMISTRY METHOD 09/04/2024 9:41 PM [facility] BUN 15 5 - 25 mg/dL LAB CHEMISTRY METHOD 09/04/2024 9:41 PM [facility] Creatinine 0.74 0.50 - 1.10 mg/dL LAB CHEMISTRY METHOD 09/04/2024 9:41 PM [facility] eGFR 108 >=60 mL/min/1. 73m2 LAB CHEMISTRY METHOD 09/04/2024 9:41 PM [facility] Comment:Calculation based on the??Chronic Kidney Disease Epidemiology Collaboration (CKD-EPI) equation refit??without adjustment for race. BUN/Creatinine Ratio 20.3 LAB CHEMISTRY METHOD 09/04/2024 9:41 PM [facility] Calcium 9.2 8.5 - 10.5 mg/dL LAB CHEMISTRY METHOD 09/04/2024 9:41 PM [facility] AST (SGOT) 16 10 - 42 unit/L LAB CHEMISTRY METHOD 09/04/2024 9:41 PM [facility] ALT (SGPT) 20 10 - 60 unit/L LAB CHEMISTRY METHOD 09/04/2024 9:41 PM EST [facility] Alkaline Phosphatase 98 42 - 121 unit/L LAB CHEMISTRY METHOD 09/04/2024 9:41 PM EST [facility] Total Protein 7.6 6.0 - 8.0 g/dL LAB CHEMISTRY METHOD 09/04/2024 9:41 PM EST [facility] Albumin 3.9 3.2 - 5.0 g/dL LAB CHEMISTRY METHOD 09/04/2024 9:41 PM EST [facility] Total Bilirubin 0.3 0.0 - 1.4 mg/dL LAB CHEMISTRY METHOD 09/04/2024 9:41 PM EST [facility] Blood Venous blood specimen / Unknown Venipuncture / Unknown 09/04/2024 8:31 PM EST 09/04/2024 9:10 PM EST us Tony B Fletcher [facility] LAB BLOOD ORDERABLES Final Resu lt [facility] [address] [place] [address], [place] [phone] from Last 3 Months or Most Recently Relevant to Health Maintenance Insurance * Guarantor: Quita Ricketts Account Type Relation to Patient Date of Phone Billing Address Personal/Family Self [address] [place] [address] MEDICARE MEDICAID - [place] Care Teams Fondant Cooker Relationship Specialty Start Date End Date Daniel Quezada PA PCP - General Internal Medicine 04/14/22
--- OUTSIDE RECORDS SUMMARY | 2024-12-05 16:05 | XMS_ITS | Data Portability ---
Author Organization YANG Hendrickson s, [address] Address [address] [place] [address] Assessment No assessment recorded. Plan of Treatment [...] 2022 023 [email or web address] [facility], [address] [facility] [place], [address], 10:27:56 Medication Orders prednisone 20 mg tablet 2022 023 [facility] #79692, [address] [place], [place], [id number], 3 12:48:09 benzonatate 200 mg capsule 2022 023 [facility] #50482, [address] [place], [place], [id number], 3 12:48:09 amoxicillin 875 mg tablet 2022 023 [facility] #37584, [address] [place], [place], [id number], 09:44:26 albuterol sulfate HFA 90 mcg/actuati on aerosol inhaler 2022 023 [facility] #42108, [address] [place], [place], [id number], 3 09:44:25 albuterol sulfate 2.5 mg/3 mL (0.083 %) solution for nebulizatio n 2022 023 [facility] #40638, [address] [place], [place], [id number], 3 10:05:34 Allergy Relief (fluticason e) 50 mcg/actuati on nasal spray,suspe nsion 2022 023 [facility] #38660, [address] [place], [place], [id number], 3 09:44:25 amoxicillin 875 mg-potassiu m clavulanate 125 mg tablet 2022 023 [facility] #75420, [address] [place], [place], [id number], 3 09:00:14 loratadine 10 mg tablet 2022 023 [email or web address] [facility] #06332, [address] [place], [place], [id number], 3 09:00:34 montelukast 10 mg tablet 2022 023 [email or web address] [facility] #76021, [address] [place], [place], [id number], 3 09:00:36 albuterol sulfate 2.5 mg/3 mL (0.083 %) solution for nebulizatio n 2022 023 [email or web address] Not available 3 09:00:16 ipratropium bromide 0.02 % solution for inhalation 2022 023 [email or web address] Not available 3 09:00:31 benzonatate 200 mg capsule [address] [facility]40413, [address] [place], [place], [id number], 3 09:00:18 prednisone 20 mg tablet [address] [facility] #37967, [address] [place], [place], [id number], 3 09:00:41 Allergy Relief (fluticason e) 50 mcg/actuati on nasal spray,suspe nsion [email or web address] [facility] [address] [facility] #20376, [address] [place], [place], [id number], 3 09:00:26 albuterol sulfate HFA 90 mcg/actuati on aerosol inhaler [email or web address] [facility] [address] [facility] #93395, [address] [place], [place], [id number], 3 09:00:43 ipratropium 0.5 mg-albutero l 3 mg (2.5 mg base)/3 mL nebulizatio n soln [address] [facility] #16172, [address] [place], [place], [id number], 3 09:00:28 Patient TargetsNo targets recorded. Patient Instructions Encounter Date Encounter Id Patient Instructions Last Modified By Organization Details Last Modified Time 09/26/2022 [id number] shortness of ludwin ath: care instructions Not [...] as expected. Not available 09/26/2022 14:28:43 09/29/2022 [id number] Based on your presentation and exam, you [...] watery post nasal drip. 6. Saline Nasal Colcord is recommended. Since an antibiotic was prescribed [...] Coughing up Blood Thank you for using [facility] today, please feel free to contact our office if you have any questions or concerns. [email or web address] Not available 09/29/2022 10:23:19 02/07/2023 [id number] ear infection (o titis media): care instructions [email or web address] Not available 02/07/2023 09:44:30 02/08/2023 [id number] shortness of ludwin ath: care instructions Not [...] 96 Not Available [address] [place] [address], [place], [address], 09/26/2022 14:28:53 09/26/19 23 09/26/2022 peak flow* Oxygen Saturation 98 Not Available [id number] [facility], [place], [address], 09/26/2022 14:28:53 09/29/19 23 09/29/2022 XR, chest , 2 view No observ ation record ed. [email or web address] [facility] [address] [place], [address], 10/02/2022 07:48:12 Result Notes None recorded. Problems Name Problem SNOMED Code Status Onset Date Resolution Date Notes Provider Name and Address Organization Details Recorded Time Asthma 989600119 Active 2022 Mitra rock PA - [facility] 3 12:03:57 Hypertensive disorder 33401587 Active 2022 SOBEIDA rock PA - [facility] 3 13:58:54 Problem Notes None recorded. Procedures Surgical History Date Name Laterality Status Provider Name and Address Organization Details Recorded Time Nebulizer Treatment completed SOBEIDA AGUILAR PA - [facility] 09/26/2022 14:56:47 Imaging Results Imaging Date Name Status LastModified by Organiz ation Details LastModified Time 09/29/2022 XR, chest, 2 view completed [email or web address] [facility] [address] [place], [address], 10/02/2022 07:48:12 Procedure Notes None recorded. Medical [...] e) 50 mcg/actuati on nasal spray,suspe nsion Colcord 1 spray every day by intranasa l [...] Updated DateTime 3 160.02 cm 41.5 kg/m2 130282. 61 g 10 18 /min 97 % [...] Updated DateTime 3 160.02 cm 41.5 kg/m2 872142. 61 g 24 /min 10 96 % [...] Updated DateTime 3 160.02 cm 41.1 kg/m2 804166. 43 g 97 [degF] 99 % 99 [...] Updated DateTime 3 160.02 cm 41.1 kg/m2 040057. 43 g 10 97.7 [degF] 19 /min 95 % 95 % 93 /min 148 mm[Hg] 88 mm[Hg] BARON DEPINTO PA - [facility] 3 08:26:23 Social History Question Answer Notes LastModified by Organizat ion Details LastModified Time Tobacco Smoking Status Never Smoker SOBEIDA AGUILAR null, PA - [facility] 09/26/2022 13:59:29 What Is Your Level Of Alcohol Consumption? None [email or web address] Information not available 09/26/2022 Have You Had Direct Contact, Or Contact During Intimacy, With Monkeypox Rash, Scabs, Or Body Fluids From A Person With Monkeypox? No [email or web address] Information not available 02/08/2023 Do You Use Any Illicit Or Recreational Drugs? No [email or web address] Information not available 09/26/2022 Have You Recently Traveled Abroad? No [email or web address] Information not available 09/26/2022 Do You Or Have You Ever Used Any Other Forms Of Tobacco Or Nicotine? No [email or web address] Information not available 09/26/2022 Sex: Unknown Functional Status None recorded. Mental Status None recorded. Family History Relationship Description Onset Age of this Age Resolved Age Notes LastModified by Organization Details LastModified Time Unspecified Relation Hypertensive disorder Not available 2022 13:59:14 Medical History No [...] SNOMED-CT Code Diagnosis ICD10 Code Diagnosis Note [id number] [address] [address] [address] 08/20/2019 13:54:04 08/20/2019 14:52:[id number] [address] 05/26/2021 08:42:12 05/26/2021 11:42:02 [id number] [address] [place] [address] 08/02/2019 14:28:24 08/02/2019 16:24:19 [id number] [address] [place] [address] 06/09/2020 15:41:35 06/09/2020 17:32:59 [id number] [address] [place] [address] 01/19/2022 08:41:25 01/19/2022 11:44:37 [id number] [address] [place] [address] 12/30/2021 08:54:51 12/30/2021 11:55:00 [id number] [address] [place] [address] 01/25/2017 13:38:48 01/25/2017 14:37:23 [id number] [address] [place] [address] 11/13/2020 10:11:23 11/13/2020 10:55:17 [id number] [address] [place] [address] 05/23/2022 08:48:31 05/23/2022 13:11:14 [id number] [address] [facility] [place] [address] 12/05/2018 09:16:17 12/05/2018 09:55:52 [id number] [address] [facility] [place] [address] 02/06/2021 10:00:11 02/06/2021 10:41:14 [id number] YANG SAAB [address] [facility] [place] [address] 09/06/2022 09:38:15 10/01/2022 23:07:23 Left without being seen [id number] 9102 Z53.21 [id number] Sarkis Cardenas [place] [address] [address] 09/26/2022 12:28:04 09/26/2022 15:02:41 Acute bronchitis 34138227 J20.9 [id number] YANG SAAB [address] [address] 09/29/2022 08:12:12 09/29/2022 10:27:56 Cough 74902631 R05.9 Chest x-ray was clear no evidence of pneumonia - you do need to take deep breaths. Acute sinusitis 08587068 J01.90 Exacerbati on of intermittent asthma 958085929 J45.21 [id number] Augustine Rodriguez MD [address] [address] 02/07/2023 08:28:13 02/07/2023 09:50:09 Upper respiratory infection 82679185 J06.9 Please follow up with PCP or Urgent Care in 3-5 days if no improvemen t or if any new symptoms occur that are concerning .Call 911 or go to nearest ER if you develop any shortness of breath, chest pain, severe headache, dizziness, or other concerning symptoms Acute righ t otitis media 712468810 H66.91 Asthma 274194413 J45.90 9 REfilling asthma meds. Currently stable [id number] Sarkis Cardenas NP [address] [address] 02/08/2023 11:51:37 02/08/2023 12:49:43 Acute bronchitis 81121780 J20.9 continue medication as prescribed yesterday. Health Concerns Section Related Observation LastModified by Organization Detai ls LastModified Time None Recorded Concern Status LastModified by Organization Details LastModified Time None Recorded Advance Directives Directive None Recorded Payers Encounter Date Sequence Insurance Name Policy Number Policy [place] Covered Member ID [place] Member ID Guarantor Name 09/06/2022 1 [place] [employer] Crystal Liliam [id number] Crystal Liliam 09/06/2022 2 [place] Crystal Liliam [id number] Crystal Liliam 09/26/2022 1 [place] [employer] Crystal Liliam [id number] Crystal Liliam 09/26/2022 2 [place] Crystal Liliam [id number] Crystal Liliam 09/29/2022 1 [place] [employer] Crystal Liliam [id number] Crystal Liliam 09/29/2022 2 [place] Crystal Liliam [id number] Crystal Liliam 02/07/2023 1 [place] [employer] Crystal Liliam [id number] Crystal Liliam 02/07/2023 2 [place] Crystal Liliam [id number] Crystal Liliam 02/08/2023 1 [place] [employer] Crystal Liliam [id number] Crystal Liliam 02/08/2023 2 [place] Crystal Liliam [id number] Crystal Liliam Notes Date Note Type Note Provider Name and Address Organization Details Recorded Time 3 text/html CongestionReported bypatient.Notes:chest congestion, coughing a lot, nasal congestion with post nasal drip x 4 days. denies any fever or fever with chills. no SOB or respiratory distress. Sarkis Cardenas NP [address] [place], [address], [place] - [facility] 09/26/2022 15:04:07 3 [...] recent COVID or influenza. YANG SAAB [address] [facility] [place], [address], [facility] 09/29/2022 10:26:57 3 text/html Sinus ComplaintsReported bypatient.Location:faci al pain;sinus pressure Associated Symptoms:no difficulty breathing; no nausea or vomiting; no sore throat; no dizziness;nasal discharge from nostrils;Post nasal drip;ear fullness;cough Augustine Rodriguez MD [address] [facility] [place], [address], [facility] 02/13/2023 08:46:31 3 text/html Shortness of BreathReported bypatient.source of patient informationsource of patient information Timingnew onset; 4 days;worse at night;during exertion;with environmental exposure Additional symptomsno anxiety; no nausea; no fatigue;cough;pain with breathing Sarkis Cardenas NP [address] [facility] [place], [address], [facility] 02/08/2023 12:48:35 OBGyn Episode No OBEpisode recorded.
== END 2024-12-05 15:05 | disposition home or self-care (01) ==
LOC: HO.HMCH 13:21
PROVIDERS: PCP Physician Assistant; Visit Provider Internal Medicine
DX: M79.89 Other specified soft tissue disorders (principal)

== ENCOUNTER → 2024-12-05 13:20 | Outpatient (BNVA) | payer MEDICARE, MEDICAID, SELFPAY | PROVIDERS: PCP Physician Assistant; Visit Provider Internal Medicine | DX: M79.89 Other specified soft tissue disorders (principal) | CPT/HCPCS: 96127; 99212 ==

== ENCOUNTER 2024-12-06 14:02 | Outpatient (REF) | payer MEDICARE, MEDICAID, SELFPAY ==
--- NOTE | ~2024-12-06 | XR_ITS ---
EXAMINATION: XR FOOT 3 OR MORE VIEWS LEFT HISTORY: M79.89 - Other specified soft tissue disorders COMPARISON: Comparison is made with the prior examination dated 06/12/2018. FINDINGS: Three views of the left foot are submitted. Osseous mineralization is normal. There is no fracture or dislocation. The joint spaces are preserved. The soft tissues are unremarkable. XR/XR foot LT min 3V IMPRESSION: Unremarkable examination of the left foot. Electronically signed by: Gasper Apple MD 12/06/2024 02:49 PM EDT
--- OUTSIDE RECORDS SUMMARY | 2024-12-06 14:26 | XMS_ITS | Clinical Summary ---
Author Organization [facility] Address [address] [place] [address] Phone Care Team Providers Care Cumulative Effects Analyst Name Role Phone Daniel Quezada Primary Care Provider [phone] Allergies No known active allergies Medications HYDROXYZINE [...] TONSILLECTOMY ADENOIDECTOMY, BILATERAL MYRINGOTOMY AND TUBES PROCEDURE: [place] TONSILLECTOMY & ADENOIDECTOMY <AGE 12 BREAST REDUCTION PROCEDURE: [place] BREAST REDUCTION TUBAL LIGATION PROCEDURE: HISTORICAL TUBAL LIGATION TUBAL LIGATION PROCEDURE: HISTORICAL TUBAL LIGATION Medical History Medical History Date Comments Essential (primary) hypertension DX:Essential (primary) hypertension Insomnia DX:Insomnia Left elbow fracture DX:Left elbo w fracture Obesity DX:Obesity Substance abuse ([facility] V24, [facility] V28) DX:Substance abuse ([facility]) Hypokalemia Stroke ([facility] V24, [facility] V28) Social History Tobacco Use Types Packs/Day [...] mmol/L LAB CHEMISTRY METHOD 09/04/2024 9:41 PM [facility] Potassium 3.4(L) 3.5 - 5.5 mmol/L LAB CHEMISTRY METHOD 09/04/2024 9:41 PM [facility] Chloride 106 96 - 110 mmol/L LAB CHEMISTRY METHOD 09/04/2024 9:41 PM [facility] CO2 20(L) 21 - 32 mmol/L LAB CHEMISTRY METHOD 09/04/2024 9:41 PM [facility] Anion Gap 10 3 - 11 LAB CHEMISTRY METHOD 09/04/2024 9:41 PM [facility] Glucose 105(H) 70 - 100 mg/dL LAB CHEMISTRY METHOD 09/04/2024 9:41 PM [facility] BUN 15 5 - 25 mg/dL LAB CHEMISTRY METHOD 09/04/2024 9:41 PM [facility] Creatinine 0.74 0.50 - 1.10 mg/dL LAB CHEMISTRY METHOD 09/04/2024 9:41 PM [facility] eGFR 108 >=60 mL/min/1. 73m2 LAB CHEMISTRY METHOD 09/04/2024 9:41 PM [facility] Comment:Calculation based on the??Chronic Kidney Disease Epidemiology Collaboration (CKD-EPI) equation refit??without adjustment for race. BUN/Creatinine Ratio 20.3 LAB CHEMISTRY METHOD 09/04/2024 9:41 PM [facility] Calcium 9.2 8.5 - 10.5 mg/dL LAB CHEMISTRY METHOD 09/04/2024 9:41 PM [facility] AST (SGOT) 16 10 - 42 unit/L LAB CHEMISTRY METHOD 09/04/2024 9:41 PM [facility] ALT (SGPT) 20 10 [...] 9:41 PM EST [facility] Total Bilirubin 0.3 0.0 - 1.4 mg/dL LAB CHEMISTRY METHOD 09/04/2024 9:41 PM EST [facility] Blood Venous blood specimen / Unknown Venipuncture / Unknown 09/04/2024 8:31 PM EST 09/04/2024 9:10 PM EST us [facility] B [facility] BLOOD ORDERABLES Final Resu lt [facility] [address] [place] [address], [place] [phone] from Last 3 Months or Most Recently Relevant to Health Maintenance Insurance * Guarantor: Quita Ricketts Account Type Relation to Patient Date of Phone Billing Address Personal/Family Self [address] [place] [address] MEDICARE [place]ICAID - [place] Care Teams Cumulative Effects Analyst Relationship Specialty Start Date End Date Daniel Quezada PA PCP - General Internal Medicine 04/14/22
== END 2024-12-06 14:03 | disposition home or self-care (01) ==
LOC: HO.XRAY 14:02
PROVIDERS: PCP Physician Assistant; Visit Provider Internal Medicine
DX: R60.0 Localized edema (principal)
CPT/HCPCS: 73630

== ENCOUNTER → 2024-12-06 14:06 | Outpatient (BNV) | payer MEDICARE, MEDICAID, SELFPAY | PROVIDERS: PCP Physician Assistant; Visit Provider Radiology Diagnostic Radiology | DX: M79.89 Other specified soft tissue disorders (principal) | CPT/HCPCS: 73630 ==

== ENCOUNTER 2024-12-24 11:08 | Outpatient (AMB) | payer MEDICARE, MEDICAID, SELFPAY ==
--- NOTE | 2024-12-24 11:10 | A.OFFVIS_ITS ---
Vital Signs 12/24/24 11:11 Height 5 ft 3 in Weight 202 lb BMI 35.8 BP 120/80 Intake Visit Reasons: Annual ok per jaquelin Intake Note: 11/30 hgsil 01/30 colpo lgsil/hgsil 11/04 hgsil 12/05 emb yoshi 2 09/14 ascus 04/18 ascus Patient Care Representative: Patient Care Representative Present (Jaquelin) Allergies No Known Allergies [No Known Allergies*] Allergy (Verified 12/24/24 11:11) Is last menstrual period known: Yes Last menstrual period: 12/10/24 HPI Comments Details: She is a premenopausal woman presenting for annual examination. Doing well with no marketing project manager concerns. Regular monthly menses. Currently is sexually active. She denies vaginal itching and irritation. STI screening offered; she accepts. She tries to eat healthy and stays active with exercise. Denies family history of ovarian or colon cancer. FH breast cancer. Last pap smear 2021, negative. History of HGSIL. [facility] Medical History Exposure to STD Hepatitis C CVA (cerebral vascular accident) Substance abuse HTN (hypertension) Left elbow fracture Obesity (BMI 30-39.9) Insomnia Surgical History H/O gastric sleeve S/P excision of neuroma History of bilateral breast reduction surgery History of tonsillectomy History of D&C History of tubal ligation Family History Father Asthma Mother Hypertension Maternal Grandmother Hypertension Asthma Stroke Maternal Grandfather Diabetes Hypertension Stroke Sister In good health Sister Asthma Son In good health Daughter In good health Maternal Aunt Breast cancer Other Mental health disorder Social History Household Members: Children Housing: Apartment Do you presently have visiting nurse or other home services: No Alcohol intake: former Year quit: 2022 Patient Tobacco Use Status: Former Tobacco user e-Cigarette/Vaping Use: Never Used Second Hand Smoke Exposure: Yes service: No Current occupational status: unemployed Current occupation: [employer] Cognitive needs: No Hearing needs: No Vision needs: No Female Reproductive History Menstrual Date of last menstrual period: 12/10/24 control method: permanent sterilization Permanent Sterilization: BTL Total pregnancies: 4 Full term: 2 Number of Living Children: 2 Date of last pap smear: 04/13/22 ([place]) History of abnormal pap smear: Yes (see intake note) Review of Systems Const All systems reviewed & are unremarkable except as noted in HPI and below Reports as per HPI Eyes Reports no additional complaints ENT Reports no additional complaints Card Reports no additional complaints Resp Reports no additional complaints GI Reports as per HPI and Reports no additional complaints Reports as per HPI Musc Reports no additional complaints Skin/Breast Reports as per HPI Neuro Reports no additional complaints Psych Reports no additional complaints Endo Reports no additional complaints Michael/Lymph Reports no additional complaints Aller/Immun Reports no additional complaints Physical Exam Vital Signs: Last Vital Signs BP 120/80 12/24/24 11:11 BMI result Body Mass Index 35.8 Const General: cooperative, healthy appearing, no acute distress, well developed and alert Orientation/consciousness: patient oriented x3 HEENT Head: Yes normal to inspection Eyes General: appearance normal, both eyes and all related structures Neck Neck: Yes normal visual inspection Thyroid: Thyroid normal Chest Chest palpation & inspection: normal inspection of the chest and other (no puckering, dimpling, peau de orange, retraction, discharge, masses) Breast/axilla inspection: normal inspection of the breasts Breast/axilla palpation: normal palpation of the breasts Resp Effort & Inspection: normal respiratory effort GI Inspection: Yes normal to inspection Palpation (GI): Soft to palpation Rectal Exam - Female: deferred General: Yes bladder normal to palpation External Female Exam: normal external appearance and normal appearance of the urethra Speculum Exam - Vagina: normal appearance of the vagina, normal palpation and normal vaginal discharge Speculum Exam - Cervix: normal appearance of the cervix and normal palpation Bimanual exam- vagina & uterus: normal bimanual exam, normal palpation, uterine size normal, bladder normal to palpation, normal palpation and non-tender Bimanual Exam- Adnexa, other: no masses Skin General skin exam: no rashes or lesions noted Rashes: no rashes Neuro General: patient oriented x3 Cognition (Neuro): normal cognition Extrem General: Yes normal to inspection Psych Attitude: cooperative Thought process: Normal thought process present Assessment & Plan Assessment & Plan (1) History of abnormal cervical Pap smear: Code(s): Z87.42 - Personal history of other diseases of the female genital tract Category: Medical Plan: Pap obtained await results for plan of care. (2) Encounter for well woman exam with routine gynecological exam: Code(s): Z01.419 - Encounter for gynecological examination (general) (routine) without abnormal findings Category: Medical Plan Discussed: Current recommendations for pap smears per ASCCP guidelines. Breast awareness and periodic breast exams. Maintain a healthy lifestyle including a well balanced diet and routine exercise. Use condoms for STI and prevention. Follow up pending lab work. Patient verbalizes understanding and agrees to the plan of care. She was given opportunity to ask questions and all questions were answered to the best of my ability. RTO in one year for annual marketing project manager examination. This note is constructed using voice recognition software. While every effort has been made to ensure accuracy, distribution tech errors may have been included. Orders: Orders HIV Ab/Ag Today Z20.2 - Contact with and (suspected) exposure to infections with a predominantly sexual mode of transmission Hepatitis B Core Antibody Today Z20.2 - Contact with and (suspected) exposure to infections with a predominantly sexual mode of transmission Syphilis Screen Today Z20.2 - Contact with and (suspected) exposure to infections with a predominantly sexual mode of transmission CT NG by PCR Today Z20.2 - Contact with and (suspected) exposure to infections with a predominantly sexual mode of transmission HPV High risk Today Z01.419 - Encounter for gynecological examination (general) (routine) without abnormal findings, Z87.42 - Personal history of other diseases of the female genital tract Hepatitis C Antibody Reflex Today Z20.2 - Contact with and (suspected) exposure to infections with a predominantly sexual mode of transmission Bacterial Vaginosis Panel Today Z20.2 - Contact with and (suspected) exposure to infections with a predominantly sexual mode of transmission Pap Smear Today Z01.419 - Encounter for gynecological examination (general) (routine) without abnormal findings, Z87.42 - Personal history of other diseases of the female genital tract Coding Level of Care Code Est Pt Prev Care 18-39y(00480) Diagnoses History of abnormal cervical Pap smear Z87.42 Encounter for well woman exam with routine gynecological exam Z.419
[2024-12-24 11:11] VITALS: BP 120/80; BMI 35.8
--- OUTSIDE RECORDS SUMMARY | 2024-12-24 13:00 | XMS_ITS | Data Portability ---
Author Organization YANG Hendrickson s, [address] Address [address] [place] [address] Assessment No assessment recorded. Plan of Treatment [...] 2022 023 [email or web address] [facility], [address] [facility] [place], [address], 10:27:56 Medication Orders prednisone 20 mg tablet 2022 023 [facility]116, [address], [place], [id number], 3 12:48:09 benzonatate 200 mg capsule 2022 023 [facility] #42957, [address], [place], [id number], 3 12:48:09 amoxicillin 875 mg tablet 2022 023 [facility] #09758, [address], [place], [id number], 09:44:26 albuterol sulfate HFA 90 mcg/actuati on aerosol inhaler 2022 023 [facility] #78231, [address], [place], [id number], 3 09:44:25 albuterol sulfate 2.5 mg/3 mL (0.083 %) solution for nebulizatio n 2022 023 [facility] #59690, [address], [place], [id number], 3 10:05:34 Allergy Relief (fluticason e) 50 mcg/actuati on nasal spray,suspe nsion 2022 023 [facility] #69197, [address], [place], [id number], 3 09:44:25 amoxicillin 875 mg-potassiu m clavulanate 125 mg tablet 2022 023 [facility] #12285, [address], [place], [id number], 3 09:00:14 loratadine 10 mg tablet 2022 023 [facility] #66098, [address], [place], [id number], 3 09:00:34 montelukast 10 mg tablet 2022 023 [email or web address] [facility] #80346, [address], [place], [id number], 3 09:00:36 albuterol sulfate 2.5 mg/3 mL (0.083 %) solution for nebulizatio n 2022 023 [email or web address] Not available 3 09:00:16 ipratropium bromide 0.02 % solution for inhalation 2022 023 [email or web address] Not available 3 09:00:31 benzonatate 200 mg capsule [address] [facility]85491, [address], [place], [id number], 3 09:00:18 prednisone 20 mg tablet [address] [facility] #25202, [address], [place], [id number], 3 09:00:41 Allergy Relief (fluticason e) 50 mcg/actuati on nasal spray,suspe nsion [email or web address] [facility] #22564, [address], [place], [id number], 3 09:00:26 albuterol sulfate HFA 90 mcg/actuati on aerosol inhaler [id number] [facility] #27792, [address], [place], [id number], 3 09:00:43 ipratropium 0.5 mg-albutero l 3 mg (2.5 mg base)/3 mL nebulizatio n soln [address] [facility] #90409, [address], [place], [id number], 3 09:00:28 Patient TargetsNo targets recorded. Patient Instructions Encounter Date Encounter Id Patient Instructions Last Modified By Organization Details Last Modified Time 09/26/2022 [id number] shortness of ludwin ath: care instructions Not [...] as expected. Not available 09/26/2022 14:28:43 09/29/2022 [id number] Based on your presentation and exam, you [...] watery post nasal drip. 6. Saline Nasal [place] is recommended. Since an antibiotic was prescribed [...] Coughing up Blood Thank you for using [facility] today, please feel free to contact our office if you have any questions or concerns. Not available 09/29/2022 10:23:19 02/07/2023 [id number] ear infection (o titis media): care instructions [email or web address] Not available 02/07/2023 09:44:30 02/08/2023 [id number] shortness of ludwin ath: care instructions Not [...] Pulse 96 Not Available [address] [place] [address], [place], [address], 09/26/2022 14:28:53 09/26/19 23 09/26/2022 peak flow* Oxygen Saturation 98 Not Available [id number] [facility], [place], [address], 09/26/2022 14:28:53 09/29/19 23 09/29/2022 XR, chest , 2 view No observ ation record ed. [email or web address] [facility] [address] [place], [address], 10/02/2022 07:48:12 Result Notes None recorded. Problems Name Problem SNOMED Code Status Onset Date Resolution Date Notes Provider Name and Address Organization Details Recorded Time Asthma 855657737 Active 2022 Mitra rock PA - [facility] 3 12:03:57 Hypertensive disorder 86349695 Active 2022 SOBEIDA rock PA - [facility] 3 13:58:54 Problem Notes None recorded. Procedures Surgical History Date Name Laterality Status Provider Name and Address Organization Details Recorded Time Nebulizer Treatment completed SOBEIDA AGUILAR PA - [facility] 09/26/2022 14:56:47 Imaging Results Imaging Date Name Status LastModified by Organiz ation Details LastModified Time 09/29/2022 XR, chest, 2 view completed [email or web address] [facility] [address] [place], [address], 10/02/2022 07:48:12 Procedure Notes None recorded. Medical [...] e) 50 mcg/actuati on nasal spray,suspe nsion [place] 1 spray every day by intranasa l [...] Updated DateTime 3 160.02 cm 41.5 kg/m2 637063. 61 g 10 18 /min 97 % [...] Updated DateTime 3 160.02 cm 41.5 kg/m2 084779. 61 g 24 /min 10 96 % [...] Updated DateTime 3 160.02 cm 41.1 kg/m2 115771. 43 g 97 [degF] 99 % 99 [...] Updated DateTime 3 160.02 cm 41.1 kg/m2 005638. 43 g 10 97.7 [degF] 19 /min 95 % 95 % 93 /min 148 mm[Hg] 88 mm[Hg] BARON DEPINTO PA - [facility] 3 08:26:23 Social History Question Answer Notes LastModified by Organizat ion Details LastModified Time Tobacco Smoking Status Never Smoker SOBEIDA AGUILAR null, PA - [facility] 09/26/2022 13:59:29 What Is Your Level Of Alcohol Consumption? None [email or web address] Information not available 09/26/2022 Have You Had Direct Contact, Or Contact During Intimacy, With Monkeypox Rash, Scabs, Or Body Fluids From A Person With Monkeypox? No [email or web address] Information not available 02/08/2023 Do You Use Any Illicit Or Recreational Drugs? No [email or web address] Information not available 09/26/2022 Have You Recently Traveled Abroad? No [email or web address] Information not available 09/26/2022 Do You Or Have You Ever Used Any Other Forms Of Tobacco Or Nicotine? No [email or web address] Information not available 09/26/2022 Sex: Unknown Functional Status None recorded. Mental Status None recorded. Family History Relationship Description Onset Age of this Age Resolved Age Notes LastModified by Organization Details LastModified Time Unspecified Relation Hypertensive disorder [email or web address] Not available 2022 13:59:14 Medical History No [...] SNOMED-CT Code Diagnosis ICD10 Code Diagnosis Note [id number] [address] [address] [address] 08/20/2019 13:54:04 08/20/2019 14:52:[id number] [address] 05/26/2021 08:42:12 05/26/2021 11:42:02 [id number] [address] [place] [address] 08/02/2019 14:28:24 08/02/2019 16:24:19 [id number] [address] [place] [address] 06/09/2020 15:41:35 06/09/2020 17:32:59 [id number] [address] [place] [address] 01/19/2022 08:41:25 01/19/2022 11:44:37 [id number] [address] [place] [address] 12/30/2021 08:54:51 12/30/2021 11:55:00 [id number] [address] [place] [address] 01/25/2017 13:38:48 01/25/2017 14:37:23 [id number] [address] [place] [address] 11/13/2020 10:11:23 11/13/2020 10:55:17 [id number] [address] [place] [address] 05/23/2022 08:48:31 05/23/2022 13:11:14 [id number] [address] [facility] [place] [address] 12/05/2018 09:16:17 12/05/2018 09:55:52 [id number] [address] [facility] [place] [address] 02/06/2021 10:00:11 02/06/2021 10:41:14 [id number] YANG SAAB [address] [facility] [place] [address] 09/06/2022 09:38:15 10/01/2022 23:07:23 Left without being seen [id number] 9102 Z53.21 [id number] Sarkis Cardenas NP [address] [address] 09/26/2022 12:28:04 09/26/2022 15:02:41 Acute bronchitis 84551031 J20.9 [id number] YANG SAAB [address] [address] 09/29/2022 08:12:12 09/29/2022 10:27:56 Cough 28223201 R05.9 Chest x-ray was clear no evidence of pneumonia - you do need to take deep breaths. Acute sinusitis 09053688 J01.90 Exacerbati on of intermittent asthma 005556850 J45.21 [id number] Augustine Rodriguez MD [address] [address] 02/07/2023 08:28:13 02/07/2023 09:50:09 Upper respiratory infection 22586889 J06.9 Please follow up with PCP or Urgent Care in 3-5 days if no improvemen t or if any new symptoms occur that are concerning .Call 911 or go to nearest ER if you develop any shortness of breath, chest pain, severe headache, dizziness, or other concerning symptoms Acute righ t otitis media 275743651 H66.91 Asthma 442845477 J45.90 9 REfilling asthma meds. Currently stable [id number] Sarkis Cardenas NP [address] [address] 02/08/2023 11:51:37 02/08/2023 12:49:43 Acute bronchitis 83939039 J20.9 continue medication as prescribed yesterday. Health Concerns Section Related Observation LastModified by Organization Detai ls LastModified Time None Recorded Concern Status LastModified by Organization Details LastModified Time None Recorded Advance Directives Directive None Recorded Payers Encounter Date Sequence Insurance Name Policy Number Policy [place] Covered Member ID Cart[place]a Member ID Guarantor Name 09/06/2022 1 [place] [employer] Crystal Liliam [id number] Crystal Liliam 09/06/2022 2 [place] Crystal Liliam [id number] Crystal Liliam 09/26/2022 1 [place] [employer] Crystal Liliam [id number] Crystal Liliam 09/26/2022 2 [place] Crystal Liliam [id number] Crystal Liliam 09/29/2022 1 [place] [employer] Crystal Liliam [id number] Crystal Liliam 09/29/2022 2 [place] Crystal Liliam [id number] Crystal Liliam 02/07/2023 1 [place] [employer] Crystal Liliam [id number] Crystal Liliam 02/07/2023 2 [place] Crystal Liliam [id number] Crystal Liliam 02/08/2023 1 [place] [employer] Crystal Liliam [id number] Crystal Liliam 02/08/2023 2 [place] Crystal Liliam [id number] Crystal Liliam Notes Date Note Type Note Provider Name and Address Organization Details Recorded Time 3 text/html CongestionReported bypatient.Notes:chest congestion, coughing a lot, nasal congestion with post nasal drip x 4 days. denies any fever or fever with chills. no SOB or respiratory distress. Sarkis Cardenas NP [address] [place], [address], PA - [facility] 09/26/2022 15:04:07 3 [...] recent COVID or influenza. YANG SAAB [address] [facility] [place], [address], [employer] 09/29/2022 10:26:57 3 text/html Sinus ComplaintsReported bypatient.Location:faci al pain;sinus pressure Associated Symptoms:no difficulty breathing; no nausea or vomiting; no sore throat; no dizziness;nasal discharge from nostrils;Post nasal drip;ear fullness;cough Augustine Rodriguez MD [address] [facility] [place], [address], [facility] 02/13/2023 08:46:31 3 text/html Shortness of BreathReported bypatient.source of patient informationsource of patient information Timingnew onset; 4 days;worse at night;during exertion;with environmental exposure Additional symptomsno anxiety; no nausea; no fatigue;cough;pain with breathing Sarkis Cardenas NP [address] [facility] [place], [address], [facility] 02/08/2023 12:48:35 OBGyn Episode No OBEpisode recorded.
--- OUTSIDE RECORDS SUMMARY | 2024-12-24 13:00 | XMS_ITS | Encounter Summary ---
Author Organization [facility] Address [address] [place] [address] Care Team Providers Care Funeral Greeter Name Role Phone Daniel Quezada Primary Care Provider Encounter Details Date Type Department Care Team (Late Contact Info) Description 12/19/2024 Telephone Bariatric Surgery - [address] [place] [address] La Funes, BARBARA Social History Tobacco Use Types Packs/Day Years Used Date Smoking Tobacco: Former Smokeless Tobacco: Never Comments Unknown Sex and Gender Information Value Date Recorded Sex Assigned at Not on file Legal Sex Female 10:01 AM EST Gender Identity Not on file Sexual Orientation Not on file documented as of this encounter Progress Notes * La Funes RN - 12/19/2024 10:54 AM EDT Received voicemail from patient as she returned my phone call from 12/18/24. We were able to [facility] schedule an office visit with Dr Mullins for 12/30/24 at 2:15 pm. Appointment reminder letter printed and placed in mail today. documented in this encounter Plan of Treatment Upcoming Encounters Date Type Department Care Team (Late Contact Info) Description 12/30/2024 2:15 PM EDT Office Visit Bariatric Surgery - [address] [place] [address] Lani Mullins MD 175 [facility] [address] [place] [address] documented as of this encounter Visit Diagnoses Not on filedocumented in this encounter Care Teams Funeral Greeter Relationship Specialty Start Date End Date Daniel Quezada PA PCP - General Internal Medicine 04/14/22 documented as of this encounter
--- OUTSIDE RECORDS SUMMARY | 2024-12-24 13:00 | XMS_ITS | Clinical Summary ---
Author Organization [facility] Address [address] [place] [address] Phone Care Team Providers Care Residential Advisor Name Role Phone Daniel Quezada Primary Care [...] Encounters Date Type Department Care Team Description 12/19/2024 Telephone Bariatric Surgery [address] [address] La Funes, RN 12/18/2024 Telephone Bariatric Surgery - [address] [address] La Funes, RN from Last 3 Months Surgical History Surgery Date Site/Laterality Comments TONSILLECTOMY ADENOIDECTOMY, BILATERAL MYRINGOTOMY AND TUBES PROCEDURE: ID TONSILLECTOMY & ADENOIDECTOMY <AGE 10 BREAST REDUCTION PROCEDURE: ID BREAST REDUCTION TUBAL LIGATION PROCEDURE: HISTORICAL TUBAL LIGATION TUBAL LIGATION PROCEDURE: HISTORICAL TUBAL LIGATION Medical History Medical History Date Comments Essential (primary) hypertension DX:Essential (primary) hypertension Insomnia DX:Insomnia Left elbow fracture DX:Left elbo w fracture Obesity DX:Obesity Substance abuse ([facility] V[facility], [facility] V28) DX:Substance abuse ([facility]) Hypokalemia Stroke ([facility] V24, [facility] V28) Social History Tobacco Use Types Packs/Day [...] 09/04/2024 8:20 PM EST Plan of Treatment Upcoming Encounters Date Type Department Care Team (Late st Contact Info) Description 12/30/2024 2:15 PM EDT Office Visit Bariatric Surgery - [place] [address] [facility] [address] [place] [phone] Lani Mullins MD 175 [facility] [address] [place] [address] Health Maintenance Due Date Last Done Comments Hepatitis A Vaccines (1 of 2 - Risk 2-dose series) 2007 Hepatitis B Vaccines (1 of 3 - [...] mmol/L LAB CHEMISTRY METHOD 09/04/2024 9:41 PM [facility] Potassium 3.4(L) 3.5 - 5.5 mmol/L LAB CHEMISTRY METHOD 09/04/2024 9:41 PM [facility] Chloride 106 96 - 110 mmol/L LAB CHEMISTRY METHOD 09/04/2024 9:41 PM [facility] CO2 20(L) 21 - 32 mmol/L LAB CHEMISTRY METHOD 09/04/2024 9:41 PM [facility] Anion Gap 10 3 - [...] METHOD 09/04/2024 9:41 PM [facility] Blood Venous blood specimen / Unknown Venipuncture / Unknown 09/04/2024 8:31 PM EST 09/04/2024 9:10 PM EST us Tonyruben Bynum MD LAB BLOOD ORDERABLES Final Resu lt [facility] [address] [place] [address], from Last 3 Months or Most Recently Relevant to Health Maintenance Insurance * Guarantor: Quita Ricketts Account Type Relation to Patient Date of Phone Billing Address Personal/Family Self [address] [place] [address] MEDICARE MEDICAID - [place] Care Teams Residential Advisor Relationship Specialty Start Date End Date Daniel Quezada PA PCP - General Internal Medicine 04/14/22
== END 2024-12-24 11:59 | disposition home or self-care (01) ==
LOC: HO.HWS 11:08
PROVIDERS: PCP Physician Assistant; Visit Provider Advanced Practice Midwife
DX: Z87.42 Personal history of other diseases of the female genital tract (principal); Z01.419 Encounter for gynecological examination (general) (routine) without abnormal findings
CPT/HCPCS: G0101; Q0091

== ENCOUNTER 2024-12-24 11:08 | Outpatient (REF) | payer MEDICARE, MEDICAID, SELFPAY ==
--- OUTSIDE RECORDS SUMMARY | 2024-12-24 13:43 | XMS_ITS | Clinical Summary ---
Author Organization [facility] Address [address] [place] [address] Phone Care Team Providers Care Wire Setter Name Role Phone Daniel Quezada Primary Care [...] Care Team Description 12/19/2024 Telephone Bariatric Surgery [address] [address] La Funes, RN 12/18/2024 Telephone Bariatric Surgery - [address] [address] La Funes, RN from Last 3 Months Surgical History Surgery Date Site/Laterality Comments TONSILLECTOMY ADENOIDECTOMY, BILATERAL MYRINGOTOMY AND TUBES PROCEDURE: MD TONSILLECTOMY & ADENOIDECTOMY <AGE 10 BREAST REDUCTION PROCEDURE: MD BREAST REDUCTION TUBAL LIGATION PROCEDURE: HISTORICAL TUBAL LIGATION TUBAL LIGATION PROCEDURE: HISTORICAL TUBAL LIGATION Medical History Medical History Date Comments Essential (primary) hypertension DX:Essential (primary) hypertension Insomnia DX:Insomnia Left elbow fracture DX:Left elbo w fracture Obesity DX:Obesity Substance abuse ([facility] V24, [facility] V28) DX:Substance abuse ([facility]) Hypokalemia Stroke ([facility] V24, [facility] V28) Social History Tobacco Use Types Packs/Day [...] PM EDT Office Visit Bariatric Surgery - [place] [address] [facility] [address] [place] [phone] Lani Mullins MD 175 [facility] [address] [place] [address] Health Maintenance Due Date Last Done Comments [...] mmol/L LAB CHEMISTRY METHOD 09/04/2024 9:41 PM [facility] Potassium 3.4(L) 3.5 - 5.5 mmol/L LAB CHEMISTRY METHOD 09/04/2024 9:41 PM [facility] Chloride 106 96 - 110 mmol/L LAB CHEMISTRY METHOD 09/04/2024 9:41 PM [facility] CO2 20(L) 21 - 32 mmol/L LAB CHEMISTRY METHOD 09/04/2024 9:41 PM [facility] Anion Gap 10 3 - 11 LAB CHEMISTRY METHOD 09/04/2024 9:41 PM [facility] Glucose 105(H) 70 - 100 mg/dL LAB CHEMISTRY METHOD 09/04/2024 9:41 PM [facility] BUN 15 5 - 25 mg/dL LAB CHEMISTRY METHOD 09/04/2024 9:41 PM [facility] Creatinine 0.74 0.50 - 1.10 mg/dL LAB CHEMISTRY METHOD 09/04/2024 9:41 PM [facility] eGFR 108 >=60 mL/min/1. 73m2 LAB CHEMISTRY METHOD 09/04/2024 9:41 PM [facility] Comment:Calculation based on the??Chronic Kidney Disease Epidemiology Collaboration (CKD-EPI) equation refit??without adjustment for race. BUN/Creatinine Ratio 20.3 LAB CHEMISTRY METHOD 09/04/2024 9:41 PM [facility] Calcium 9.2 8.5 - 10.5 mg/dL LAB CHEMISTRY METHOD 09/04/2024 9:41 PM [facility] AST (SGOT) 16 10 - 42 unit/L LAB CHEMISTRY METHOD 09/04/2024 9:41 PM [facility] ALT (SGPT) 20 10 - 60 unit/L LAB CHEMISTRY METHOD 09/04/2024 9:41 PM [facility] Alkaline Phosphatase 98 42 - 121 unit/L LAB CHEMISTRY METHOD 09/04/2024 9:41 PM [facility] Total Protein 7.6 6.0 - 8.0 g/dL LAB CHEMISTRY METHOD 09/04/2024 9:41 PM [facility] Albumin 3.9 3.2 - 5.0 g/dL LAB CHEMISTRY METHOD 09/04/2024 9:41 PM [facility] Total Bilirubin 0.3 0.0 - 1.4 mg/dL LAB CHEMISTRY METHOD 09/04/2024 9:41 PM [facility] Blood Venous blood specimen / Unknown Venipuncture / Unknown 09/04/2024 8:31 PM EST 09/04/2024 9:10 PM EST us Tonyruben Bynum MD LAB BLOOD ORDERABLES Final Resu lt [facility] [address] [place] [address], from Last 3 Months or Most Recently Relevant to Health Maintenance Insurance * Guarantor: Quita Ricketts Account Type Relation to Patient Date of Phone Billing Address Personal/Family Self [address] [place] [address] MEDICARE [place] - [place] Care Teams Wire Setter Relationship Specialty Start Date End Date Daniel Quezada PA PCP - General Internal Medicine 04/14/22
--- OUTSIDE RECORDS SUMMARY | 2024-12-24 13:43 | XMS_ITS | Encounter Summary ---
Author Organization [facility] Address [address] [place] [address] Care Team Providers Care Information Technology Security Manager Name Role Phone Daniel Quezada Primary Care Provider Encounter Details Date Type Department Care Team (Late Contact Info) Description 12/19/2024 Telephone Bariatric Surgery - [address] [place] [address] La Funes, BARBARA Social History [...] call from 12/18/24. We were able to [facility] schedule an office visit with Dr Mullins for 12/30/24 at 2:15 pm. Appointment reminder letter printed and placed in mail today. documented in this encounter Plan of Treatment Upcoming Encounters Date Type Department Care Team (Late Contact Info) Description 12/30/2024 2:15 PM EDT Office Visit Bariatric Surgery - [address] [place] [address] Lani Mullins MD 175 [facility] [address] [place] [address] documented as of this encounter Visit Diagnoses Not on filedocumented in this encounter Care Teams Information Technology Security Manager Relationship Specialty Start Date End Date Daniel Quezada PA PCP - General Internal Medicine 04/14/22 documented as of this encounter
[2024-12-24 17:47] LABS: Bacterial Vaginosis PCR POSITIVE (Negative); Candida Group PCR NOT DETECTED (Not Detect); Candida glab krusei PCR NOT DETECTED (Not Detect); Trichomonas vaginalis PCR NOT DETECTED (Not Detect)
[2024-12-24 18:11] LABS: CT PCR NOT DETECTED (Not Detect.); NG PCR NOT DETECTED (Not Detect.)
[2024-12-25 08:04] LABS: Syphilis Screen Nonreactive (Nonreactive)
[2024-12-25 08:10] LABS: HIV AB/AG Nonreactive (Nonreactive); HIV Num 1 0.05 S/CO (0.00-0.99); ~HepC Num1 0.16 S/CO (0.00-0.79); ~Hepatitis C Antibody Nonreactive (Nonreactive)
[2024-12-25 09:44] LABS: HBc Num2 0.09 S/CO; HBc Num3 0.11 S/CO; Hepatitis B Core Antibody Nonreactive (Nonreactive)
[2024-12-27 13:43] LABS: HPV Genotype 16 Negative (Negative); HPV Genotype 18 Negative (Negative); HPV High Risk Negative (Negative)
== END 2024-12-24 11:09 | disposition home or self-care (01) ==
LOC: HO.LNP 11:08
PROVIDERS: PCP Physician Assistant; Visit Provider Advanced Practice Midwife
DX: Z01.419 Encounter for gynecological examination (general) (routine) without abnormal findings (principal); Z87.42 Personal history of other diseases of the female genital tract; Z20.2 Contact with and (suspected) exposure to infections with a predominantly sexual mode of transmission
CPT/HCPCS: 81515; 86704; 86780; 86803; 87389; 87491; 87591; 87626; 88175; G0101; Q0091

== ENCOUNTER 2024-12-24 11:33 | Outpatient (REF) | payer MEDICARE, MEDICAID, SELFPAY | END 2024-12-24 11:34 | disposition home or self-care (01) | LOC: HO.LAB 11:33 | PROVIDERS: PCP Physician Assistant; Visit Provider Advanced Practice Midwife | DX: Z13.89 Encounter for screening for other disorder (principal) ==